=== PATIENT | female | born 1950 | race American Indian/Alaskan Native ===

== ENCOUNTER → 2019-11-22 12:07 | Outpatient (BNVA) | payer MEDICARE, MEDICAID, SELFPAY | PROVIDERS: Family Provider Family Medicine; PCP Family Medicine; Referring Provider Family Medicine; Visit Provider Specialist | DX: G62.9 Polyneuropathy, unspecified (principal); F17.210 Nicotine dependence, cigarettes, uncomplicated | CPT/HCPCS: 99204 ==

== ENCOUNTER → 2019-12-14 14:19 | Outpatient (BNVA) | payer MEDICARE, MEDICAID, SELFPAY | PROVIDERS: Family Provider Family Medicine; PCP Family Medicine; Visit Provider Podiatrist Foot & Ankle Surgery | DX: M79.671 Pain in right foot (principal) | CPT/HCPCS: 73630 ==

== ENCOUNTER 2021-02-02 23:13 | Inpatient (IN) | payer MEDICARE, MEDICAID, SELFPAY ==
[2021-02-02 23:16] VITALS: BP 113/79; PULSE 104; RESP 32; TEMP 36.6; O2SAT 85; BMI 39.0
--- NOTE | 2021-02-02 23:29 | ECG_ITS ---
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 Measurements Intervals [place] Rate: 96 P: 60 OK: 175 QRS: 38 QRSD: 106 T: 51 QT: 375 QTc: 475 Interpretive Statements SINUS RHYTHM POSSIBLE LEFT ATRIAL ENLARGEMENT [-0.1mV P WAVE IN V1/V2] INCOMPLETE RIGHT BUNDLE BRANCH BLOCK [90+ ms QRS DURATION, TERMINAL R IN V1/V2, 40+ ms S IN I/aVL/V4/V5/V6] Compared to ECG 06/01/2019 16:51:26 No significant changes Electronically Signed On 02-03-2021 18:58:00 CDT by Ana Jni M.D. [id number]
--- NOTE | 2021-02-02 23:29 | XRR_ITS ---
PROCEDURE INFORMATION: Exam: XR Chest Exam date and time: 02/02/2021 11:29 PM Age: 71 years old Clinical indication: Dyspnea; Additional info: SOB TECHNIQUE: Imaging protocol: XR of the chest. Views: 1 view. COMPARISON: CR Chest 1 [place] [id number] 06/01/2019 5:01 PM FINDINGS: Lungs: Unremarkable. No consolidation. Pleural spaces: Unremarkable. No pleural effusion. No pneumothorax. Heart/Mediastinum: Unremarkable. No cardiomegaly. Bones/joints: Unremarkable. Other findings: Lordotic chest x-ray. XR/XR chest 1V portable [id number] IMPRESSION: No acute findings.
[2021-02-02 23:32] VITALS: PULSE 102; RESP 18; O2SAT 90
[2021-02-02 23:47] LABS: Basophils # 0.1 10^3/uL (0.0-0.1); Basophils % 0.5 %; Eosinophils # 0.2 10^3/uL (0.0-0.8); Eosinophils % 1.7 %; Hematocrit 42.1 % (37.0-47.0); Hemoglobin 12.5 g/dL (11.5-15.3); Lymphocytes # 4.7 10^3/uL (0.8-4.8); Lymphocytes % 41.1 %; Mean Corpuscular HGB Conc 29.7 g/dL (30.0-36.0); Mean Corpuscular Hemoglobin 27.4 pg (28.0-34.0); Mean Corpuscular Volume 92.3 fL (81-99); Mean Platelet Volume 10.7 fL (7.4-10.4); Monocytes # 1.1 10^3/uL (0.2-0.9); Monocytes % 9.9 %; Neutrophils # 5.26 10^3/uL (1.8-7.7); Neutrophils % 46.4 %; Nucleated Red Blood Cells % 0 %; Platelet Count 277 10^3/cmm (130-400); Red Blood Count 4.56 10^6/uL (4.1-5.3); Red Cell Distribution Width 15.6 % (12.1-15.1); White Blood Count 11.3 10^3/uL (4.0-10.0)
[2021-02-02 23:57] LABS: D Dimer 2.86 ug/mIFEU (0-0.59)
[2021-02-02] MEDS: ipratropium-albuterol 3 mL Neb INHALATION (23:59)
[2021-02-03] VITALS (49 sets, daily range): BP systolic 92–186; BP diastolic 55–132; PULSE 86–105; RESP 15–30; TEMP 36.5–37; O2SAT 90–99; BMI 44.6
[2021-02-03 00:09] LABS: ABG PCO2 61.9 mmHg (35-45); ABG PH Result 7.27 (7.35-7.45); Arterial Blood Gas Hematocrit 38.4 % (37-47); Base Excess ABG 0.6 mmol/L (-2.0-2.0); Blood Gas Allen Test Pos; Blood Gas Sample Site Radial, right; Blood Gas Sample Type Arterial; Carboxyhemoglobin 11.4 %THgb (0.4-20.1); HCO3 ABG 28.7 mmol/L (22-26); HGB O2 Sat 79.6 % (95-100); Methemoglobin 0.9 % (0.4-1.5); Oxygen Device NC; PO2 ABG 63.9 mmHg (80.0-100.0); Total Hemoglobin 12.5 g/dL (12-16)
--- NOTE | 2021-02-03 00:09 | CTR_ITS ---
PROCEDURE INFORMATION: Exam: CTA Chest With Contrast Exam date and time: 02/03/2021 12:09 AM Age: 71 years old Clinical indication: Abnormal findings; Abnormal diagnostic tests; Elevated d-dimer; Additional info: Chest pain TECHNIQUE: Imaging protocol: Computed tomographic angiography of the chest with contrast. 3D rendering (Not supervised by radiologist): MIP and/or 3D reconstructed images were created by the technologist. Radiation optimization: All CT scans at this facility use at least one of these dose optimization techniques: automated exposure control; mA and/or kV adjustment per patient size (includes targeted exams where dose is matched to clinical indication); or iterative reconstruction. Contrast material: OMNI 350; Contrast volume: 95 ml; Contrast route: INTRAVENOUS (IV); COMPARISON: CTA Chest-Pulmonary Emb [id number] 11/08/2018 11:25 AM RADIATION DOSE METRICS: Total DLP (mGy-cm): 615.51 FINDINGS: Pulmonary arteries: No pulmonary embolus or aortic dissection. Aorta: Unremarkable. No aortic aneurysm. No aortic dissection. Great vessels off aortic arch: Calcification of the thoracic aorta and/or great vessels consistent with atherosclerotic vessel disease. Lungs: Unremarkable. No consolidation. No masses. Pleural spaces: Unremarkable. No pneumothorax. No pleural effusion. Heart: Unremarkable. No cardiomegaly. No pericardial effusion. Lymph nodes: Unremarkable. No enlarged lymph nodes. Kidneys and ureters: Right renal simple cyst measuring >1.0 cm . Stable 2.5 cm fatty lesion upper pole left kidney most consistent with angiomyolipoma. Bones/joints: Unremarkable. No acute fracture. Soft tissues: Unremarkable. CT/CT angio chest PE protcl [id number] IMPRESSION: No pulmonary embolus or aortic dissection. COMMENTS: Consistent with the [employer]'s Incidental Findings Committee white paper ([place] Radiol 2018): Any incidental renal lesion less than 1 cm or classified as too small to characterize, or any incidental cystic renal lesion characterized as simple-appearing, is likely benign. No follow-up imaging is recommended for these lesions per consensus recommendations based on imaging criteria. Radiation Dose CTDIVOL = (mGy): DLP = 615.51 (mGy-cm)
[2021-02-03 00:10] LABS: NT Pro B Type Natriuretic Pept 33 pg/mL (0-125); Procalcitonin 0.05 ng/mL (0-0.5)
[2021-02-03 00:11] LABS: Lactic Sepsis W/Reflex 2.6 mmol/L (0.5-2.2)
[2021-02-03 00:21] LABS: Alanine Aminotransferase 10 U/L (0-33); Albumin Level 4.3 g/dL (3.5-5.2); Alkaline Phosphatase 171 IU/L (35-105); Aspartate Amino Transferase 15 U/L (0-32); Blood Urea Nitrogen 15 mg/dL (8-23); C Reactive Protein 13.1 mg/L (0.0-4.9); Calcium 8.5 mg/dL (8.5-10.5); Carbon Dioxide 23 mmol/L (22-29); Chloride 103 mmol/L (98-107); Creatinine Clr Calc Pharmacy 62.8696; Globulin 2.4 g/dL (1.3-4.6); Glucose 119 mg/dL (65-115); Osmolality Calculated 294 mOsm/kg (285-295); Sodium 141 mmol/L (136-145); Total Bilirubin 0.2 mg/dL (0.15-1.2); Total Protein 6.7 g/dL (6.6-8.7)
[2021-02-03 00:24] LABS: Anion Gap 18.7 (5-19); Potassium 3.7 mmol/L (3.5-5.1)
[2021-02-03 00:31] LABS: SARS Covid-2 Antigen Negative (Negative)
--- NOTE | 2021-02-03 00:46 | ED_ITS ---
HPI - SOB/Dyspnea General: Chief Complaint: Shortness of Breath/Dyspnea Stated Complaint: SOB Time Seen by Provider: 02/02/21 23:19 History of Present Illness: HPI Narrative: 71-year-old female who smokes 2 packs a day. She has a history of COPD. She presents short of breath and wheezing. Has been increasing over the last couple of days. She denies any fever. She has some sputum production that is white. She states she has received both of her Covid vaccines. She called an ambulance tonight short of breath. MD elicited complaint: shortness of breath Pertinent past history: COPD Onset (ago): day(s) Context: CO exposure (from smoking) Timing: constant and progressively worsening Severity: moderate Exacerbating factors: lying flat, coughing and inspiration Relieving factors: oxygen and bronchodilators Associated symptoms: Reports chest congestion, cough, dizziness and nausea; Deny chest pain, fever(s) or vomiting Treatment prior to arrival: oxygen Review of Systems Const: Denies: fever(s) Card: Denies: chest pain or swelling of feet/ankles Resp: Reports: dyspnea, productive cough, wheezing and chest congestion GI: Reports: nausea; Denies: vomiting Neuro: Reports: dizziness; Denies: confusion PFSH ED PFSH: Family History Other Cancer Social History Smoking and tobacco status: current every day smoker cigarettes Packs smoked per day: 1 Alcohol intake: never Caregiver/support person: No Lives independently: Yes Marital status: Single Physical Exam Const: GENERAL APPEARANCE: ill appearing, frail appearing and diaphoretic ORIENTATION/CONSCIOUSNESS: Yes oriented to person, Yes oriented to place and Yes oriented to time HENMT: COMMON NORMALS: normocephalic, external ears normal and Normal external nose present HEAD & SCALP: normocephalic FACE & SINUS: normal facial exam NOSE: Normal external nose present and No nasal discharge present EXTERNAL EAR: Yes external ears normal Eye: COMMON NORMALS: Equal, round and reactive pupils present, EOMs intact bilaterally and conjunctivae normal EYELID: eyelids normal CONJUNCTIVA: Yes conjunctivae normal PUPIL: Yes Equal, round and reactive pupils present Neck/C-Spine: GENERAL: No tracheal deviation Chest: COMMONS NORMALS: normal inspection of the chest CHEST: No tenderness Resp: COMMON NORMALS: negative for clear to auscultation bilaterally EFFORT & INSPECTION: No tachypneic, No respiratory distress, No retractions, No uses accessory muscles and No tracheal deviation AUSCULTATION: not clear to auscultation bilaterally, rhonchi, wheezes and diminished lung sounds Cardio: COMMON NORMALS: regular rhythm RATE: tachycardic RHYTHM: regular rhythm HEART SOUNDS: no murmurs PERIPHERAL PULSES: radial pulses present GI: INSPECTION: No abdominal distension AUSCULTATION: No Hyperactive bowel sounds present and No Hypoactive bowel sounds present PALPATION: No Guarding due to palpation present (GI) and No Rigid due to palpation PERCUSSION: no dullness to percussion and no tympanic to percussion Neuro: SENSORIUM/ORIENTATION: Yes oriented to person, Yes oriented to place and Yes oriented to time Psych: COMMON NORMALS: mental status grossly normal Skin: COMMON NORMALS: no rashes or lesions noted GENERAL SKIN EXAM: no rashes or lesions noted Course Vital Signs: Vital signs: Vital Signs Temperature 97.9 F 02/02/21 23:16 Pulse Rate 89 02/03/21 02:54 Respiratory Rate 17 02/03/21 02:54 Blood Pressure 124/85 02/03/21 02:54 Pulse Oximetry 98 02/03/21 02:54 MDM - SOB/Dyspnea MDM Narrative: Medical decision making narrative: 71-year-old female presents with shortness of breath, cough, and wheezing. No fever she has had her Covid vaccinations. White count 11.3. Other BMP indices are benign. On blood gas testing, pH 7.27 with a PCO2 of 62. PO2 is 64 on 5 L. The patient usually does not use oxygen. Her D-dimer is 2800. Chest x-ray is free of consolidation. Her rapid COVID-19 test is negative. CTA is pending. She is placed on BiPAP, given a DuoNeb treatment, Solu-Medrol was given in route to the hospital. She became nauseated and vomited 1 time, because of this, BiPAP was removed. She is put on high flow nasal cannula and is improved. Require ICU admission CTA of the chest was performed and is negative. Lab Data: Labs: Lab Results 02/02/21 02/02/21 02/02/21 Range/Units 00:00 23:29 23:29 WBC 11.3 H (4.0-10.0) 10^3/ uL RBC 4.56 (4.1-5.3) 10^6/u L Hgb 12.5 (11.5-15.3) g/dL Hct 42.1 (37.0-47.0) % MCV 92.3 (81-99) fL MCH 27.4 L (28.0-34.0) pg MCHC 29.7 L (30.0-36.0) g/dL RDW 15.6 H (12.1-15.1) % Plt Count 277 (130-400) 10^3/c mm MPV 10.7 H (7.4-10.4) fL Neut % (Auto) 46.4 % Lymph % (Auto) 41.1 % Terry % (Auto) 9.9 % Eos % (Auto) 1.7 % Baso % (Auto) 0.5 % Neut # (Auto) 5.26 (1.8-7.7) 10^3/u L Lymph # (Auto) 4.7 (0.8-4.8) 10^3/u L Terry # (Auto) 1.1 H (0.2-0.9) 10^3/u L Eos # (Auto) 0.2 (0.0-0.8) 10^3/u L Baso # (Auto) 0.1 (0.0-0.1) 10^3/u L Nucleated RBC % (a uto) 0 % Nucleated RBCs # 0.0 /100WBC D-Dimer 2.86 H (0-0.59) ug/mIFE U Specimen Type Arterial Sample Site Radial, right ABG pH 7.27 L (7.35-7.45) ABG pCO2 61.9 H* (35-45) mmHg ABG pO2 63.9 L (80.0-100.0) mmH g ABG HCO3 28.7 H (22-26) mmol/L ABG Base Excess 0.6 (-2.0-2.0) mmol/ L Venkat Test Pos Hematocrit 38.4 (37-47) % Hgb O2 Saturation 79.6 L (95-100) % Carboxyhemoglobin 11.4 (0.4-20.1) %THgb Methemoglobin 0.9 (0.4-1.5) % Total Hemoglobin 12.5 (12-16) g/dL O2 Delivery Device Nc O2 Liters/Min 5.0 % Geology Teacher ID [email or web address] Sodium (136-145) mmol/L Potassium (3.5-5.1) mmol/L Chloride (98-107) mmol/L Carbon Dioxide (22-29) mmol/L Anion Gap (5-19) BUN (8-23) mg/dL Creatinine (0.5-0.9) mg/dL GFR Calculation Glucose (65-115) mg/dL Calculated Osmolal ity (285-295) mOsm/k g Lactic Acid (0.5-2.2) mmol/L Calcium (8.5-10.5) mg/dL Total Bilirubin (0.15-1.2) mg/dL AST (0-32) U/L ALT (0-33) U/L Alkaline Phosphata se (35-105) IU/L C-Reactive Protein (0.0-4.9) mg/L NT-Pro-B Natriuret Pep (0-125) pg/mL Total Protein (6.6-8.7) g/dL Albumin (3.5-5.2) g/dL Globulin (1.3-4.6) g/dL Procalcitonin (0-0.5) ng/mL SARS-CoV-2 Ag (Rap id) (Negative) 02/02/21 02/02/21 02/02/21 Range/Units 23:29 23:29 23:35 WBC (4.0-10.0) 10^3/ uL RBC (4.1-5.3) 10^6/u L Hgb (11.5-15.3) g/dL Hct (37.0-47.0) % MCV (81-99) fL MCH (28.0-34.0) pg MCHC (30.0-36.0) g/dL RDW (12.1-15.1) % Plt Count (130-400) 10^3/c mm MPV (7.4-10.4) fL Neut % (Auto) % Lymph % (Auto) % Terry % (Auto) % Eos % (Auto) % Baso % (Auto) % Neut # (Auto) (1.8-7.7) 10^3/u L Lymph # (Auto) (0.8-4.8) 10^3/u L Terry # (Auto) (0.2-0.9) 10^3/u L Eos # (Auto) (0.0-0.8) 10^3/u L Baso # (Auto) (0.0-0.1) 10^3/u L Nucleated RBC % (a uto) % Nucleated RBCs # /100WBC D-Dimer (0-0.59) ug/mIFE U Specimen Type Sample Site ABG pH (7.35-7.45) ABG pCO2 (35-45) mmHg ABG pO2 (80.0-100.0) mmH g ABG HCO3 (22-26) mmol/L ABG Base Excess (-2.0-2.0) mmol/ L Venkat Test Hematocrit (37-47) % Hgb O2 Saturation (95-100) % Carboxyhemoglobin (0.4-20.1) %THgb Methemoglobin (0.4-1.5) % Total Hemoglobin (12-16) g/dL O2 Delivery Device O2 Liters/Min % Geology Teacher ID Sodium 141 (136-145) mmol/L Potassium 3.7 (3.5-5.1) mmol/L Chloride 103 (98-107) mmol/L Carbon Dioxide 23 (22-29) mmol/L Anion Gap 18.7 (5-19) BUN 15 (8-23) mg/dL Creatinine 0.7 (0.5-0.9) mg/dL GFR Calculation Not Reportable Glucose 119 H (65-115) mg/dL Calculated Osmolal ity 294 (285-295) mOsm/k g Lactic Acid 2.6 H (0.5-2.2) mmol/L Calcium 8.5 (8.5-10.5) mg/dL Total Bilirubin 0.2 (0.15-1.2) mg/dL AST 15 (0-32) U/L ALT 10 (0-33) U/L Alkaline Phosphata se 171 H (35-105) IU/L C-Reactive Protein 13.1 H (0.0-4.9) mg/L NT-Pro-B Natriuret Pep 33 (0-125) pg/mL Total Protein 6.7 (6.6-8.7) g/dL Albumin 4.3 (3.5-5.2) g/dL Globulin 2.4 (1.3-4.6) g/dL Procalcitonin 0.05 (0-0.5) ng/mL SARS-CoV-2 Ag (Rap id) Negative (Negative) Critical Care Time Critical Care Time: Critical Care Time: Yes Total Critical Care Time: 40 Attestation: This case had a high probability of a clinically significant, sudden, or life threatening deterioration of this patient's condition which required my full and direct attention, intervention and personal management. 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
[2021-02-03] MEDS: midazolam 1 mg/mL INJ 2 mL 2 MG IVP (00:56)
[2021-02-03 01:29] LABS: Reflex Lactate Order REFLEX LACTIC ORDERD
[2021-02-03] MEDS: ondansetron 2 mg/ML SDV 2 mL 4 MG IVP (01:34)
[2021-02-03 04:24] LABS: Alcohol Level 169 mg/dL (0-10)
--- NOTE | 2021-02-03 05:30 | PC.NURSE ---
Patient Refused Cardiac Monitoring Patient refused cardiac monitoring, rolling around the bed and waving her hands whenever nurse attempted to attach monitoring leads.
--- NOTE | 2021-02-03 06:12 | PC.NURSE ---
Shift Summary Patient had one episode of nausea and threw up. She is alert and oriented x2. She has an IV to the right AC that is saline locked. Patient is currently rocking back and forth on the bed reporting pain in her legs and shouting ow, ow, ow . Patient belongings include wallet, watch, bracelet, rings, shoes, dentures, and clothes which are at bedside.
--- NOTE | 2021-02-03 06:37 | P.HP_ITS ---
Providers/Chief Complaint Admitting Physician: Shannon Corral MD Primary Care Provider: Rayray Orozco MD Chief Complaint: SOB History of Present Illness Daina Pierre is a 71 year old female with PMH as outlined below, history of chronic smoking, at least 2 packs/day who presented to the emergency room today with chief complaints of worsening shortness of breath over the past 3 to 4 days along with increased sputum production. She was noted to have O2 sat of 84% upon presentation to the ER. ABG consistent with acute hypercapnic respiratory failure. She was placed on BiPAP with some relief, however then had one episode of vomiting and BiPAP needed to be taken off. She is thereafter maintained on high flow nasal cannula. She does have some degree of respiratory distress. CTA of the chest was performed due to elevated D-dimer, negative for any PE or consolidation. She is vaccinated for Covid. Rapid antigen is negative. Denies any chest pain dyspnea or palpitations.EKG with sinus rhythm and incomplete right bundle branch block, unchanged since 2019. Review of Systems General: Reports: ROS unobtainable due to medical condition Medications/Allergies Home Medications Medication Instructions Recorded Confirmed Last Taken Type albuterol sulfate 1.25 mg/3 mL 1.25 mg INHALATION QID PRN 11/22/19 Unknown History solution for nebulization aspirin 81 mg tablet,delayed 81 mg PO DAILY 11/22/19 Unknown History release atorvastatin 10 mg tablet 10 mg PO DAILY 11/22/19 11/22/19 Unknown History coenzyme Q10 10 mg capsule 10 mg PO TID 11/22/19 Unknown History echinacea 400 mg capsule 400 mg PO TID 11/22/19 Unknown History esomeprazole magnesium 40 mg 40 mg PO DAILY 11/22/19 11/22/19 Unknown History capsule,delayed release hydrocodone 5 mg-acetaminophen 325 1 tab PO Q6H PRN 11/22/19 11/22/19 Unknown History mg tablet lysine 500 mg tablet 500 mg PO DAILY 11/22/19 Unknown History magnesium oxide 400 mg PO DAILY 11/22/19 Unknown History metoprolol succinate 25 mg 12.5 mg PO DAILY 11/22/19 11/22/19 Unknown History tablet,extended release 24 hr metoprolol succinate 25 mg 25 mg PO DAILY 11/22/19 11/22/19 Unknown History tablet,extended release 24 hr potassium chloride 10 mEq 10 meq PO DAILY 11/22/19 11/22/19 Unknown History capsule,extended release trazodone 50 mg tablet 100 mg PO DAILY tab 11/22/19 11/22/19 Unknown History vitamin E (dl, acetate) 100 unit 100 unit PO DAILY 11/22/19 Unknown History capsule buspirone 15 mg tablet 15 mg PO TID 12/14/19 12/14/19 Unknown History lisinopril 20 mg tablet 20 mg PO BID tab 12/14/19 12/14/19 Unknown History venlafaxine 150 mg 150 mg PO DAILY 12/14/19 12/14/19 Unknown History capsule,extended release 24 hr Allergies Allergy/AdvReac Type Severity Reaction Status Date / Time Penicillins Allergy Unknown Verified 02/02/21 23:32 procaine [From Novocain] Allergy Unknown Verified 02/02/21 23:32 PFSH Acute PFSH: Medical History (Updated 02/03/21 @ 06:45 by Shannon Corral MD) Abnormal EKG Abnormal laboratory test result Anxiety disorder Cervical cancer Deficient knowledge of open reduction and internal (ORIF) fixation of hip Depression Encounter for diagnostic endoscopy GERD (gastroesophageal reflux disease) HTN (hypertension) Kidney stones Ovarian cancer Surgical History (Updated 02/03/21 @ 06:42 by Shannon Corral MD) H/O lumpectomy H/O right knee surgery History of back surgery History of knee replacement Family History Other Cancer Social History Smoking and tobacco status: current every day smoker cigarettes Packs smoked per day: 1 Alcohol intake: never Caregiver/support person: No Lives independently: Yes Marital status: Single Vitals/I&O/Wt Last Vital Signs Temp 97.9 F 02/02/21 23:16 Pulse 104 H 02/03/21 03:27 Resp 25 H 02/03/21 03:27 BP 127/81 02/03/21 03:27 Pulse Ox 95 02/03/21 03:27 Weight last 48 hrs Weight 103.674 kg Weight 90.718 kg Physical Exam Narrative: EXAM NARRATIVE: General: Currently on Bipap, oriented x 3 HEENT: PERRLA, pupils bilaterally equal and reactive, pallors not present Chest: Normal vesicular breath sounds, no added sounds, equal good air entry bilaterally CVS: S1-S2 regular, no murmurs, no tachycardia, no gallops, no rubs Abdomen: Soft, nontender, no organomegaly, bowel sounds present Neuro: No focal deficits, no facial deformity, AO x3, power 5/5 in all limbs Data : 02/02/21 23:29 02/02/21 23: Attestation for Other Data: I personally reviewed and interpreted the following: Other data: Laboratory Results WBC 11.3 10^3/uL (4.0-10.0) H 02/02/21 23: RBC 4.56 10^6/uL (4.1-5.3) 02/02/21 23: Hgb 12.5 g/dL (11.5-15.3) 02/02/21 23: Hct 42.1 % (37.0-47.0) 02/02/21 23: MCV 92.3 fL (81-99) 02/02/21 23: MCH 27.4 pg (28.0-34.0) L 02/02/21 23: MCHC 29.7 g/dL (30.0-36.0) L 02/02/21 23: RDW 15.6 % (12.1-15.1) H 02/02/21 23: Plt Count 277 10^3/cmm (130-400) 02/02/21 23: MPV 10.7 fL (7.4-10.4) H 02/02/21 23: Neut % (Auto) 46.4 % 02/02/21 23: Lymph % (Auto) 41.1 % 02/02/21 23: [place] % (Auto) 9.9 % 02/02/21 23: Eos % (Auto) 1.7 % 02/02/21 23: Baso % (Auto) 0.5 % 02/02/21: Neut # (Auto) 5.26 10^3/uL (1.8-7.7) 02/02/21 23: Lymph # (Auto) 4.7 10^3/uL (0.8-4.8) 02/02/21: [place] # (Auto) 1.1 10^3/uL (0.2-0.9) H 02/02/21 23:29 Eos # (Auto) 0.2 10^3/uL (0.0-0.8) 02/02/21 23:29 Baso # (Auto) 0.1 10^3/uL (0.0-0.1) 02/02/21 23:29 Nucleated RBC % (auto) 0 % 02/02/21 23: Nucleated RBCs # 0.0 /100WBC 02/02/21 23: D-Dimer 2.86 ug/mIFEU (0-0.59) H 02/02/21 23:29 Specimen Type Arterial 02/02/21 00:00 Sample Site Radial, right 02/02/21 00:00 ABG pH 7.27 (7.35-7.45) L 02/02/21 00:00 ABG pCO2 61.9 mmHg (35-45) H* 02/02/21 00:00 ABG pO2 63.9 mmHg (80.0-100.0) L 02/02/21 00:00 ABG HCO3 28.7 mmol/L (22-26) H 02/02/21 00:00 ABG Base Excess 0.6 mmol/L (-2.0-2.0) 02/02/21 00:00 Venkat Test Pos 02/02/21 00:00 Hematocrit 38.4 % (37-47) 02/02/21 00:00 Hgb O2 Saturation 79.6 % (95-100) L 02/02/21 00:00 Carboxyhemoglobin 11.4 %THgb (0.4-20.1) 02/02/21 00:00 Methemoglobin 0.9 % (0.4-1.5) 02/02/21 00:00 Total Hemoglobin 12.5 g/dL (12-16) 02/02/21 00:00 O2 Delivery Device Nc 02/02/21 00:00 O2 Liters/Min 5.0 % 02/02/21 00:00 Psychological Science Professor ID [email or web address] 02/02/21 00:00 Sodium 141 mmol/L (136-145) 02/02/21 23:29 Potassium 3.7 mmol/L (3.5-5.1) 02/02/21 23: Chloride 103 mmol/L (98-107) 02/02/21 23:29 Carbon Dioxide 23 mmol/L (22-29) 02/02/21 23:29 Anion Gap 18.7 (5-19) 02/02/21 23: BUN 15 mg/dL (8-23) 02/02/21 23:29 Creatinine 0.7 mg/dL (0.5-0.9) 02/02/21 23: GFR Calculation Not Reportable 02/02/21 23: Glucose 119 mg/dL (65-115) H 02/02/21 23:29 Calculated Osmolality 294 mOsm/kg (285-295) 02/02/21 23: Lactic Acid 2.6 mmol/L (0.5-2.2) H 02/02/21: Calcium 8.5 mg/dL (8.5-10.5) 02/02/21: Total Bilirubin 0.2 mg/dL (0.15-1.2) 02/02/21: AST 15 U/L (0-32) 02/02/21: ALT 10 U/L (0-33) 02/02/21 23: Alkaline Phosphatase 171 IU/L (35-105) H 02/02/21 23:29 C-Reactive Protein 13.1 mg/L (0.0-4.9) H 02/02/21 23: NT-Pro-B Natriuret Pep 33 pg/mL (0-125) 02/02/21 23: Total Protein 6.7 g/dL (6.6-8.7) 02/02/21 23: Albumin 4.3 g/dL (3.5-5.2) 02/02/21 23: Globulin 2.4 g/dL (1.3-4.6) 02/02/21 23: Procalcitonin 0.05 ng/mL (0-0.5) 02/02/21 23: Ethyl Alcohol 169 mg/dL (0-10) H 02/03/21 03:29 SARS-CoV-2 Ag (Rapid) Negative (Negative) 02/02/21 23:35 Impressions Chest X-Ray 02/02/21 23:29 IMPRESSION: No acute findings. Chest CTA 02/03/21 00:09 IMPRESSION: No pulmonary embolus or aortic dissection. COMMENTS: Consistent with the [employer]'s Incidental Findings Committee white paper ([place] Radiol 2018): Any incidental renal lesion less than 1 cm or classified as too small to characterize, or any incidental cystic renal lesion characterized as simple-appearing, is likely benign. No follow-up imaging is recommended for these lesions per consensus recommendations based on imaging criteria. Radiation Dose CTDIVOL = (mGy): DLP = 615.51 (mGy-cm) 02/02/21 00:00 ABG pH 7.27 L ABG pCO2 61.9 H* ABG pO2 63.9 L ABG HCO3 28.7 H ABG Base Excess 0.6 A&P Assessment and plan (1) Acute exacerbation of chronic obstructive airways disease: Acute on chronic COPD exacerbation Scheduled nebulization with DuoNeb and budesonide Solu-Medrol 60 mg IV every 12 hours CTA without PE, no consolidation noted Pro-Marcus negative Rapid Covid antigen negative, patient is vaccinated for COVID-19 lower suspicion Repeat ABG with a.m. labs Status: Acute (2) Respiratory failure with hypoxia and hypercapnia: Status: Acute Qualifiers: Chronicity: acute Qualified Code(s): J96.01 - Acute respiratory failure with hypoxia; J96.02 - Acute respiratory failure with hypercapnia (3) Alcohol intoxication: On a CIWA protocol, Ativan per CIWA protocol Monitor for signs of alcohol withdrawal Status: Acute Qualifiers: Complication of substance-induced condition: uncomplicated Qualified Code(s): F10.920 - Alcohol use, unspecified with intoxication, uncomplicated Additional A&P Information Continue home medications including aspirin, statin, metoprolol Dvt ppx: lovenox full code Attestations Medical Necessity Statement*: > 2midnight admission anticipated for above defined care Coding Level of Care Code 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
[2021-02-03 06:56] LABS: ABG PH Result 7.22 (7.35-7.45); Arterial Blood Gas Hematocrit 37.9 % (37-47); Base Excess ABG 0.4 mmol/L (-2.0-2.0); Blood Gas Allen Test Pos; Blood Gas Sample Type Arterial; Carboxyhemoglobin 2.9 %THgb (0.4-20.1); HCO3 ABG 29.9 mmol/L (22-26); HGB O2 Sat 93.6 % (95-100); Ionized Calcium Level - ABG 1.2 mmol/L (1.1-1.4); Methemoglobin 0.9 % (0.4-1.5); Oxygen Saturation ABG 97.3; Potassium Level - ABG 4.5 mmol/L (3.5-5.0); Total Hemoglobin 12.4 g/dL (12-16)
[2021-02-03 06:57] LABS: Blood Gas Sample Site Radial, right; Oxygen Device NC
[2021-02-03 07:23] LABS: ABG PCO2 73.1 mmHg (35-45)
[2021-02-03] MEDS: BuSPIRONE 10 mg Tablet 15 MG PO (08:11)
[2021-02-03] MEDS: trazodone 50 mg Tablet 100 MG PO (08:11)
[2021-02-03] MEDS: thiamine 100 mg Tablet PO (08:11)
[2021-02-03] MEDS: aspirin 81 mg EC Tablet PO (08:11)
[2021-02-03] MEDS: folic acid 1 mg Tablet PO (08:11)
[2021-02-03] MEDS: venlafaxine ER (24HR) 150 mg Capsule PO (08:11)
[2021-02-03] MEDS: pantoprazole DR 40 mg Tablet PO (08:11)
[2021-02-03] MEDS: metoprolol succinate ER (24 HR) 25 mg Tablet 12.5 MG PO (08:11)
[2021-02-03] MEDS: enoxaparin 40 mg/0.4 mL Syringe SUBCUT (08:12)
[2021-02-03] MEDS: atorvastatin 40 mg Tablet 20 MG PO (08:14)
[2021-02-03] MEDS: multivitamin therapeutic Tablet 1 TAB PO (08:14)
[2021-02-03] MEDS: lisinopril 20 mg Tablet PO ×2 (08:15→18:46)
[2021-02-03] MEDS: ipratropium-albuterol 3 mL Neb INHALATION ×3 (09:41→20:31)
--- NOTE | 2021-02-03 11:09 | PC.NURSE ---
Pt agreed to go back on bipap. We are needing a blood gas after she has been on bipap for at least one hour. Gas that was drawn this am was on nasal cannula. RT notified.
[2021-02-03 11:58] LABS: ABG PH Result 7.25 (7.35-7.45); Alveolar-Arterial Oxygen Gradi 21.8 mmHg (5-10); Arterial Blood Gas Hematocrit 38.2 % (37-47); Base Excess ABG 2.3 mmol/L (-2.0-2.0); Blood Gas Allen Test Pos; Blood Gas Operator Identificat BD; Blood Gas Sample Site Radial, right; Blood Gas Sample Type Arterial; Carboxyhemoglobin 1.2 %THgb (0.4-20.1); HCO3 ABG 31.3 mmol/L (22-26); HGB O2 Sat 94.4 % (95-100); Ionized Calcium Level - ABG 1.3 mmol/L (1.1-1.4); Methemoglobin 0.7 % (0.4-1.5); Oxygen Saturation ABG 96.3; Potassium Level - ABG 5.3 mmol/L (3.5-5.0); Total Hemoglobin 12.5 g/dL (12-16)
[2021-02-03 11:59] LABS: ABG PCO2 71.2 mmHg (35-45)
--- NOTE | 2021-02-03 12:39 | P.PN_ITS ---
Subjective Subjective: Interval history: Patient was seen in the ICU, she did not use BiPAP overnight, this morning she was very irritable and agitated however able to answer my questions on repetition. Asked respiratory therapist to start BiPAP right away and obtain blood gas an hour which showed slight improvement in PaCO2 pH 7.25 Discussed goals of care with the patient she is full code She stated that she would drink 4 shots of vodka occasionally and never had any issues with alcohol withdrawal, she smokes 1 pack/day She does not use oxygen at home H&P reviewed, CT result reviewed Vitals/I&O/Wt Last Vital Signs Temp 97.9 F 02/02/21 23:16 Pulse 88 02/03/21 11:25 Resp 16 02/03/21 10:00 BP 149/95 02/03/21 10:00 Pulse Ox 98 02/03/21 11:25 Weight last 48 hrs Weight 103.674 kg Weight 90.718 kg Physical Exam Narrative: EXAM NARRATIVE: Elderly female Alcohol intoxicated with somnolent behavior Able to answer my questions on repetition No acute neurological deficits S1, S2 sinus rhythm no murmur appreciated Bilateral diminished breath sounds with mild wheezing Soft abdomen no signs of peritonitis Lower extremity no edema No joint swelling or signs of cellulitis Data : 02/02/21 23:29 02/02/21 23:29 A&P Assessment and plan (1) Alcohol intoxication: Status: Acute Qualifiers: Complication of substance-induced condition: uncomplicated Qualified Code(s): F10.920 - Alcohol use, unspecified with intoxication, uncomplicated (2) Acute exacerbation of chronic obstructive airways disease: Status: Acute (3) Respiratory failure with hypoxia and hypercapnia: Status: Acute Qualifiers: Chronicity: acute Qualified Code(s): J96.01 - Acute respiratory failure with hypoxia; J96.02 - Acute respiratory failure with hypercapnia Additional A&P Information Acute COPD exacerbation Acute hypoxic hypercarbic respiratory failure Etiology seems secondary to active smoking and alcohol intoxication CTA rule out PE no active signs of consolidation Continue DuoNeb every 4 as needed Change her IV steroids to prednisone 40 mg tomorrow Procalcitonin unremarkable, hold off on antibiotics, can use a azithromycin for anti-inflammatory effect Currently requiring BiPAP Noncompliant with BiPAP, will obtain another blood gas at 4:00PM, high risk for intubation Will need home O2 evaluation before discharge Active smoker Patient counseled on smoking cessation, she is willing to quit alcohol and smoking altogether Alcohol intoxication Continue thiamine and folic acid, no active withdrawal symptoms, continue CIWA protocol Neuropathy: Fibromyalgia was being considered however sensory neuropathy findings were seen on nerve conduction studies Goals of care discussed with the patient, full code Consistent carb diet start when she is more alert Bunion of feet with hammertoes, follows up with podiatry, conservative manage ment Attestations Medical Necessity Statement*: Anticipating stay in the hospital cross more than 2 midnights for management of COPD exacerbation Time Spent in Patient Care: (>than 50% of time spent in counselling and/or direct pt care on unit) . 30mins Coding Level of Care Code Acute [employer] Installations [employer]ic for [employer] Diagnoses Alcohol intoxication F10.920 Complication of substance-induced condition: uncomplicated Acute exacerbation of chronic obstructive airways disease J44.1 Respiratory failure with hypoxia and hypercapnia J96.01; J96.02 Chronicity: acute
--- NOTE | 2021-02-03 13:17 | PC.NURSE ---
Blood gases show slight improvement. Remains on bipap and comfortable.
--- NOTE | 2021-02-03 15:01 | PC.NURSE ---
Staff reached pt sister, per her request, to ask her to take care of her dog. Sister was in apartment at the time she was called, piching up the dog.
[2021-02-03 15:02] LABS: ABG PCO2 58.7 mmHg (35-45); ABG PH Result 7.33 (7.35-7.45); Alveolar-Arterial Oxygen Gradi 13.4 mmHg (5-10); Arterial Blood Gas Hematocrit 38.9 % (37-47); Base Excess ABG 3.7 mmol/L (-2.0-2.0); Blood Gas Allen Test Pos; Blood Gas Operator Identificat BD; Blood Gas Sample Site Brachial, right; Blood Gas Sample Type Arterial; Carboxyhemoglobin 1.2 %THgb (0.4-20.1); HCO3 ABG 31.1 mmol/L (22-26); HGB O2 Sat 85.6 % (95-100); Ionized Calcium Level - ABG 1.2 mmol/L (1.1-1.4); Methemoglobin 0.7 % (0.4-1.5); Oxygen Device NC; Oxygen Saturation ABG 87.3; PO2 ABG 54.7 mmHg (80.0-100.0); Potassium Level - ABG 4.8 mmol/L (3.5-5.0); Total Hemoglobin 12.7 g/dL (12-16)
--- NOTE | 2021-02-03 18:46 | PC.RESP ---
SMOKING CESSATION INFORMATION SENT TO PATIENT.
[2021-02-03] MEDS: acetaminophen 325 mg Tablet 650 MG PO (20:58)
[2021-02-04] VITALS (23 sets, daily range): BP systolic 120–179; BP diastolic 72–102; PULSE 84–114; RESP 17–24; TEMP 36.4–37.2; O2SAT 88–95; BMI 38.5
[2021-02-04] MEDS: ipratropium-albuterol 3 mL Neb INHALATION ×2 (02:48→08:00)
[2021-02-04 05:11] LABS: ABG PCO2 47.9 mmHg (35-45); ABG PH Result 7.41 (7.35-7.45); Arterial Blood Gas Hematocrit 38.8 % (37-47); Base Excess ABG 4.3 mmol/L (-2.0-2.0); Blood Gas Allen Test Pos; Blood Gas Operator Identificat JB; Blood Gas Sample Site Radial, right; Blood Gas Sample Type Arterial; HCO3 ABG 29.9 mmol/L (22-26); Oxygen Device NC; PO2 ABG 86.3 mmHg (80.0-100.0)
--- NOTE | 2021-02-04 05:37 | PC.NURSE ---
Shift Summary Patient had an uneventful night. She is alert and oriented x4 and remains on 3 liters oxygen NC. Right AC IV is saline locked at this time. Patient has no wounds or skin issues noted at this time. She had one report of pain throughout the evening, PRN Tylenol was administered. Patient had 300 mls of urine out all evening. Patient is very anxious about when she will be discharged from hospital, she reports an apartment inspection will be performed Wednesday02/05/21. Patient also expressed concerned about her dog. Nurse consoled patient.
[2021-02-04 05:42] LABS: Hematocrit 41.3 % (37.0-47.0); Lymphocytes # 1.1 10^3/uL (0.8-4.8); Mean Corpuscular HGB Conc 29.1 g/dL (30.0-36.0); Monocytes # 0.9 10^3/uL (0.2-0.9); Monocytes % 5.7 %; Neutrophils # 13.29 10^3/uL (1.8-7.7); Neutrophils % 86.7 %; Nucleated Red Blood Cells % 0 %; Platelet Count 253 10^3/cmm (130-400); Red Blood Count 4.44 10^6/uL (4.1-5.3); Red Cell Distribution Width 15.3 % (12.1-15.1); White Blood Count 15.3 10^3/uL (4.0-10.0)
[2021-02-04 06:00] LABS: Magnesium 2.2 mg/dL (1.7-2.3)
[2021-02-04 06:01] LABS: Alanine Aminotransferase 10 U/L (0-33); Albumin Level 3.7 g/dL (3.5-5.2); Alkaline Phosphatase 136 IU/L (35-105); Anion Gap 13.4 (5-19); Aspartate Amino Transferase 13 U/L (0-32); Blood Urea Nitrogen 20 mg/dL (8-23); Calcium 9.1 mg/dL (8.5-10.5); Carbon Dioxide 29 mmol/L (22-29); Chloride 100 mmol/L (98-107); Glucose 156 mg/dL (65-115); Osmolality Calculated 292 mOsm/kg (285-295); Phosphorus 2.5 mg/dL (2.5-4.5); Potassium 4.4 mmol/L (3.5-5.1); Sodium 138 mmol/L (136-145); Total Bilirubin 0.2 mg/dL (0.15-1.2); Total Protein 6.7 g/dL (6.6-8.7)
[2021-02-04] MEDS: enoxaparin 40 mg/0.4 mL Syringe SUBCUT (06:22)
[2021-02-04] MEDS: acetaminophen 325 mg Tablet 650 MG PO (08:40)
[2021-02-04] MEDS: aspirin 81 mg EC Tablet PO (08:41)
[2021-02-04] MEDS: atorvastatin 40 mg Tablet 20 MG PO (08:41)
[2021-02-04] MEDS: thiamine 100 mg Tablet PO (08:41)
[2021-02-04] MEDS: azithromycin 250 mg Tablet PO (08:41)
[2021-02-04] MEDS: pantoprazole DR 40 mg Tablet PO (08:41)
[2021-02-04] MEDS: folic acid 1 mg Tablet PO (08:41)
[2021-02-04] MEDS: venlafaxine ER (24HR) 150 mg Capsule PO (08:41)
[2021-02-04] MEDS: metoprolol succinate ER (24 HR) 25 mg Tablet 12.5 MG PO (08:41)
[2021-02-04] MEDS: lisinopril 20 mg Tablet PO (08:42)
[2021-02-04] MEDS: multivitamin therapeutic Tablet 1 TAB PO (08:42)
--- NOTE | 2021-02-04 09:44 | PC.CHAP ---
Pastoral Care Encounter/Spiritual Assessment Type of Contact [] Declined analysis evaluator visit [] Patient/Family/Request visit [] Outpatient visit [] Follow-up visit [] Physician referral [] Code/Alert [x] Routine visit [] Staff referral [] Actively dying [] Patient sleeping [] Family support [] [] Out of room [] Palliative care [] [] Receiving care in room [] Pre-surgical visit [] Trauma [] Long length of stay [x] ICU visit [] Other: Relational/Emotional Strength [] Patient feels connected with others/family/visitors/staff [] Distress [] Loneliness/isolation [] Abandonment Spirituality of Patient [] Person of Martha [] Attends Mormonism of their Martha [] Believes in Prayer [] Reads Bible or Bahai materials [] There are Spiritual issues to be addressed Aquatics Assistant Department Head Interventions [x] Prayer [] Active listening [] Non-anxious presence [] Spiritual/emotional support [] Crisis/trauma care [] Spiritual counseling [] Bereavement support [] Provided bereavement packet [] Provided Bible/devotional materials [] Provided toy/stuffed animal, coloring book to patient or family member [] Provided Communion [] Anointing/[place] [] Salvation [x] Completed spiritual assessment [] Other: Impact on Illness or Injury [] Angry [] Fearful [] Anxious [] Often cries [] Exhaustion [] Unable to work [] Unable to attend baptism [] Unable to walk/stand [] Unable to read [] Unable to drive [] Unable to eat/drink [] Unable to sleep [] Unable to be with family [] Patient intubated [] Other: Summary Time spent with patient
[2021-02-04] MEDS: LORazepam 0.5 mg Tablet 0.25 MG PO (10:47)
--- NOTE | 2021-02-04 14:26 | PM.DCS ---
Discharge Providers Date of Admission: 02/03/21 04:50 Date of Discharge: February 04, 2021 Attending Provider at Admission: Shannon Corral MD Attending Provider at Discharge: Kiley Borrego MD Primary Care Provider: Rayray Orozco MD Diagnoses at Discharge Discharge Diagnosis (1) Alcohol intoxication: Status: Acute Qualifiers: Complication of substance-induced condition: uncomplicated Qualified Code(s): F10.920 - Alcohol use, unspecified with intoxication, uncomplicated (2) Acute exacerbation of chronic obstructive airways disease: Status: Acute (3) Respiratory failure with hypoxia and hypercapnia: Status: Acute Qualifiers: Chronicity: acute Qualified Code(s): J96.01 - Acute respiratory failure with hypoxia; J96.02 - Acute respiratory failure with hypercapnia Reason for Visit Reason for Visit: SOB Hospital Course Hospital Course History of Present Illness Daina Pierre is a 71 year old female with PMH as outlined below, history of chronic smoking, at least 2 packs/day who presented to the emergency room today with chief complaints of worsening shortness of breath over the past 3 to 4 days along with increased sputum production. She was noted to have O2 sat of 84% upon presentation to the ER. ABG consistent with acute hypercapnic respiratory failure. She was placed on BiPAP with some relief, however then had one episode of vomiting and BiPAP needed to be taken off. She is thereafter maintained on high flow nasal cannula. She does have some degree of respiratory distress. CTA of the chest was performed due to elevated D-dimer, negative for any PE or consolidation. She is vaccinated for Covid. Rapid antigen is negative. Denies any chest pain dyspnea or palpitations.EKG with sinus rhythm and incomplete right bundle branch block, unchanged since 2019 Hospital course Patient symptoms improved with use of BiPAP, she was requiring 2 L of oxygen on the day of discharge, patient was very eager and anxious to go home hence decision was made to discharge her on Medrol pack and thiamine. Patient was counseled on smoking and alcohol cessation. Medications discontinued: Opioids and trazodone to avoid hypercapnic respiratory failure recurrence Medication prescribed: Medrol pack and thiamine Renewed trilogy inhaler There were no signs of pneumonia or PE her COPD exacerbation was secondary to active smoking and alcohol intoxication with concurrent use of opioids. Physical Exam Narrative: EXAM NARRATIVE: Elderly female Able to answer my questions on repetition No acute neurological deficits S1, S2 sinus rhythm no murmur appreciated Bilateral diminished breath sounds with mild wheezing Soft abdomen no signs of peritonitis Lower extremity no edema No joint swelling or signs of cellulit Anxious mood Discharge Data Data Completed and Pending: Completed Studies During Hospitalization Category Date Time Status CT angio chest PE protcl [id number] Urge nt Cat Scan 02/03/21 00:09 Completed XR chest 1V yulisa ble [id number] Urgent Exams 02/02/21 23:29 Completed Pending at discharge Category Date Time Status Arterial Blood Ga s W/O Coox Routine Lab 02/03/21 12:00 Ordered Arterial Blood Ga s W/O Coox Routine Lab 02/03/21 16:00 Ordered Labs from last 24 hours 02/04/21 02/04/21 02/04/21 05:15 05:15 05:15 WBC 15.3 H RBC 4.44 Hgb 12.0 Hct 41.3 MCV 93.0 MCH 27.0 L MCHC 29.1 L RDW 15.3 H Plt Count 253 MPV 11.0 H Neut % (Auto) 86.7 Lymph % (Auto) 7.0 [place] % (Auto) 5.7 Eos % (Auto) 0.0 Baso % (Auto) 0.0 Neut # (Auto) 13.29 H Lymph # (Auto) 1.1 [place] # (Auto) 0.9 Eos # (Auto) 0.0 Baso # (Auto) 0.0 Nucleated RBC % (a uto) 0 Nucleated RBCs # 0.0 Specimen Type Sample Site ABG pH ABG pCO2 ABG pO2 ABG HCO3 ABG O2 Saturation ABG Base Excess Venkat Test A-a O2 Gradient Hematocrit Hgb O2 Saturation Carboxyhemoglobin Methemoglobin Total Hemoglobin Sodium 138 Potassium 4.4 Glucose 156 H Ionized Calcium O2 Delivery Device O2 Liters/Min FiO2 Hydro Generation Supervisor ID Chloride 100 Carbon Dioxide 29 Anion Gap 13.4 BUN 20 Creatinine 0.6 GFR Calculation Not Reportable Calculated Osmolal ity 292 Lactic Acid (Sepsi s) Calcium 9.1 Phosphorus 2.5 Magnesium 2.2 Total Bilirubin 0.2 AST 13 ALT 10 Alkaline Phosphata se 136 H Total Protein 6.7 Albumin 3.7 Globulin 3.0 02/04/21 02/03/21 02/03/21 04:58 18:00 14:50 WBC RBC Hgb Hct MCV MCH MCHC RDW Plt Count MPV Neut % (Auto) Lymph % (Auto) [place] % (Auto) Eos % (Auto) Baso % (Auto) Neut # (Auto) Lymph # (Auto) [place] # (Auto) Eos # (Auto) Baso # (Auto) Nucleated RBC % (a uto) Nucleated RBCs # Specimen Type Arterial Arterial Sample Site Radial, right Brachial, right ABG pH 7.41 7.33 L ABG pCO2 47.9 H 58.7 H ABG pO2 86.3 54.7 L ABG HCO3 29.9 H 31.1 H ABG O2 Saturation 87.3 ABG Base Excess 4.3 H 3.7 H Venkat Test Pos Pos A-a O2 Gradient 13.4 H Hematocrit 38.8 38.9 Hgb O2 Saturation 85.6 L Carboxyhemoglobin 1.2 Methemoglobin 0.7 Total Hemoglobin 12.7 Sodium 143.0 Potassium 4.8 Glucose 123.0 H Ionized Calcium 1.2 O2 Delivery Device Nc Nc O2 Liters/Min 3.0 3.0 FiO2 32.0 Hydro Generation Supervisor ID Adam Bd Chloride Carbon Dioxide Anion Gap BUN Creatinine GFR Calculation Calculated Osmolal ity Lactic Acid (Sepsi s) 2.0 Calcium Phosphorus Magnesium Total Bilirubin AST ALT Alkaline Phosphata se Total Protein Albumin Globulin Vitals: Last Vital Signs Temp 98.7 F 02/04/21 11:00 Pulse 104 H 02/04/21 13:07 Resp 18 02/04/21 07:54 BP 145/78 02/04/21 12:00 Pulse Ox 92 02/04/21 12:00 Discharge Plan Discharge Patient Disposition: Home Condition: Stable Prescriptions: New Vitamin B-1 (mononitrate) 100 mg Tablet 100 mg PO DAILY 30 Days Qty: 30 RF: 1 Medrol (Ted) 4 mg tablets,dose pack See Rx Instructions .ROUTE .COMPLEX Qty: 21 RF: 0 Continued albuterol sulfate 1.25 mg/3 mL solution for nebulization 1.25 mg INHALATION QID PRN (Reason: Shortness Of Breath) RF: 0 magnesium oxide 400 mg magnesium tablet 400 mg PO DAILY RF: 0 vitamin E (dl, acetate) 100 unit capsule 100 unit PO DAILY RF: 0 aspirin [Adult Low Dose Aspirin] 81 mg tablet,delayed release (DR/EC) 81 mg PO DAILY RF: 0 coenzyme Q10 10 mg capsule 10 mg PO TID RF: 0 echinacea 400 mg capsule 400 mg PO TID RF: 0 metoprolol succinate 25 mg tablet extended release 24 hr 25 mg PO DAILY RF: 0 atorvastatin 10 mg tablet 10 mg PO DAILY RF: 0 esomeprazole magnesium 40 mg capsule,delayed release(DR/EC) 40 mg PO DAILY RF: 0 potassium chloride 10 mEq capsule, extended release 10 meq PO DAILY RF: 0 lisinopril 20 mg tablet 20 mg PO BID RF: 0 venlafaxine [Effexor XR] 150 mg capsule,extended release 24hr 150 mg PO DAILY RF: 0 buspirone 15 mg tablet 15 mg PO TID RF: 0 Changed Trelegy Ellipta 100-62.5-25 mcg blister with device 1 inh inhalation DAILY 30 Days Qty: 1 RF: 3 Discontinued lysine 500 mg tablet 500 mg PO DAILY RF: 0 trazodone 50 mg tablet 100 mg PO DAILY RF: 0 hydrocodone-acetaminophen 5-325 mg tablet 1 tab PO Q6H PRN (Reason: Pain) RF: 0 triamcinolone acetonide 0.1 % cream See Rx Instructions .ROUTE .COMPLEX RF: 0 ketoconazole 2 % cream See Rx Instructions .ROUTE .COMPLEX RF: 0 Discharge Orders: Discharge Order (Routine); Ordered 02/04/21 Ordered By: Kiley Borrego Other Ambulatory Orders: DME: Oxygen (Order) Location: None Selected Ordered By: Kiley Borrego Referrals: Rayray Orozco MD [Primary Care Provider] - Discharge Diet: Cardiac Discharge Activity: Increase activity as tolerated Patient Instructions: Opioid Safety Activity Restrictions/Additional Instructions: Please finish 7 days of steroids for a COPD exacerbation You will need 2 L of oxygen [id number], quit smoking and alcohol Prescribed vitamin thiamine as well To avoid COPD exacerbation cut back on your opioids and antipsychotic Discharge Attestations Time Spent in Discharge Care*: less than 30 min Quality Metrics Clinical Quality Measures During this hospital stay, did patient experience: None Coding Level of Care Code Acute Chg FW DC note Diagnoses Alcohol intoxication F10.920 Complication of substance-induced condition: uncomplicated Acute exacerbation of chronic obstructive airways disease J44.1 Respiratory failure with hypoxia and hypercapnia J96.01; J96.02 Chronicity: acute
== END 2021-02-04 17:00 | disposition home or self-care (01) | DRG 189 ==
LOC: ER 02-03 03:02 → ICU 02-03 06:24
PROVIDERS: Admitting Provider Student in an Organized Health Care Education/Training Program; Emergency Provider Emergency Medicine; PCP Family Medicine; Visit Provider Internal Medicine
DX: J96.01 Acute respiratory failure with hypoxia (principal); J44.1 Chronic obstructive pulmonary disease with (acute) exacerbation; F17.210 Nicotine dependence, cigarettes, uncomplicated; J96.02 Acute respiratory failure with hypercapnia; I45.10 Unspecified right bundle-branch block; F41.9 Anxiety disorder, unspecified; Z85.41 Personal history of malignant neoplasm of cervix uteri; Z85.43 Personal history of malignant neoplasm of ovary; F32.9 Major depressive disorder, single episode, unspecified; K21.9 Gastro-esophageal reflux disease without esophagitis; I10 Essential (primary) hypertension; Z87.442 Personal history of urinary calculi; Z96.659 Presence of unspecified artificial knee joint; F10.129 Alcohol abuse with intoxication, unspecified; G62.9 Polyneuropathy, unspecified; Z79.51 Long term (current) use of inhaled steroids; Z79.82 Long term (current) use of aspirin
CPT/HCPCS: 36415; 36600; 71045; 71275; 80051; 80053; 80307; 82330; 82803; 82805; 83605; 83735; 83880; 84100; 84145; 85025; 85378; 86140; 87426; 93005; 94640; 94660; 94664; 96372; 96374; 99291; J1650; J2250; J2405; J2930; Q0144; Q9967

== ENCOUNTER 2021-03-05 11:48 | Outpatient (CLI) | payer MEDICARE, MEDICAID, SELFPAY ==
--- NOTE | 2021-03-05 11:54 | MM_ITS ---
WS: [id number] BILATERAL SCREENING DIGITAL MAMMOGRAM WITH CAD HISTORY: SCREENING COMPARISON: 01/13/2017 and 05/23/2015 Bilateral CC and MLO views submitted. Computer aided detection analyzed. Breast composition: There are scattered areas of fibroglandular density. No suspicious masses, microc alcifications or architectural distortion. Stable lymph node posterior upper RIGHT breast. MM/[place] [id number] IMPRESSION: BI-RADS: 2-Benign FOLLOW UP: 1 Year Follow-up
== END 2021-03-05 11:49 | disposition home or self-care (01) ==
LOC: RADSHAW 11:54
PROVIDERS: PCP Family Medicine; Visit Provider Family Medicine
DX: Z12.31 Encounter for screening mammogram for malignant neoplasm of breast (principal)
CPT/HCPCS: 77067

== ENCOUNTER 2021-04-03 10:50 | Outpatient (CLI) | payer MEDICARE, MEDICAID, SELFPAY ==
--- NOTE | 2021-04-03 | CT_ITS ---
WS: [id number] CT ABDOMEN PELVIS TECHNIQUE: Contrast-enhanced CT of the abdomen and pelvis with coronal and sagittal reformatted image s. CLINICAL INFORMATION: TRANSVERSE COLON CANCER COMPARISON: CT 6 14,018 DLP: 1025.[address] scans at [facility] use at least one of these dose optimization techniques: automated e xposure control; mA and/or kV adjustment per patient size (includes targeted exams where dose is matc hed to clinical indication); or iterative reconstruction. FINDINGS: Reported transverse colon neoplasm on colonoscopy. Diffuse fatty infiltration liver. Normal portal vein and splenic vein. Mild hepatomegaly. Normal gall bladder. Normal GE junction. Lung bases are well aerated. Fatty atrophy of the pancreas. Slight nodul arity both adrenal glands unchanged. Normal spleen. Bilateral renal cysts. Normal renal parenchymal e nhancement. No hydronephrosis. Right renal cyst measuring 2.9 cm. Left renal angiomyolipoma measuring 2.3 cm is unchanged. Aortic calcification. Normal caliber abdominal aorta. No abdominal lymphadenopathy. No pelvic or ingu inal lymphadenopathy. Normal sigmoid colon. No evidence of small or large bowel obstruction. Normal appendix in the right l ower quadrant. Fat-containing umbilical hernia. Moderate spondylitic changes lumbar spine with disc space narrowing L2-L5 with vacuum disc phenomenon . Lumbar curve convex right. CT/CT abdomen pelvis w con* [id number] IMPRESSION: 1. No evidence of metastatic disease. 2. No evidence of high-grade small or large bowel obstruction. 3. Mild diffuse fatty infiltration liver. 4. Stable left renal angiomyolipoma measuring 2.3 cm. 5. Stable right upper pole renal cyst measuring 2.9 CCM. 6. Normal caliber abdominal aorta. 7. Tiny fat-containing umbilical hernia.
[2021-04-03 11:19] LABS: Basophils # 0.1 10^3/uL (0.0-0.1); Basophils % 0.7 %; Eosinophils # 0.2 10^3/uL (0.0-0.8); Eosinophils % 2.6 %; Hematocrit 40.1 % (37.0-47.0); Lymphocytes # 1.9 10^3/uL (0.8-4.8); Lymphocytes % 26.6 %; Mean Corpuscular HGB Conc 29.9 g/dL (30.0-36.0); Mean Corpuscular Hemoglobin 26.7 pg (28.0-34.0); Mean Corpuscular Volume 89.1 fl (81-99); Mean Platelet Volume 10.6 fL (7.4-10.4); Monocytes # 0.6 10^3/uL (0.2-0.9); Monocytes % 8.5 %; Neutrophils # 4.32 10^3/uL (1.8-7.7); Neutrophils % 61.3 %; Nucleated Red Blood Cells % 0 %; Platelet Count 265 10^3/cmm (130-400); Red Cell Distribution Width 16.2 % (12.1-15.1)
[2021-04-03 11:44] LABS: Alanine Aminotransferase 10 U/L (0-33); Albumin Level 4.2 g/dL (3.5-5.2); Alkaline Phosphatase 141 IU/L (35-105); Anion Gap 13.7 (5-19); Aspartate Amino Transferase 16 U/L (0-32); Blood Urea Nitrogen 10 mg/dL (8-23); Calcium 8.9 mg/dL (8.5-10.5); Carbon Dioxide 29 mmol/L (22-29); Chloride 100 mmol/L (98-107); Globulin 2.9 g/dL (1.3-4.6); Glucose 97 mg/dL (65-115); Osmolality Calculated 285 mOsm/kg (285-295); Potassium 4.7 mmol/L (3.5-5.1); Sodium 138 mmol/L (136-145); Total Bilirubin 0.2 mg/dL (0.15-1.2); Total Protein 7.1 g/dL (6.6-8.7)
[2021-04-03] MEDS: iohexol 300 mg/mL 50 mL Btl PO (13:17)
[2021-04-03] MEDS: iohexol 300 mg/mL 100 mL Btl IV (13:17)
[2021-04-03 13:37] LABS: Carcinoembryonic Antigen 3.4 ng/mL (0.0-4.7)
== END 2021-04-03 10:51 | disposition home or self-care (01) ==
LOC: RADWPI 10:55
PROVIDERS: PCP Family Medicine; Visit Provider Surgery
DX: C18.4 Malignant neoplasm of transverse colon (principal); K42.9 Umbilical hernia without obstruction or gangrene; N28.1 Cyst of kidney, acquired; D17.71 Benign lipomatous neoplasm of kidney; K76.0 Fatty (change of) liver, not elsewhere classified
CPT/HCPCS: 36415; 74177; 80053; 82378; 85025; Q9967

== ENCOUNTER → 2021-04-28 14:11 | Outpatient (BNVA) | payer MEDICARE, MEDICAID, SELFPAY | PROVIDERS: PCP Family Medicine; Visit Provider Internal Medicine Pulmonary Disease | DX: Z01.812 Encounter for preprocedural laboratory examination (principal); Z20.822 Contact with and (suspected) exposure to COVID-19 | CPT/HCPCS: 87635 ==

== ENCOUNTER 2021-04-29 14:21 | Emergency (ER) | payer MEDICARE, MEDICAID, SELFPAY ==
[2021-04-29 14:38] VITALS: BP 148/84; PULSE 79; RESP 16; TEMP 36.5; O2SAT 94
--- NOTE | 2021-04-29 19:02 | ED_ITS ---
HPI - General Adult General: Chief complaint: General Medical Stated complaint: Swelling on Rt side of face Time Seen by Provider: 04/29/21 18:55 History of Present Illness: HPI narrative: Patient is a 71-year-old female who comes to the ED with right-sided facial swelling. Symptoms started earlier today. She says she was outside smoking a cigarette and when she went inside she noticed her right upper and lower lip started swelling. Swelling has not went do wn. Denies any throat swelling or increased shortness of breath. Patient does have COPD and is on 2 L of oxygen at home but states she does not notice any acute change in her shortness of breath. Denies any known environmental contact, insect sting, recent medication use that could have caused symptoms. Patient does take lisinopril and has been taking it for several years. She has never had this happen before. Denies any other symptoms such as nausea/vomiting or diarrhea. Associated symptoms: Deny chest pain, dyspnea, headache(s), nausea, rash, palpitations or vomiting Review of Systems Const: Denies: fever(s), chills or fatigue Eyes: Denies: change in vision or eye discomfort ENMT: Reports: other (Right side upper and lower lip swelling); Denies: throat pain, odynophagia, nasal discharge or nasal congestion Card: Denies: chest pain, palpitations, edema, swelling of feet/ankles, dyspnea on exertion or orthopnea Resp: Denies: dyspnea, productive cough or non-productive cough GI: Denies: abdominal pain, nausea, vomiting, diarrhea, constipation or hematochezia : Denies: flank pain, dysuria or hematuria Musc: Denies: neck pain, back pain or extremity swelling Skin/Breast: Denies: rash or new lesions Neuro: Denies: headache(s), numbness in extremities or weakness in extremities PFSH ED PFSH: Medical History Abnormal EKG Abnormal laboratory test result Anxiety disorder Cervical cancer Deficient knowledge of open reduction and internal (ORIF) fixation of hip Depression Encounter for diagnostic endoscopy GERD (gastroesophageal reflux disease) HTN (hypertension) Kidney stones Ovarian cancer Psychiatric care Surgical History H/O lumpectomy H/O right knee surgery History of back surgery History of knee replacement Family History Other Cancer Social History Smoking and tobacco status: current every day smoker cigarettes Packs smoked per day: 1 Years cigarettes smoked: 48 Alcohol intake: never Caregiver/support person: No Lives independently: Yes Marital status: Single Physical Exam Const: COMMON NORMALS: no acute distress, patient oriented x3 and alert GENERAL APPEARANCE: cooperative and comfortable HENMT: COMMON NORMALS: normocephalic HEAD & SCALP: normocephalic MOUTH: Normal oral and palatal mucosa present, tongue normal and lip abnormal right swelling (Right side upper and lower lip swelling); without rashes THROAT: posterior oropharynx normal and uvula midline Eye: COMMON NORMALS: Equal, round and reactive pupils present PUPIL: Yes Equal, round and reactive pupils present Neck/C-Spine: COMMON NORMALS: supple GENERAL: Yes normal visual inspection Resp: COMMON NORMALS: normal respiratory effort, No retractions and No use of accessory muscles AUSCULTATION: wheezes expiratory wheezes and throughout Cardio: COMMON NORMALS: regular rate, regular rhythm, S1 normal heart sound present, S2 normal heart sound present, No gallops present (Cardio), No clicks present (Cardio), No murmurs present (Cardio) and Peripheral pulses 2+ throughout RATE: regular rate RHYTHM: regular rhythm HEART SOUNDS: S1 normal heart sound present and S2 normal heart sound present PERIPHERAL PULSES: Peripheral pulses 2+ throughout GI: COMMON NORMALS: Normal to inspection, nondistended, normoactive bowel sounds present, Soft to palpation, non-tender and no masses PALPATION: Yes Soft to palpation : COMMON NORMALS: Yes no CVA tenderness BLADDER/KIDNEY EXAM: Yes no CVA tenderness Back/Pelvis: COMMON NORMALS: no CVA tenderness Extremity: COMMON NORMALS: normal to inspection Neuro: COMMON NORMALS: patient oriented x3 and moves all extremities SENSORIUM/ORIENTATION: Yes alert Skin: GENERAL SKIN EXAM: dry skin Course Vital Signs: Vital signs: Vital Signs Temperature 97.7 F 04/29/21 14:38 Pulse Rate 77 04/29/21 20:56 Respiratory Rate 22 H 04/29/21 20:56 Blood Pressure 139/77 04/29/21 20:56 Pulse Oximetry 97 04/29/21 20:56 MDM - General Adult MDM Narrative: Medical decision making narrative: Patient is a 71-year-old female comes to the ED with right sided lip swelling. Symptoms started today. She denies any throat swelling or trouble breathing. Patient does have a history of COPD and is on 2 L of oxygen continuously at home. Patient does take lisinopril and has been taking it for several years. Denies any insect sting, environmental contact or any acute change in meds to cause symptoms. . Patient appeared in no acute distress or pain. Patient had wheezing throughout lungs. Vitals are stable. Chest x-ray showed no infiltrates. patient was given IV Solu-Medrol, famotidine and Benadryl while here in the ED to help with reaction. Patient was also given DuoNeb breathing treatment up with wheezing. Lip angioedema likely due to lisinopril. Patient was told to stop lisinopril and to contact her PCP tomorrow morning to discuss putting her on a different hypertension medication. Patient diagnosed with angioedema due to CINDY inhibitor. She was discharged home with a prescription for prednisone. Return to ED precautions given. Patient understood and agree with plan. Dr. De Luna evaluated patient as well and agreed with plan. Imaging Data^: CXR: Attestation: I personally reviewed and interpreted this imaging study as follows: Radiologist's impression: [address] [id number] ReportSigned Patient: Daina Pierre #: [id number]: 8Acct#:[id number]/Sex: 71 / FADM Date: 04/29/21Loc: ERRoom/Bed:Attending Dr: Ordering Provider/Ordering MD: Juan Manuel Jon Date of Service: 04/29/21 Procedure(s): XR chest 1V portable [id number] Accession Number(s): [id number] Report Number: [id number] PROCEDURE INFORMATION: Exam: XR Chest Exam date and time: 04/29/2021 7:12 PM Age: 71 years old Clinical indication: Wheezing TECHNIQUE: Imaging protocol: XR of the chest. Views: 1 view. COMPARISON: CR XR chest 1V portable [id number] 02/02/2021 11:35 PM FINDINGS: Lungs: Emphysematous changes. Pleural spaces: Unremarkable. No pleural effusion. No pneumothorax. Heart/Mediastinum: Unremarkable. No cardiomegaly. Bones/joints: Unremarkable. 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 inhibitor (CINDY-I), Wheezing Condition: Stable Prescriptions: New prednisone 20 mg tablet 20 mg PO BID 5 Days Qty: 10 RF: 0 Discontinued lisinopril 20 mg tablet 20 mg PO BID RF: 0 No Action albuterol sulfate 1.25 mg/3 mL solution for nebulization 1.25 mg INHALATION QID PRN (Reason: Shortness Of Breath) RF: 0 magnesium oxide 400 mg magnesium tablet 400 mg PO DAILY RF: 0 aspirin [Adult Low Dose Aspirin] 81 mg tablet,delayed release (DR/EC) 81 mg PO DAILY RF: 0 coenzyme Q10 10 mg capsule 10 mg PO TID RF: 0 atorvastatin 10 mg tablet 10 mg PO DAILY RF: 0 esomeprazole magnesium 40 mg capsule,delayed release(DR/EC) 40 mg PO DAILY RF: 0 potassium chloride 10 mEq capsule, extended release 10 meq PO DAILY RF: 0 echinacea 400 mg capsule 400 mg PO TID PRNRF: 0 vitamin E (dl, acetate) 45 mg (100 unit) capsule 100 unit PO DAILY PRNRF: 0 venlafaxine [Effexor XR] 150 mg capsule,extended release 24hr 150 mg PO DAILY RF: 0 buspirone 15 mg tablet 15 mg PO BID RF: 0 isosorbide mononitrate 30 mg tablet extended release 24 hr 15 mg PO BID Qty: 90 RF: 3 metoprolol succinate 50 mg tablet extended release 24 hr 50 mg PO DAILY Qty: 90 RF: 3 hydrocodone-acetaminophen 5-325 mg tablet PO RF: 0 trazodone 100 mg tablet 100 mg PO .qhs RF: 0 Breztri Aerosphere 160-9-4.8 mcg/actuation HFA aerosol inhaler 2 inh inhalation BID Qty: 10.7 RF: 3 bupropion HCl (smoking deter) 150 mg tablet extended release 12 hr See Rx Instructions PO DAILY Qty: 57 RF: 0 Vitamin B-1 (mononitrate) 100 mg Tablet 100 mg PO DAILY 30 Days Qty: 30 RF: 1 Medrol (Ted) 4 mg tablets,dose pack See Rx Instructions .ROUTE .COMPLEX Qty: 21 RF: 0 Discharge Orders: Discharge ED (Routine); Ordered 04/29/21 Ordered By: Juan Manuel Jon Referrals: Rayray Orozco MD [Primary Care Provider] - Discharge Diet: Regular Discharge Activity: Resume usual activity Patient Instructions: Angioedema (ED) Activity Restrictions/Additional Instructions: Stop taking your lisinopril. Call PCP tomorrow to let them know about your angioedema of the lips likely due to lisinopril. Have PCP put you on a differen t blood pressure medication. Continue taking all other medications as prescribed. Return to the ER or your medical provider if condition worsens. Please read and understand discharge instructions. Thank you for choosing [facility] for your healthcare needs today. Please realize this is an emergency room and that we are providing you with a medical screening exam and this may not be complete and all inclusive of all the testing and or work up that you may need to determine your ailment or severity of your illness. It is very important that you follow up as instructed or that you return to the Emergency Department should you have concerns or if your condition changes or worsens in any way. Coding Level of Care Code ED Gizzard Skin Remover for Osman Hidalgo Exam Comprehensive
--- NOTE | 2021-04-29 19:12 | XRR_ITS ---
PROCEDURE INFORMATION: Exam: XR Chest Exam date and time: 04/29/2021 7:12 PM Age: 71 years old Clinical indication: Wheezing TECHNIQUE: Imaging protocol: XR of the chest. Views: 1 view. COMPARISON: CR XR chest 1V portable [id number] 02/02/2021 11:35 PM FINDINGS: Lungs: Emphysematous changes. Pleural spaces: Unremarkable. No pleural effusion. No pneumothorax. Heart/Mediastinum: Unremarkable. No cardiomegaly. Bones/joints: Unremarkable. XR/XR chest 1V portable [id number] IMPRESSION: Emphysematous changes, negative for infiltrate Radiation Dose CTDIVOL = (mGy): DLP = (mGy-cm)
[2021-04-29] MEDS: diphenhydrAMINE 50 mg/mL SDV 1mL IVP (20:05)
[2021-04-29] MEDS: sodium chloride 0.9% 500 ML IV (20:05)
[2021-04-29] MEDS: famotidine 20 mg/2 mL INJ 40 MG IVP (20:05)
[2021-04-29 20:22] VITALS: RESP 22; O2SAT 95
[2021-04-29] MEDS: ipratropium-albuterol 3 mL Neb 6 ML INHALATION (20:22)
[2021-04-29] MEDS: HYDROcodone-acetaminophen 10-325 mg Tablet 1 TAB PO (20:28)
[2021-04-29 20:35] VITALS: RESP 22; O2SAT 94
[2021-04-29 20:56] VITALS: BP 139/77; PULSE 77; RESP 22; O2SAT 97
== END 2021-04-29 20:50 | disposition home or self-care (01) ==
PROVIDERS: Emergency Provider Physician Assistant; PCP Family Medicine
DX: T78.3XXA Angioneurotic edema, initial encounter (principal); R06.2 Wheezing; Z79.82 Long term (current) use of aspirin; Z85.41 Personal history of malignant neoplasm of cervix uteri; I10 Essential (primary) hypertension; Z85.43 Personal history of malignant neoplasm of ovary; F17.210 Nicotine dependence, cigarettes, uncomplicated
CPT/HCPCS: 71045; 94640; 96361; 96374; 96375; 99284; J1200; J2930; J3490; J7040

== ENCOUNTER 2021-05-01 13:54 | Inpatient (IN) | payer MEDICARE, MEDICAID, SELFPAY ==
[2021-04-30 16:53] VITALS: BMI 39.0
[2021-05-01] VITALS (26 sets, daily range): BP systolic 116–167; BP diastolic 66–111; PULSE 78–97; RESP 16–27; TEMP 36.1–36.9; O2SAT 91–98
[2021-05-01] MEDS: sodium chloride 0.9% 1,000 ML 30 ML IV (11:05)
[2021-05-01] MEDS: ipratropium-albuterol 3 mL Neb INHALATION (11:25)
--- NOTE | 2021-05-01 11:28 | W.PM.OPSUD ---
Surgery/Procedure H&P Update DATE OF PROCEDURE: May 01, 2021 DATE H&P PERFORMED: 04/08/21 H&P UPDATE INFORMATION: I have examined patient prior to procedure and No changes to prior documentation PREOP DIAGNOSIS: Transverse colon cancer. PLANNED PROCEDURE: Operation Date: 05/01/21 11:10 Proposed Procedures p Colonoscopy with inking of the colon at the cancer site(Not Applicable) - Segun Pearson MD s Colon Resection(Not Applicable) - Segun Pearson MD
--- NOTE | 2021-05-01 11:34 | ANES.PREANE2 ---
Pre-Anesthetic Assessment Pre-Anesthetic Assessment: Height/Weight: Height 1.52 m Weight 90.718 kg Temp Pulse Resp BP Pulse Ox 97 F L 78 18 145/98 96 05/01/21 11:00 05/01/21 11:00 05/01/21 11:00 05/01/21 11:00 05/01/21 11:00 Preop Diagnosis: Transverse colon cancer. Proposed Procedure: Operation Date: 05/01/21 11:10 Proposed Procedures p Colonoscopy with inking of the colon at the cancer site(Not Applicable) - Segun Pearson MD s Colon Resection(Not Applicable) - Segun Pearson MD Was Beta Dez taken within 24 hours: N/A Was Clonidine taken within 24 hours: N/A Last intake: Intake Last Liquid Date 05/01/21 Last Liquid Time 21:30 Last Solid Date 04/29/21 Last Solid Time 17:00 Social: Social History: Tobacco Packs per day: 1-1 1/2 ppd since age 23 Exam: Pre-Anes Outpt Exam: alert, oriented x 3 and clear to auscultation bilaterally (not able to auscultate inhale bs; rhonchi and rales in all lung haley; ) Airway: Submandibular: WNL Cervical ROM: WNL MP: 1 Dentition: False Pulmonary: Pulmonary: COPD, Cough, LU, PND and SOB Comments: Home O2 @2LPM per NC; frequent ED visits for COPD exacerbations; hx of resp failure, hypoxia CV/HEM: CV/HEM: HTN : : None reported Hepatic: Hepatic: None reported GI: GI: None reported Metabolic: Metabolic: None reported Musc/skel: Musc/skel: None reported Anesthetic Plan: ASA status: 4 Anesthesia: General (discussed poss prolonged intubation 2/2 hx of respiratory failure) Risk of > 500 ml blood loss (7ml/kg in children): No Meds/Allergies Current Medications: Current Medications Generic Name Dose Route Start Last Admin Trade Name Freq PRN Reason Stop Dose Admin Sodium Chloride 1,000 mls @ 30 ml s/hr 05/01/21 10:30 05/01/21 11:05 Sodium Chloride 0.9% IV 05/02/21 10:29 30 mls/hr .Q24H FILEMON Administration PFSH Anesthesia PFSH: Medical History (Updated 05/01/21 @ 10:14 by Segun Pearson MD) Abnormal EKG Abnormal laboratory test result Anxiety disorder Cervical cancer Deficient knowledge of open reduction and internal (ORIF) fixation of hip Depression Encounter for diagnostic endoscopy GERD (gastroesophageal reflux disease) History of kidney stones HTN (hypertension) Ovarian cancer Psychiatric care Surgical History (Updated 05/01/21 @ 10:14 by Segun Pearson MD) H/O lumpectomy Right H/O right knee surgery History of appendectomy History of cataract surgery Bilateral History of deviated nasal septum Surgically corrected History of total abdominal hysterectomy Kidney stones Removal cystoscopically Family History Other Cancer Social History Smoking and tobacco status: current every day smoker cigarettes Packs smoked per day: 1 Years cigarettes smoked: 48 Alcohol intake: never Caregiver/support person: No Lives independently: Yes Marital status: Single Data Anesthesia Cardiac Studies: Holter Monitor 12/28/19
[2021-05-01] MEDS: metroNIDAZOLE IV 500 MG/100 ML PREMIX 100 MG IV ×2 (11:43→19:54)
[2021-05-01] MEDS: ipratropium 0.5 mg/2.5 mL Neb INHALATION ×4 (13:37→23:39)
[2021-05-01] MEDS: fentaNYL 50 mcg/mL INJ 2mL IVP ×2 (13:45→13:50)
--- NOTE | 2021-05-01 13:59 | PM.OP ---
Operative Report Date of procedure: May 01, 2021 Pre-op Diagnosis: Transverse colon cancer. Post-op diagnosis: same Procedure Done: 1. Colonoscopy with injection of ink at tumor site. 2. Exploratory laparotomy with partial transverse colectomy. Specimens removed/disposition: Partial transverse colectomy, staple line at proximal end. Surgeon: Segun Pearson Anesthesia: General Estimated blood loss (mL): 10 Complications: None. Condition: stable Disposition: PACU Procedure: The patient was brought to the operating room and was placed in a supine position on the operating room table. General endotracheal anesthesia was induced. The patient was frog-legged and colonoscopy was carried out. The patient was found to have a small partially circumferential malignancy very near the splenic flexure by palpation. No other significant abnormalities were found throughout the colon. Inking just distal to the tumor was performed. A Neff catheter was then inserted by nursing. The patient's legs were straightened and the abdomen was then prepped and draped in a sterile fashion. A midline incision was carried out from the mid/high epigastrium down to a level just adjacent to the umbilicus. Cautery was used to divide the subcutaneous tissue and the midline fascia was incised. The peritoneal cavity was entered. The patient's transverse colon was found to be quite redundant and mobile and was able to be brought into the incision to the point where the inked sites distal to the tumor could be identified proximal to the splenic flexure. It became evident that the entire splenic flexure may not have to be mobilized to remove the tumor. Palpation of the liver revealed no obvious masses. A CARLY stapler was used to divide the transverse colon at its mid aspect quite proximal to the tumor. The Voyant energy device was then used to divide the gastrocolic ligament to gain some mobilization of the distal transverse colon. The colon was eventually divided between 2 bowel clamps distal to the tumor that was now palpable given its identification with the surrounding ink spots. The Voyant was used to divide the intervening mesentery. Larger vessels were also ligated with ties of 0 Vicryl. The specimen was removed with the staple line intact proximally but no staple line distally. The abdomen was extensively irrigated with saline. The 2 limbs of bowel were then brought together and a handsewn anastomosis was created with multiple pop offs of 3-0 Vicryl using a triangulating technique. At the closure of the anastomosis the colon anastomosis was palpably patent and the anastomosis was under no tension. All of the bowel was viable. A final round of irrigation was carried out. No other abnormalities were seen or palpated and attention was directed towards closure. The midline fascia was closed using a running looped suture of #1 PDS. The subcutaneous layer was irrigated and then the skin was approximated using skin ashly. A sterile dressing was placed over the wound and the patient was taken to the recovery area in stable condition postoperatively.
[2021-05-01] MEDS: HYDROmorphone 1 mg/mL INJ 1 mL 0.5 MG IVP (14:09)
[2021-05-01] MEDS: levalbuterol 0.63 mg/3 mL Neb INHALATION ×3 (15:39→23:39)
--- NOTE | 2021-05-01 15:41 | PC.NURSE ---
PTS LUNGS SOUNDED HORRIBLE UPON TRANSFER FROM PACU, CONTACTED DR MARTINEZ, HE STATES, THIS IS PTS BASELINE AND HER LUNGS WERE HORRIBLE PRIOR TO SURGERY.
[2021-05-01] MEDS: famotidine 20 mg/2 mL INJ IVP (16:45)
--- NOTE | 2021-05-01 17:15 | P.CONIM_ITS ---
Providers/Reason For Consult Consulting Physician/Specialty*: Bing Copeland MD/Medicine Reason for Consult*: Medical management of comorbid conditions Requesting Physician: Segun Pearson MD Attending Physician: Segun Pearson MD Primary Care Provider: Rayray Orozco MD History of Present Illness History of Present Illness Daina Pierre is a 71 year old female with past medical history of COPD, colorectal cancer, hypertension, hyperlipidemia, fibromyalgia, chronic fatigue syndrome, depression, dementia, anxiety, chronic back pain, GERD, mitral valve prolapse, peripheral vascular disease who presented to the hospital for resect ion of colonic mass that was found on recent colonoscopy. She has been diagnosed with transverse colon cancer during recent colonoscopy. Biopsy of the mass revealed tissue consistent with tubular adenoma but there was also some adenocarcinoma cells present. Patient underwent exploratory laparotomy with partial transverse colectomy. Medicine has been consulted for medical management of her other comorbid conditions. On review of records it seems patient has moderate to severe COPD there are centrilobular emphysema. She is currently on Trelegy 1 puff daily, DuoNeb nebulization twice daily. She has been advised to stop smoking. She does smoke 1 pack/day. She was referred for pulmonary rehab and PFTs were ordered. She saw her senior quality manager on March 31, 2021. Her home medications were albuterol sulfate, aspirin 81, atorvastatin 10, buspirone 15 mg twice daily, omeprazole 40 mg daily, Trelegy, hydrocodone 5, Imdur 15 twice daily, lisinopril 20 twice daily, mag oxide 400 daily, Toprol 50 daily, potassium 10 daily, thiamine 100 daily, trazodone 100 daily, Effexor 150 daily. She is being seen post op today. Patient is not really talking very much. She states she is in a lot of pain. She was unable to give me a review of systems or tell me how she is feeling other than saying that she is in pain. Review of Systems General: Reports: ROS unobtainable due to medical condition Meds/Allergies Home Medications and Allergies Home Medications Medication Instructions Recorded Confirmed Last Taken Type albuterol sulfate 1.25 mg/3 mL 1.25 mg INHALATION QID PRN 11/22/19 05/01/21 1 Day Ago History solution for nebulization ~04/30/21 aspirin 81 mg tablet,delayed 81 mg PO DAILY 11/22/19 05/01/21 05/01/21 06:00 History release atorvastatin 10 mg tablet 10 mg PO DAILY 11/22/19 05/01/21 1 Day Ago History ~04/30/21 coenzyme Q10 10 mg capsule 10 mg PO TID 11/22/19 05/01/21 05/01/21 06:00 History esomeprazole magnesium 40 mg 40 mg PO DAILY 11/22/19 05/01/21 05/01/21 06:00 History capsule,delayed release magnesium oxide 400 mg PO DAILY 11/22/19 05/01/21 05/01/21 06:00 History potassium chloride 10 mEq 10 meq PO DAILY 11/22/19 05/01/21 05/01/21 06:00 History capsule,extended release venlafaxine 150 mg 150 mg PO DAILY 12/14/19 05/01/21 05/01/21 07:00 History capsule,extended release 24 hr isosorbide mononitrate 30 mg 15 mg PO BID #90 tab 02/06/21 05/01/21 1 Day Ago Rx tablet,extended release 24 hr ~04/30/21 metoprolol succinate 50 mg 50 mg PO DAILY #90 tab 02/06/21 05/01/21 05/01/21 06:00 Rx tablet,extended release 24 hr vitamin E (dl, acetate) 45 mg (100 100 unit PO DAILY 02/06/21 05/01/21 05/01/21 07:00 History unit) capsule budesonide 160 mcg-glycopyr 9 2 inh INHALATION BID #10.7 g 03/31/21 05/01/21 1 Day Ago Rx mcg-formot 4.8 mcg/actuation HFA ~04/30/21 inhaler buspirone 15 mg tablet 15 mg PO BID tab 03/31/21 05/01/21 05/01/21 06:00 History hydrocodone 5 mg-acetaminophen 325 ea PO 03/31/21 03/31/21 1 Day Ago History mg tablet ~04/30/21 trazodone 100 mg tablet 100 mg PO .qhs tab 03/31/21 05/01/21 1 Day Ago History ~04/30/21 prednisone 20 mg PO BID 5 Days #10 tab 04/29/21 05/01/21 05/01/21 06:00 Rx Allergies Allergy/AdvReac Type Severity Reaction Status Date / Time Penicillins Allergy Unknown Verified 05/01/21 10:51 procaine [From Novocain] Allergy Unknown Verified 05/01/21 10:51 Current Medications Current Medications Generic Name Dose Route Start Last Admin Trade Name Freq PRN Reason Stop Dose Admin Levalbuterol HCl 0.63 mg 05/01/21 16:00 05/01/21 15:39 Levalbuterol 0.63 Mg/3 Ml Neb INHALATION 0.63 mg Q4H.RESPIRATORY FILEMON Administration PFSH Acute PFSH: Medical History (Updated 05/01/21 @ 17:25 by Bing Copeland MD) Abnormal EKG Abnormal laboratory test result Anxiety disorder Cervical cancer Deficient knowledge of open reduction and internal (ORIF) fixation of hip Depression Encounter for diagnostic endoscopy GERD (gastroesophageal reflux disease) History of kidney stones HTN (hypertension) Ovarian cancer Psychiatric care Surgical History (Updated 05/01/21 @ 10:14 by Segun Pearson MD) H/O lumpectomy Right H/O right knee surgery History of appendectomy History of cataract surgery Bilateral History of deviated nasal septum Surgically corrected History of total abdominal hysterectomy Kidney stones Removal cystoscopically Family History Other Cancer Social History Smoking and tobacco status: current every day smoker cigarettes Packs smoked per day: 1 Years cigarettes smoked: 48 Alcohol intake: never Caregiver/support person: No Lives independently: Yes Marital status: Single Vitals/I&O/Wt Last Vital Signs Temp 97.8 F 05/01/21 15:30 Pulse 92 05/01/21 15:40 Resp 22 H 05/01/21 15:40 BP 135/83 05/01/21 15:30 Pulse Ox 92 05/01/21 15:40 05/01/21 05/01/21 05/01/21 06:59 14:59 22:59 Intake Total 100 / 100 Output Total 110 / 110 Balance -10 / -10 Weight last 48 hrs Weight 90.718 kg Physical Exam Narrative: EXAM NARRATIVE: General: Alert but not able to check for orientation. Patient seen laying in bed. She states she is in a lot of pain and nurses and does not tell them anything else. HEENT: Normocephalic, atraumatic, EOMI, nonlabored breathing. Currently on nasal cannula. Cardio: Regular rate rhythm, normal S1-S2, no murmurs rubs gallops, Respiratory: Good bilateral air entry, no wheezes no rhonchi appreciated GI: Abdomen soft, tender to palpation around incision area, nondistended, no bowel sounds at this time. Behavior: Trying to be cooperative but in a lot of pain at this time. Extremities: Pulses 2+, no edema, no cyanosis Urinary Catheter Management^: Neff: Cath Placed During This Visit: yes Urinary Catheter Date of Insertion: 05/01/21 Urinary Catheter Time of Insertion: 12:23 A&P Assessment and plan (1) COPD (chronic obstructive pulmonary disease): Status: Acute (2) Hypertension: Status: Acute (3) Colon cancer: Status: Acute (4) Smoker: Status: Acute (5) Hyperlipidemia: Status: Acute (6) Dementia: Status: Acute (7) Depression: Status: Acute (8) Anxiety: Status: Acute (9) Chronic back pain: Status: Acute (10) GERD (gastroesophageal reflux disease): Status: Acute (11) Peripheral vascular disease: Status: Acute Additional A&P Information Patient is status post transverse partial colectomy today. Postop day 0. Hypertension: Toprol 50 daily, Aspirin 81. We will continue venlafaxine 150 daily. Continue BuSpar 15 twice daily. COPD: Patient's lungs sound are diminished bilaterally. Of note it seems she was completing a Medrol Dosepak outpatient. Solumedrol 125 x1. We will start patient on Solu-Medrol 40 mg twice daily. Will start azithromycin 500 mg daily for COPD exacerbation. Incentive spirometry and acapella Continue DuoNeb every 4 hours. Smoker: We will offer patient nicotine patch Fluids: D5 1/2 NS E: Replete as needed N: NPO A: Bedrest DVT PPX: Heparin 500 subc Consult Attestations Medical Necessity Statement: Defer to primary team. Time Spent in Patient Care: Greater than 35 minutes Coding Level of Care Code Acute Brake Engineer for g Fwd Diagnoses COPD (chronic obstructive pulmonary disease) J44.9 Hypertension I10 Colon cancer C18.9 Smoker F17.200 Hyperlipidemia E78.5 Dementia F03.90 Depression F32.A Anxiety F41.9 Chronic back pain M54.9; G89.29 GERD (gastroesophageal reflux disease) K21.9 Peripheral vascular disease I73.9
--- NOTE | 2021-05-01 17:43 | XRR_ITS ---
PROCEDURE INFORMATION: Exam: XR Chest Exam date and time: 05/01/2021 5:43 PM Age: 71 years old Clinical indication: Shortness of breath; Additional info: SOB TECHNIQUE: Imaging protocol: XR of the chest. Views: 1 view. COMPARISON: CR (CHEST, ) 04/29/2021 7:21 PM FINDINGS: Lungs: Lungs are clear bilaterally. Pleural spaces: No pleural effusion. No pneumothorax. Heart/Mediastinum: Stable mild enlargement of the cardiac silhouette. Mediastinal contours are unremarkable. Vasculature: Stable vascular calcifications in the aorta. Bones/joints: Unremarkable for age. XR/XR chest 1V portable [id number] IMPRESSION: 1. No acute cardiopulmonary process. 2. Incidental/nonacute findings are listed in the report. Radiation Dose CTDIVOL = (mGy): DLP = (mGy-cm)
[2021-05-01] MEDS: heparin 5,000 unit/mL INJ 1 mL 5000 UNIT SUBCUT (17:46)
[2021-05-01] MEDS: BuSPIRONE 10 mg Tablet 15 MG PO (17:47)
[2021-05-01] MEDS: azithromycin 500 MG in sodium chloride 0.9% 250 ML 250 MG IV (18:45)
[2021-05-01] MEDS: D5-NS 0.45% + KCL 20 mEq 20 MEQ/1,000 ML BAG 100 MEQ IV (19:54)
[2021-05-01] MEDS: ceFAZolin 1,000 MG in sodium chloride 0.9% (plus) 50 ML 100 MG IV (19:55)
[2021-05-01] MEDS: morphine 4 mg/mL SDV 1 mL IVP (19:55)
[2021-05-01] MEDS: ketorolac 30 mg/mL INJ IVP (21:33)
[2021-05-01] MEDS: trazodone 100 mg Tablet PO (21:33)
[2021-05-02] VITALS (18 sets, daily range): BP systolic 111–161; BP diastolic 57–89; PULSE 70–109; RESP 16–20; TEMP 36.6–37.1; O2SAT 90–96
[2021-05-02] MEDS: morphine 4 mg/mL SDV 1 mL IVP ×2 (02:01→14:19)
[2021-05-02 02:50] LABS: Basophils % 0.2 %; Hematocrit 37.9 % (37.0-47.0); Hemoglobin 11.1 g/dL (11.5-15.3); Lymphocytes # 0.6 10^3/uL (0.8-4.8); Lymphocytes % 3.4 %; Mean Corpuscular HGB Conc 29.3 g/dL (30.0-36.0); Mean Corpuscular Hemoglobin 26.5 pg (28.0-34.0); Mean Corpuscular Volume 90.5 fl (81-99); Mean Platelet Volume 10.9 fL (7.4-10.4); Monocytes # 0.6 10^3/uL (0.2-0.9); Monocytes % 3.2 %; Neutrophils # 16.17 10^3/uL (1.8-7.7); Neutrophils % 92.9 %; Nucleated Red Blood Cells % 0 %; Platelet Count 223 10^3/cmm (130-400); Red Blood Count 4.19 10^6/uL (4.1-5.3); Red Cell Distribution Width 16.8 % (12.1-15.1); White Blood Count 17.4 10^3/uL (4.0-10.0)
[2021-05-02 03:12] LABS: Anion Gap 13.8 (5-19); Blood Urea Nitrogen 18 mg/dL (8-23); Calcium 8.1 mg/dL (8.5-10.5); Carbon Dioxide 23 mmol/L (22-29); Chloride 104 mmol/L (98-107); Creatinine Clr Calc Pharmacy 62.8696; Glucose 184 mg/dL (65-115); Osmolality Calculated 289 mOsm/kg (285-295); Potassium 4.8 mmol/L (3.5-5.1); Sodium 136 mmol/L (136-145)
[2021-05-02] MEDS: heparin 5,000 unit/mL INJ 1 mL 5000 UNIT SUBCUT ×2 (03:13→18:26)
[2021-05-02] MEDS: metroNIDAZOLE IV 500 MG/100 ML PREMIX 100 MG IV ×3 (03:13→19:54)
[2021-05-02] MEDS: ceFAZolin 1,000 MG in sodium chloride 0.9% (plus) 50 ML 100 MG IV ×2 (03:13→14:18)
[2021-05-02] MEDS: famotidine 20 mg/2 mL INJ IVP ×2 (03:13→18:27)
[2021-05-02] MEDS: levalbuterol 0.63 mg/3 mL Neb INHALATION ×6 (03:43→23:40)
[2021-05-02] MEDS: ipratropium 0.5 mg/2.5 mL Neb INHALATION ×6 (03:43→23:40)
[2021-05-02] MEDS: D5-NS 0.45% + KCL 20 mEq 20 MEQ/1,000 ML BAG 100 MEQ IV (05:43)
[2021-05-02] MEDS: aspirin 81 mg EC Tablet PO (09:10)
[2021-05-02] MEDS: BuSPIRONE 10 mg Tablet 15 MG PO ×2 (09:10→18:30)
[2021-05-02] MEDS: nicotine 14 mg Patch 1 PATCH TRANSDERMA (09:11)
[2021-05-02] MEDS: venlafaxine ER (24HR) 150 mg Capsule PO (09:21)
--- NOTE | 2021-05-02 10:07 | PM.PN ---
Subjective Subjective: Interval history: The patient states she is doing fairly well today. She does have somewhat of a productive cough but states that is normal for her. No flatus yet. She says she is willing to try to get up in a chair today. Vitals/I&O/Wt Last Vital Signs Temp 98.2 F 05/02/21 07:22 Pulse 75 05/02/21 08:00 Resp 18 05/02/21 08:00 BP 115/71 05/02/21 07:22 Pulse Ox 94 05/02/21 08:00 05/01/21 05/02/21 05/02/21 22:59 06:59 14:59 Intake Total 460 / 2691.667 2131.667 / 2691.667 Output Total 100 / 485 275 / 485 Balance 360 / 2206.667 1856.667 / 2206.667 Weight last 48 hrs Weight 200 lb Physical Exam Narrative: EXAM NARRATIVE: Bowel sounds are infrequent. Midline dressing is intact. She has the expected amount of tenderness. Urinary Catheter Management^: Neff: Cath Placed During This Visit: yes Reason for Continuing Indwelling Catheter: Required Immobilization for Trauma or Surgery or Anesthesia Urinary Catheter Date of Insertion: 05/01/21 Urinary Catheter Time of Insertion: 12:23 Data : 05/02/21 02:40 05/02/21 02:40 A&P Assessment and plan (1) Colon cancer: Status post laparotomy with partial transverse colectomy on 05/01/2021. The patient appears to be doing reasonably well. Appreciate the hospitalist's assistance. Up in a chair today. Status: Acute Attestations Medical Necessity Statement*: Patient requires continued inpatient care following partial colectomy on 05/01/2021. Coding Level of Care Code Acute Life Science Research Assistant for [facility] Gwen Diagnoses Colon cancer C18.9
[2021-05-02] MEDS: sodium chloride 0.9% 1,000 ML 100 ML IV (11:16)
--- NOTE | 2021-05-02 11:43 | PC.CHAP ---
Pastoral Care Encounter/Spiritual Assessment Type of Contact [] Declined human resources partner visit [] Patient/Family/Request visit [] Outpatient visit [] Follow-up visit [] Physician referral [] Code/Alert [x] Routine visit [] Staff referral [] Actively dying [] Patient sleeping [] Family support [] [] Out of room [] Palliative care [] [] Receiving care in room [] Pre-surgical visit [] Trauma [] Long length of stay [] ICU visit [] Other: Relational/Emotional Strength [x] Patient feels connected with others/family/visitors/staff [] Distress [] Loneliness/isolation [] Abandonment Spirituality of Patient [x] Person of Martha [] Attends Quaker of their Martha [x] Believes in Prayer [] Reads Bible or Sabianism materials [] There are Spiritual issues to be addressed Inside Sales Advertising Executive Interventions [x] Prayer [x] Active listening [x] Non-anxious presence [x] Spiritual/emotional support [] Crisis/trauma care [] Spiritual counseling [] Bereavement support [] Provided bereavement packet [] Provided Bible/devotional materials [] Provided toy/stuffed animal, coloring book to patient or family member [] Provided Communion [] Anointing/[place] [] Salvation [x] Completed spiritual assessment [] Other: Impact on Illness or Injury [] Angry [] Fearful [] Anxious [] Often cries [] Exhaustion [] Unable to work [] Unable to attend yarsanism [] Unable to walk/stand [] Unable to read [] Unable to drive [] Unable to eat/drink [] Unable to sleep [] Unable to be with family [] Patient intubated [] Other: Summary patient feeling better ready to go ho0me Time spent with patient 10 min
--- NOTE | 2021-05-02 14:55 | PC.RESP ---
SMOKING CESSATION AND PULMONARY REHAB INFORMATION SENT TO PATIENT.
--- NOTE | 2021-05-02 14:56 | PM.PN ---
Subjective Subjective: Interval history: Seen and examined this morning. Patient is perked up and awake. She is able to have a full conversation with me today and states she is feeling a lot better. Her pain is also well controlled at this time. She did tell me that the outpatient Medrol Dosepak that she was supposed to start she never ended up taking because she came to the hospital for her surgery. She does see a data integrity specialist and is on Trelegy at home. She is in good spirits today. She is not passing gas yet and is not feeling hungry either. I went over her medications with her. She states she does not take the Imdur. Vitals/I&O/Wt Last Vital Signs Temp 98.8 F 05/02/21 11:52 Pulse 76 05/02/21 13:16 Resp 18 05/02/21 14:19 BP 132/66 05/02/21 11:52 Pulse Ox 95 05/02/21 13:16 05/01/21 05/02/21 05/02/21 22:59 06:59 14:59 Intake Total 460 / 560 2131.667 / 2691.667 Output Total 100 / 210 275 / 485 Balance 360 / 350 1856.667 / 2206.667 Weight last 48 hrs Weight 90.718 kg Physical Exam Narrative: EXAM NARRATIVE: General: Alert and oriented x3. Seen lying in bed appearing comfortable.. HEENT: Normocephalic, atraumatic, EOMI, nonlabored breathing. Currently on nasal cannula. Cardio: Regular rate rhythm, normal S1-S2, no murmurs rubs gallops, Respiratory: Rhonchi at bases but lung exam improved compared to yesterday. GI: Abdomen soft, tender to palpation around incision area, nondistended, hypoactive bowel sounds present today. Behavior: Appropriate and cooperative Extremities: Pulses 2+, no edema, no cyanosis Urinary Catheter Management^: Neff: Cath Placed During This Visit: yes Reason for Continuing Indwelling Catheter: Required Immobilization for Trauma or Surgery or Anesthesia Urinary Catheter Date of Insertion: 05/01/21 Urinary Catheter Time of Insertion: 12:23 Data : 05/02/21 02:40 05/02/21 02:40 A&P Assessment and plan (1) COPD (chronic obstructive pulmonary disease): Status: Acute (2) Hypertension: Status: Acute (3) Colon cancer: Status: Acute (4) Smoker: Status: Acute (5) Hyperlipidemia: Status: Acute (6) Dementia: Status: Acute (7) Depression: Status: Acute (8) Anxiety: Status: Acute (9) Chronic back pain: Status: Acute (10) GERD (gastroesophageal reflux disease): Status: Acute (11) Peripheral vascular disease: Status: Acute Additional A&P Information Patient is status post transverse partial colectomy today. Postop day 0. Hypertension: Toprol 50 daily, Aspirin 81. We will continue venlafaxine 150 daily. Continue BuSpar 15 twice daily. COPD: Lung exam improved. Will continue on Solu-Medrol 40 twice daily for now. Will continue on azithromycin daily for now. Incentive spirometry and acapella Continue DuoNeb every 4 hours. Smoker: We will offer patient nicotine patch Fluids: D5 1/2 NS E: Replete as needed N: NPO A: Bedrest DVT PPX: Heparin 500 subc Attestations Medical Necessity Statement*: Defer to primary team Time Spent in Patient Care: less than 15 minutes Coding Level of Care Code Acute Pile Driver Operator Barge Mounted for g Fwd Diagnoses COPD (chronic obstructive pulmonary disease) J44.9 Hypertension I10 Colon cancer C18.9 Smoker F17.200 Hyperlipidemia E78.5 Dementia F03.90 Depression F32.A Anxiety F41.9 Chronic back pain M54.9; G89.29 GERD (gastroesophageal reflux disease) K21.9 Peripheral vascular disease I73.9
--- NOTE | 2021-05-02 17:43 | USCV_ITS ---
Daina Pierre Age: 71 Gender: F : 1950 Exam Date: 05/02/2021 06:18 Ordering Phys: Bing Copeland MD Technologist: Enedina Anna Exam Location: [facility] [place] Indication: SOB BP: 111 / 57 HR: 84 Rhythm: Sinus Technical Quality: Suboptimal MEASUREMENTS (Male / Female) Normal Values 2D ECHO LV Diastolic Diameter PLAX 3.8 cm 4.2 - 5.9 / 3.9 - 5.3 cm LV Systolic Diameter PLAX 2.9 cm IVS Diastolic Thickness 1.6 cm 0.6 - 1.0 / 0.6 - 0.9 cm IVS Systolic Thickness 1.9 cm LVPW Diastolic Thickness 1.7 cm 0.6 - 1.0 / 0.6 - 0.9 cm LVPW Systolic Thickness 1.8 cm LVOT Diameter 2.0 cm LV Ejection Fraction 2D Teich 46.2 % LV Ejection Fraction MOD 2C 67.5 % LV Ejection Fraction 2C AL 69.3 % LA Diameter 2.8 cm LA Width 3.2 cm LA Height 4.3 cm RA Width 2.7 cm RA Height 4.2 cm Aorta at Sinotubular Diameter 2.1 cm M-MODE Aortic Annulus Diameter 2.7 cm LA Ao Ratio MM 1.0 DOPPLER AV Peak Velocity 156.0 cm/s LVOT Peak Velocity 101.0 cm/s AV Area Cont Eq vti 1.9 cm squared AV Area Cont Eq pk 2.1 cm squared MV Peak Velocity 114.0 cm/s MV Area PHT 5.0 cm squared Mitral E to A Ratio 0.9 MV E' Velocity 40.0 cm/s Mitral E to MV E' Ratio 9.5 Mitral E to LV E' Lateral Ratio 8.0 Mitral E to LV E' Septal Ratio 11.7 TR Peak Velocity 269.8 cm/s TR Peak Gradient 29.1 mmHg TR Mean Velocity 217.0 cm/s TR Mean Gradient 19.9 mmHg TR Velocity Time Integral 82.3 cm TV Peak E Velocity 61.0 cm/s PV Peak Velocity 104.0 cm/s RV Acceleration Time 0.1 s RV Ejection Time 0.3 s RV AcT/ET 0.3 FINDINGS Left Ventricle Normal left ventricular cavity size. Increased left ventricular wall thickness.Probably normal left ventricular systolic function. Left ventricular ejection fraction is estimated at 55 %. This study is inadequate for estimation of regional wall motion normality. Normal diastolic function. Right Ventricle Normal right ventricular size and systolic function. Right Atrium Normal right atrial size. Left Atrium Mildly increased left atrial size. Mitral Valve Structurally normal mitral valve. No mitral valve stenosis. No mitral valve regurgitation. Aortic Valve Aortic valve not well visualized. No aortic valve stenosis. Tricuspid Valve Structurally normal tricuspid valve. Pulmonic Valve Pulmonic valve not well visualized. No pulmonary valve stenosis. Pericardium No pericardial effusion. Prominent epicardial fat. Aorta Aorta not well visualized. CONCLUSIONS 1. Normal left ventricular cavity size. Increased left ventricular wall thickness. Probably normal left ventricular systolic function. Left ventricular ejection fraction is estimated at 55 %. This study is inadequate for estimation of regional wall motion abnormality. Normal diastolic function. 2. Normal right ventricular size and systolic function. 3. Mildly increased left atrial size. Aarti Quintana MD (Electronically Signed) Final Date: 02 May 2021 16:04 S
[2021-05-02] MEDS: azithromycin 500 MG in sodium chloride 0.9% 250 ML 250 MG IV (18:28)
[2021-05-02] MEDS: trazodone 100 mg Tablet PO (19:54)
[2021-05-02] MEDS: ketorolac 30 mg/mL INJ IVP (20:04)
[2021-05-03] VITALS (16 sets, daily range): BP systolic 147–179; BP diastolic 74–94; PULSE 62–103; RESP 16–24; TEMP 36.4–37; O2SAT 93–96
[2021-05-03] MEDS: heparin 5,000 unit/mL INJ 1 mL 5000 UNIT SUBCUT ×2 (05:05→17:03)
[2021-05-03] MEDS: famotidine 20 mg/2 mL INJ IVP (05:05)
[2021-05-03] MEDS: sodium chloride 0.9% 1,000 ML 100 ML IV (05:12)
[2021-05-03 07:17] LABS: Hematocrit 35.3 % (37.0-47.0); Hemoglobin 10.4 g/dL (11.5-15.3); Lymphocytes # 0.6 10^3/uL (0.8-4.8); Lymphocytes % 6.4 %; Mean Corpuscular HGB Conc 29.5 g/dL (30.0-36.0); Mean Corpuscular Hemoglobin 26.8 pg (28.0-34.0); Monocytes # 0.5 10^3/uL (0.2-0.9); Monocytes % 5.5 %; Neutrophils # 7.97 10^3/uL (1.8-7.7); Neutrophils % 87.6 %; Nucleated Red Blood Cells % 0 %; Platelet Count 193 10^3/cmm (130-400); Red Blood Count 3.88 10^6/uL (4.1-5.3); Red Cell Distribution Width 16.9 % (12.1-15.1); White Blood Count 9.1 10^3/uL (4.0-10.0)
[2021-05-03 07:37] LABS: Anion Gap 14.5 (5-19); Blood Urea Nitrogen 15 mg/dL (8-23); Calcium 8.4 mg/dL (8.5-10.5); Carbon Dioxide 23 mmol/L (22-29); Chloride 107 mmol/L (98-107); Creatinine Clr Calc Pharmacy 62.8696; Glucose 107 mg/dL (65-115); Osmolality Calculated 291 mOsm/kg (285-295); Potassium 4.5 mmol/L (3.5-5.1); Sodium 140 mmol/L (136-145)
[2021-05-03] MEDS: venlafaxine ER (24HR) 150 mg Capsule PO (08:13)
[2021-05-03] MEDS: aspirin 81 mg EC Tablet PO (08:13)
[2021-05-03] MEDS: BuSPIRONE 10 mg Tablet 15 MG PO ×2 (08:13→17:03)
[2021-05-03] MEDS: metoprolol succinate ER (24 HR) 50 mg Tablet PO (08:13)
[2021-05-03] MEDS: nicotine 14 mg Patch 1 PATCH TRANSDERMA (08:13)
[2021-05-03] MEDS: ketorolac 30 mg/mL INJ IVP (08:21)
[2021-05-03] MEDS: levalbuterol 0.63 mg/3 mL Neb INHALATION ×5 (08:25→23:58)
[2021-05-03] MEDS: ipratropium 0.5 mg/2.5 mL Neb INHALATION ×5 (08:25→23:58)
[2021-05-03] MEDS: morphine 4 mg/mL SDV 1 mL IVP ×2 (08:59→18:11)
--- NOTE | 2021-05-03 09:55 | PM.PN ---
Subjective Subjective: Interval history: The patient states she continues to feel well. She started passing flatus during the night. She is getting hungry. Vitals/I&O/Wt Last Vital Signs Temp 97.7 F 05/03/21 07:50 Pulse 95 05/03/21 08:41 Resp 19 H 05/03/21 08:59 BP 177/94 05/03/21 07:50 Pulse Ox 96 05/03/21 08:29 05/02/21 05/03/21 05/03/21 22:59 06:59 14:59 Intake Total 2470 / 2620 Balance 2470 / 2620 Physical Exam Narrative: EXAM NARRATIVE: Charting reveals no urine output yesterday. She has plenty of urine in the Neff bag and fairly clear urine in the Neff tube. She clearly has good urine output that just has not been recorded. She is afebrile. She is somewhat hypertensive. The lungs still reveal some rhonchi. Bowel sounds are present. The abdominal dressing was removed and the midline incision looks good. Urinary Catheter Management^: Neff: Cath Placed During This Visit: yes Reason for Continuing Indwelling Catheter: Acute Urinary Retention or Obstruction Urinary Catheter Date of Insertion: 05/01/21 Urinary Catheter Time of Insertion: 12:23 Data : 05/03/21 05:39 05/03/21 05:39 A&P Assessment and plan (1) Colon cancer: Status post laparotomy with partial transverse colectomy on 05/01/2021. Doing well. Bowel function is starting to return. White blood cell count has normalized. Discontinue Neff catheter. Ambulate. Slow IV fluids. Consistent carbohydrate clear liquid diet. Resume more home medications. Status: Acute Attestations Medical Necessity Statement*: Patient requires continued inpatient care following partial colectomy for colon cancer. 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
--- NOTE | 2021-05-03 12:19 | PM.PN ---
Subjective Subjective: Interval history: Seen this morning. SHe feels a lot better compared to before. She is passing gas now. Her breathing is also improved significantly.. She has no complaints to offer at this time. She says she is able to cough up a little bit of sputum at this point. Vitals/I&O/Wt Last Vital Signs Temp 97.7 F 05/03/21 07:50 Pulse 95 05/03/21 08:41 Resp 19 H 05/03/21 08:59 BP 177/94 05/03/21 07:50 Pulse Ox 96 05/03/21 08:29 05/02/21 05/03/21 05/03/21 22:59 06:59 14:59 Intake Total 2470 / 2620 621.667 / 621.667 Output Total 210 / 210 Balance 2470 / 2620 411.667 / 411.667 Physical Exam Narrative: EXAM NARRATIVE: General: Alert and oriented x3. Seen sitting up in bed appearing very comfortable today. HEENT: Normocephalic, atraumatic, EOMI, nonlabored breathing. Currently on nasal cannula. Cardio: Regular rate rhythm, normal S1-S2, no murmurs rubs gallops, Respiratory: Wheezes all throughout posterior lung haley. GI: Abdomen soft, tender to palpation around incision area, nondistended, hypoactive minimal bowel sounds present today in a few quadrants but not all. Behavior: Appropriate and cooperative Extremities: no edema, no cyanosis Urinary Catheter Management^: Neff: Cath Placed During This Visit: yes Reason for Continuing Indwelling Catheter: Acute Urinary Retention or Obstruction Urinary Catheter Date of Insertion: 05/01/21 Urinary Catheter Time of Insertion: 12:23 Data : 05/03/21 05:39 05/03/21 05:39 A&P Assessment and plan (1) COPD (chronic obstructive pulmonary disease): Status: Acute (2) Hypertension: Status: Acute (3) Colon cancer: Status: Acute (4) Smoker: Status: Acute (5) Hyperlipidemia: Status: Acute (6) Dementia: Status: Acute (7) Depression: Status: Acute (8) Anxiety: Status: Acute (9) Chronic back pain: Status: Acute (10) GERD (gastroesophageal reflux disease): Status: Acute (11) Peripheral vascular disease: Status: Acute Additional A&P Information Patient is status post transverse partial colectomy today. Postop day 3. Hypertension: Toprol 50 daily, Aspirin 81. We will continue venlafaxine 150 daily. Continue BuSpar 15 twice daily. Patient states she no longer takes Imdur.. Blood pressure can possibly elevated secondary to pain as well. We will continue to monitor. It does come back to normal after administration of pain meds. Secondly she is on steroids which can be contributed to elevated blood pressure at this time. I will not add another agent at this time. COPD: Lung exam improved. Will continue on Solu-Medrol 40 twice daily for now. Will continue on azithromycin daily for now. Incentive spirometry and acapella Continue DuoNeb every 4 hours. Smoker: We will offer patient nicotine patch Fluids: D5 1/2 NS E: Replete as needed N: NPO A: Bedrest DVT PPX: Heparin 500 subc Attestations Medical Necessity Statement*: Defer to primary surgical attending Coding Level of Care Code Acute Auto Radiator Mechanic for g Fwd Diagnoses COPD (chronic obstructive pulmonary disease) J44.9 Hypertension I10 Colon cancer C18.9 Smoker F17.200 Hyperlipidemia E78.5 Dementia F03.90 Depression F32.A Anxiety F41.9 Chronic back pain M54.9; G89.29 GERD (gastroesophageal reflux disease) K21.9 Peripheral vascular disease I73.9
[2021-05-03] MEDS: HYDROcodone-acetaminophen 5-325 mg Tablet PO ×2 (15:01→21:04)
[2021-05-03] MEDS: isosorbide mononitrate ER 30 mg Tablet 15 MG PO (17:03)
[2021-05-03] MEDS: sodium chloride 0.9% 1,000 ML 75 ML IV (17:03)
[2021-05-03] MEDS: azithromycin 500 MG in sodium chloride 0.9% 250 ML 250 MG IV (17:06)
[2021-05-03] MEDS: trazodone 100 mg Tablet PO (21:04)
[2021-05-04] VITALS (19 sets, daily range): BP systolic 151–191; BP diastolic 72–95; PULSE 73–103; RESP 18–24; TEMP 36.7–36.8; O2SAT 87–97
[2021-05-04] MEDS: levalbuterol 0.63 mg/3 mL Neb INHALATION ×5 (03:25→20:29)
[2021-05-04] MEDS: ipratropium 0.5 mg/2.5 mL Neb INHALATION ×5 (03:26→20:29)
[2021-05-04 05:40] LABS: Basophils % 0.1 %; Hematocrit 35.8 % (37.0-47.0); Hemoglobin 10.6 g/dL (11.5-15.3); Lymphocytes # 0.8 10^3/uL (0.8-4.8); Lymphocytes % 9.4 %; Mean Corpuscular HGB Conc 29.6 g/dL (30.0-36.0); Mean Corpuscular Hemoglobin 26.6 pg (28.0-34.0); Mean Corpuscular Volume 89.7 fl (81-99); Mean Platelet Volume 10.7 fL (7.4-10.4); Monocytes # 0.5 10^3/uL (0.2-0.9); Monocytes % 5.6 %; Neutrophils # 6.83 10^3/uL (1.8-7.7); Neutrophils % 84.5 %; Nucleated Red Blood Cells % 0 %; Platelet Count 208 10^3/cmm (130-400); Red Blood Count 3.99 10^6/uL (4.1-5.3); Red Cell Distribution Width 16.7 % (12.1-15.1); White Blood Count 8.1 10^3/uL (4.0-10.0)
[2021-05-04 06:06] LABS: Anion Gap 14.4 (5-19); Blood Urea Nitrogen 17 mg/dL (8-23); Calcium 8.8 mg/dL (8.5-10.5); Carbon Dioxide 23 mmol/L (22-29); Chloride 106 mmol/L (98-107); Glucose 120 mg/dL (65-115); Osmolality Calculated 291 mOsm/kg (285-295); Potassium 4.4 mmol/L (3.5-5.1); Sodium 139 mmol/L (136-145)
[2021-05-04] MEDS: heparin 5,000 unit/mL INJ 1 mL 5000 UNIT SUBCUT ×2 (06:06→15:46)
[2021-05-04] MEDS: HYDROcodone-acetaminophen 5-325 mg Tablet PO ×3 (06:06→18:30)
[2021-05-04 06:08] LABS: Creatinine Clr Calc Pharmacy 62.8696
[2021-05-04] MEDS: sodium chloride 0.9% 1,000 ML 75 ML IV (06:10)
--- NOTE | 2021-05-04 08:19 | P.PN_ITS ---
Subjective Subjective: Interval history: Seen this morning. She is feeling better. Passing gas and on clear liquids now. She still continues to wheeze and is able to cough up sputum at this point. I encouraged her to keep using her flutter valve and incentive spirometer. Vitals/I&O/Wt Last Vital Signs Temp 98.2 F 05/04/21 07:17 Pulse 94 05/04/21 07:17 Resp 18 05/04/21 07:17 BP 180/95 05/04/21 07:17 Pulse Ox 95 05/04/21 07:17 05/03/21 05/04/21 05/04/21 22:59 06:59 14:59 Intake Total 1418.333 / 2680.000 983.75 / 3663.750 Output Total 200 / 910 Balance 1218.333 / 1770.000 983.75 / 2753.750 Physical Exam Narrative: EXAM NARRATIVE: General: Alert and oriented x3. Seen sitting up in bed appearing very comfortable today. HEENT: Normocephalic, atraumatic, EOMI, nonlabored breathing. Currently on nasal cannula. Cardio: Regular rate rhythm, normal S1-S2, no murmurs rubs gallops, Respiratory: Wheezes all throughout posterior lung haley. GI: Abdomen soft, tender to palpation around incision area, nondistended, bowel sounds present today. Behavior: Appropriate and cooperative Extremities: no edema, no cyanosis Urinary Catheter Management^: Neff: Cath Placed During This Visit: yes, but has since been removed by the nurse Reason for Continuing Indwelling Catheter: Decision to DC Catheter Urinary Catheter Date of Insertion: 05/01/21 Urinary Catheter Time of Insertion: 12:23 Date Urinary Catheter Removed: 05/03/21 Time Urinary Catheter Discontinued: 14:06 Data : 05/04/21 05:19 05/04/21 05:19 A&P Assessment and plan (1) COPD (chronic obstructive pulmonary disease): Status: Acute (2) Hypertension: Status: Acute (3) Colon cancer: Status: Acute (4) Smoker: Status: Acute (5) Hyperlipidemia: Status: Acute (6) Dementia: Status: Acute (7) Depression: Status: Acute (8) Anxiety: Status: Acute (9) Chronic back pain: Status: Acute (10) GERD (gastroesophageal reflux disease): Status: Acute (11) Peripheral vascular disease: Status: Acute Additional A&P Information Patient is status post transverse partial colectomy today. Postop day 3. Hypertension: Toprol 50 daily, Aspirin 81. We will continue venlafaxine 150 daily. Continue BuSpar 15 twice daily. Patient states she no longer takes Imdur.. I have stopped her IV Solu-Medrol at this point since her blood pressure is going into 180 systolic range. I will give her one-time hydralazine 25 mg. Can start her on amlodipine 5 mg daily. I have discussed with nurse and she will recheck blood pressure after administration of hydralazine. COPD: Lung exam improved. Stop IV Solu-Medrol. Will continue on azithromycin daily for now. Incentive spirometry and acapella. We will switch her to oral prednisone 40 for 2 more doses to complete 5 days. Continue DuoNeb every 4 hours. Patient has been recommended pulmonary rehab by her track helper. She will need to follow-up with pulmonology at discharge. Smoker: We will offer patient nicotine patch Fluids: D5 1/2 NS E: Replete as needed N: NPO A: Bedrest DVT PPX: Heparin 500 subc Attestations Medical Necessity Statement*: Defer to primary team. 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
[2021-05-04] MEDS: BuSPIRONE 10 mg Tablet 15 MG PO ×2 (08:27→18:17)
[2021-05-04] MEDS: nicotine 14 mg Patch 1 PATCH TRANSDERMA (08:27)
[2021-05-04] MEDS: atorvastatin 40 mg Tablet 20 MG PO (08:28)
[2021-05-04] MEDS: magnesium oxide 400 mg tablet PO (08:28)
[2021-05-04] MEDS: isosorbide mononitrate ER 30 mg Tablet 15 MG PO ×2 (08:28→18:18)
[2021-05-04] MEDS: pantoprazole DR 40 mg Tablet PO (08:28)
[2021-05-04] MEDS: aspirin 81 mg EC Tablet PO (08:28)
[2021-05-04] MEDS: metoprolol succinate ER (24 HR) 50 mg Tablet PO (08:28)
[2021-05-04] MEDS: venlafaxine ER (24HR) 150 mg Capsule PO (08:33)
--- NOTE | 2021-05-04 09:16 | P.PN_ITS ---
Subjective Subjective: Interval history: The patient says she continues to feel well. She is tolerating a liquid diet and continues to pass flatus. She would like to try some solid food if possible. Vitals/I&O/Wt Last Vital Signs Temp 98.2 F 05/04/21 07:17 Pulse 90 05/04/21 08:45 Resp 20 H 05/04/21 08:45 BP 180/95 05/04/21 07:17 Pulse Ox 93 05/04/21 08:45 05/03/21 05/04/21 05/04/21 22:59 06:59 14:59 Intake Total 1418.333 / 3663.750 983.75 / 3663.750 Output Total 200 / 910 Balance 1218.333 / 2753.750 983.75 / 2753.750 Physical Exam Narrative: EXAM NARRATIVE: Bowel sounds are present. The midline incision looks good. She has the expected amount of tenderness. Urinary Catheter Management^: Neff: Cath Placed During This Visit: yes, but has since been removed by the nurse Reason for Continuing Indwelling Catheter: Decision to DC Catheter Urinary Catheter Date of Insertion: 05/01/21 Urinary Catheter Time of Insertion: 12:23 Date Urinary Catheter Removed: 05/03/21 Time Urinary Catheter Discontinued: 14:06 Data : 05/04/21 05:19 05/04/21 05:19 A&P Assessment and plan (1) Colon cancer: Status post laparotomy with partial transverse colectomy on 05/01/2021. The patient continues to do well. Soft diet. If the patient continues to do well she may be able to be discharged as early as tomorrow. Status: Acute Attestations Medical Necessity Statement*: Patient requires continued inpatient care following partial colectomy for colon cancer. 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
--- NOTE | 2021-05-04 09:36 | PC.SOCIAL ---
IMM UPdated Page 2 of IMM updated and reviewed. Initialed, timed and dated. Copy left in pts chart.
[2021-05-04] MEDS: hyDRALAzine 25 mg Tablet PO ×2 (14:18→23:15)
[2021-05-04] MEDS: hyDRALAzine 20 mg/mL INJ 1 mL 10 MG IVP (15:42)
[2021-05-04] MEDS: D 10 MG PO (16:17)
[2021-05-04] MEDS: azithromycin 500 MG in sodium chloride 0.9% 250 ML 250 MG IV (18:29)
[2021-05-04] MEDS: trazodone 100 mg Tablet PO (20:18)
[2021-05-04] MEDS: ketorolac 30 mg/mL INJ IVP (20:20)
[2021-05-04] MEDS: sodium chloride 0.9% 1,000 ML 50 ML IV (23:13)
[2021-05-05] VITALS (15 sets, daily range): BP systolic 152–180; BP diastolic 81–100; PULSE 71–93; RESP 18–21; TEMP 36.6–36.9; O2SAT 90–96
[2021-05-05] MEDS: levalbuterol 0.63 mg/3 mL Neb INHALATION ×4 (00:04→11:24)
[2021-05-05] MEDS: ipratropium 0.5 mg/2.5 mL Neb INHALATION ×4 (00:04→11:24)
[2021-05-05] MEDS: heparin 5,000 unit/mL INJ 1 mL 5000 UNIT SUBCUT (03:37)
[2021-05-05] MEDS: cloNIDine 0.1 mg Tablet PO (04:28)
[2021-05-05 05:07] LABS: Basophils % 0.1 %; Eosinophils % 0.1 %; Hematocrit 37.6 % (37.0-47.0); Hemoglobin 11.1 g/dL (11.5-15.3); Lymphocytes # 1.8 10^3/uL (0.8-4.8); Lymphocytes % 24.9 %; Mean Corpuscular HGB Conc 29.5 g/dL (30.0-36.0); Mean Corpuscular Hemoglobin 26.3 pg (28.0-34.0); Mean Corpuscular Volume 89.1 fl (81-99); Mean Platelet Volume 10.5 fL (7.4-10.4); Monocytes # 0.8 10^3/uL (0.2-0.9); Monocytes % 10.8 %; Neutrophils # 4.72 10^3/uL (1.8-7.7); Neutrophils % 63.8 %; Nucleated Red Blood Cells % 0 %; Platelet Count 223 10^3/cmm (130-400); Red Blood Count 4.22 10^6/uL (4.1-5.3); Red Cell Distribution Width 16.6 % (12.1-15.1); White Blood Count 7.4 10^3/uL (4.0-10.0)
[2021-05-05 05:45] LABS: Anion Gap 12.3 (5-19); Blood Urea Nitrogen 15 mg/dL (8-23); Calcium 8.8 mg/dL (8.5-10.5); Carbon Dioxide 28 mmol/L (22-29); Chloride 105 mmol/L (98-107); Creatinine Clr Calc Pharmacy 62.8696; Glucose 115 mg/dL (65-115); Osmolality Calculated 296 mOsm/kg (285-295); Potassium 3.3 mmol/L (3.5-5.1); Sodium 142 mmol/L (136-145)
--- NOTE | 2021-05-05 07:55 | PM.PN ---
Subjective Subjective: Interval history: Patient feels well and wants to go home today. She continues to pass flatus and is tolerating a low residue diet. She appears to be remaining hypertensive, however, and says this is not normal for her. Vitals/I&O/Wt Last Vital Signs Temp 98.4 F 05/05/21 04:00 Pulse 76 05/05/21 04:00 Resp 19 H 05/05/21 04:00 BP 180/100 05/05/21 04:28 Pulse Ox 96 05/05/21 04:00 05/04/21 05/05/21 05/05/21 22:59 06:59 14:59 Intake Total 590 / 2150.00 558.75 / 2150.00 Output Total 450 / 1500 1050 / 1500 Balance 140 / 650.00 -491.25 / 650.00 Physical Exam Narrative: EXAM NARRATIVE: Bowel sounds are present. The incision looks good. Urinary Catheter Management^: Neff: Cath Placed During This Visit: yes, but has since been removed by the nurse Reason for Continuing Indwelling Catheter: Decision to DC Catheter Urinary Catheter Date of Insertion: 05/01/21 Urinary Catheter Time of Insertion: 12:23 Date Urinary Catheter Removed: 05/03/21 Time Urinary Catheter Discontinued: 14:06 Data : 05/05/21 04:57 05/05/21 04:57 A&P Assessment and plan (1) Colon cancer: Status post laparotomy with partial transverse colectomy on 05/01/2021. From a surgical standpoint, I think it is okay if the patient goes home. I am going to have her evaluated by the hospitalist prior to discharge for her hypertension. I am still hoping she will be able to be discharged later today. Status: Acute Attestations Medical Necessity Statement*: Patient remains in inpatient status following partial colectomy for colon cancer. She may be requiring further inpatient treatment of hypertension. 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
[2021-05-05] MEDS: spironolactone 25 mg Tablet PO (08:20)
[2021-05-05] MEDS: D 10 MG PO (08:20)
[2021-05-05] MEDS: hyDRALAzine 25 mg Tablet PO ×2 (08:21→14:03)
[2021-05-05] MEDS: venlafaxine ER (24HR) 150 mg Capsule PO (08:21)
[2021-05-05] MEDS: BuSPIRONE 10 mg Tablet 15 MG PO (08:21)
[2021-05-05] MEDS: magnesium oxide 400 mg tablet PO (08:21)
[2021-05-05] MEDS: atorvastatin 40 mg Tablet 20 MG PO (08:21)
[2021-05-05] MEDS: metoprolol succinate ER (24 HR) 50 mg Tablet PO (08:22)
[2021-05-05] MEDS: isosorbide mononitrate ER 30 mg Tablet 15 MG PO (08:22)
[2021-05-05] MEDS: aspirin 81 mg EC Tablet PO (08:22)
[2021-05-05] MEDS: pantoprazole DR 40 mg Tablet PO (08:22)
[2021-05-05] MEDS: nicotine 14 mg Patch 1 PATCH TRANSDERMA (08:22)
[2021-05-05] MEDS: predniSONE 20 mg Tablet 40 MG PO (08:22)
--- NOTE | 2021-05-05 09:45 | PC.CHAP ---
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 [] Patient/Family/Request visit [] Outpatient visit [] Follow-up visit [] Physician referral [] Code/Alert [x] Routine visit [] Staff referral [] Actively dying [] Patient sleeping [] Family support [] [] Out of room [] Palliative care [] [] Receiving care in room [] Pre-surgical visit [] Trauma [] Long length of stay [] ICU visit [] Other: Relational/Emotional Strength [x] Patient feels connected with others/family/visitors/staff [] Distress [] Loneliness/isolation [] Abandonment Spirituality of Patient [x] Person of Martha [] Attends Nondenominational of their Martha [] Believes in Prayer [] Reads Bible or Roman Catholic materials [] There are Spiritual issues to be addressed Boot Repairer Interventions [x] Prayer [x] Active listening [] Non-anxious presence [] Spiritual/emotional support [] Crisis/trauma care [] Spiritual counseling [] Bereavement support [] Provided bereavement packet [] Provided Bible/devotional materials [] Provided toy/stuffed animal, coloring book to patient or family member [] Provided Communion [] Anointing/[place] [] Salvation [x] Completed spiritual assessment [] Other: Impact on Illness or Injury [] Angry [] Fearful [] Anxious [] Often cries [] Exhaustion [] Unable to work [] Unable to attend yazdanism [] Unable to walk/stand [] Unable to read [] Unable to drive [] Unable to eat/drink [] Unable to sleep [] Unable to be with family [] Patient intubated [] Other: Summary Time spent with patient 10 min
--- NOTE | 2021-05-05 12:53 | PC.NURSE ---
[facility] and Jess gave followup appointment for May 08, at 1010.
--- NOTE | 2021-05-05 13:25 | P.DS_ITS ---
Discharge Providers Date of Admission: 05/01/21 13:54 Date of Discharge: May 05, 2021 Attending Provider at Admission: Segun Pearson MD Attending Provider at Discharge: Segun Pearson MD Primary Care Provider: Rayray Orozco MD Diagnoses at Discharge Discharge Diagnosis (1) Colon cancer: Status: Acute Reason for Visit Reason for Visit: colonoscopy and surgery for colon cancer Hospital Course Hospital Course Patient is a 71-year-old white female who was found to have a small colon malignancy by colonoscopic biopsy and was sent to [place] for further management. A preoperative CAT scan could not identify the primary that was found in the transverse colon, nor did it show any evidence of metastatic disease. Her CEA level was not elevated. She was counseled regarding a preoperative colonoscopy with thinking to be followed immediately by exploratory laparotomy and a partial colectomy. The patient underwent a home bowel preparation and was admitted on 05/01/2021. On the day of admission a colonoscopy revealed the small malignancy in the distal transverse colon and the site was inked. She underwent a laparotomy and a partial transverse colectomy was performed. Postoperatively the hospitalist team was consulted for medical management for her multiple medical issues. She actually did very well postoperatively and had no major issues other than for some hypertension as the days progressed; I believe the hospitalist was going to let her follow-up with her primary care physician regarding this to see if it was persisting. Her bowel function eventually returned. An oral diet was begun and she was eventually advanced to a low residue diet which she tolerated well. By 05/05/2021 the patient was up ambulating, was passing flatus and tolerating a low residue diet. Her discomfort was under good control and her incision looked excellent. She was anxious to go home. She was counseled regarding wound care, activity limitations, follow-up appointments, etc. She is already under a pain contract from her pain physician in [place] and thought her regular pain medication would be adequate for her pain control at home. I will be seeing her in the office next week and follow-up. She was encouraged to call with any questions or concerns in the interim. Final pathology was still pending at the time of discharge, although I received a verbal report from the pathologist that the malignancy had been completely excised. Final lymph node pathology was still pending. Physical Exam Urinary Catheter Management^: Neff: Cath Placed During This Visit: yes, but has since been removed by the nurse Reason for Continuing Indwelling Catheter: Decision to DC Catheter Urinary Catheter Date of Insertion: 05/01/21 Urinary Catheter Time of Insertion: 12:23 Date Urinary Catheter Removed: 05/03/21 Time Urinary Catheter Discontinued: 14:06 Discharge Data Data Completed and Pending: Completed Studies During Hospitalization Category Date Time Status XR chest 1V yulisa ble [id number] Stat Exams 05/01/21 17:43 Completed CV. echo complete * [id number] Routine Ultrasound 05/02/21 17:43 Completed Pending at discharge Category Date Time Status Microsatellite In stability MSI Rout ine Lab 05/01/21 13:37 Received Pathology: Surgic al [PTH] Routine Pth 05/01/21 13:37 Received Labs from last 24 hours 05/05/21 05/05/21 05/01/21 04:57 04:57 13:37 WBC 7.4 RBC 4.22 Hgb 11.1 L Hct 37.6 MCV 89.1 MCH 26.3 L MCHC 29.5 L RDW 16.6 H Plt Count 223 MPV 10.5 H Neut % (Auto) 63.8 Lymph % (Auto) 24.9 Howell % (Auto) 10.8 Eos % (Auto) 0.1 Baso % (Auto) 0.1 Neut # (Auto) 4.72 Lymph # (Auto) 1.8 Howell # (Auto) 0.8 Eos # (Auto) 0.0 Baso # (Auto) 0.0 Nucleated RBC % (a uto) 0 Nucleated RBCs # 0.0 Sodium 142 Potassium 3.3 L Chloride 105 Carbon Dioxide 28 Anion Gap 12.3 BUN 15 Creatinine 0.5 GFR Calculation Not Reportable Glucose 115 Calculated Osmolal ity 296 H Calcium 8.8 Microsatellite Ins tab Pending Vitals: Last Vital Signs Temp 97.8 F 05/05/21 08:00 Pulse 88 05/05/21 11:31 Resp 18 05/05/21 11:24 BP 173/81 05/05/21 08:00 Pulse Ox 90 05/05/21 11:24 Discharge Plan Discharge Patient Disposition: Home Condition: Stable Prescriptions: New lisinopril 10 mg tablet 20 mg PO BID Qty: 60 RF: 0 isosorbide mononitrate 30 mg Tablet Extended Release 24 Hr 15 mg PO BID Qty: 60 RF: 0 Continued albuterol sulfate 1.25 mg/3 mL solution for nebulization 1.25 mg INHALATION QID PRN (Reason: Shortness Of Breath) RF: 0 magnesium oxide 400 mg magnesium tablet 400 mg PO DAILY RF: 0 aspirin [Adult Low Dose Aspirin] 81 mg tablet,delayed release (DR/EC) 81 mg PO DAILY RF: 0 coenzyme Q10 10 mg capsule 10 mg PO TID RF: 0 atorvastatin 10 mg tablet 10 mg PO BEDTIME RF: 0 esomeprazole magnesium 40 mg capsule,delayed release(DR/EC) 40 mg PO DAILY RF: 0 potassium chloride 10 mEq capsule, extended release 10 meq PO DAILY RF: 0 vitamin E (dl, acetate) 45 mg (100 unit) capsule 100 unit PO DAILY RF: 0 venlafaxine [Effexor XR] 150 mg capsule,extended release 24hr 150 mg PO DAILY RF: 0 buspirone 15 mg tablet 15 mg PO BID RF: 0 metoprolol succinate 50 mg tablet extended release 24 hr 50 mg PO DAILY Qty: 90 RF: 3 hydrocodone-acetaminophen 5-325 mg tablet 1 tab PO Q6H PRN (Reason: Pain) RF: 0 trazodone 100 mg tablet 100 mg PO BEDTIME RF: 0 Breztri Aerosphere 160-9-4.8 mcg/actuation HFA aerosol inhaler 2 inh inhalation BID Qty: 10.7 RF: 3 prednisone 20 mg tablet 20 mg PO BID 5 Days Qty: 10 RF: 0 Discharge Orders: Discharge Order (Routine); Ordered 05/05/21 Ordered By: Kiley Borrego Other Ambulatory Orders: DME: Wheelchair (Order) Location: None Selected Ordered By: Kiley Borrego Referrals: Segun Pearson MD [Physician] - 1 week (Follow up appointment made on May 13 at 2:45.) Rayray Orozco MD [Primary Care Provider] - 1-3 days (Follow up appointment scheduled for May 08 at 10:10.) Discharge Diet: GI Soft Discharge Activity: Limit activity as instructed Patient Instructions: Lisinopril (By mouth) (Prinivil, Zestril), Isosorbide Mononitrate (By mouth) (Imdur, Imdur ER, Ismo), Colorectal Cancer (DC), Colectomy (DC), COPD Stoplight, Opioid Safety Activity Restrictions/Additional Instructions: 1. Discharge to home today. 2. Appointment to see Dr. Pearson next week as above. 3. May shower at home. 4. Low residue diet at home; please give patient low residue diet instruction sheet upon discharge. No lifting over 20 pounds, no repetitive bending or twisting, no strenuous pushing / pulling or other heavy activity. Ambulate regularly. May go up and down steps if needed. Discharge Attestations Time Spent in Discharge Care*: less than 30 min Quality Metrics Clinical Quality Measures During this hospital stay, did patient experience: None Coding Level of Care Code Acute [facility] ANA MARIA note Diagnoses Colon cancer C18.9
--- NOTE | 2021-05-05 13:32 | PC.NURSE ---
made follow up appointment with Dr Pearson on May 13 at 1448
--- NOTE | 2021-05-05 13:50 | PC.NURSE ---
discharge instructions given to patient and patient verbalized understanding of instructions. patient's oxygen delivered and SS notified that we are ready for ride to be set up. FLAKITO Lares said she will set up ride.
--- NOTE | 2021-05-05 14:19 | PC.NURSE ---
Patient's family came and picked up patient.
[2021-05-07 10:12] LABS: Miscellaneous Test See Scanned Lab Rpt
== END 2021-05-05 14:21 | disposition home health service (06) | DRG 331 ==
LOC: MEDSURG 13:59
PROVIDERS: Internal Medicine; Admitting Provider Surgery; PCP Family Medicine; Visit Provider Surgery
PROC: 0DJD8ZZ Inspection of Lower Intestinal Tract, Via Natural or Artificial Opening Endoscopic (ICD-10-PCS; CPT 45378; principal; 2021-05-01 11:10)
PROC: 0DTL0ZZ Resection of Transverse Colon, Open Approach (ICD-10-PCS; CPT 44140; 2021-05-01 11:10)
DX: C18.4 Malignant neoplasm of transverse colon (principal); F17.210 Nicotine dependence, cigarettes, uncomplicated; Z88.0 Allergy status to penicillin; F41.8 Other specified anxiety disorders; M32.9 Systemic lupus erythematosus, unspecified; Z85.41 Personal history of malignant neoplasm of cervix uteri; J43.2 Centrilobular emphysema; M79.7 Fibromyalgia; K21.9 Gastro-esophageal reflux disease without esophagitis; M10.9 Gout, unspecified; E78.00 Pure hypercholesterolemia, unspecified; G62.9 Polyneuropathy, unspecified; R53.82 Chronic fatigue, unspecified; F03.90 Unspecified dementia, unspecified severity, without behavioral disturbance, psychotic disturbance, mood disturbance, and anxiety; G89.29 Other chronic pain; M54.9 Dorsalgia, unspecified; I34.1 Nonrheumatic mitral (valve) prolapse; K57.90 Diverticulosis of intestine, part unspecified, without perforation or abscess without bleeding; Z79.52 Long term (current) use of systemic steroids; Z79.891 Long term (current) use of opiate analgesic; Z79.82 Long term (current) use of aspirin; Z79.51 Long term (current) use of inhaled steroids; I73.9 Peripheral vascular disease, unspecified; I10 Essential (primary) hypertension
CPT/HCPCS: 36415; 71045; 80048; 85025; 88309; 88341; 88342; 93306; 94640; 94664; 96372; C9290; J0360; J0456; J0690; J1100; J1170; J1644; J1885; J2250; J2270; J2405; J2704; J2710; J2920; J2930; J3010; J3490; J7030; J7050; J7512; J7611; J7614; J7644; S0030

== ENCOUNTER 2021-05-08 17:03 | Emergency (ER) | payer MEDICARE, MEDICAID, SELFPAY ==
[2021-05-08] VITALS (7 sets, daily range): BP systolic 138–164; BP diastolic 85–104; PULSE 73–80; RESP 16–24; TEMP 36.8; O2SAT 93–95; BMI 38.0
--- NOTE | 2021-05-08 17:07 | W.ED.SOB ---
Documented by User: Desmond Burton MD 05/11/21 17:25 HPI - SOB/Dyspnea General: Chief Complaint: Shortness of Breath/Dyspnea Stated Complaint: SOB Time Seen by Provider: 05/08/21 17:07 History of Present Illness: HPI Narrative: Ms Pierre is a 71-year-old lady with history of hypertension, hyperlipidemia, COPD with chronic hypoxic respiratory failure on 2 L at baseline and recent hospitalization for surgical removal of large bowel tumor who presents emergency department due to shortness of breath cough. She reports feeling somewhat improved on discharge however yesterday started noticing more shortness of breath, she describes a gurgling sensation in her lungs and productive cough. No fevers or chills. No other signs of systemic illness. Overall the course of symptoms has been worsening. Intensity is moderate. She has tried home medications without significant relief. Review of Systems General: Reports: 10 or more systems reviewed and unremarkable except in HPI and below PFSH ED PFSH: Medical History Abnormal EKG Abnormal laboratory test result Anxiety Anxiety disorder Cervical cancer Chronic back pain Colon cancer COPD (chronic obstructive pulmonary disease) Deficient knowledge of open reduction and internal (ORIF) fixation of hip Dementia Depression Depression Encounter for diagnostic endoscopy GERD (gastroesophageal reflux disease) GERD (gastroesophageal reflux disease) History of kidney stones HTN (hypertension) Hyperlipidemia Hypertension Ovarian cancer Peripheral vascular disease Psychiatric care Smoker Surgical History H/O lumpectomy Right H/O right knee surgery History of appendectomy History of cataract surgery Bilateral History of deviated nasal septum Surgically corrected History of total abdominal hysterectomy Kidney stones Removal cystoscopically Family History Other Cancer Social History Smoking and tobacco status: current every day smoker cigarettes Packs smoked per day: 1 Years cigarettes smoked: 48 Alcohol intake: never Caregiver/support person: No Lives independently: Yes Marital status: Single Physical Exam Narrative: EXAM NARRATIVE: GENERAL/CONSTITUTIONAL -somewhat ill-appearing. No acute distress. Eyes - PERRL, no conjunctival injection ENMT - Atraumatic external nose and ears. Moist mucous membranes NECK - supple. trachea midline CARDIOVASCULAR - regular rate and rhythm. Peripheral pulses 2+ and equal RESPIRATORY -coarse breath sounds, productive cough which sounds infectious in etiology ABDOMEN/GI - Nontender/Nondistended. Laparotomy incision without drainage or erythema, ashly intact. MSK - Extremities without obvious deformity or tenderness to palpation SKIN - Warm, Dry NEURO - alert and appropriately oriented. Moves all extremities equally. Course ED course: - Patient was seen and evaluated by me at bedside - Patient placed on cardiac monitors, IV access obtained - Initial evaluation notable for mildly ill appearance, coarse productive lung sounds and cough. -Symptom treatment ordered - Labs notable for leukocytosis. Metabolic panel without significant abnormality to explain patient's symptoms. - Imaging notable for no lobar consolidation. Given patient's recent history and symptoms CT is ordered. -Patient care handed off to overnight ED physician Dr. De Luna pending results of CT scan and reevaluation. Vital Signs: Vital signs: Vital Signs Temperature 98.3 F 05/08/21 17:04 Pulse Rate 80 05/08/21 21:31 Respiratory Rate 18 05/08/21 21:31 Blood Pressure 153/85 05/08/21 21:31 Pulse Oximetry 93 05/08/21 21:31 MDM - SOB/Dyspnea Medical Records: Attestation: I reviewed the patient's medical records. Lab Data: Attestation: I reviewed the patient's lab results. Labs: Lab Results 05/08/21 05/08/21 05/08/21 17:32 17:32 17:32 WBC 13.6 10^3/uL H 10 ^3/uL (4.0-10.0) RBC 4.74 10^6/uL 10^6 /uL (4.1-5.3) Hgb 12.7 g/dL g/dL (11.5-15.3) Hct 42.5 % % (37.0-47.0) MCV 89.7 fl fl (81-99) MCH 26.8 pg L pg (28.0-34.0) MCHC 29.9 g/dL L g/dL (30.0-36.0) RDW 16.8 % H % (12.1-15.1) Plt Count 251 10^3/cmm 10^3 /cmm (130-400) MPV 11.1 fL H fL (7.4-10.4) Neut % (Auto) 72.0 % % Lymph % (Auto) 17.4 % % [place] % (Auto) 8.0 % % Eos % (Auto) 1.3 % % Baso % (Auto) 0.1 % % Neut # (Auto) 9.77 10^3/uL H 10 ^3/uL (1.8-7.7) Lymph # (Auto) 2.4 10^3/uL 10^3/ uL (0.8-4.8) [place] # (Auto) 1.1 10^3/uL H 10^ 3/uL (0.2-0.9) Eos # (Auto) 0.2 10^3/uL 10^3/ uL (0.0-0.8) Baso # (Auto) 0.0 10^3/uL 10^3/ uL (0.0-0.1) Nucleated RBC % (a uto) 0 % % Nucleated RBCs # 0.0 /100WBC /100W BC Sodium 137 mmol/L mmol/L (136-145) Potassium 3.9 mmol/L mmol/L (3.5-5.1) Chloride 96 mmol/L L mmol/ L (98-107) Carbon Dioxide 31 mmol/L H mmol/ L (22-29) Anion Gap 13.9 (5-19) BUN 19 mg/dL mg/dL (8-23) Creatinine 0.6 mg/dL mg/dL (0.5-0.9) GFR Calculation Not Reportable Glucose 175 mg/dL H mg/dL (65-115) Calculated Osmolal ity 291 mOsm/kg mOsm/ kg (285-295) Lactate 1.7 mmol/L mmol/L (0.5-2.2) Calcium 9.0 mg/dL mg/dL (8.5-10.5) Total Bilirubin 0.3 mg/dL mg/dL (0.15-1.2) AST 21 U/L U/L (0-32) ALT 18 U/L U/L (0-33) Alkaline Phosphata se 108 IU/L H IU/L (35-105) Troponin T Baselin e Troponin T 120 Min [place] Troponin T NT-Pro-B Natriuret Pep 87 pg/mL pg/mL (0-125) Total Protein 5.9 g/dL L g/dL (6.6-8.7) Albumin 3.7 g/dL g/dL (3.5-5.2) Globulin 2.2 g/dL g/dL (1.3-4.6) Procalcitonin 0.06 ng/mL ng/mL (0-0.5) 05/08/21 05/08/21 17:32 19:36 WBC RBC Hgb Hct MCV MCH MCHC RDW Plt Count MPV Neut % (Auto) Lymph % (Auto) [place] % (Auto) Eos % (Auto) Baso % (Auto) Neut # (Auto) Lymph # (Auto) [place] # (Auto) Eos # (Auto) Baso # (Auto) Nucleated RBC % (a uto) Nucleated RBCs # Sodium Potassium Chloride Carbon Dioxide Anion Gap BUN Creatinine GFR Calculation Glucose Calculated Osmolal ity Lactate Calcium Total Bilirubin AST ALT Alkaline Phosphata se Troponin T Baselin e 10 ng/L ng/L (0-10) Troponin T 120 Min [place] 8.19 ng/L ng/L (0-10) Delta Troponin T -1.81 ABS# L ABS# (0-10) NT-Pro-B Natriuret Pep Total Protein Albumin Globulin Procalcitonin Discharge Plan Discharge Patient Disposition: Home Clinical Impression: Shortness of breath Condition: Stable Prescriptions: New prednisone 50 mg tablet 50 mg PO DAILY Qty: 5 RF: 0 No Action albuterol sulfate 1.25 mg/3 mL solution for nebulization 1.25 mg INHALATION QID PRN (Reason: Shortness Of Breath) RF: 0 aspirin [Adult Low Dose Aspirin] 81 mg tablet,delayed release (DR/EC) 81 mg PO DAILY RF: 0 coenzyme Q10 10 mg capsule 10 mg PO TID RF: 0 atorvastatin 10 mg tablet 10 mg PO BEDTIME RF: 0 esomeprazole magnesium 40 mg capsule,delayed release(DR/EC) 40 mg PO DAILY RF: 0 potassium chloride 10 mEq capsule, extended release 10 meq PO DAILY RF: 0 vitamin E (dl, acetate) 45 mg (100 unit) capsule 100 unit PO DAILY RF: 0 venlafaxine [Effexor XR] 150 mg capsule,extended release 24hr 150 mg PO DAILY RF: 0 buspirone 15 mg tablet 15 mg PO BID RF: 0 metoprolol succinate 50 mg tablet extended release 24 hr 50 mg PO DAILY Qty: 90 RF: 3 hydrocodone-acetaminophen 5-325 mg tablet 1 tab PO Q6H PRN (Reason: Pain) RF: 0 trazodone 100 mg tablet 100 mg PO BEDTIME RF: 0 Breztri Aerosphere 160-9-4.8 mcg/actuation HFA aerosol inhaler 2 inh inhalation BID Qty: 10.7 RF: 3 L-Lysine 500 mg PO DAILY RF: 0 magnesium oxide 400 mg PO DAILY RF: 0 isosorbide mononitrate 30 mg tablet extended release 24 hr 30 mg PO BID RF: 0 lisinopril 10 mg tablet 40 mg PO DAILY RF: 0 Discharge Orders: Discharge ED (Routine); Ordered 05/08/21 Ordered By: Lasha De Luna Referrals: Rayray Orozco MD [Primary Care Provider] - 1-3 days Discharge Diet: Advance as tolerated Discharge Activity: Resume usual activity Patient Instructions: Dyspnea (ED), Opioid Safety Coding Level of Care Code ED Health Support Specialist for Chg Fwd Exam Comprehensive Documented by User: Lasha De Luna MD 05/08/21 21:42 HPI - SOB/Dyspnea General: Chief Complaint: Shortness of Breath/Dyspnea Stated Complaint: SOB Time Seen by Provider: 05/08/21 17:07 PFSH ED PFSH: Medical History Abnormal EKG Abnormal laboratory test result Anxiety Anxiety disorder Cervical cancer Chronic back pain Colon cancer COPD (chronic obstructive pulmonary disease) Deficient knowledge of open reduction and internal (ORIF) fixation of hip Dementia Depression Depression Encounter for diagnostic endoscopy GERD (gastroesophageal reflux disease) GERD (gastroesophageal reflux disease) History of kidney stones HTN (hypertension) Hyperlipidemia Hypertension Ovarian cancer Peripheral vascular disease Psychiatric care Smoker Surgical History H/O lumpectomy Right H/O right knee surgery History of appendectomy History of cataract surgery Bilateral History of deviated nasal septum Surgically corrected History of total abdominal hysterectomy Kidney stones Removal cystoscopically Family History Other Cancer Social History Smoking and tobacco status: current every day smoker cigarettes Packs smoked per day: 1 Years cigarettes smoked: 48 Alcohol intake: never Caregiver/support person: No Lives independently: Yes Marital status: Single Physical Exam Const: COMMON NORMALS: no acute distress, patient oriented x3 and healthy appearing HENMT: COMMON NORMALS: normocephalic and atraumatic HEAD & SCALP: normocephalic and atraumatic Eye: COMMON NORMALS: Equal, round and reactive pupils present and EOMs intact bilaterally PUPIL: Yes Equal, round and reactive pupils present Neck/C-Spine: COMMON NORMALS: full ROM and supple Chest: COMMONS NORMALS: normal inspection of the chest and normal palpation of entire chest wall Resp: COMMON NORMALS: normal respiratory effort, No retractions, No use of accessory muscles and clear to auscultation bilaterally AUSCULTATION: clear to auscultation bilaterally Cardio: COMMON NORMALS: regular rate, regular rhythm and No murmurs present (Cardio) RATE: regular rate RHYTHM: regular rhythm GI: COMMON NORMALS: Normal to inspection, nondistended, normoactive bowel sounds present, Soft to palpation, non-tender and no masses PALPATION: Yes Soft to palpation Extremity: COMMON NORMALS: normal to inspection and full ROM Neuro: COMMON NORMALS: patient oriented x3, moves all extremities and no focal motor deficits Psych: COMMON NORMALS: mental status grossly normal, Normal thought process present and cooperative THOUGHT PROCESS: Normal thought process present Skin: COMMON NORMALS: no rashes or lesions noted and no wounds GENERAL SKIN EXAM: no rashes or lesions noted Course Vital Signs: Vital signs: Vital Signs Temperature 98.3 F 05/08/21 17:04 Pulse Rate 80 05/08/21 21:31 Respiratory Rate 18 05/08/21 21:31 Blood Pressure 153/85 05/08/21 21:31 Pulse Oximetry 93 05/08/21 21:31 MDM - SOB/Dyspnea MDM Narrative: Medical decision making narrative: Patient presents here with slight dyspnea likely due to her COPD she feels improved here and would like to go home. We will start her on steroids. CT scan here showed no signs of pneumonia or pulmonary embolism. She does have free air in her abdomen likely due to her recent surgery. Abdominal exam here is benign with minimal tenderness her lactate levels normal she has no signs of any postop complications. She is to follow-up with PCP and is return to ER if she has any fever increasing dyspnea or abdominal pain she understands agrees to plan. Lab Data: Labs: Lab Results 05/08/21 05/08/21 05/08/21 17:32 17:32 17:32 WBC 13.6 10^3/uL H 10 ^3/uL (4.0-10.0) RBC 4.74 10^6/uL 10^6 /uL (4.1-5.3) Hgb 12.7 g/dL g/dL (11.5-15.3) Hct 42.5 % % (37.0-47.0) MCV 89.7 fl fl (81-99) MCH 26.8 pg L pg (28.0-34.0) MCHC 29.9 g/dL L g/dL (30.0-36.0) RDW 16.8 % H % (12.1-15.1) Plt Count 251 10^3/cmm 10^3 /cmm (130-400) MPV 11.1 fL H fL (7.4-10.4) Neut % (Auto) 72.0 % % Lymph % (Auto) 17.4 % % [place] % (Auto) 8.0 % % Eos % (Auto) 1.3 % % Baso % (Auto) 0.1 % % Neut # (Auto) 9.77 10^3/uL H 10 ^3/uL (1.8-7.7) Lymph # (Auto) 2.4 10^3/uL 10^3/ uL (0.8-4.8) [place] # (Auto) 1.1 10^3/uL H 10^ 3/uL (0.2-0.9) Eos # (Auto) 0.2 10^3/uL 10^3/ uL (0.0-0.8) Baso # (Auto) 0.0 10^3/uL 10^3/ uL (0.0-0.1) Nucleated RBC % (a uto) 0 % % Nucleated RBCs # 0.0 /100WBC /100W BC Sodium 137 mmol/L mmol/L (136-145) Potassium 3.9 mmol/L mmol/L (3.5-5.1) Chloride 96 mmol/L L mmol/ L (98-107) Carbon Dioxide 31 mmol/L H mmol/ L (22-29) Anion Gap 13.9 (5-19) BUN 19 mg/dL mg/dL (8-23) Creatinine 0.6 mg/dL mg/dL (0.5-0.9) GFR Calculation Not Reportable Glucose 175 mg/dL H mg/dL (65-115) Calculated Osmolal ity 291 mOsm/kg mOsm/ kg (285-295) Lactate 1.7 mmol/L mmol/L (0.5-2.2) Calcium 9.0 mg/dL mg/dL (8.5-10.5) Total Bilirubin 0.3 mg/dL mg/dL (0.15-1.2) AST 21 U/L U/L (0-32) ALT 18 U/L U/L (0-33) Alkaline Phosphata se 108 IU/L H IU/L (35-105) Troponin T Baselin e Troponin T 120 Min [place] Troponin T NT-Pro-B Natriuret Pep 87 pg/mL pg/mL (0-125) Total Protein 5.9 g/dL L g/dL (6.6-8.7) Albumin 3.7 g/dL g/dL (3.5-5.2) Globulin 2.2 g/dL g/dL (1.3-4.6) Procalcitonin 0.06 ng/mL ng/mL (0-0.5) 05/08/21 05/08/21 17:32 19:36 WBC RBC Hgb Hct MCV MCH MCHC RDW Plt Count MPV Neut % (Auto) Lymph % (Auto) [place] % (Auto) Eos % (Auto) Baso % (Auto) Neut # (Auto) Lymph # (Auto) [place] # (Auto) Eos # (Auto) Baso # (Auto) Nucleated RBC % (a uto) Nucleated RBCs # Sodium Potassium Chloride Carbon Dioxide Anion Gap BUN Creatinine GFR Calculation Glucose Calculated Osmolal ity Lactate Calcium Total Bilirubin AST ALT Alkaline Phosphata se Troponin T Baselin e 10 ng/L ng/L (0-10) Troponin T 120 Min [place] 8.19 ng/L ng/L (0-10) Delta Troponin T -1.81 ABS# L ABS# (0-10) NT-Pro-B Natriuret Pep Total Protein Albumin Globulin Procalcitonin EKG Data^: EKG 1: Attestation: I personally reviewed and interpreted this EKG as follows: EKG Interpretation Date: 05/08/21 EKG interpretation time: 18:51 Interpretation: nsr hr [address] or t wave abnormalities qrs 106 qtc 425 Discharge Plan Discharge Patient Disposition: Home Clinical Impression: Shortness of breath Condition: Stable Prescriptions: New prednisone 50 mg tablet 50 mg PO DAILY Qty: 5 RF: 0 No Action albuterol sulfate 1.25 mg/3 mL solution for nebulization 1.25 mg INHALATION QID PRN (Reason: Shortness Of Breath) RF: 0 aspirin [Adult Low Dose Aspirin] 81 mg tablet,delayed release (DR/EC) 81 mg PO DAILY RF: 0 coenzyme Q10 10 mg capsule 10 mg PO TID RF: 0 atorvastatin 10 mg tablet 10 mg PO BEDTIME RF: 0 esomeprazole magnesium 40 mg capsule,delayed release(DR/EC) 40 mg PO DAILY RF: 0 potassium chloride 10 mEq capsule, extended release 10 meq PO DAILY RF: 0 vitamin E (dl, acetate) 45 mg (100 unit) capsule 100 unit PO DAILY RF: 0 venlafaxine [Effexor XR] 150 mg capsule,extended release 24hr 150 mg PO DAILY RF: 0 buspirone 15 mg tablet 15 mg PO BID RF: 0 metoprolol succinate 50 mg tablet extended release 24 hr 50 mg PO DAILY Qty: 90 RF: 3 hydrocodone-acetaminophen 5-325 mg tablet 1 tab PO Q6H PRN (Reason: Pain) RF: 0 trazodone 100 mg tablet 100 mg PO BEDTIME RF: 0 Breztri Aerosphere 160-9-4.8 mcg/actuation HFA aerosol inhaler 2 inh inhalation BID Qty: 10.7 RF: 3 L-Lysine 500 mg PO DAILY RF: 0 magnesium oxide 400 mg PO DAILY RF: 0 isosorbide mononitrate 30 mg tablet extended release 24 hr 30 mg PO BID RF: 0 lisinopril 10 mg tablet 40 mg PO DAILY RF: 0 Discharge Orders: Discharge ED (Routine); Ordered 05/08/21 Ordered By: Lasha De Luna Referrals: Rayray Orozco MD [Primary Care Provider] - 1-3 days Discharge Diet: Advance as tolerated Discharge Activity: Resume usual activity Patient Instructions: Dyspnea (ED), Opioid Safety Coding Level of Care Code ED Health Support Specialist for Chg Fwd Exam Comprehensive
--- NOTE | 2021-05-08 17:13 | XRR_ITS ---
PROCEDURE INFORMATION: Exam: XR Chest Exam date and time: 05/08/2021 5:13 PM Age: 71 years old Clinical indication: Shortness of breath; Additional info: SOB. Colon cancer surgery x 1 week ago. SOB since TECHNIQUE: Imaging protocol: XR of the chest. Views: 1 view. COMPARISON: 1. CR (CHEST, ) 05/01/2021 5:[address] angio chest PE protcl [id number] 02/03/2021 1:21:45 AM FINDINGS: Lungs: Mild atelectasis in the lung bases. The lungs are otherwise clear. Pleural spaces: Unremarkable. No pleural effusion. No pneumothorax. Heart/Mediastinum: Unremarkable. No cardiomegaly. Bones/joints: Unremarkable. Soft tissues: Anterior laparotomy skin ashly. Intraperitoneal space: Moderate amount of pneumoperitoneum. XR/XR chest 1V portable [id number] IMPRESSION: 1. No acute pulmonary finding. 2. Moderate pneumoperitoneum. This could relate to the patient's colon surgery 1 week ago, but is larger in quantity than expected. Bowel perforation or leak is not excluded. Radiation Dose CTDIVOL = (mGy): DLP = (mGy-cm)
--- NOTE | 2021-05-08 17:14 | ECG_ITS ---
[facility] Test Date: 2021-05-08 Pat Name: Daina Pierre Department: Room: Gender: Female Manager Environmental Health: : 1950 Requested By: Desmond Burton Order Number: [id number] Rah MD: Frankie Medina M.D. Measurements Intervals [place] Rate: 77 P: 62 [place]: 172 QRS: 40 QRSD: 106 T: 54 QT: 393 QTc: 446 Interpretive Statements SINUS RHYTHM POSSIBLE LEFT ATRIAL ENLARGEMENT [-0.1mV P-WAVE IN V1/V2] INCOMPLETE RIGHT BUNDLE BRANCH BLOCK [90+ ms QRS DURATION, TERMINAL R IN V1/V2, 40+ ms S IN I/aVL/V4/V5/V6] Compared to ECG 02/02/2021 23:36:41 No significant changes Electronically Signed On 05-09-2021 22:46:38 CDT by Frankie Medina M.D. [id number]
[2021-05-08] MEDS: ipratropium-albuterol 3 mL Neb INHALATION (17:33)
[2021-05-08 17:56] LABS: Basophils % 0.1 %; Eosinophils # 0.2 10^3/uL (0.0-0.8); Eosinophils % 1.3 %; Hematocrit 42.5 % (37.0-47.0); Hemoglobin 12.7 g/dL (11.5-15.3); Lymphocytes # 2.4 10^3/uL (0.8-4.8); Lymphocytes % 17.4 %; Mean Corpuscular HGB Conc 29.9 g/dL (30.0-36.0); Mean Corpuscular Hemoglobin 26.8 pg (28.0-34.0); Mean Corpuscular Volume 89.7 fl (81-99); Mean Platelet Volume 11.1 fL (7.4-10.4); Monocytes # 1.1 10^3/uL (0.2-0.9); Neutrophils # 9.77 10^3/uL (1.8-7.7); Nucleated Red Blood Cells % 0 %; Platelet Count 251 10^3/cmm (130-400); Red Blood Count 4.74 10^6/uL (4.1-5.3); Red Cell Distribution Width 16.8 % (12.1-15.1); White Blood Count 13.6 10^3/uL (4.0-10.0)
--- NOTE | 2021-05-08 17:58 | CTR_ITS ---
PROCEDURE INFORMATION: Exam: CTA Chest With Contrast Exam date and time: 05/08/2021 5:58 PM Age: 71 years old Clinical indication: Abdominal tenderness; Shortness of breath; Prior surgery; Patient HX: Colon cancer surg x 1 week ago. SOB and weak since. Constipated x 8 days. Abd pain; Additional info: Post op SOB TECHNIQUE: Imaging protocol: Computed tomographic angiography of the chest with contrast. 3D rendering (Not supervised by radiologist): MIP and/or 3D reconstructed images were created by the technologist. Radiation optimization: All CT scans at this facility use at least one of these dose optimization techniques: automated exposure control; mA and/or kV adjustment per patient size (includes targeted exams where dose is matched to clinical indication); or iterative reconstruction. Contrast material: OMNI 350; Contrast volume: 95 ml; Contrast route: INTRAVENOUS (IV); COMPARISON: CT angio chest PE protcl [id number] 02/03/2021 1:21 AM RADIATION DOSE METRICS: Total DLP (mGy-cm): 546.76 FINDINGS: Pulmonary arteries: Normal. No pulmonary emboli. Aorta: Unremarkable. No aortic aneurysm. No aortic dissection. Lungs: Emphysema. Mild dependent atelectasis. The lungs are otherwise clear. Pleural spaces: Unremarkable. No pneumothorax. No pleural effusion. Heart: Unremarkable. No cardiomegaly. No pericardial effusion. Lymph nodes: Unremarkable. No enlarged lymph nodes. Bones/joints: Unremarkable. No acute fracture. Soft tissues: Unremarkable. CT/CT angio chest w abd pel w con IMPRESSION: 1. Moderate pneumoperitoneum with trace pelvic ascites. This may relate to the patient's recent abdominal surgery, however bowel perforation cannot be entirely excluded. 2. Anterior laparotomy incision. No abnormal fluid collection. 3. 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 COMMENTS: Consistent with the [employer]'s Incidental Findings Committee white paper (J Am [place] Radiol 2018): Any incidental renal lesion less than 1 cm or classified as too small to characterize, or any incidental cystic renal lesion characterized as simple-appearing, is likely benign. No follow-up imaging is recommended for these lesions per consensus recommendations based on imaging criteria. Radiation Dose CTDIVOL = (mGy): DLP = 1525.41 (mGy-cm)
[2021-05-08 18:10] LABS: Lactate (Lactic Acid level) 1.7 mmol/L (0.5-2.2); Troponin(5th) Baseline 10 ng/L (0-10)
[2021-05-08 18:18] LABS: NT Pro B Type Natriuretic Pept 87 pg/mL (0-125); Procalcitonin 0.06 ng/mL (0-0.5)
[2021-05-08] MEDS: iohexol 350 mg/mL 100 mL Btl IV (18:20)
[2021-05-08 18:29] LABS: Alanine Aminotransferase 18 U/L (0-33); Albumin Level 3.7 g/dL (3.5-5.2); Alkaline Phosphatase 108 IU/L (35-105); Anion Gap 13.9 (5-19); Aspartate Amino Transferase 21 U/L (0-32); Blood Urea Nitrogen 19 mg/dL (8-23); Carbon Dioxide 31 mmol/L (22-29); Chloride 96 mmol/L (98-107); Creatinine Clr Calc Pharmacy 61.9731; Globulin 2.2 g/dL (1.3-4.6); Glucose 175 mg/dL (65-115); Osmolality Calculated 291 mOsm/kg (285-295); Potassium 3.9 mmol/L (3.5-5.1); Sodium 137 mmol/L (136-145); Total Bilirubin 0.3 mg/dL (0.15-1.2); Total Protein 5.9 g/dL (6.6-8.7)
[2021-05-08] MEDS: iohexol 300 mg/mL 100 mL Btl IV (18:35)
--- NOTE | 2021-05-08 19:14 | ECG_ITS ---
[facility] Test Date: 2021-05-08 Pat Name: Daina Pierre Department: Room: Gender: Female Staff Home Therapy Rn: : 1950 Requested By: Desmond Burton Order Number: [id number] Rah MD: Frankie Medina M.D. Measurements Intervals [place] Rate: 75 P: 67 [place]: 176 QRS: 55 QRSD: 101 T: 58 QT: 394 QTc: 441 Interpretive Statements SINUS RHYTHM POSSIBLE LEFT ATRIAL ENLARGEMENT [-0.1mV P-WAVE IN V1/V2] INCOMPLETE RIGHT BUNDLE BRANCH BLOCK [90+ ms QRS DURATION, TERMINAL R IN V1/V2, 40+ ms S IN I/aVL/V4/V5/V6] Compared to ECG 05/08/2021 18:51:04 No significant changes Electronically Signed On 05-09-2021 22:49:59 CDT by Frankie Medina M.D. [id number]
[2021-05-08] MEDS: HYDROmorphone 1 mg/mL INJ 1 mL 0.5 MG IVP (19:24)
[2021-05-08 20:04] LABS: Troponin 5 2HR 8.19 ng/L (0-10)
[2021-05-08 20:11] LABS: Troponin 5 2HR Delta -1.81 ABS# (0-10)
== END 2021-05-08 21:32 | disposition home or self-care (01) ==
PROVIDERS: Emergency Medicine; Emergency Provider Emergency Medicine; PCP Family Medicine
DX: R06.02 Shortness of breath (principal); Z79.82 Long term (current) use of aspirin; F17.210 Nicotine dependence, cigarettes, uncomplicated; Z85.41 Personal history of malignant neoplasm of cervix uteri; Z85.038 Personal history of other malignant neoplasm of large intestine; J44.9 Chronic obstructive pulmonary disease, unspecified; F03.90 Unspecified dementia, unspecified severity, without behavioral disturbance, psychotic disturbance, mood disturbance, and anxiety; I10 Essential (primary) hypertension; E78.5 Hyperlipidemia, unspecified; Z85.43 Personal history of malignant neoplasm of ovary
CPT/HCPCS: 36415; 71045; 71275; 74177; 80053; 83605; 83880; 84145; 84484; 85025; 87040; 93005; 94640; 96374; 99284; J1170; Q9967

== ENCOUNTER 2021-05-09 21:14 | Inpatient (IN) | payer MEDICARE, MEDICAID, SELFPAY ==
[2021-05-09] VITALS (24 sets, daily range): BP systolic 136–173; BP diastolic 51–97; PULSE 96–120; RESP 18–30; TEMP 36.6; O2SAT 83–98; BMI 38.0
--- NOTE | 2021-05-09 21:46 | XRR_ITS ---
PROCEDURE INFORMATION: Exam: XR Chest Exam date and time: 05/09/2021 9:46 PM Age: 71 years old Clinical indication: Shortness of breath; Additional info: SOB TECHNIQUE: Imaging protocol: XR of the chest. Views: 1 view. COMPARISON: CR (CHEST, ) 05/08/2021 5:32 PM FINDINGS: Lungs: Mild atelectasis at the left lung base. No consolidative pulmonary infiltrates. Pleural spaces: No pleural effusion. No pneumothorax. Heart/Mediastinum: No cardiomegaly. Vasculature: Mild atherosclerosis and tortuosity of the thoracic aorta. Bones/joints: Unremarkable. Soft tissues: Midline skin ashly are noted in the upper abdomen. Intraperitoneal space: Persistent pneumoperitoneum is present. XR/XR chest 1V portable [id number] IMPRESSION: 1. Persistent pneumoperitoneum is present. This is unchanged from 05/08/2021. 2. Mild atelectasis at the left lung base. No consolidative pulmonary infiltrates. Radiation Dose CTDIVOL = (mGy): DLP = (mGy-cm)
--- NOTE | 2021-05-09 21:46 | ECG_ITS ---
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 Measurements Intervals [place] Rate: 100 P: 66 [place]: 156 QRS: 39 QRSD: 101 T: 41 QT: 341 QTc: 440 Interpretive Statements SINUS TACHYCARDIA POSSIBLE RIGHT ATRIAL ENLARGEMENT [0.25mV P-WAVE] POSSIBLE LEFT ATRIAL ENLARGEMENT [-0.1mV P-WAVE IN V1/V2] INCOMPLETE RIGHT BUNDLE BRANCH BLOCK [90+ ms QRS DURATION, TERMINAL R IN V1/V2, 40+ ms S IN I/aVL/V4/V5/V6] ABNORMAL RHYTHM ECG Compared to ECG 05/08/2021 19:01:27 Sinus rhythm no longer present Electronically Signed On 05-11-2021 0:24:57 CDT by Frankie Medina M.D. [email or web address] hospitalFlyzikohio[facility].PLUMgrid/store/NU/[id number] [email or web address]
[2021-05-09] MEDS: sodium chloride 0.9% 1,000 ML 999 ML IV (21:53)
[2021-05-09] MEDS: morphine 4 mg/mL SDV 1 mL IVP (21:53)
[2021-05-09] MEDS: ondansetron 2 mg/ML SDV 2 mL 4 MG IVP (21:53)
[2021-05-09 21:57] LABS: Basophils % 0.1 %; Eosinophils # 0.1 10^3/uL (0.0-0.8); Eosinophils % 0.4 %; Hematocrit 42.9 % (37.0-47.0); Hemoglobin 12.9 g/dL (11.5-15.3); Lymphocytes # 3.1 10^3/uL (0.8-4.8); Lymphocytes % 14.1 %; Mean Corpuscular HGB Conc 30.1 g/dL (30.0-36.0); Mean Corpuscular Hemoglobin 26.4 pg (28.0-34.0); Mean Corpuscular Volume 87.9 fl (81-99); Mean Platelet Volume 11.5 fL (7.4-10.4); Monocytes # 1.6 10^3/uL (0.2-0.9); Monocytes % 7.2 %; Neutrophils # 16.84 10^3/uL (1.8-7.7); Neutrophils % 77.3 %; Nucleated Red Blood Cells % 0.1 %; Platelet Count 331 10^3/cmm (130-400); Red Blood Count 4.88 10^6/uL (4.1-5.3); Red Cell Distribution Width 16.9 % (12.1-15.1); White Blood Count 21.8 10^3/uL (4.0-10.0)
[2021-05-09 22:13] LABS: ABG PH Result 7.38 (7.35-7.45); Arterial Blood Gas Hematocrit 36.8 % (37-47); Blood Gas Allen Test Pos; Blood Gas Sample Type Arterial; Carboxyhemoglobin 3.5 %THgb (0.4-20.1); HCO3 ABG 28.9 mmol/L (22-26); HGB O2 Sat 88.7 % (95-100); Methemoglobin 0.8 % (0.4-1.5); PO2 ABG 67.5 mmHg (80.0-100.0)
[2021-05-09 22:14] LABS: Blood Gas Sample Site Radial, left; Oxygen Device NC
[2021-05-09] MEDS: ipratropium-albuterol 3 mL Neb INHALATION (22:15)
--- NOTE | 2021-05-09 22:27 | ED_ITS ---
HPI - SOB/Dyspnea General: Chief Complaint: Shortness of Breath/Dyspnea Stated Complaint: RESPIRATORY DISTRESS/ CONSTIPATION Time Seen by Provider: 05/09/21 21:23 History of Present Illness: HPI Narrative: 71-year-old female presenting with significant shortness of breath. She had a collected 1 week ago. She also states she has not had a bowel movement since that time she complains of abdominal pain and distention, with significant shortness of breath and wheezing. She was seen in the emergency room last night, and allowed discharge home after negative CTA of the chest and essentially negative CT of the belly. MD elicited complaint: shortness of breath Pertinent past history: COPD Onset (ago): hour(s) Context: recent illness Timing: constant and progressively worsening Exacerbating factors: lying flat and exertion Relieving factors: oxygen Known history of: COPD Associated symptoms: Reports abdominal pain, cough, dizziness, nausea and vomiting; Deny chest pain, diaphoresis or fever(s) Treatment prior to arrival: oxygen, bronchodilator and other (Solu-Medrol) Review of Systems Const: Denies: fever(s) or diaphoresis Card: Denies: chest pain GI: Reports: abdominal pain, nausea and vomiting Neuro: Reports: dizziness PFSH ED PFSH: Medical History Abnormal EKG Abnormal laboratory test result Anxiety Anxiety disorder Cervical cancer Chronic back pain Colon cancer COPD (chronic obstructive pulmonary disease) Deficient knowledge of open reduction and internal (ORIF) fixation of hip Dementia Depression Depression Encounter for diagnostic endoscopy GERD (gastroesophageal reflux disease) GERD (gastroesophageal reflux disease) History of kidney stones HTN (hypertension) Hyperlipidemia Hypertension Ovarian cancer Peripheral vascular disease Psychiatric care Smoker Surgical History H/O lumpectomy Right H/O right knee surgery History of appendectomy History of cataract surgery Bilateral History of deviated nasal septum Surgically corrected History of total abdominal hysterectomy Kidney stones Removal cystoscopically Family History Other Cancer Social History Smoking and tobacco status: current every day smoker cigarettes Packs smoked per day: 1 Years cigarettes smoked: 48 Alcohol intake: never Caregiver/support person: No Lives independently: Yes Marital status: Single Physical Exam Const: COMMON NORMALS: alert GENERAL APPEARANCE: cooperative and ill appearing HENMT: COMMON NORMALS: normocephalic HEAD & SCALP: normocephalic Chest: COMMONS NORMALS: normal inspection of the chest Resp: EFFORT & INSPECTION: Yes tachypneic, Yes respiratory distress, Yes labored and Yes uses accessory muscles AUSCULTATION: wheezes expiratory wheezes and scattered wheezes Cardio: COMMON NORMALS: regular rhythm RATE: tachycardic RHYTHM: regular rhythm GI: INSPECTION: Yes abdominal distension PALPATION: Yes Tenderness to palpation present (GI) (diffuse) and Yes Guarding due to palpation present (GI) PERCUSSION: tympanic to percussion Neuro: SENSORIUM/ORIENTATION: Yes alert Course Consultations: Consultation #1: miguel a Vital Signs: Vital signs: Vital Signs Temperature 97.9 F 05/10/21 00:58 Pulse Rate 117 H 05/10/21 00:58 Respiratory Rate 21 H 05/10/21 00:58 Blood Pressure 157/97 05/10/21 00:58 Pulse Oximetry 92 05/10/21 00:58 MDM - SOB/Dyspnea MDM Narrative: Medical decision making narrative: 71-year-old female who is status post colectomy at about 1 week. She presents for the second time emergency room with abdominal distention and pain, and shortness of breath. She had a CTA chest with abdomen pelvis follow through yesterday showing no infiltrate or pulmonary embolus, and some pneumoperitoneum likely related to her surgery. Her white blood cell count has jumped up to 22, but she is also received steroids for a COPD exacerbation, which seems worse tonight than it was last night. She will be admitted for COPD exacerbation, abdominal distention and constipation. Lab Data: Labs: Lab Results 05/09/21 05/09/21 05/09/21 21:24 21:24 21:24 WBC 21.8 10^3/uL H 10 ^3/uL (4.0-10.0) RBC 4.88 10^6/uL 10^6 /uL (4.1-5.3) Hgb 12.9 g/dL g/dL (11.5-15.3) Hct 42.9 % % (37.0-47.0) MCV 87.9 fl fl (81-99) MCH 26.4 pg L pg (28.0-34.0) MCHC 30.1 g/dL g/dL (30.0-36.0) RDW 16.9 % H % (12.1-15.1) Plt Count 331 10^3/cmm D 1 0^3/cmm (130-400) MPV 11.5 fL H fL (7.4-10.4) Neut % (Auto) 77.3 % % Lymph % (Auto) 14.1 % % [place] % (Auto) 7.2 % % Eos % (Auto) 0.4 % % Baso % (Auto) 0.1 % % Neut # (Auto) 16.84 10^3/uL H 1 0^3/uL (1.8-7.7) Lymph # (Auto) 3.1 10^3/uL 10^3/ uL (0.8-4.8) [place] # (Auto) 1.6 10^3/uL H 10^ 3/uL (0.2-0.9) Eos # (Auto) 0.1 10^3/uL 10^3/ uL (0.0-0.8) Baso # (Auto) 0.0 10^3/uL 10^3/ uL (0.0-0.1) Nucleated RBC % (a uto) 0.1 % % Nucleated RBCs # 0.0 /100WBC /100W BC Specimen Type Sample Site ABG pH ABG pCO2 ABG pO2 ABG HCO3 ABG Base Excess Venkat Test Hematocrit Hgb O2 Saturation Carboxyhemoglobin Methemoglobin Total Hemoglobin O2 Delivery Device O2 Liters/Min Cover Maker ID Sodium 136 mmol/L mmol/L (136-145) Potassium 3.8 mmol/L mmol/L (3.5-5.1) Chloride 94 mmol/L L mmol/ L (98-107) Carbon Dioxide 28 mmol/L mmol/L (22-29) Anion Gap 17.8 (5-19) BUN 22 mg/dL mg/dL (8-23) Creatinine 0.8 mg/dL mg/dL (0.5-0.9) GFR Calculation Not Reportable Glucose 115 mg/dL mg/dL (65-115) Calculated Osmolal ity 286 mOsm/kg mOsm/ kg (285-295) Lactic Acid 1.0 mmol/L mmol/L (0.5-2.2) Calcium 9.5 mg/dL mg/dL (8.5-10.5) Total Bilirubin 0.6 mg/dL mg/dL (0.15-1.2) AST 14 U/L U/L (0-32) ALT 16 U/L U/L (0-33) Alkaline Phosphata se 108 IU/L H IU/L (35-105) NT-Pro-B Natriuret Pep 159 pg/mL H pg/mL (0-125) Total Protein 7.6 g/dL g/dL (6.6-8.7) Albumin 3.9 g/dL g/dL (3.5-5.2) Globulin 3.7 g/dL g/dL (1.3-4.6) 05/09/21 22:02 WBC RBC Hgb Hct MCV MCH MCHC RDW Plt Count MPV Neut % (Auto) Lymph % (Auto) [place] % (Auto) Eos % (Auto) Baso % (Auto) Neut # (Auto) Lymph # (Auto) [place] # (Auto) Eos # (Auto) Baso # (Auto) Nucleated RBC % (a uto) Nucleated RBCs # Specimen Type Arterial Sample Site Radial, left ABG pH 7.38 (7.35-7.45) ABG pCO2 49.0 mmHg H mmHg (35-45) ABG pO2 67.5 mmHg L mmHg (80.0-100.0) ABG HCO3 28.9 mmol/L H mmo l/L (22-26) ABG Base Excess 3.0 mmol/L H mmol /L (-2.0-2.0) Venkat Test Pos Hematocrit 36.8 % L % (37-47) Hgb O2 Saturation 88.7 % L % (95-100) Carboxyhemoglobin 3.5 %THgb %THgb (0.4-20.1) Methemoglobin 0.8 % % (0.4-1.5) Total Hemoglobin 12.0 g/dL g/dL (12-16) O2 Delivery Device Nc O2 Liters/Min 6.0 % % Cover Maker ID [email or web address] Sodium Potassium Chloride Carbon Dioxide Anion Gap BUN Creatinine GFR Calculation Glucose Calculated Osmolal ity Lactic Acid Calcium Total Bilirubin AST ALT Alkaline Phosphata se NT-Pro-B Natriuret Pep Total Protein Albumin Globulin Discharge Plan Discharge Patient Disposition: Admitted As Inpatient Admit Provider: Kathuria,Shannon Clinical Impression: Acute exacerbation of chronic obstructive pulmonary disease, Constipation Respiratory failure Qualifiers: Chronicity: acute Respiratory failure complication: hypoxia Qualified Code(s): J96.01 - Acute respiratory failure with hypoxia Condition: Fair Coding Level of Care Code ED [employer] Supervisor for g Fwd Exam Detailed
[2021-05-09 22:37] LABS: Alanine Aminotransferase 16 U/L (0-33); Albumin Level 3.9 g/dL (3.5-5.2); Alkaline Phosphatase 108 IU/L (35-105); Anion Gap 17.8 (5-19); Aspartate Amino Transferase 14 U/L (0-32); Blood Urea Nitrogen 22 mg/dL (8-23); Calcium 9.5 mg/dL (8.5-10.5); Carbon Dioxide 28 mmol/L (22-29); Chloride 94 mmol/L (98-107); Creatinine Clr Calc Pharmacy 61.9731; Globulin 3.7 g/dL (1.3-4.6); Glucose 115 mg/dL (65-115); NT Pro B Type Natriuretic Pept 159 pg/mL (0-125); Osmolality Calculated 286 mOsm/kg (285-295); Potassium 3.8 mmol/L (3.5-5.1); Sodium 136 mmol/L (136-145); Total Bilirubin 0.6 mg/dL (0.15-1.2); Total Protein 7.6 g/dL (6.6-8.7)
[2021-05-10] VITALS (29 sets, daily range): BP systolic 134–160; BP diastolic 70–97; PULSE 20–117; RESP 15–109; TEMP 36.4–36.9; O2SAT 90–98; BMI 28.3
--- NOTE | 2021-05-10 02:32 | PC.NURSE ---
Dr. Corral called for update on pt's pain and nausea. Plans for po contrast and CT of abd, possible NGT placement.
--- NOTE | 2021-05-10 02:48 | CTR_ITS ---
PROCEDURE INFORMATION: Exam: CT Abdomen And Pelvis With Contrast Exam date and time: 05/10/2021 2:48 AM Age: 71 years old Clinical indication: Abdominal pain; Prior surgery; Surgery type: May 01 colon; Additional info: Evaluate anastomotic leak, recent transverse colectomy with re anastomosis, abdominal TECHNIQUE: Imaging protocol: Computed tomography of the abdomen and pelvis with contrast. Radiation optimization: All CT scans at this facility use at least one of these dose optimization techniques: automated exposure control; mA and/or kV adjustment per patient size (includes targeted exams where dose is matched to clinical indication); or iterative reconstruction. Contrast material: OMNI 300; Contrast volume: 95 ml; Contrast route: INTRAVENOUS (IV); COMPARISON: CT abdomen pelvis w con* [id number] 04/03/2021 1:13 PM RADIATION DOSE METRICS: Total DLP (mGy-cm): 1496.93 FINDINGS: Lungs: There is subsegmental atelectasis in the lung bases. Liver: Normal. No mass. Gallbladder and bile ducts: Normal. No calcified stones. No ductal dilation. Pancreas: Normal. No ductal dilation. Spleen: Normal. No splenomegaly. Adrenal glands: There is an 8 mm benign adenoma in the left adrenal gland. Kidneys and ureters: There is a benign appearing 3 cm cyst in the superior pole of the right kidney. 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 There is no hydronephrosis or renal calcification. Stomach and bowel: There are multiple loops of dilated gas-filled small bowel measuring up to 3 cm in diameter. Most likely this is due to a postoperative reflex ileus. Appendix: No evidence of appendicitis. Intraperitoneal space: There is free intraperitoneal air which is similar to the previous CT scan. There is a trace amount of free intraperitoneal fluid. No abscess is seen. Vasculature: There is atherosclerotic calcification of the aorta. There is no aneurysm. The origins of the renal arteries are calcified. Lymph nodes: Unremarkable. No enlarged lymph nodes. Urinary bladder: Unremarkable as visualized. Reproductive: Hysterectomy. No pelvic masses. Bones/joints: Chronic degenerative changes are present in the spine. Soft tissues: There is an anterior laparotomy incision. CT/CT abdomen pelvis w con* [id number] IMPRESSION: 1. Free air is present in the abdomen similar to the previous CT scan. This could be due to the recent surgery but bowel perforation is not excluded. 2. Multiple loops of dilated gas-filled small bowel probably due to postoperative reflex ileus. 3. Trace amount of free fluid. 4. No abscess seen. COMMENTS: 1. Consistent with the [employer]'s Incidental Findings Committee white paper ([place] [employer] [place] Radiol 2017): Any incidental adrenal lesion less than or equal to 1 cm is likely benign. No follow-up imaging is recommended for these lesions per consensus recommendations based on imaging criteria. Further lab evaluation could be pursued if warranted based on clinical findings. 2. Consistent with the [employer]'s Incidental Findings Committee white paper ([place] [employer] [place] Radiol 2018): Any incidental renal lesion less than 1 cm or classified as too small to characterize, or any incidental cystic renal lesion characterized as simple-appearing, is likely benign. No follow-up imaging is recommended for these lesions per consensus recommendations based on imaging criteria. Radiation Dose CTDIVOL = (mGy): DLP = 1496.93 (mGy-cm)
--- NOTE | 2021-05-10 02:55 | P.HP_ITS ---
Providers/Chief Complaint Admitting Physician: Shannon Corral MD Primary Care Provider: Rayray Orozco MD Chief Complaint: RESPIRATORY DISTRESS/ CONSTIPATION History of Present Illness Daina Pierre is a 71 year old female with past medical COPD, anxiety, chronic back pain, mitral valve prolapse recently admitted to the hospital between May 01 to May 05 after being found to have transverse colon mass for which she underwent ex lap with partial transverse colectomy and reanastomosis. Postop course was uneventful except for some hypertension. She advanced to a low residue diet which she was tolerating well, ambulated passing flatus and she was discharged in stable condition. She returning to the emergency room, initially yesterday with chief complaints of shortness of breath, gurgling sensation in her lungs and productive cough. Overall symptoms were thought to be related to COPD exacerbation and she was discharged with steroids. Per ER note abdominal exam was benign with minimal tenderness and normal lactate level. CTA of the chest was negative for PE or consolidation. CT of the abdomen showed moderate pneumoperitoneum thought to be related to po stoperative state. She came back again this evening with complaints of significant shortness of breath, increasing abdominal pain and distention, states she has not had a bowel movement since returning home, passing minimal flatus. Noted to have leukocytosis today with WBC count up to 21, she has received IV steroids yesterday in the ER and also in route today by EMS. She complains of nausea, however has not had any vomiting. States she was tolerating her diet at home but now nausea is worsening and does not have an appetite anymore. Denies any fever or chills. Review of Systems General: Reports: 10 or more systems reviewed and unremarkable except in HPI and below Const: Denies: fever(s), chills or body aches Eyes: Denies: change in vision, blurry vision or photophobia ENMT: Reports: hoarseness; Denies: throat pain, enlarged tonsils, odynophagia or nasal congestion Card: Denies: chest pain, palpitations, irregular heart rhythm, edema, swelling of feet/ankles, lightheadedness, pre-syncope, dyspnea on exertion or orthopnea Resp: Denies: dyspnea, productive cough, non-productive cough, wheezing, stridor, pain on inspiration, change in phlegm color, hemoptysis or chest congestion GI: Denies: abdominal pain, nausea, vomiting, hematemesis, coffee ground emesis, dysphagia, heartburn, diarrhea, constipation, GI cramping, change in stool character, hematochezia or melena : Denies: flank pain, difficulty voiding, dysuria, urinary frequency, urinary urgency, urinary hesitancy or hematuria Musc: Denies: neck pain, back pain, extremity pain, joint swelling, joint warmth or deformity Neuro: Denies: headache(s), numbness in extremities, weakness in extremities, sensory changes, difficulty walking, frequent falls, dizziness, vertigo, behavioral changes, Slurred speech present or seizure-like activity Psych: Denies: anxiety, depression, suicidal ideation or homicidal ideation Endo: Denies: polyuria, polydipsia, tired all the time, cold intolerance or hot flashes Joe/Lymph: Denies: easy bruising or easy bleeding Medications/Allergies Home Medications Medication Instructions Recorded Confirmed Last Taken Type albuterol sulfate 1.25 mg/3 mL 1.25 mg INHALATION QID PRN 11/22/19 05/09/21 05/08/21 History solution for nebulization aspirin 81 mg tablet,delayed 81 mg PO DAILY 11/22/19 05/09/21 05/08/21 History release atorvastatin 10 mg tablet 10 mg PO BEDTIME 11/22/19 05/09/21 05/08/21 History coenzyme Q10 10 mg capsule 10 mg PO TID 11/22/19 05/09/21 05/08/21 History esomeprazole magnesium 40 mg 40 mg PO DAILY 11/22/19 05/09/21 05/08/21 History capsule,delayed release potassium chloride 10 mEq 10 meq PO DAILY 11/22/19 05/09/21 05/08/21 History capsule,extended release venlafaxine 150 mg 150 mg PO DAILY 12/14/19 05/09/21 05/08/21 History capsule,extended release 24 hr metoprolol succinate 50 mg 50 mg PO DAILY #90 tab 02/06/21 05/09/21 05/08/21 Rx tablet,extended release 24 hr vitamin E (dl, acetate) 45 mg (100 100 unit PO DAILY 02/06/21 05/09/21 05/08/21 History unit) capsule budesonide 160 mcg-glycopyr 9 2 inh INHALATION BID #10.7 g 03/31/21 05/09/21 05/08/21 Rx mcg-formot 4.8 mcg/actuation HFA inhaler buspirone 15 mg tablet 15 mg PO BID tab 03/31/21 05/09/21 05/08/21 History hydrocodone 5 mg-acetaminophen 325 1 tab PO Q6H PRN 03/31/21 05/09/21 05/08/21 History mg tablet trazodone 100 mg tablet 100 mg PO BEDTIME tab 03/31/21 05/09/21 05/08/21 History prednisone 50 mg PO DAILY #5 tab 05/08/21 05/09/21 05/08/21 Rx L-Lysine 500 mg PO DAILY 05/09/21 05/09/21 05/08/21 History isosorbide mononitrate 30 mg PO BID 05/09/21 05/09/21 05/08/21 History lisinopril 40 mg PO DAILY 05/09/21 05/09/21 05/08/21 History magnesium oxide 400 mg PO DAILY 05/09/21 05/09/21 05/08/21 History Allergies Allergy/AdvReac Type Severity Reaction Status Date / Time Penicillins Allergy Unknown Verified 05/09/21 21:32 procaine [From Novocain] Allergy Unknown Verified 05/09/21 21:32 PFSH Acute PFSH: Medical History Abnormal EKG Abnormal laboratory test result Anxiety Anxiety disorder Cervical cancer Chronic back pain Colon cancer COPD (chronic obstructive pulmonary disease) Deficient knowledge of open reduction and internal (ORIF) fixation of hip Dementia Depression Depression Encounter for diagnostic endoscopy GERD (gastroesophageal reflux disease) GERD (gastroesophageal reflux disease) History of kidney stones HTN (hypertension) Hyperlipidemia Hypertension Ovarian cancer Peripheral vascular disease Psychiatric care Smoker Surgical History H/O lumpectomy Right H/O right knee surgery History of appendectomy History of cataract surgery Bilateral History of deviated nasal septum Surgically corrected History of total abdominal hysterectomy Kidney stones Removal cystoscopically Family History Other Cancer Social History Smoking and tobacco status: current every day smoker cigarettes Packs smoked per day: 1 Years cigarettes smoked: 48 Alcohol intake: never Caregiver/support person: No Lives independently: Yes Marital status: Single Vitals/I&O/Wt Last Vital Signs Temp 97.6 F 05/10/21 01:32 Pulse 20 L 05/10/21 01:32 Resp 109 H 05/10/21 01:32 BP 153/70 05/10/21 01:32 Pulse Ox 90 05/10/21 01:32 05/09/21 05/09/21 05/10/21 14:59 22:59 06:59 Intake Total 1000 / 1000 Balance 1000 / 1000 Weight last 48 hrs Weight 86.891 kg Weight 88.451 kg Physical Exam Narrative: EXAM NARRATIVE: General: In moderate distress, complains of abdominal distention which is most bothersome to her at this time. HEENT: PERRLA, pupils bilaterally equal and reactive, pallors not present Chest: Bilateral wheezing to auscultation CVS: S1-S2 regular, no murmurs, no tachycardia, no gallops, no rubs Abdomen: Distended, sluggish bowel sounds complains of discomfort to palpation all over, no obvious signs of infection over suture site Neuro: No focal deficits, no facial deformity, AO x3, power 5/5 in all limbs Extremities: No edema clubbing or cyanosis Data : 05/09/21 21:24 05/09/21 21:24 A&P Assessment and plan (1) Abdominal pain: Complaining of abdominal distention, passing minimal flatus, has not had a bowel movement since discharge on 05/05. Abdominal is distended at this time, complains of nausea however no vomiting. CT abdomen yesterday showed moderate pneumoperitoneum, likely related to postop state. Given recent postop from partial transverse colectomy and reanastomosis with white count increasing to 21 today, will perform CT abdomen pelvis with contrast to evaluate for any anastomotic leak. Additionally CT also to evaluate for SBO/ileus. NPO for now while pending CT imaging Status: Acute Qualifiers: Abdominal location: generalized Qualified Code(s): R10.84 - Generalized abdominal pain (2) Acute exacerbation of chronic obstructive pulmonary disease: Acute on chronic COPD exacerbation. DuoNeb every 6 hours scheduled, budesonide every 12 hours scheduled nebulization. Methylprednisolone 40 mg IV every 12 hours. Supplemental O2 to keep saturation 90 to 92%. Status: Acute Attestations Medical Necessity Statement*: >2midnight admission anticipated for above defined care Coding Level of Care Code Acute Supervisor [employer] Fwd Diagnoses Abdominal pain R10.84 Abdominal location: generalized Acute exacerbation of chronic obstructive pulmonary disease J44.1
[2021-05-10] MEDS: famotidine 20 mg/2 mL INJ IVP ×2 (03:14→14:44)
[2021-05-10] MEDS: ipratropium-albuterol 3 mL Neb INHALATION ×4 (03:38→20:33)
[2021-05-10] MEDS: iohexol 300 mg/mL 50 mL Btl PO (07:59)
[2021-05-10] MEDS: iohexol 300 mg/mL 100 mL Btl IV (08:03)
[2021-05-10] MEDS: budesonide 0.5 mg/2 mL Neb INHALATION ×2 (08:31→20:33)
[2021-05-10 08:55] LABS: ABG PCO2 54.7 mmHg (35-45); ABG PH Result 7.37 (7.35-7.45); Alveolar-Arterial Oxygen Gradi 15.1 mmHg (5-10); Arterial Blood Gas Hematocrit 35.1 % (37-47); Base Excess ABG 5.1 mmol/L (-2.0-2.0); Blood Gas Allen Test Pos; Blood Gas Operator Identificat AMH; Blood Gas Sample Site Radial, left; Blood Gas Sample Type Arterial; Carboxyhemoglobin 1.1 %THgb (0.4-20.1); HCO3 ABG 31.6 mmol/L (22-26); Ionized Calcium Level - ABG 1.2 mmol/L (1.1-1.4); Methemoglobin 0.8 % (0.4-1.5); Oxygen Device NC; Oxygen Saturation ABG 93.8; PO2 ABG 73.9 mmHg (80.0-100.0); Potassium Level - ABG 4.1 mmol/L (3.5-5.0); Total Hemoglobin 11.5 g/dL (12-16)
[2021-05-10] MEDS: metroNIDAZOLE IV 500 MG/100 ML PREMIX 100 MG IV ×3 (09:07→23:52)
[2021-05-10] MEDS: aspirin 81 mg EC Tablet PO (09:08)
[2021-05-10] MEDS: metoprolol succinate ER (24 HR) 50 mg Tablet PO (09:08)
[2021-05-10] MEDS: lisinopril 20 mg Tablet 40 MG PO (09:08)
[2021-05-10] MEDS: venlafaxine ER (24HR) 150 mg Capsule PO (09:08)
[2021-05-10] MEDS: aztreonam 2,000 MG in sodium chloride 0.9% (plus) 100 ML 200 MG IV ×2 (09:08→20:01)
[2021-05-10] MEDS: isosorbide mononitrate ER 30 mg Tablet PO (09:09)
[2021-05-10] MEDS: magnesium hydroxide 30 mL UDC 15 ML PO (09:17)
[2021-05-10] MEDS: dextrose 5%-sod chloride 0.45% 1,000 ML 50 ML IV (09:46)
[2021-05-10 10:46] LABS: C Reactive Protein 167.8 mg/L (0.0-4.9)
[2021-05-10 10:53] LABS: Procalcitonin 0.21 ng/mL (0-0.5)
[2021-05-10 11:04] LABS: Basophils % 0.1 %; Hematocrit 36.5 % (37.0-47.0); Hemoglobin 10.6 g/dL (11.5-15.3); Lymphocytes # 0.8 10^3/uL (0.8-4.8); Lymphocytes % 6.3 %; Mean Corpuscular Hemoglobin 26.6 pg (28.0-34.0); Mean Corpuscular Volume 91.7 fl (81-99); Mean Platelet Volume 10.7 fL (7.4-10.4); Monocytes # 0.5 10^3/uL (0.2-0.9); Monocytes % 3.8 %; Neutrophils # 11.58 10^3/uL (1.8-7.7); Neutrophils % 88.7 %; Nucleated Red Blood Cells % 0 %; Platelet Count 234 10^3/cmm (130-400); Red Blood Count 3.98 10^6/uL (4.1-5.3)
[2021-05-10 11:20] LABS: Lactate (Lactic Acid level) 0.7 mmol/L (0.5-2.2)
[2021-05-10 11:28] LABS: Anion Gap 14.3 (5-19); Blood Urea Nitrogen 14 mg/dL (8-23); Calcium 8.9 mg/dL (8.5-10.5); Carbon Dioxide 27 mmol/L (22-29); Chloride 100 mmol/L (98-107); Glucose 140 mg/dL (65-115); Osmolality Calculated 287 mOsm/kg (285-295); Potassium 4.3 mmol/L (3.5-5.1); Sodium 137 mmol/L (136-145)
--- NOTE | 2021-05-10 11:50 | P.PN_ITS ---
Subjective Subjective: Interval history: This morning when entered room patient was very groggy however on verbal command she responds adequately NIH 0 Did request ABG which showed hypercapnia however compensated Requested CBC which showed improvement of leukocytosis 13,000 She has been afebrile, tachycardia improved after starting fluids I have also added antibiotics, did discuss this case with Dr. Pearson Conservative management for now we will give her 15 mL of mag citrate this morning and laxatives will be added for her ileus Repeated lactic acid which was normal Vitals/I&O/Wt Last Vital Signs Temp 97.9 F 05/10/21 07:30 Pulse 97 05/10/21 09:50 Resp 20 H 05/10/21 08:40 BP 159/89 05/10/21 07:30 Pulse Ox 93 05/10/21 09:50 05/09/21 05/10/21 05/10/21 22:59 06:59 14:59 Intake Total 1000 / 1000 480 / 1480 200 / 200 Balance 1000 / 1000 480 / 1480 200 / 200 Weight last 48 hrs Weight 86.891 kg Weight 88.451 kg Physical Exam Narrative: EXAM NARRATIVE: Patient was very drowsy however responds appropriately after verbal command NIH 0 EOMI, PERRLA Abdomen tender only on deep palpation slightly worse on the right as compared to left, bowel sounds absent Distended abdomen [place] intact Does not have guarding or rigidity S1, S2 sinus tachycardia Legs without edema Data : 05/10/21 10:50 05/10/21 10:50 A&P Assessment and plan (1) Abdominal pain: Status: Acute Qualifiers: Abdominal location: generalized Qualified Code(s): R10.84 - Generalized abdominal pain (2) Acute exacerbation of chronic obstructive pulmonary disease: Status: Acute (3) Constipation: Status: Acute (4) Ileus: Status: Acute Additional A&P Information Ileus No guarding or rigidity there is tenderness to deep palpation She has been afebrile, this morning CBC showed improvement in leukocytosis I have added normal saline and antibiotics Normal saline did improve her sinus tachycardia Lactic acid is normal I will notify Dr. Pearson in case her abdominal pain worsens will give milk of magnesia 15 mL today will add laxatives as well Distended loops of small bowel with air no fluid identified on CT abdomen pelvis with contrast, no need of NG placement for now, monitor closely with serial abdominal exam and KUB in case she starts experiencing vomiting my threshold to put NG will be low Active wheezing due to acute COPD exacerbation, currently on systemic steroids, will put her on BiPAP secondary to her drowsiness, I would be reluctant to use Narcan for now Requested RT to use minimal settings on BiPAP to avoid vomiting N.p.o. 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
[2021-05-10] MEDS: metoclopramide 5 mg/mL SDV 2 mL 10 MG IVP (12:25)
[2021-05-10] MEDS: BuSPIRONE 10 mg Tablet 15 MG PO (16:50)
[2021-05-10] MEDS: trazodone 100 mg Tablet PO (20:01)
[2021-05-10] MEDS: morphine 4 mg/mL SDV 1 mL 2 MG IVP (20:02)
[2021-05-11] VITALS (88 sets, daily range): BP systolic 122–192; BP diastolic 60–106; PULSE 73–96; RESP 14–25; TEMP 36.3–37; O2SAT 85–97
[2021-05-11] MEDS: ipratropium-albuterol 3 mL Neb INHALATION ×4 (02:05→20:12)
[2021-05-11] MEDS: famotidine 20 mg/2 mL INJ IVP ×2 (02:15→18:12)
[2021-05-11 04:13] LABS: ABG PCO2 59.1 mmHg (35-45); ABG PH Result 7.36 (7.35-7.45); Arterial Blood Gas Hematocrit 32.4 % (37-47); Base Excess ABG 6.3 mmol/L (-2.0-2.0); Blood Gas Allen Test Pos; Blood Gas Sample Type Arterial; HCO3 ABG 33.2 mmol/L (22-26); PO2 ABG 97.6 mmHg (80.0-100.0)
[2021-05-11 04:17] LABS: Blood Gas Sample Site Radial, right; Oxygen Device NC
[2021-05-11] MEDS: dextrose 5%-sod chloride 0.45% 1,000 ML 50 ML IV (04:21)
[2021-05-11 05:08] LABS: Basophils % 0.1 %; Eosinophils % 0.3 %; Hematocrit 34.2 % (37.0-47.0); Lymphocytes # 0.6 10^3/uL (0.8-4.8); Lymphocytes % 4.9 %; Mean Corpuscular HGB Conc 29.2 g/dL (30.0-36.0); Mean Corpuscular Hemoglobin 26.7 pg (28.0-34.0); Mean Corpuscular Volume 91.2 fl (81-99); Mean Platelet Volume 10.9 fL (7.4-10.4); Monocytes # 0.8 10^3/uL (0.2-0.9); Monocytes % 6.3 %; Neutrophils % 87.5 %; Nucleated Red Blood Cells % 0 %; Platelet Count 238 10^3/cmm (130-400); Red Blood Count 3.75 10^6/uL (4.1-5.3); Red Cell Distribution Width 16.9 % (12.1-15.1); White Blood Count 12.5 10^3/uL (4.0-10.0)
[2021-05-11 05:29] LABS: Alanine Aminotransferase 9 U/L (0-33); Albumin Level 3.2 g/dL (3.5-5.2); Alkaline Phosphatase 81 IU/L (35-105); Anion Gap 10.2 (5-19); Aspartate Amino Transferase 8 U/L (0-32); Blood Urea Nitrogen 14 mg/dL (8-23); Calcium 8.8 mg/dL (8.5-10.5); Carbon Dioxide 31 mmol/L (22-29); Chloride 103 mmol/L (98-107); Globulin 2.8 g/dL (1.3-4.6); Glucose 135 mg/dL (65-115); Magnesium 2.3 mg/dL (1.7-2.3); Osmolality Calculated 293 mOsm/kg (285-295); Potassium 4.2 mmol/L (3.5-5.1); Sodium 140 mmol/L (136-145); Total Bilirubin 0.2 mg/dL (0.15-1.2)
[2021-05-11 05:33] LABS: Lactate (Lactic Acid level) 0.5 mmol/L (0.5-2.2)
--- NOTE | 2021-05-11 07:00 | XRR_ITS ---
PROCEDURE INFORMATION: Exam: XR Abdomen Exam date and time: 05/11/2021 7:00 AM Age: 71 years old Clinical indication: Condition or disease; Intestinal condition; Obstruction; Prior surgery; Surgery date: 3-7 days post-operative; Additional info: Ileus TECHNIQUE: Imaging protocol: XR of the abdomen. Views: Frontal supine view of the abdomen. 1 View. Total images: 2 COMPARISON: CT abdomen pelvis w con* [id number] 05/10/2021 7:55 AM FINDINGS: Gastrointestinal tract: Bowel gas pattern is nondistended and nonobstructive. Residual contrast is seen within the bowel. Intraperitoneal space: Large amount of free air within the abdomen. Organs: Urinary contrast material present at the time of imaging. Bones/joints: Spinal degenerative changes are evident. Soft tissues: Skin ashly are present. XR/XR KUB portable [id number] IMPRESSION: 1. Large amount of free air within the abdomen. 2. Normal bowel gas pattern Radiation Dose CTDIVOL = (mGy): DLP = (mGy-cm)
[2021-05-11] MEDS: aztreonam 2,000 MG in sodium chloride 0.9% (plus) 100 ML 200 MG IV ×2 (08:00→20:59)
[2021-05-11] MEDS: budesonide 0.5 mg/2 mL Neb INHALATION ×2 (08:17→20:12)
[2021-05-11] MEDS: metroNIDAZOLE IV 500 MG/100 ML PREMIX 100 MG IV (08:41)
[2021-05-11] MEDS: BuSPIRONE 10 mg Tablet 15 MG PO (08:48)
[2021-05-11] MEDS: metoprolol succinate ER (24 HR) 50 mg Tablet PO (08:48)
[2021-05-11] MEDS: polyethylene glycol 3350 Pkt 17 gm PO (08:49)
--- NOTE | 2021-05-11 10:49 | PC.CHAP ---
Pastoral Care Encounter/Spiritual Assessment Type of Contact [] Declined antisqueak chalker visit [] Patient/Family/Request visit [] Outpatient visit [] Follow-up visit [] Physician referral [] Code/Alert [x] Routine visit [] Staff referral [] Actively dying [] Patient sleeping [] Family support [] [] Out of room [] Palliative care [] [] Receiving care in room [] Pre-surgical visit [] Trauma [] Long length of stay [] ICU visit [] Other: Relational/Emotional Strength [x] Patient feels connected with others/family/visitors/staff [] Distress [] Loneliness/isolation [] Abandonment Spirituality of Patient [x] Person of Martha [] Attends Druze of their Martha [x] Believes in Prayer [] Reads Bible or Buddhism materials [] There are Spiritual issues to be addressed Control Officer Interventions [x] Prayer [x] Active listening [x] Non-anxious presence [x] Spiritual/emotional support [] Crisis/trauma care [] Spiritual counseling [] Bereavement support [] Provided bereavement packet [] Provided Bible/devotional materials [] Provided toy/stuffed animal, coloring book to patient or family member [] Provided Communion [] Anointing/Jewell [] Salvation [x] Completed spiritual assessment [] Other: Impact on Illness or Injury [] Angry [] Fearful [] Anxious [] Often cries [] Exhaustion [] Unable to work [] Unable to attend sikhism [] Unable to walk/stand [] Unable to read [] Unable to drive [] Unable to eat/drink [] Unable to sleep [] Unable to be with family [] Patient intubated [] Other: Summary Control Officer prayed with Patient. Time spent with patient 7 minutes.
--- NOTE | 2021-05-11 12:13 | P.PN_ITS ---
Subjective Subjective: Interval history: Seen and examined this morning. Patient appears very comfortable in bed. She has not had a bowel movement yet but does feel stuff is moving in there. She says she feels that she has fecal matter stuck in her rectum. Possibility of enema was discussed with her and she was interested in having it administered. I did tell her that I will discuss with Dr. Pearson before giving her the enema. X-ray was also reviewed from this morning which showed normal bowel gas pattern. Good bowel sounds are present in all 4 quadrants. Abdomen is soft and not really tender except around incisional site. Discussed with Dr. Pearson regarding the enema at this point we will proceed with it. She did tell me that she did not take any pain medications when she went home as she was not prescribed any. She says she did not have a ride and therefore was unable to picker feeder any prescriptions from the pharmacy that were given to her. I did bassem the possibility with her of taking opioids which could cause to constipation. She denies using any. Vitals/I&O/Wt Last Vital Signs Temp 98.0 F 05/11/21 11:21 Pulse 73 05/11/21 11:21 Resp 16 05/11/21 11:21 BP 156/83 05/11/21 11:21 Pulse Ox 94 05/11/21 11:21 05/10/21 05/11/21 05/11/21 22:59 06:59 14:59 Intake Total 200 / 400 1029.167 / 1429.167 200 / 200 Balance 200 / 400 1029.167 / 1429.167 200 / 200 Weight last 48 hrs Weight 86.891 kg Weight 88.451 kg Physical Exam Narrative: EXAM NARRATIVE: General: Alert oriented x3, patient seen sitting up in bed appearing very comfortable. HEENT: Normocephalic, atraumatic, EOMI, breathing 2 L nasal cannula. Cardio: Regular rate rhythm, normal S1-S2, no murmurs rubs gallops, Respiratory: Good bilateral air entry, mild wheezes throughout lung haley anterior and posterior. No rhonchi present however. No gurgling sounds appreciated., GI: Abdomen soft, nontender, nondistended, bowel sounds +, mild tenderness around incisional site. No gross tenderness in lower quadrants. Behavior: Appropriate and cooperative Extremities: no edema, no cyanosis Data : 05/11/21 04:56 05/11/21 04:56 A&P Assessment and plan (1) Constipation: Status: Acute (2) HTN (hypertension): Status: Acute Qualifiers: Hypertension type: essential hypertension Qualified Code(s): I10 - Essential (primary) hypertension (3) Abdominal pain: Status: Acute Qualifiers: Abdominal location: generalized Qualified Code(s): R10.84 - Generalized abdominal pain (4) Acute exacerbation of chronic obstructive pulmonary disease: Acute on chronic COPD exacerbation. DuoNeb every 6 hours scheduled, budesonide every 12 hours scheduled nebulization. Methylprednisolone 40 mg IV every 12 hours. Supplemental O2 to keep saturation 90 to 92%. Status: Acute (5) Ileus: Status: Acute Additional A&P Information #Constipation, possible ileus No guarding or rigidity there is tenderness to deep palpation She has been afebrile, this morning CBC showed improvement in leukocytosis We will continue antibiotics and normal saline at 50 cc/h. Lactic acid is normal Dr. Pearson was notified this morning regarding her status. We ordered an enema for her today. X-ray this morning did show normal bowel gas pattern. At admission: distended loops of small bowel with air no fluid identified on CT abdomen pelvis with contrast, no need of NG placement for now, monitor closely with serial abdominal exam and KUB in case Patient is not vomiting. We will hold off on NG tube. Overall she has improved but has still not had a bowel movement. She does have good bowel sounds today. She is nontender to palpation. No signs of acute abdomen this morning. We will have low threshold to repeat imaging if abdominal pain develops. Keep patient n.p.o. for now. Active wheezing due to acute COPD exacerbation, currently on systemic steroids Continue duo nebs. N.p.o. Full code DVT prophylaxis: SCDs Attestations Medical Necessity Statement*: Will require greater than 48 hours in hospital Time Spent in Patient Care: 16 - 35 minutes Coding Level of Care Code Acute Vector Control Assistant for Chg Fwd Diagnoses Constipation K59.00 HTN (hypertension) I10 Hypertension type: essential hypertension Abdominal pain R10.84 Abdominal location: generalized Acute exacerbation of chronic obstructive pulmonary disease J44.1 Ileus K56.7
[2021-05-11] MEDS: morphine 4 mg/mL SDV 1 mL 2 MG IVP ×2 (12:42→14:27)
--- NOTE | 2021-05-11 13:28 | CTR_ITS ---
PROCEDURE INFORMATION: Exam: CT Abdomen And Pelvis With Contrast Exam date and time: 05/11/2021 1:28 PM Age: 71 years old Clinical indication: Abdominal pain; Localized; Lower; Prior surgery; Surgery type: May 01; Additional info: Excruciating llq abdominal pain, recent surgery may 01. Hypoactive bowel sounds. Came to TECHNIQUE: Imaging protocol: Computed tomography of the abdomen and pelvis with contrast. Radiation optimization: All CT scans at this facility use at least one of these dose optimization techniques: automated exposure control; mA and/or kV adjustment per patient size (includes targeted exams where dose is matched to clinical indication); or iterative reconstruction. Contrast material: OMNI 300; Contrast volume: 95 ml; Contrast route: INTRAVENOUS (IV); COMPARISON: CT ABDOMEN/PELVIS 05/10/2021 7:55 AM RADIATION DOSE METRICS: Total DLP (mGy-cm): 1759.12 FINDINGS: Lungs: There is bibasilar atelectasis. Liver: The liver is homogeneous and is not enlarged. Gallbladder and bile ducts: No calcified gallstones. There is subtle high attenuation material within the dependent portion of the gallbladder, likely representing vicarious excretion of recently administered contrast. No gallbladder wall thickening. No biliary ductal dilatation. Pancreas: No pancreatic enlargement, peripancreatic inflammation, or ductal dilation. Spleen: The spleen is not enlarged. Adrenal glands: The right adrenal gland is normal. There is are 2 left adrenal nodules measuring up to approximately 12 mm in size, both of which have attenuation measurements compatible with lipid-rich adrenal adenomas. Kidneys and ureters: No nephrolithiasis or hydronephrosis. Stomach and bowel: There are dilated loops of proximal to mid small bowel. The degree of distension appears to be somewhat worse. New bowel wall thickening primarily affects loops of small bowel in the left mid abdomen (2:41-49). This could be due to inflammation, edema or ischemia. There is associated stranding in the adjacent mesentery. Gastrointestinal contrast is present in nondistended distal small bowel as well as in the colon to the level of the descending colon. Appendix: No evidence of appendicitis. Intraperitoneal space: There is free intraperitoneal gas. This appears to be increased in volume. Vasculature: No abdominal aortic aneurysm. The proximal mesenteric arteries are patent. There is median arcuate ligament compression of the celiac axis. Mild stenosis at the origin of the SMA. The SMV, portal veins and hepatic veins are patent. Lymph nodes: No enlarged lymph nodes. Urinary bladder: No urinary bladder calculus or wall thickening. Reproductive: Prior hysterectomy. Bones/joints: There is multilevel disc degeneration and facet arthropathy in the lumbar spine. Soft tissues: No acute soft tissue abnormality. CT/CT abdomen pelvis w con* [id number] IMPRESSION: 1. Increasing volume of pneumoperitoneum. 2. Increasing distention of proximal to mid small bowel loops, though gastrointestinal contrast has passed into distal decompressed small bowel as well as the colon. The increased distention could be due to worsening ileus or partial small bowel obstruction. 3. New localized bowel wall thickening and mesenteric stranding in the left abdomen. Possible causes include inflammation, edema or ischemia. Radiation Dose CTDIVOL = (mGy): DLP = 1759.12 (mGy-cm)
[2021-05-11] MEDS: iohexol 300 mg/mL 100 mL Btl IV (14:18)
[2021-05-11 14:37] LABS: Basophils % 0.2 %; Eosinophils # 0.1 10^3/uL (0.0-0.8); Eosinophils % 0.3 %; Hematocrit 40.7 % (37.0-47.0); Hemoglobin 12.1 g/dL (11.5-15.3); Lymphocytes # 0.7 10^3/uL (0.8-4.8); Lymphocytes % 4.7 %; Mean Corpuscular HGB Conc 29.7 g/dL (30.0-36.0); Mean Corpuscular Hemoglobin 26.7 pg (28.0-34.0); Mean Corpuscular Volume 89.8 fl (81-99); Monocytes # 0.7 10^3/uL (0.2-0.9); Monocytes % 4.7 %; Neutrophils # 13.71 10^3/uL (1.8-7.7); Neutrophils % 89.5 %; Nucleated Red Blood Cells % 0 %; Platelet Count 322 10^3/cmm (130-400); Red Blood Count 4.53 10^6/uL (4.1-5.3); Red Cell Distribution Width 16.8 % (12.1-15.1); White Blood Count 15.3 10^3/uL (4.0-10.0)
[2021-05-11 14:41] LABS: Base Excess VBG 6.4 mmol/L (-3.0-3.0); Blood Gas Operator Identificat AMH; Blood Gas Sample Site Not specified; Blood Gas Sample Type Venous; HCO3 VBG 33.8 mmol/L (24-28); PO2 VBG 35.4 mmHg (25-40); Venous Blood Gas Hematocrit 39.4 % (37-47); pH VBG 7.35 (7.32-7.42)
[2021-05-11 14:42] LABS: PCO2 VBG 61.1 mmHg (41-51)
[2021-05-11 14:53] LABS: Lactic Sepsis W/Reflex 0.9 mmol/L (0.5-2.2)
[2021-05-11 14:59] LABS: Anion Gap 10.4 (5-19); Blood Urea Nitrogen 17 mg/dL (8-23); C Reactive Protein 104.7 mg/L (0.0-4.9); Carbon Dioxide 33 mmol/L (22-29); Chloride 100 mmol/L (98-107); Glucose 100 mg/dL (65-115); Osmolality Calculated 290 mOsm/kg (285-295); Potassium 4.4 mmol/L (3.5-5.1); Sodium 139 mmol/L (136-145)
--- NOTE | 2021-05-11 15:05 | PM.CONSULT ---
Providers/Reason For Consult Consulting Physician/Specialty*: General Surgery Segun Pearson MD Reason for Consult*: Postoperative abdominal pain/pneumoperitoneum. Attending Physician: Bing Copeland MD Primary Care Provider: Rayray Orozco MD History of Present Illness History of Present Illness Daina Pierre is a 71 year old female who underwent a partial transverse colectomy for a small colon cancer. She did well postoperatively and was discharged to home passing flatus, tolerating a low residue diet, etc. Apparently she had trouble with bowel movements at home. She came back to the emergency room a couple days ago apparently with pulmonary symptoms. She was thought to be having an exacerbation of COPD and was sent home on oral steroids. She came back to the ER yesterday with worsening SOB and abdominal distension. A CAT scan at the time was thought to show some evidence of pneumoperitoneum but it was thought possible from her recent surgery. Her abdominal exam was fairly unremarkable from all reports that I received. Today she received an enema to try to assist her with bowel movements and developed acute left lower quadrant abdominal pain. A repeat CAT scan was done and seemed to show increasing pneumoperitoneum. The verbal report I received indirectly from the radiologist indicated no evidence of an obvious leak anywhere but there was some concern of possible ischemia involving some small bowel on the left side. Meds/Allergies Home Medications and Allergies Home Medications Medication Instructions Recorded Confirmed Last Taken Type albuterol sulfate 1.25 mg/3 mL 1.25 mg INHALATION QID PRN 11/22/19 05/09/21 05/08/21 History solution for nebulization aspirin 81 mg tablet,delayed 81 mg PO DAILY 11/22/19 05/09/21 05/08/21 History release atorvastatin 10 mg tablet 10 mg PO BEDTIME 11/22/19 05/09/21 05/08/21 History coenzyme Q10 10 mg capsule 10 mg PO TID 11/22/19 05/09/21 05/08/21 History esomeprazole magnesium 40 mg 40 mg PO DAILY 11/22/19 05/09/21 05/08/21 History capsule,delayed release potassium chloride 10 mEq 10 meq PO DAILY 11/22/19 05/09/21 05/08/21 History capsule,extended release venlafaxine 150 mg 150 mg PO DAILY 12/14/19 05/09/21 05/08/21 History capsule,extended release 24 hr metoprolol succinate 50 mg 50 mg PO DAILY #90 tab 02/06/21 05/09/21 05/08/21 Rx tablet,extended release 24 hr vitamin E (dl, acetate) 45 mg (100 100 unit PO DAILY 02/06/21 05/09/21 05/08/21 History unit) capsule budesonide 160 mcg-glycopyr 9 2 inh INHALATION BID #10.7 g 03/31/21 05/09/21 05/08/21 Rx mcg-formot 4.8 mcg/actuation HFA inhaler buspirone 15 mg tablet 15 mg PO BID tab 03/31/21 05/09/21 05/08/21 History hydrocodone 5 mg-acetaminophen 325 1 tab PO Q6H PRN 03/31/21 05/09/21 05/08/21 History mg tablet trazodone 100 mg tablet 100 mg PO BEDTIME tab 03/31/21 05/09/21 05/08/21 History prednisone 50 mg PO DAILY #5 tab 05/08/21 05/09/21 05/08/21 Rx L-Lysine 500 mg PO DAILY 05/09/21 05/09/21 05/08/21 History isosorbide mononitrate 30 mg PO BID 05/09/21 05/09/21 05/08/21 History lisinopril 40 mg PO DAILY 05/09/21 05/09/21 05/08/21 History magnesium oxide 400 mg PO DAILY 05/09/21 05/09/21 05/08/21 History Allergies Allergy/AdvReac Type Severity Reaction Status Date / Time Penicillins Allergy Unknown Verified 05/09/21 21:32 procaine [From Novocain] Allergy Unknown Verified 05/09/21 21:32 Current Medications Current Medications Generic Name Dose Route Start Last Admin Trade Name Freq PRN Reason Stop Dose Admin Albuterol/Ipratropium 3 ml 05/10/21 03:00 05/11/21 14:58 Ipratropium-Albuterol 3 Ml Neb INHALATION 3 ml Q6H.RESPIRATORY FILEMON Administration Aspirin 81 mg 05/10/21 09:00 05/10/21 09:08 Aspirin 81 Mg Ec Tablet PO 81 mg DAILY FILEMON Administration Budesonide 0.5 mg 05/10/21 08:00 05/11/21 08:17 Budesonide 0.5 Mg/2 Ml Neb INHALATION 0.5 mg BID.RESPIRATORY FILEMON Administration Buspirone HCl 15 mg 05/10/21 09:00 05/11/21 08:48 Buspirone 10 Mg Tablet PO 15 mg BID FILEMON Administration Famotidine 20 mg 05/10/21 03:00 05/11/21 02:15 Famotidine 20 Mg/2 Ml Inj IVP 20 mg Q12H FILEMON Administration Aztreonam 2,000 mg/ Sodium 100 mls @ 200 mls/hr 05/10/21 08:00 05/11/21 08:30 Chloride IV Infused Q12H [facility] Infusion Protocol Metronidazole 500 mg in 100 mls @ 100 mls/hr 05/10/21 08:30 05/11/21 09:51 Flagyl Iv IV Infused Q8H [facility] Infusion Protocol Dextrose/Sodium Chloride 1,000 mls @ 50 mls/hr 05/10/21 09:00 05/11/21 04:21 Dextrose 5%-Sod Chloride 0.45% IV 50 mls/hr .Q20H FILEMON Administration Isosorbide Mononitrate 30 mg 05/10/21 09:00 05/10/21 09:09 Isosorbide Mononitrate Er 30 Mg Tablet PO 30 mg BID FILEMON Administration Lisinopril 40 mg 05/10/21 09:00 05/10/21 09:08 Lisinopril 20 Mg Tablet PO 40 mg DAILY FILEMON Administration Methylprednisolone Sodium Succinate 40 mg 05/10/21 03:15 05/11/21 02:15 Methylprednisolone Sod Succ 40 Mg/Ml Inj IVP 40 mg Q12H FILEMON Administration Metoprolol Succinate 50 mg 05/10/21 09:00 05/11/21 08:48 Metoprolol Succinate Er (24 Hr) 50 Mg Tablet PO 50 mg DAILY FILEMON Administration Morphine Sulfate 2 mg 05/10/21 02:48 05/11/21 12:42 Morphine 4 Mg/Ml Sdv 1 Ml IVP 2 mg Q4H PRN Administration SEVERE PAIN Trazodone HCl 100 mg 05/10/21 21:00 05/10/21 20:01 Trazodone 100 Mg Tablet PO 100 mg BEDTIME FILEMON Administration PFSH Acute PFSH: Medical History Abnormal EKG Abnormal laboratory test result Anxiety Anxiety disorder Cervical cancer Chronic back pain Colon cancer COPD (chronic obstructive pulmonary disease) Deficient knowledge of open reduction and internal (ORIF) fixation of hip Dementia Depression Depression Encounter for diagnostic endoscopy GERD (gastroesophageal reflux disease) GERD (gastroesophageal reflux disease) History of kidney stones HTN (hypertension) Hyperlipidemia Hypertension Ovarian cancer Peripheral vascular disease Psychiatric care Smoker Surgical History H/O lumpectomy Right H/O right knee surgery History of appendectomy History of cataract surgery Bilateral History of deviated nasal septum Surgically corrected History of total abdominal hysterectomy Kidney stones Removal cystoscopically Family History Other Cancer Social History Smoking and tobacco status: current every day smoker cigarettes Packs smoked per day: 1 Years cigarettes smoked: 48 Alcohol intake: never Caregiver/support person: No Lives independently: Yes Marital status: Single Vitals/I&O/Wt Last Vital Signs Temp 98.0 F 05/11/21 11:21 Pulse 73 05/11/21 11:21 Resp 20 H 05/11/21 14:27 BP 156/83 05/11/21 11:21 Pulse Ox 94 05/11/21 11:21 05/11/21 05/11/21 05/11/21 06:59 14:59 22:59 Intake Total 1029.167 / 1429.167 200 / 200 Balance 1029.167 / 1429.167 200 / 200 Weight last 48 hrs Weight 191 lb 9 oz Weight 195 lb Physical Exam Narrative: EXAM NARRATIVE: The patient was encountered in her hospital room. She does not appear to be in acute distress but has some audible wheezing (not terribly unusual for her). She has a distended abdomen. Her recent incision is healing well. She has diffuse tenderness. She has surprisingly good bowel sounds, however. A&P Assessment and plan (1) Pneumoperitoneum: The patient has too much free air to explain from a postoperative status 10 days out. It is interesting that she did not seem to have much in the way of symptoms until she got an enema today, but she has also been on oral steroids and so these may have been masking some kind of ongoing issue. Clearly an anastomotic breakdown is foremost on my mind, but nothing is seen on CT with any certainty by the radiologist. I discussed the situation with the patient. I told her I think we need to return to the operating room urgently to find out what is going on. If she does have an anastomotic breakdown she may require a colostomy. She seems to understand and is agreeable. Status: Acute Consult Attestations Medical Necessity Statement: See admitting service's notation. Coding Level of Care Code Acute Director Of Undergraduate Admissions for Osman Hidalgo Diagnoses Pneumoperitoneum K66.8
[2021-05-11 15:06] LABS: Procalcitonin 0.09 ng/mL (0-0.5)
[2021-05-11] MEDS: sodium chloride 0.9% 1,000 ML 30 ML IV (15:51)
--- NOTE | 2021-05-11 16:39 | P.ANESASSM_ITS ---
Pre-Anesthetic Assessment Pre-Anesthetic Assessment: Height/Weight: Height 1.75 m Weight 86.891 kg Temp Pulse Resp BP Pulse Ox 97.7 F 93 22 H 179/80 90 05/11/21 15:36 05/11/21 15:36 05/11/21 15:36 05/11/21 15:36 05/11/21 15:36 Preop Diagnosis: Transverse colon cancer. Proposed Procedure: Operation Date: 05/11/21 15:30 Proposed Procedures p Exploratory Laparotomy(Not Applicable) - Segun Pearson MD Social: Social History: Tobacco Packs per day: 1 Exam: Pre-Anes Outpt Exam: alert, oriented x 3, No clear to auscultation b ilaterally and regular rate & rhythm Additional Exam Findings (including area of procedure): Expiratory wheezing bilaterally. Airway: Submandibular: WNL Cervical ROM: WNL MP: 2 Dentition: Full Pulmonary: Pulmonary: COPD and SOB Comments: Home O2 @ 2 Lpm Anesthetic Plan: ASA status: 3E Anesthesia: Anesthesia Evaluation and General Other: 2 PIVs, possible arterial line; discussed potential need to remain intubated post-op @ ICU depending on lung mechanics. Risk of > 500 ml blood loss (7ml/kg in children): Yes, adequate IV access and fluids planned Meds/Allergies Current Medications: Current Medications Generic Name Dose Route Start Last Admin Trade Name Freq PRN Reason Stop Dose Admin Albuterol/Ipratrop ium 3 ml 05/10/21 03:00 05/11/21 14:58 Ipratropium-Albu terol 3 Ml Neb INHALATION 3 ml Q6H.RESPIRATORY S CH Administration Aspirin 81 mg 05/10/21 09:00 05/10/21 09:08 Aspirin 81 Mg Ec Tablet PO 81 mg DAILY FILEMON Administration Budesonide 0.5 mg 05/10/21 08:00 05/11/21 08:17 Budesonide 0.5 M g/2 Ml Neb INHALATION 0.5 mg BID.RESPIRATORY S CH Administration Buspirone HCl 15 mg 05/10/21 09:00 05/11/21 08:48 Buspirone 10 Mg Tablet PO 15 mg BID FILEMON Administration Famotidine 20 mg 05/10/21 03:00 05/11/21 02:15 Famotidine 20 Mg /2 Ml Inj IVP 20 mg Q12H FILEMON Administration Aztreonam 2,000 mg / Sodium 100 mls @ 200 mls /hr 05/10/21 08:00 05/11/21 08:30 Chloride IV Infused Q12H FILEMON Infusion Protocol Metronidazole 500 mg in 100 mls @ 100 mls/hr 05/10/21 08:30 05/11/21 09:51 Flagyl Iv IV Infused Q8H FILEMON Infusion Protocol Dextrose/Sodium Ch loride 1,000 mls @ 50 ml s/hr 05/10/21 09:00 05/11/21 04:21 Dextrose 5%-Sod Chloride 0.45% IV 50 mls/hr .Q20H FILEMON Administration Sodium Chloride 1,000 mls @ 30 ml s/hr 05/11/21 16:15 05/11/21 15:51 Sodium Chloride 0.9% IV 05/12/21 16:14 30 mls/hr .Q24H FILEMON Administration Isosorbide Mononit rate 30 mg 05/10/21 09:00 05/10/21 09:09 Isosorbide [place] itrate Er 30 Mg Ta blet PO 30 mg BID FILEMON Administration Lisinopril 40 mg 05/10/21 09:00 05/10/21 09:08 Lisinopril 20 Mg Tablet PO 40 mg DAILY FILEMON Administration Methylprednisolone Sodium Succinate 40 mg 05/10/21 03:15 05/11/21 02:15 Methylprednisolo ne Sod Succ 40 Mg/ Ml Inj IVP 40 mg Q12H FILEMON Administration Metoprolol Succina te 50 mg 05/10/21 09:00 05/11/21 08:48 Metoprolol Succi chastity Er (24 Hr) 50 Mg Tablet PO 50 mg DAILY FILEMON Administration Morphine Sulfate 2 mg 05/10/21 02:48 05/11/21 12:42 Morphine 4 Mg/Ml Sdv 1 Ml IVP 2 mg Q4H PRN Administration SEVERE PAIN Trazodone HCl 100 mg 05/10/21 21:00 05/10/21 20:01 Trazodone 100 Mg Tablet PO 100 mg BEDTIME FILEMON Administration PFSH Anesthesia PFSH: Medical History Abnormal EKG Abnormal laboratory test result Anxiety Anxiety disorder Cervical cancer Chronic back pain Colon cancer COPD (chronic obstructive pulmonary disease) Deficient knowledge of open reduction and internal (ORIF) fixation of hip Dementia Depression Depression Encounter for diagnostic endoscopy GERD (gastroesophageal reflux disease) GERD (gastroesophageal reflux disease) History of kidney stones HTN (hypertension) Hyperlipidemia Hypertension Ovarian cancer Peripheral vascular disease Psychiatric care Smoker Surgical History H/O lumpectomy Right H/O right knee surgery History of appendectomy History of cataract surgery Bilateral History of deviated nasal septum Surgically corrected History of total abdominal hysterectomy Kidney stones Removal cystoscopically Family History Other Cancer Social History Smoking and tobacco status: current every day smoker cigarettes Packs smoked per day: 1 Years cigarettes smoked: 48 Alcohol intake: never Caregiver/support person: No Lives independently: Yes Marital status: Single Data Anesthesia CBC & Chem 7: 05/11/21 14:27 05/11/21 14:27 Other Labs: Laboratory Results - last 48 hr 05/09/21 05/09/21 05/09/21 21:24 21:24 21:24 WBC 21.8 H RBC 4.88 Hgb 12.9 Hct 42.9 MCV 87.9 MCH 26.4 L MCHC 30.1 RDW 16.9 H Plt Count 331 D MPV 11.5 H Neut % (Auto) 77.3 Lymph % (Auto) 14.1 [place] % (Auto) 7.2 Eos % (Auto) 0.4 Baso % (Auto) 0.1 Neut # (Auto) 16.84 H Lymph # (Auto) 3.1 [place] # (Auto) 1.6 H Eos # (Auto) 0.1 Baso # (Auto) 0.0 Nucleated RBC % (auto) 0.1 Nucleated RBCs # 0.0 Specimen Type Sample Site ABG pH ABG pCO2 ABG pO2 ABG HCO3 ABG O2 Saturation ABG Base Excess Venkat Test VBG pH VBG pCO2 VBG pO2 VBG HCO3 VBG Base Excess VBG Hematocrit A-a O2 Gradient Hematocrit Hgb O2 Saturation Carboxyhemoglobin Methemoglobin Total Hemoglobin Ionized Calcium O2 Delivery Device O2 Liters/Min FiO2 Fiberglass Machine Operator ID Sodium 136 Potassium 3.8 Chloride 94 L Carbon Dioxide 28 Anion Gap 17.8 BUN 22 Creatinine 0.8 GFR Calculation Not Reportable Glucose 115 Calculated Osmolality 286 Lactic Acid 1.0 Lactate Calcium 9.5 Magnesium Total Bilirubin 0.6 AST 14 ALT 16 Alkaline Phosphatase 108 H C-Reactive Protein NT-Pro-B Natriuret Pep 159 H Total Protein 7.6 Albumin 3.9 Globulin 3.7 Procalcitonin 05/09/21 05/09/21 05/10/21 21:24 22:02 08:44 WBC RBC Hgb Hct MCV MCH MCHC RDW Plt Count MPV Neut % (Auto) Lymph % (Auto) [place] % (Auto) Eos % (Auto) Baso % (Auto) Neut # (Auto) Lymph # (Auto) [place] # (Auto) Eos # (Auto) Baso # (Auto) Nucleated RBC % (auto) Nucleated RBCs # Specimen Type Arterial Arterial Sample Site Radial, left Radial, left ABG pH 7.38 7.37 ABG pCO2 49.0 H 54.7 H ABG pO2 67.5 L 73.9 L ABG HCO3 28.9 H 31.6 H ABG O2 Saturation 93.8 ABG Base Excess 3.0 H 5.1 H Venkat Test Pos Pos VBG pH VBG pCO2 VBG pO2 VBG HCO3 VBG Base Excess VBG Hematocrit A-a O2 Gradient 15.1 H Hematocrit 36.8 L 35.1 L Hgb O2 Saturation 88.7 L 92.0 L Carboxyhemoglobin 3.5 1.1 Methemoglobin 0.8 0.8 Total Hemoglobin 12.0 11.5 L Ionized Calcium 1.2 O2 Delivery Device Nc Nc O2 Liters/Min 6.0 4.0 FiO2 36.0 Fiberglass Machine Operator ID [email or web address] Amh Sodium 138.0 Potassium 4.1 Chloride Carbon Dioxide Anion Gap BUN Creatinine GFR Calculation Glucose 143.0 H Calculated Osmolality Lactic Acid Lactate Calcium Magnesium Total Bilirubin AST ALT Alkaline Phosphatase C-Reactive Protein 167.8 H NT-Pro-B Natriuret Pep Total Protein Albumin Globulin Procalcitonin 0.21 05/10/21 05/10/21 05/10/21 10:50 10:50 10:50 WBC 13.0 H RBC 3.98 L Hgb 10.6 L Hct 36.5 L MCV 91.7 MCH 26.6 L MCHC 29.0 L RDW 17.0 H Plt Count 234 MPV 10.7 H Neut % (Auto) 88.7 Lymph % (Auto) 6.3 [place] % (Auto) 3.8 Eos % (Auto) 0.0 Baso % (Auto) 0.1 Neut # (Auto) 11.58 H Lymph # (Auto) 0.8 [place] # (Auto) 0.5 Eos # (Auto) 0.0 Baso # (Auto) 0.0 Nucleated RBC % (auto) 0 Nucleated RBCs # 0.0 Specimen Type Sample Site ABG pH ABG pCO2 ABG pO2 ABG HCO3 ABG O2 Saturation ABG Base Excess Venkat Test VBG pH VBG pCO2 VBG pO2 VBG HCO3 VBG Base Excess VBG Hematocrit A-a O2 Gradient Hematocrit Hgb O2 Saturation Carboxyhemoglobin Methemoglobin Total Hemoglobin Ionized Calcium O2 Delivery Device O2 Liters/Min FiO2 Fiberglass Machine Operator ID Sodium 137 Potassium 4.3 Chloride 100 Carbon Dioxide 27 Anion Gap 14.3 BUN 14 Creatinine 0.4 L GFR Calculation Not Reportable Glucose 140 H Calculated Osmolality 287 Lactic Acid Lactate 0.7 Calcium 8.9 Magnesium Total Bilirubin AST ALT Alkaline Phosphatase C-Reactive Protein NT-Pro-B Natriuret Pep Total Protein Albumin Globulin Procalcitonin 05/11/21 05/11/21 05/11/21 04:08 04:56 04:56 WBC RBC Hgb Hct MCV MCH MCHC RDW Plt Count MPV Neut % (Auto) Lymph % (Auto) [place] % (Auto) Eos % (Auto) Baso % (Auto) Neut # (Auto) Lymph # (Auto) [place] # (Auto) Eos # (Auto) Baso # (Auto) Nucleated RBC % (auto) Nucleated RBCs # Specimen Type Arterial Sample Site Radial, right ABG pH 7.36 ABG pCO2 59.1 H ABG pO2 97.6 ABG HCO3 33.2 H ABG O2 Saturation ABG Base Excess 6.3 H Venkat Test Pos VBG pH VBG pCO2 VBG pO2 VBG HCO3 VBG Base Excess VBG Hematocrit A-a O2 Gradient Hematocrit 32.4 L Hgb O2 Saturation Carboxyhemoglobin Methemoglobin Total Hemoglobin Ionized Calcium O2 Delivery Device Nc O2 Liters/Min 4.0 FiO2 36.0 Fiberglass Machine Operator ID Tamma Sodium 140 Potassium 4.2 Chloride 103 Carbon Dioxide 31 H Anion Gap 10.2 BUN 14 Creatinine 0.4 L GFR Calculation Not Reportable Glucose 135 H Calculated Osmolality 293 Lactic Acid Lactate 0.5 Calcium 8.8 Magnesium 2.3 Total Bilirubin 0.2 AST 8 ALT 9 Alkaline Phosphatase 81 C-Reactive Protein NT-Pro-B Natriuret Pep Total Protein 6.0 L Albumin 3.2 L Globulin 2.8 Procalcitonin 05/11/21 05/11/21 05/11/21 04:56 14:27 14:27 WBC 12.5 H 15.3 H RBC 3.75 L 4.53 Hgb 10.0 L 12.1 Hct 34.2 L 40.7 MCV 91.2 89.8 MCH 26.7 L 26.7 L MCHC 29.2 L 29.7 L RDW 16.9 H 16.8 H Plt Count 238 322 D MPV 10.9 H 11.0 H Neut % (Auto) 87.5 89.5 Lymph % (Auto) 4.9 4.7 [place] % (Auto) 6.3 4.7 Eos % (Auto) 0.3 0.3 Baso % (Auto) 0.1 0.2 Neut # (Auto) 10.90 H 13.71 H Lymph # (Auto) 0.6 L 0.7 L [place] # (Auto) 0.8 0.7 Eos # (Auto) 0.0 0.1 Baso # (Auto) 0.0 0.0 Nucleated RBC % (auto) 0 0 Nucleated RBCs # 0.0 0.0 Specimen Type Sample Site ABG pH ABG pCO2 ABG pO2 ABG HCO3 ABG O2 Saturation ABG Base Excess Venkat Test VBG pH VBG pCO2 VBG pO2 VBG HCO3 VBG Base Excess VBG Hematocrit A-a O2 Gradient Hematocrit Hgb O2 Saturation Carboxyhemoglobin Methemoglobin Total Hemoglobin Ionized Calcium O2 Delivery Device O2 Liters/Min FiO2 Fiberglass Machine Operator ID Sodium 139 Potassium 4.4 Chloride 100 Carbon Dioxide 33 H Anion Gap 10.4 BUN 17 Creatinine 0.4 L GFR Calculation Not Reportable Glucose 100 Calculated Osmolality 290 Lactic Acid Lactate Calcium 9.0 Magnesium Total Bilirubin AST ALT Alkaline Phosphatase C-Reactive Protein 104.7 H NT-Pro-B Natriuret Pep Total Protein Albumin Globulin Procalcitonin 0.09 05/11/21 05/11/21 14:27 14:27 WBC RBC Hgb Hct MCV MCH MCHC RDW Plt Count MPV Neut % (Auto) Lymph % (Auto) [place] % (Auto) Eos % (Auto) Baso % (Auto) Neut # (Auto) Lymph # (Auto) [place] # (Auto) Eos # (Auto) Baso # (Auto) Nucleated RBC % (auto) Nucleated RBCs # Specimen Type Venous Sample Site Not specified ABG pH ABG pCO2 ABG pO2 ABG HCO3 ABG O2 Saturation ABG Base Excess Venkat Test N/a VBG pH 7.35 VBG pCO2 61.1 H* VBG pO2 35.4 VBG HCO3 33.8 H VBG Base Excess 6.4 H VBG Hematocrit 39.4 A-a O2 Gradient Hematocrit Hgb O2 Saturation Carboxyhemoglobin Methemoglobin Total Hemoglobin Ionized Calcium O2 Delivery Device N/a O2 Liters/Min FiO2 Fiberglass Machine Operator ID Amh Sodium Potassium Chloride Carbon Dioxide Anion Gap BUN Creatinine GFR Calculation Glucose Calculated Osmolality Lactic Acid 0.9 Lactate Calcium Magnesium Total Bilirubin AST ALT Alkaline Phosphatase C-Reactive Protein NT-Pro-B Natriuret Pep Total Protein Albumin Globulin Procalcitonin Cardiac Studies: 2 Echocardiogram 05/02/21 Holter Monitor 12/28/19
--- NOTE | 2021-05-11 17:04 | P.OP_ITS ---
Operative Report Date of procedure: May 11, 2021 Pre-op Diagnosis: 1. Pneumoperitoneum 10 days postoperatively.2. Possible partial SBO. Post-op Diagnosis: 1. Small leak just distal to the transverse colon anastomosis. 2. Adhesion causing partial small bowel obstruction. Procedure Done: 1. Exploratory laparotomy with repair of small perforation just distal to transverse colon anastomosis (suspect the distal site of this stitch pulled through). 2. Adhesiolysis with release of partial SBO. Pathology: none sent Surgeon: Segun Pearson Anesthesia: General Estimated blood loss (mL): 10 Complications: None. Condition: stable Disposition: ICU Procedure: The patient was brought to the operating room and was placed in a supine position on the operating room table. General endotracheal anesthesia was induced. A Neff catheter was inserted by nursing. A nasogastric tube was inserted by anesthesia. The abdomen was prepped and draped in a sterile fashion. The remaining skin ashly in the midline incision were removed. The patient's incision was reopened with a scalpel. The looped PDS suture at the fascial level was removed. There was air within the abdomen that escaped but it did not have any obvious odor to it. The patient had minimal bilious colored fluid in the upper abdomen. It was obvious that the proximal small bowel was dilated with air and a little bit of fluid. The small bowel was brought out through the incision and was followed distally. We came to an area of the small bowel that had clearly been constricted by an adhesion and the srinivas wel was decompressed distal to this. The adhesion was divided. Attention was then directed to the colonic anastomosis. There was a very small amount of bilious?appearing staining in the region and it was found that there was a very small leak just distal to the anastomosis. It appearsed as if one of the stitches that had been used to create the anastomosis had been pulled through on the distal side, creating an opening that measured only about 3 mm in greatest diameter. The surrounding tissue was actually in fairly good condition other than being somewhat edematous and the hole was simply closed with several interrupted sutures of 2-0 Vicryl. The abdomen was then extensively irrigated with saline. There was minimal fluid in other areas of the abdomen. A piece of fat from an epiploica was then brought up over the repair and was held in place with some sutures of 2-0 Vicryl that were placed more widely. Another round of irrigation was carried out. The nasogastric tube was in good location within the gastric lumen by palpation and was taped in place at the naris by anesthesia. A 19 Telugu fluted [place] drain was brought out through a separate stab incision on the left side of the abdomen and was brought adjacent to the anastomosis where the fat had been placed over the repair. The drain was sewn in place at the skin with a suture of 2-0 silk. Having returned all of the bowel to the abdomen, a final look around the abdomen revealed no problems. A final round of irrigation was carried out. The midline fascia was closed using a running looped suture of #1 PDS. Some inverted internal retention sutures of #1 PDS were also placed. The subcutaneous tissue was irrigated and the skin was then brought back together with several vertical mattress sutures of #1 PDS. The skin itself was approximated using skin ashly. A sterile bandage was placed over the wound and arrangements were made for the patient to be taken to the intensive care unit postoperatively. The patient's nasogastric tube and Neff catheter were left in place postoperatively.
--- NOTE | 2021-05-11 17:30 | PC.NURSE ---
Pt arrives to [facility] from surgery. Simple mask at 8lpm. three peripheral IV sites noted. Dressing to mid abdomen clean , dry and intact. FERNANDO drain to left abdomen compressed with serosangiuoness fluid noted. Neff noted, patent with clear, pale urine.
[2021-05-11] MEDS: morphine 4 mg/mL SDV 1 mL IVP (18:05)
[2021-05-11] MEDS: D5-NS 0.45% + KCL 20 mEq 20 MEQ/1,000 ML BAG 100 MEQ IV (18:09)
[2021-05-11] MEDS: hyDRALAzine 20 mg/mL INJ 1 mL 10 MG IVP (18:10)
[2021-05-11] MEDS: heparin 5,000 unit/mL INJ 1 mL 5000 UNIT SUBCUT (18:17)
[2021-05-11] MEDS: ketorolac 30 mg/mL INJ IVP (18:31)
--- NOTE | 2021-05-11 19:09 | PC.NURSE ---
Shift Note: Pt oriented to self but still has come confusion from anesthesia. She has been yelling out in pain, holding her breath and tensing her muscles. Pt encouraged to do deep breathing exercises in addition to the Morphine and Toradol. She does better when staff remains at bed staff. FERNANDO drain already emptied, see I & Os. Hydralazine admin for HTN, B/P improved. Bedside report given to Talat. Frequent safety and comfort rounds continue. Orders and/or nursing care completed as indicated. Patient monitored for response to intervention and treatment(s). Education provided include Morphine, Toradol, Heparin and deep breathing exercises . Patient verbalized understanding but due to immediate post-op needs frequent reinforcement . Will continue to monitor.
--- NOTE | 2021-05-11 19:28 | ANE.PACU2 ---
Inpatient post-anesthesia follow up: Airway intact: Yes Vital signs: Temperature 98.6 F Pulse Rate [Left] 104 Pulse Rate 96 Respiratory Rate 18 Blood Pressure [Le ft Arm] 173/96 Blood Pressure 122/78 Pulse Oximetry 90 Oxygen Delivery Me thod Simple Mask Oxygen Flow Rate 5 Fraction of Inspir ed Oxygen 32 Hydration adequate: Yes Nausea and vomiting: No Pain level: 4 Mental status: Baseline Additional Comments: Stable transfer to ICU. Report given.
[2021-05-12] VITALS (159 sets, daily range): BP systolic 91–254; BP diastolic 60–171; PULSE 69–147; RESP 16–22; TEMP 36.7–37.7; O2SAT 9–98
[2021-05-12] MEDS: metroNIDAZOLE IV 500 MG/100 ML PREMIX 100 MG IV ×4 (00:10→23:36)
[2021-05-12] MEDS: morphine 4 mg/mL SDV 1 mL IVP ×5 (00:30→21:19)
[2021-05-12 04:23] LABS: Basophils % 0.2 %; Hematocrit 38.2 % (37.0-47.0); Hemoglobin 11.1 g/dL (11.5-15.3); Lymphocytes # 0.7 10^3/uL (0.8-4.8); Mean Corpuscular HGB Conc 29.1 g/dL (30.0-36.0); Mean Corpuscular Hemoglobin 26.7 pg (28.0-34.0); Mean Platelet Volume 11.1 fL (7.4-10.4); Monocytes # 0.8 10^3/uL (0.2-0.9); Monocytes % 3.6 %; Neutrophils # 21.58 10^3/uL (1.8-7.7); Neutrophils % 92.7 %; Nucleated Red Blood Cells % 0 %; Platelet Count 306 10^3/cmm (130-400); Red Blood Count 4.15 10^6/uL (4.1-5.3); White Blood Count 23.3 10^3/uL (4.0-10.0)
[2021-05-12] MEDS: ipratropium-albuterol 3 mL Neb INHALATION ×4 (04:56→20:10)
[2021-05-12 04:58] LABS: Anion Gap 14.2 (5-19); Blood Urea Nitrogen 18 mg/dL (8-23); Calcium 8.5 mg/dL (8.5-10.5); Carbon Dioxide 27 mmol/L (22-29); Chloride 105 mmol/L (98-107); Glucose 132 mg/dL (65-115); Magnesium 2.1 mg/dL (1.7-2.3); Osmolality Calculated 298 mOsm/kg (285-295); Potassium 4.2 mmol/L (3.5-5.1); Sodium 142 mmol/L (136-145)
[2021-05-12] MEDS: heparin 5,000 unit/mL INJ 1 mL 5000 UNIT SUBCUT ×2 (06:26→18:02)
[2021-05-12] MEDS: D5-NS 0.45% + KCL 20 mEq 20 MEQ/1,000 ML BAG 100 MEQ IV ×2 (06:26→16:17)
[2021-05-12] MEDS: famotidine 20 mg/2 mL INJ IVP ×2 (06:26→18:06)
[2021-05-12] MEDS: aztreonam 2,000 MG in sodium chloride 0.9% (plus) 100 ML 200 MG IV ×2 (07:46→20:52)
--- NOTE | 2021-05-12 07:46 | PC.NURSE ---
Shift Note Frequent safety and comfort rounds continue. Orders and/or nursing care completed as indicated. Patient monitored for response to intervention and treatment(s). Patient had sanguineous to serosanguineous fluid in her FERNANDO drain. There was a total of 165 mL that came out of the FERNANDO drain. Patient had minimal urine output, 415 mL total. Patient remains on simple face mask on 5L. Oxygen saturation was in the low 90's for most of the shift. Patient received 4 mg of Morphine one time during the shift for 8/10 pain reported in the abdominal area.
[2021-05-12] MEDS: budesonide 0.5 mg/2 mL Neb INHALATION ×2 (08:03→20:10)
--- NOTE | 2021-05-12 08:19 | P.PN_ITS ---
Subjective Subjective: Interval history: Seen and examined this morning. She does complain of a little bit of abdominal pain. She was awake alert and talking to me and saying she is glad she was taking care of yesterday. She knows that her sister will be coming to visit her today. She offers no complaints. Vitals/I&O/Wt Last Vital Signs Temp 98.4 F 05/12/21 04:00 Pulse 87 05/12/21 08:05 Resp 16 05/12/21 08:05 BP 156/82 05/12/21 07:25 Pulse Ox 93 05/12/21 08:05 05/11/21 05/12/21 05/12/21 22:59 06:59 14:59 Intake Total 900 / 1100 1100 / 2200 Output Total 170 / 170 580 / 750 Balance 730 / 930 520 / 1450 Physical Exam Narrative: EXAM NARRATIVE: General: Alert oriented x3, patient seen laying in bed. No acute distress. HEENT: Normocephalic, atraumatic, EOMI, breathing 2 L nasal cannula. NG tube in place draining dark brown liquid. Cardio: Regular rate rhythm, normal S1-S2, no murmurs rubs gallops, Respiratory: Good bilateral air entry, very mild rhonchi throughout lung field but generally clear. GI: Abdomen soft, tender to palpation by surgical incision site, nondistended, absent bowel sounds, no gross tenderness in lower quadrants. Behavior: Appropriate and cooperative Extremities: no edema, no cyanosis Urinary Catheter Management^: Neff: Cath Placed During This Visit: yes Reason for Continuing Indwelling Catheter: Accurate Measurement of Urinary Output in Critically Ill Patients Urinary Catheter Date of Insertion: 05/11/21 Urinary Catheter Time of Insertion: 16:05 Data : 05/12/21 03:05 05/12/21 03:05 A&P Assessment and plan (1) Constipation: Status: Acute (2) HTN (hypertension): Status: Acute Qualifiers: Hypertension type: essential hypertension Qualified Code(s): I10 - Essential (primary) hypertension (3) Abdominal pain: Status: Acute Qualifiers: Abdominal location: generalized Qualified Code(s): R10.84 - Generalized abdominal pain (4) Acute exacerbation of chronic obstructive pulmonary disease: Acute on chronic COPD exacerbation. DuoNeb every 6 hours scheduled, budesonide every 12 hours scheduled nebulization. Methylprednisolone 40 mg IV every 12 hours. Supplemental O2 to keep saturation 90 to 92%. Status: Acute (5) Ileus: Status: Acute Additional A&P Information #Ileus, partial small bowel obstruction, anastomosis leak status post repair postop day 2 Patient was taken for exploratory laparotomy yesterday for possible ischemia based on radiology report from CT abdomen that was done. Initially she was admitted for obstipation/constipation. Patient was diagnosed with partial small bowel obstruction and an anastomosis leak which was repaired by Dr. Pearson emergently yesterday. She has been in the ICU for closer monitoring postop. Patient is doing well today. NG tube is in place. All oral medications have been held for now. Using IV hydralazine for blood pressure control. Absent bowel sounds at this time. She is on 4 L nasal cannula which is close to her baseline of 3 L. Keep patient n.p.o. for now Active wheezing due to acute COPD exacerbation, currently on systemic steroids Continue duo nebs. N.p.o. Full code DVT prophylaxis: SCDs Family was updated in detail while after surgery tomorrow in person outside the ICU. Attestations Medical Necessity Statement*: Requires greater than 48 hours of inpatient stay. Time Spent in Patient Care: 16 - 35 minutes Coding Level of Care Code Acute Radiographer Technologist for Chg Fwd Diagnoses Constipation K59.00 HTN (hypertension) I10 Hypertension type: essential hypertension Abdominal pain R10.84 Abdominal location: generalized Acute exacerbation of chronic obstructive pulmonary disease J44.1 Ileus K56.7
--- NOTE | 2021-05-12 09:25 | PC.CHAP ---
Pastoral Care Encounter/Spiritual Assessment Type of Contact [] Declined financial systems director visit [] Patient/Family/Request visit [] Outpatient visit [] Follow-up visit [] Physician referral [] Code/Alert [x] Routine visit [] Staff referral [] Actively dying [] Patient sleeping [] Family support [] [] Out of room [] Palliative care [] [x] Receiving care in room [] Pre-surgical visit [] Trauma [] Long length of stay [x] ICU visit [] Other: Relational/Emotional Strength [] Patient feels connected with others/family/visitors/staff [] Distress [] Loneliness/isolation [] Abandonment Spirituality of Patient [] Person of Martha [] Attends Pentecostal of their Martha [] Believes in Prayer [] Reads Bible or Alevism materials [] There are Spiritual issues to be addressed Injection Molding Process Technician Interventions [x] Prayer [] Active listening [] Non-anxious presence [] Spiritual/emotional support [] Crisis/trauma care [] Spiritual counseling [] Bereavement support [] Provided bereavement packet [] Provided Bible/devotional materials [] Provided toy/stuffed animal, coloring book to patient or family member [] Provided Communion [] Anointing/[place] [] Salvation [x] Completed spiritual assessment [] Other: Impact on Illness or Injury [] Angry [] Fearful [] Anxious [] Often cries [] Exhaustion [] Unable to work [] Unable to attend amish [] Unable to walk/stand [] Unable to read [] Unable to drive [] Unable to eat/drink [] Unable to sleep [] Unable to be with family [] Patient intubated [] Other: Summary Time spent with patient
[2021-05-12] MEDS: nicotine 7 mg Patch 1 PATCH TRANSDERMA (09:35)
[2021-05-12 10:06] LABS: Base Excess VBG 4.8 mmol/L (-3.0-3.0); Blood Gas Allen Test Pos; Blood Gas Operator Identificat BD; Blood Gas Sample Type Venous; HCO3 VBG 30.6 mmol/L (24-28); PCO2 VBG 50.1 mmHg (41-51); PO2 VBG 89.5 mmHg (25-40); Venous Blood Gas Hematocrit 34.1 % (37-47)
[2021-05-12] MEDS: ketorolac 30 mg/mL INJ IVP ×2 (10:43→18:01)
[2021-05-12] MEDS: hyDRALAzine 20 mg/mL INJ 1 mL 10 MG IVP ×2 (10:46→16:37)
--- NOTE | 2021-05-12 10:58 | P.PN_ITS ---
Subjective Subjective: Interval history: Patient is in ICU. She was resting when I came in but was easily arousable. She says her abdomen hurts, as expected. She says her breathing is doing fairly well. Vitals/I&O/Wt Last Vital Signs Temp 98.0 F 05/12/21 08:00 Pulse 87 05/12/21 08:05 Resp 16 05/12/21 08:05 BP 156/82 05/12/21 08:00 Pulse Ox 93 05/12/21 08:05 05/11/21 05/12/21 05/12/21 22:59 06:59 14:59 Intake Total 900 / 2200 1100 / 2200 100 / 100 Output Total 170 / 750 580 / 750 Balance 730 / 1450 520 / 1450 100 / 100 Physical Exam Narrative: EXAM NARRATIVE: The patient is afebrile. She is somewhat hypertensive. She has some audible rhonchi (usual for the patient). Abdomen is fairly quiet. The Marin drain has some serous/serosanguineous fluid in the bulb. Urinary Catheter Management^: Neff: Cath Placed During This Visit: yes Reason for Continuing Indwelling Catheter: Accurate Measurement of Urinary Output in Critically Ill Patients Urinary Catheter Date of Insertion: 05/11/21 Urinary Catheter Time of Insertion: 16:05 Data : 05/12/21 03:05 05/12/21 03:05 A&P Assessment and plan (1) Pneumoperitoneum: Status post exploratory laparotomy with repair of small hole in the tra nsverse colon on 05/11/2021. The patient was found to have a very small hole in the colon just distal to the anastomosis. It appeared to me as if the colon became so distended with air that one of the stitches had pulled through the tissue at the distal side. There was no stool in the abdomen. I did a primary repair and covered the area with some fat. I made the patient aware that the alternative would have been to do a proximal diverting stoma. She is very thankful that she does not have one and we obviously hope this is going to heal without further problems, or else it may become necessary. Status: Acute (2) Partial small bowel obstruction: The patient was found to have an adhesion that was causing a partial small bowel obstruction and underwent an adhesiolysis. Status: Acute Attestations Medical Necessity Statement*: See admitting service's notation. Coding Level of Care Code Acute Product Management Analyst for Chg Fwd Diagnoses Pneumoperitoneum K66.8 Partial small bowel obstruction K56.600
--- NOTE | 2021-05-12 17:48 | PC.RESP ---
Smoking Cessation and Pulmonary Rehab information sent to patient.
--- NOTE | 2021-05-12 23:13 | ECG_ITS ---
[facility] Test Date: 2021-05-13 Pat Name: Daina Pierre Department: Room: [facility] Gender: Female Crimp Setter: : 1950 Requested By: Migdalia Barksdale Order Number: [id number] Rah MD: Frankie Medina M.D. Measurements Intervals [place] Rate: 118 P: 59 NH: 151 QRS: 32 QRSD: 98 T: 40 QT: 306 QTc: 430 Interpretive Statements SINUS TACHYCARDIA LEFT ATRIAL ENLARGEMENT [-0.15mV P-WAVE IN V1/V2] INCOMPLETE RIGHT BUNDLE BRANCH BLOCK [90+ ms QRS DURATION, TERMINAL R IN V1/V2, 40+ ms S IN I/aVL/V4/V5/V6] MINIMAL ST DEPRESSION [0.025+ mV ST DEPRESSION] INTERPRETATION BASED ON A DEFAULT AGE OF 40 YEARS Compared to ECG 05/09/2021 22:01:09 ST (T wave) deviation now present Electronically Signed On 05-13-2021 23:36:51 CDT by Frankie Medina M.D. [id number]
[2021-05-12] MEDS: LORazepam 2 mg/mL INJ 1 mL 0.5 MG IVP (23:34)
[2021-05-13] VITALS (211 sets, daily range): BP systolic 141–221; BP diastolic 80–161; PULSE 60–150; RESP 13–31; TEMP 36.6–37.3; O2SAT 80–100
--- NOTE | 2021-05-13 00:29 | PC.NURSE ---
Patient continues to become agitated and aggressive towards staff. Talat RN in room with patient and yelled out for help with room 1. This nurse went to room and patient was red in face, agitated, and swatting at CORKY Gilliland. Patient screaming and staff could not de-escalate patient. Asked loader technician to call a code 10 on patient. All appropriate staff responded.
[2021-05-13] MEDS: acetaminophen 1,000 MG/100 ML PIGGYBACK 400 MG IV ×3 (00:31→17:16)
--- NOTE | 2021-05-13 00:43 | P.EN_ITS ---
Event Note Event Note: Code 10 called as patient was screaming, trying to get out of bed, hitting at staff. She was confused earlier and given some ativan. It helped briefly in terms of being a little calmer but she again became agitated. She would not respond to attempts to descalate from staff. Upon my arrival, she was yelling for Dr. Pearson to see. Explained that it was middle of night and I was doctor currently covering. At first she seemed paranoid about anything I suggested or tried, stating, I know what you are trying to do and similar things. She knew she was in the hospital and had had surgery. She says she has not slept and is scared. She is hurting. Offered other pain medications such as fentanyl and hydromorphone, but she says she is allergic and cannot take them. She says morphine makes her sleepy usually. She was agreeable to trying IV tylenol. She wanted hydrocodone, but has not passed any flatus post op yet. Expalined why it is not ordered. She is currently tachycardic, hypertensive, diaphoretic. I have ordered nitropaste, metoprolol IV and prn enalapril in addition to prn hydralazine ordered. Will give another dose of ativan. She is not getting her venlefazine or trazodone which she usually takes. She is on solumedrol, received at 6pm today. Home med list shows on prednisone 50mg daily which I wonder if not for burst dosing with acute COPD. She is wheezing currently, but states not too far from baseline. No current chest pain. Abd dressing is intact, no visible blood. Serosanguinous drainage in FERNANDO drain. Patient is calmer now. 12 lead EKG without acute st segment changes, sinus tach. She agrees to current plan as described. I removed SCDs for the evening and have changed BP checks to q 1 hr (was getting every 30 min). SHe has not been tolerating being squeezed so much. Hopefully with these changes she will get some rest and feel more at ease. Will monitor for further changes. Event Notes Attestations Time Spent in Patient Care: 16 - 35 minutes (>than 50% of time spent in counselling and/or direct pt care on unit) . 30 minutes additional care
[2021-05-13] MEDS: LORazepam 2 mg/mL INJ 1 mL 0.5 MG IVP ×2 (01:03→16:04)
[2021-05-13] MEDS: metoprolol tartrate 1 mg/1 mL SDV 5 mL 5 MG IVP ×4 (01:03→12:29)
[2021-05-13] MEDS: nitroglycerin 1 gm/inch oint Pkt 1 INCH TOPICAL ×4 (01:04→18:23)
[2021-05-13] MEDS: D5-NS 0.45% + KCL 20 mEq 20 MEQ/1,000 ML BAG 100 MEQ IV ×2 (05:31→05:43)
[2021-05-13] MEDS: heparin 5,000 unit/mL INJ 1 mL 5000 UNIT SUBCUT ×2 (05:42→17:24)
[2021-05-13] MEDS: famotidine 20 mg/2 mL INJ IVP ×2 (05:42→17:17)
[2021-05-13] MEDS: hyDRALAzine 20 mg/mL INJ 1 mL 10 MG IVP ×4 (05:43→18:23)
[2021-05-13 06:05] LABS: Basophils % 0.1 %; Hematocrit 37.6 % (37.0-47.0); Hemoglobin 11.2 g/dL (11.5-15.3); Lymphocytes # 0.9 10^3/uL (0.8-4.8); Lymphocytes % 6.6 %; Mean Corpuscular HGB Conc 29.8 g/dL (30.0-36.0); Mean Corpuscular Hemoglobin 26.6 pg (28.0-34.0); Mean Corpuscular Volume 89.3 fl (81-99); Monocytes # 1.2 10^3/uL (0.2-0.9); Monocytes % 8.6 %; Nucleated Red Blood Cells % 0 %; Platelet Count 288 10^3/cmm (130-400); Red Blood Count 4.21 10^6/uL (4.1-5.3); Red Cell Distribution Width 16.9 % (12.1-15.1); White Blood Count 13.6 10^3/uL (4.0-10.0)
[2021-05-13 06:29] LABS: Anion Gap 12.2 (5-19); Blood Urea Nitrogen 14 mg/dL (8-23); Calcium 8.7 mg/dL (8.5-10.5); Carbon Dioxide 30 mmol/L (22-29); Chloride 104 mmol/L (98-107); Glucose 110 mg/dL (65-115); Osmolality Calculated 295 mOsm/kg (285-295); Potassium 4.2 mmol/L (3.5-5.1); Sodium 142 mmol/L (136-145)
--- NOTE | 2021-05-13 06:46 | PM.PN ---
Subjective Subjective: Interval history: Episode of confusion/panic last night noted. The patient tells me that she feels like her breathing is a little bit more of a problem this morning but her oxygen saturation is 99%. She has not passed any flatus that she is aware of. She apparently pulled her nasogastric tube but it was not putting much out and so it was left out. Vitals/I&O/Wt Last Vital Signs Temp 98.2 F 05/13/21 04:00 Pulse 94 05/13/21 05:00 Resp 19 H 05/12/21 21:19 BP 182/98 05/13/21 01:30 Pulse Ox 97 05/13/21 02:20 05/12/21 05/12/21 05/13/21 14:59 22:59 06:59 Intake Total 200 / 2605 1185 / 2605 1220 / 2605 Output Total 820 / 1670 850 / 1670 Balance 200 / 935 365 / 935 370 / 935 Physical Exam Narrative: EXAM NARRATIVE: Midline dressing was removed and the incision looks good. The Marin drain has minimal serous fluid in the bulb and no evidence of air. The patient does have some bowel sounds that are starting to sweet pickled fruit maker. Urinary Catheter Management^: Neff: Cath Placed During This Visit: yes Reason for Continuing Indwelling Catheter: Accurate Measurement of Urinary Output in Critically Ill Patients Urinary Catheter Date of Insertion: 05/11/21 Urinary Catheter Time of Insertion: 16:05 Data : 05/13/21 05:10 05/13/21 05:10 A&P Assessment and plan (1) Pneumoperitoneum: Status post exploratory laparotomy with repair of small hole in the transverse colon on 05/11/2021. Other than for her episode last night she appears to be doing fairly well. White blood cell count is defervescing. Bowel sounds are picking up. I am going to leave her nasogastric tube out. It appears as if some of her home medications have been resumed. Continue Neff catheter to watch urine output closely, but it appears that she is starting to mobilize fluid now. Status: Acute (2) Partial small bowel obstruction: The patient was found to have an adhesion that was causing a partial small bowel obstruction and underwent an adhesiolysis. Status: Acute Attestations Medical Necessity Statement*: See admitting service's notation. Coding Level of Care Code Acute Farm Machinery Set Up Mechanic for Osman Hidalgo Diagnoses Pneumoperitoneum K66.8 Partial small bowel obstruction K56.600
--- NOTE | 2021-05-13 07:32 | PC.NURSE ---
Shift Note Frequent safety and comfort rounds continue. Orders and/or nursing care completed as indicated. Patient monitored for response to intervention and treatment(s). Education provided to patient. Will require reinforcement on all teachings. The patient is alert, and oriented to person, time, and situation , with some confusion on the place. She experienced several episodes during the night where she became really emotional and started crying and yelling. Around 0030 a code ten was called on the patient due to her lack of cooperation and high anxiety level. All appropriate staff arrived to deescalate the situation. The patient received several new medications after the code ten was called. Urine output was 800 mL and the FERNANDO drain had a total of 50 mL. The fluid in the FERNANDO drain was serosanguineous in color. This morning Dr. Pearson came to visit the patient. He removed the abdominal dressing to be open to room air. There were no new orders received.
[2021-05-13] MEDS: morphine 4 mg/mL SDV 1 mL IVP ×5 (08:20→20:21)
--- NOTE | 2021-05-13 08:41 | PM.PN ---
Subjective Subjective: Interval history: Patient seen this morning. She was tearful in bed stating that her blood pressure is up and she feels weak. She was also stating that she has fibromyalgia and chronic pain and is not very comfortable in bed at this time. She would like her bed to be raised a little bit. She is looking forward to having all her oral medications continued. We have continued her trazodone venlafaxine and lisinopril today. We will hold off on starting Imdur at this point and add that in gradually. Patient is requesting for some water. She did have a few sips to take her oral medications. Overnight event noted. Patient pulled out NG tube overnight. Blood pressure was elevated overnight as well most likely secondary to pain. Nitropaste was added. Vitals/I&O/Wt Last Vital Signs Temp 98.2 F 05/13/21 04:00 Pulse 96 05/13/21 06:40 Resp 19 H 05/13/21 08:20 BP 185/94 05/13/21 06:40 Pulse Ox 96 05/13/21 08:20 05/12/21 05/13/21 05/13/21 22:59 06:59 14:59 Intake Total 1185 / 1385 1220 / 2605 Output Total 820 / 820 850 / 1670 Balance 365 / 565 370 / 935 Physical Exam Narrative: EXAM NARRATIVE: General: Alert oriented x3, patient seen laying in bed. No acute distress. HEENT: Normocephalic, atraumatic, EOMI, breathing 2 L nasal cannula. NG tube no longer present. Cardio: Regular rate rhythm, normal S1-S2, no murmurs rubs gallops, Respiratory: Fairly okay bilateral air entry, very mild rhonchi throughout lung field but generally clear. GI: Abdomen soft, tender to palpation by surgical incision site, nondistended, mild hypoactive bowel sounds present at this point., no gross tenderness in lower quadrants. Drain has minimal serous fluid present with no evidence of air. Behavior: Appropriate and cooperative Extremities: no edema, no cyanosis Urinary Catheter Management^: Neff: Cath Placed During This Visit: yes Reason for Continuing Indwelling Catheter: Accurate Measurement of Urinary Output in Critically Ill Patients Urinary Catheter Date of Insertion: 05/11/21 Urinary Catheter Time of Insertion: 16:05 Data : 05/13/21 05:10 05/13/21 05:10 A&P Assessment and plan (1) Constipation: Status: Acute (2) HTN (hypertension): Status: Acute Qualifiers: Hypertension type: essential hypertension Qualified Code(s): I10 - Essential (primary) hypertension (3) Abdominal pain: Status: Acute Qualifiers: Abdominal location: generalized Qualified Code(s): R10.84 - Generalized abdominal pain (4) Acute exacerbation of chronic obstructive pulmonary disease: Acute on chronic COPD exacerbation. DuoNeb every 6 hours scheduled, budesonide every 12 hours scheduled nebulization. Methylprednisolone 40 mg IV every 12 hours. Supplemental O2 to keep saturation 90 to 92%. Status: Acute (5) Ileus: Status: Acute Additional A&P Information #Ileus, partial small bowel obstruction, anastomosis leak, adhesion status post repair postop day 2 #Hypertension Patient was taken for exploratory laparotomy yesterday for possible ischemia based on radiology report from CT abdomen that was done. Initially she was admitted for obstipation/constipation. Patient was diagnosed with partial small bowel obstruction and an anastomosis leak which was repaired by Dr. Pearson emergently yesterday. She has been in the ICU for closer monitoring postop. NG tube was removed. Hypoactive bowel sounds present today. Oral medications will be restarted with tiny sips of water. Will speak to Dr. Pearson regarding addition of clear liquids. Patient is not passing gas yet. We will restart venlafaxine, trazodone at 50 today and will increase to 100 by tomorrow. We will readd lisinopril 40. May use 5 mg IV hydralazine if needed in between to control blood pressure. I will also de-escalate her steroid dose from 40 twice daily to 40 daily. I will start to taper that off. Steroids can be contributing to high blood pressure. We will also turn off IV fluids at this point due to blood pressure being high. Keep patient n.p.o. for now Once blood pressure is better controlled I will be okay to move her out of the ICU to the general medical floor possibly by this evening if not then tomorrow morning. COPD exacerbation/resolving Decrease Solu-Medrol to 40 daily and will start to taper it off. Continue duo nebs Patient on 2 L nasal cannula which is lower than her home baseline. Encourage incentive spirometry and Acapella use. N.p.o. Full code DVT prophylaxis: SCDs Attestations Medical Necessity Statement*: Requires another 72 hours of hospital stay Time Spent in Patient Care: 16 - 35 minutes Coding Level of Care Code Acute Mass Spectrometry Manager for Chg Fwd Diagnoses Constipation K59.00 HTN (hypertension) I10 Hypertension type: essential hypertension Abdominal pain R10.84 Abdominal location: generalized Acute exacerbation of chronic obstructive pulmonary disease J44.1 Ileus K56.7
[2021-05-13] MEDS: ipratropium-albuterol 3 mL Neb INHALATION ×3 (08:45→20:04)
[2021-05-13] MEDS: budesonide 0.5 mg/2 mL Neb INHALATION ×2 (08:45→20:04)
--- NOTE | 2021-05-13 09:53 | PC.SOCIAL ---
IMM Update Pg. 2 of IMM updated and reviewed with patient, who verbalized understanding. Copy provided.
[2021-05-13] MEDS: metroNIDAZOLE IV 500 MG/100 ML PREMIX 100 MG IV ×2 (09:54→17:15)
[2021-05-13] MEDS: aztreonam 2,000 MG in sodium chloride 0.9% (plus) 100 ML 200 MG IV ×2 (09:55→21:09)
[2021-05-13] MEDS: aspirin 81 mg EC Tablet PO (09:57)
[2021-05-13] MEDS: BuSPIRONE 10 mg Tablet 15 MG PO ×2 (09:57→17:24)
[2021-05-13] MEDS: nicotine 7 mg Patch 1 PATCH TRANSDERMA (09:58)
[2021-05-13] MEDS: venlafaxine ER (24HR) 150 mg Capsule PO (10:01)
[2021-05-13] MEDS: lisinopril 20 mg Tablet 40 MG PO (10:37)
[2021-05-13] MEDS: ondansetron 2 mg/ML SDV 2 mL 4 MG IVP (17:47)
--- NOTE | 2021-05-13 19:27 | PC.NURSE ---
Shift Summary: Patient rested in bed throughout the day. Did have recurring pain which was well controlled with PRN morphine. Patient did have anxiety which was treated with PRN Ativan. Bowel sounds active in all quadrants. progressed to a clear liquid diet which she tolerated well.
[2021-05-13] MEDS: trazodone 50 mg Tablet PO (22:33)
[2021-05-14] VITALS (102 sets, daily range): BP systolic 137–186; BP diastolic 65–104; PULSE 0–122; RESP 16–20; TEMP 36.4–37.5; O2SAT 90–97
--- NOTE | 2021-05-14 01:16 | P.PCN_ITS ---
Acute Procedures Central Line Placement^: Right IJ: Time out performed: Yes Patient placed on monitor/pulse ox: Yes MD prep: mask, gown and gloves Central line prep: Povidone-Iodine 1%, Chlorhexidine scrub and sterile drapes ap plied Local anesthesia used: lidocaine 1% Ultrasound used for placement: Yes Central line lumen inserted: triple Post procedure: sutured in place, good blood return, all ports aspirated, flushed, capped and sterile dressing applied Post procedure x-ray: tip of catheter in good position and no pneumothorax seen Patient tolerated procedure: well Additional comments: Patient was noted to have decreased pulse in the right radial. During changeover of medications running through her midline catheter in the right upper extremity it was noted that she had pulsations from the line consistent with arterial flow. Midline catheter was removed. Patient is on fentanyl, propofol and pressor support currently and only had one peripheral IV with difficulty obtaining additional access. Decision was made to pursue central line. Verbal consent was obtained from the family over the phone. Patient was prepped and draped in a sterile fashion. Timeout was called. Initial attempt was made for line placement of the right femoral area. Blood return was obtained on initial stick, dark in color however with significant pulsations noted. Attempt was aborted and pressure was held for 10 minutes. Attempt was made in the left femoral area with similar outcome despite good ability to palpate arterial pulsations and identify landmarks. Utilizing ultrasound discovered that the vein was right next to and almost underneath the artery bilaterally. I suspect actually had venous return on initial stick despite the pulsations which likely stem from the close proximity of the artery to the vein. Dr. De Luna also attempted to access the vein in the right groin utilizing ultrasound without success. Ultimately transition was made to right IJ where Dr. De Luna placed it under ultrasound guidance on first attempt without any difficulty. A total of 7 to 8 mL of lidocaine was used between the 3 sites. Estimated blood loss less than 5 mL. Pressure was held in each groin for approximately 10 minutes. Some bruising noted to the right groin but otherwise there were no complications. Initial prep in each femoral area also included provide iodine followed by chlorhexidine personally reviewed chest x-ray with catheter tip in good position and no pneumothorax noted. Line is available for use.
[2021-05-14] MEDS: nitroglycerin 1 gm/inch oint Pkt 1 INCH TOPICAL ×2 (01:58→05:53)
[2021-05-14] MEDS: metroNIDAZOLE IV 500 MG/100 ML PREMIX 100 MG IV ×4 (01:58→23:34)
[2021-05-14] MEDS: metoprolol tartrate 25 mg Tablet PO (02:31)
[2021-05-14] MEDS: ipratropium-albuterol 3 mL Neb INHALATION ×4 (03:01→20:22)
[2021-05-14] MEDS: morphine 4 mg/mL SDV 1 mL IVP ×5 (05:24→20:26)
[2021-05-14] MEDS: heparin 5,000 unit/mL INJ 1 mL 5000 UNIT SUBCUT ×2 (05:25→16:58)
[2021-05-14] MEDS: famotidine 20 mg/2 mL INJ IVP ×2 (05:25→17:11)
[2021-05-14 05:31] LABS: Basophils % 0.1 %; Eosinophils # 0.1 10^3/uL (0.0-0.8); Eosinophils % 0.3 %; Hematocrit 39.3 % (37.0-47.0); Hemoglobin 11.9 g/dL (11.5-15.3); Lymphocytes # 1.7 10^3/uL (0.8-4.8); Lymphocytes % 11.2 %; Mean Corpuscular HGB Conc 30.3 g/dL (30.0-36.0); Mean Corpuscular Hemoglobin 26.5 pg (28.0-34.0); Mean Corpuscular Volume 87.5 fl (81-99); Mean Platelet Volume 10.7 fL (7.4-10.4); Monocytes # 1.4 10^3/uL (0.2-0.9); Monocytes % 9.3 %; Neutrophils # 11.62 10^3/uL (1.8-7.7); Neutrophils % 78.6 %; Nucleated Red Blood Cells % 0 %; Platelet Count 335 10^3/cmm (130-400); Red Blood Count 4.49 10^6/uL (4.1-5.3); Red Cell Distribution Width 16.9 % (12.1-15.1); White Blood Count 14.8 10^3/uL (4.0-10.0)
[2021-05-14 06:09] LABS: Anion Gap 14.5 (5-19); Blood Urea Nitrogen 18 mg/dL (8-23); Carbon Dioxide 28 mmol/L (22-29); Chloride 102 mmol/L (98-107); Glucose 94 mg/dL (65-115); Osmolality Calculated 294 mOsm/kg (285-295); Potassium 3.5 mmol/L (3.5-5.1); Sodium 141 mmol/L (136-145)
--- NOTE | 2021-05-14 06:39 | PC.NURSE ---
Shift Note Frequent safety and comfort rounds continue. Orders and/or nursing care completed as indicated. Patient monitored for response to intervention and treatment(s). Education provided to the patient. There were a few episodes where the patient was experiencing sinus tachycardia and also hypertension. Both the heart rate and blood pressure went down after several interventions. The patient slept several hours during the shift, with slight confusion experienced. There were no significant changes that occurred during the shift. The total fluid out from the FERNANDO drain was 50 mL. The total urine output from the roth was 300 mL. The fluid from the FERNANDO drain was serosanguineous.
[2021-05-14] MEDS: aztreonam 2,000 MG in sodium chloride 0.9% (plus) 100 ML 100 MG IV (07:51)
[2021-05-14] MEDS: ketorolac 30 mg/mL INJ IVP (08:00)
[2021-05-14] MEDS: budesonide 0.5 mg/2 mL Neb INHALATION ×2 (08:02→20:22)
[2021-05-14] MEDS: nicotine 7 mg Patch 1 PATCH TRANSDERMA (08:59)
[2021-05-14] MEDS: aspirin 81 mg EC Tablet PO (09:00)
[2021-05-14] MEDS: BuSPIRONE 10 mg Tablet 15 MG PO ×2 (09:00→17:11)
[2021-05-14] MEDS: lisinopril 20 mg Tablet 40 MG PO (09:01)
[2021-05-14] MEDS: metoprolol succinate ER (24 HR) 50 mg Tablet PO (09:01)
[2021-05-14] MEDS: isosorbide mononitrate ER 30 mg Tablet PO ×2 (09:01→17:11)
[2021-05-14] MEDS: venlafaxine ER (24HR) 150 mg Capsule PO (09:02)
--- NOTE | 2021-05-14 09:36 | XR_ITS ---
WS: [id number] Exam: XR KUB portable [id number] Date/Time of Exam: 05/14/2021 9:37 AM Reason For Exam: Postop No sign of acute bowel obstruction or free air. There is gas in both large and small bowel loops sugg esting probable postop ileus. Some gas noted in the stomach. A length of opaque tubing is noted in th e abdomen and may represent a surgical drain. There is contrast in a single loop of right colon. Surg ical skin clips noted slightly to the right of midline. No organ enlargement noted. Degenerative thornton ge and mild lumbar scoliosis XR/XR KUB portable [id number] IMPRESSION: 1. Probable postop ileus. No acute obstructive pattern noted. 2. Length of opaque tubing seen in the mid abdomen which may represent a surgic al drain.
--- NOTE | 2021-05-14 09:36 | P.PN_ITS ---
Subjective Subjective: Interval history: The patient is having crampy abdominal pain. She said she is passing a little bit of flatus, however. She did try to drink some clear liquids yesterday but said it made her cramping worse. Vitals/I&O/Wt Last Vital Signs Temp 98 F 05/14/21 04:00 Pulse 96 05/14/21 07:56 Resp 18 05/14/21 07:56 BP 173/87 05/14/21 06:35 Pulse Ox 96 05/14/21 07:56 05/13/21 05/14/21 05/14/21 22:59 06:59 14:59 Intake Total 400 / 1328.333 100 / 1328.333 200 / 200 Output Total 450 / 2150 350 / 2150 60 / 60 Balance -50 / -821.667 -250 / -821.667 140 / 140 Physical Exam Narrative: EXAM NARRATIVE: Bowel sounds are picking up. The incision looks good. The Marin drain has minimal serous fluid in the bulb and no air. It apparently drained about 60 mL of serous fluid yesterday. Urine output is not being calculated correctly in the computer. She put out 0.7 mL/kg/hour yesterday. Urinary Catheter Management^: Neff: Cath Placed During This Visit: yes Reason for Continuing Indwelling Catheter: Accurate Measurement of Urinary Output in Critically Ill Patients Urinary Catheter Date of Insertion: 05/11/21 Urinary Catheter Time of Insertion: 16:05 Data : 05/14/21 04:20 05/14/21 04:20 A&P Assessment and plan (1) Pneumoperitoneum: Status post exploratory laparotomy with repair of small hole in the transverse colon on 05/11/2021. Increase activity. Check KUB today. Status: Acute (2) Partial small bowel obstruction: The patient was found to have an adhesion that was causing a partial small bowel obstruction and underwent an adhesiolysis. Status: Acute Attestations Medical Necessity Statement*: See admitting service's notation. Coding Level of Care Code Acute Global Analytics Head for Osman Hidalgo Diagnoses Pneumoperitoneum K66.8 Partial small bowel obstruction K56.600
--- NOTE | 2021-05-14 09:56 | PC.CHAP ---
Pastoral Care Encounter/Spiritual Assessment Type of Contact [] Declined sander portable machine visit [] Patient/Family/Request visit [] Outpatient visit [] Follow-up visit [] Physician referral [] Code/Alert [x] Routine visit [] Staff referral [] Actively dying [] Patient sleeping [] Family support [] [] Out of room [] Palliative care [] [x] Receiving care in room [] Pre-surgical visit [] Trauma [] Long length of stay [x] ICU visit [] Other: Relational/Emotional Strength [] Patient feels connected with others/family/visitors/staff [] Distress [] Loneliness/isolation [] Abandonment Spirituality of Patient [] Person of Martha [] Attends Religion of their Martha [] Believes in Prayer [] Reads Bible or Tenriism materials [] There are Spiritual issues to be addressed Worm Raiser Interventions [x] Prayer [x] Active listening [x] Non-anxious presence [x] Spiritual/emotional support [] Crisis/trauma care [] Spiritual counseling [] Bereavement support [] Provided bereavement packet [] Provided Bible/devotional materials [] Provided toy/stuffed animal, coloring book to patient or family member [] Provided Communion [] Anointing/[place] [] Salvation [x] Completed spiritual assessment [] Other: Impact on Illness or Injury [] Angry [] Fearful [] Anxious [] Often cries [] Exhaustion [] Unable to work [] Unable to attend lutheran [] Unable to walk/stand [] Unable to read [] Unable to drive [] Unable to eat/drink [] Unable to sleep [] Unable to be with family [] Patient intubated [] Other: Summary patient in so much pain abdomen Time spent with patient 5 min
--- NOTE | 2021-05-14 10:41 | PC.NURSE ---
0700: c/o of severe abd. pain
--- NOTE | 2021-05-14 11:05 | PC.NURSE ---
0900 dr. rios in. get out of bed today.
--- NOTE | 2021-05-14 11:09 | PC.NURSE ---
1030 up to chair. elba. that well. bath done. after there shortly x-ray here for kub. back to bed c/o severe pain in abd. ambulated rom ch. to curtain and back with a lot of c/o of pain. no flatulence some burping.
--- NOTE | 2021-05-14 11:13 | PC.NURSE ---
awakened by case mgmt. c/o of severe pain. after they left, she went back to sleep.
--- NOTE | 2021-05-14 12:08 | PM.PN ---
Subjective Subjective: Interval history: Seen this morning. Patient again tearful. She complains of increased cramping every time she tries to drink water or Jell-O. She appears very worried and anxious today. Her blood pressure looks better compared to yesterday. Patient had pain overnight and was given IV Tylenol. Her metoprolol was restarted. Vitals/I&O/Wt Last Vital Signs Temp 98 F 05/14/21 04:00 Pulse 90 05/14/21 10:00 Resp 18 05/14/21 07:56 BP 145/104 05/14/21 09:00 Pulse Ox 96 05/14/21 11:00 05/13/21 05/14/21 05/14/21 22:59 06:59 14:59 Intake Total 400 / 1228.333 100 / 1328.333 200 / 200 Output Total 450 / 1800 350 / 2150 60 / 60 Balance -50 / -571.667 -250 / -821.667 140 / 140 Physical Exam Narrative: EXAM NARRATIVE: General: Alert oriented x3, patient seen laying in bed. No acute distress. HEENT: Normocephalic, atraumatic, EOMI, breathing 2 L nasal cannula. Cardio: Regular rate rhythm, normal S1-S2, no murmurs rubs gallops, Respiratory: Fairly okay bilateral air entry, mild wheezing throughout lung haley. Seems to be her baseline. GI: Abdomen soft, tender to palpation by surgical incision site, nondistended, mild hypoactive bowel sounds present at this point., no gross tenderness in lower quadrants. Drain has minimal serous fluid present with no evidence of air. Did drain 60 cc overnight as per nurse. When I saw the patient bulb was emptied. Behavior: Appropriate and cooperative Extremities: no edema, no cyanosis Urinary Catheter Management^: Neff: Cath Placed During This Visit: yes Reason for Continuing Indwelling Catheter: Accurate Measurement of Urinary Output in Critically Ill Patients Urinary Catheter Date of Insertion: 05/11/21 Urinary Catheter Time of Insertion: 16:05 Data : 05/14/21 04:20 05/14/21 04:20 A&P Assessment and plan (1) Constipation: Status: Acute (2) HTN (hypertension): Status: Acute Qualifiers: Hypertension type: essential hypertension Qualified Code(s): I10 - Essential (primary) hypertension (3) Abdominal pain: Status: Acute Qualifiers: Abdominal location: generalized Qualified Code(s): R10.84 - Generalized abdominal pain (4) Acute exacerbation of chronic obstructive pulmonary disease: Acute on chronic COPD exacerbation. DuoNeb every 6 hours scheduled, budesonide every 12 hours scheduled nebulization. Methylprednisolone 40 mg IV every 12 hours. Supplemental O2 to keep saturation 90 to 92%. Status: Acute (5) Ileus: Status: Acute Additional A&P Information #Ileus, partial small bowel obstruction, anastomosis leak, adhesion status post repair postop day 3 #Hypertension Patient was taken for exploratory laparotomy yesterday for possible ischemia based on radiology report from CT abdomen that was done. Initially she was admitted for obstipation/constipation. Patient was diagnosed with partial small bowel obstruction and an anastomosis leak which was repaired by Dr. Pearson emergently yesterday. She has been in the ICU for closer monitoring postop. NG tube was removed. Hypoactive bowel sounds present today. All oral meds restarted with little bit of water. Patient will be transferred to general medical floor today. We will control pain and blood pressure. Patient has a component of pain and anxiety that is contributing to her high blood pressure at this point. All her home medications are restarted. I will see how she does. May use Ativan 0.5 as needed for her anxiety. Transfer out of unit today. Increase activity. Out of bed to chair. COPD exacerbation/resolving Decrease Solu-Medrol to 40 daily and will start to taper it off. Continue duo nebs Patient on 2 L nasal cannula which is lower than her home baseline. Encourage incentive spirometry and Acapella use. N.p.o. Full code DVT prophylaxis: SCDs Attestations Medical Necessity Statement*: We will moved to general medical floor today. Anticipate another 48 hours of hospital stay. Time Spent in Patient Care: 16 - 35 minutes Coding Level of Care Code Acute [employer] Plm Consultant for Chg Fwd Diagnoses Constipation K59.00 HTN (hypertension) I10 Hypertension type: essential hypertension Abdominal pain R10.84 Abdominal location: generalized Acute exacerbation of chronic obstructive pulmonary disease J44.1 Ileus K56.7
--- NOTE | 2021-05-14 12:22 | PC.NURSE ---
states she feels much better. stomach still sore.
--- NOTE | 2021-05-14 16:24 | PC.NURSE ---
after 1.5 hrs of work on pts hair by staff, was able to get matted ball out and thanks to students a solomon islander braid was done. sat on potty chair, passed a good amount of flatus, but not enough. had ambulated from room 1 to room 5.
--- NOTE | 2021-05-14 16:26 | PC.NURSE ---
walker was used in ambulation.
--- NOTE | 2021-05-14 16:51 | PC.NURSE ---
sitting up in bed. almost style. just staring at her phone.
--- NOTE | 2021-05-14 17:45 | PC.NURSE ---
transferred to [facility] per w/c. [phone] on i/s prior to transfer. transferre with belongings including dentures, purse, bag of home meds,,phone and clothing.
[2021-05-14] MEDS: aztreonam 2,000 MG in sodium chloride 0.9% (plus) 100 ML 200 MG IV (20:26)
[2021-05-14] MEDS: trazodone 50 mg Tablet PO (22:32)
[2021-05-15] VITALS (16 sets, daily range): BP systolic 112–160; BP diastolic 67–89; PULSE 77–103; RESP 16–19; TEMP 36.5–36.9; O2SAT 90–94
[2021-05-15] MEDS: ondansetron 2 mg/ML SDV 2 mL 4 MG IVP (00:37)
[2021-05-15] MEDS: morphine 4 mg/mL SDV 1 mL IVP ×3 (00:37→19:47)
[2021-05-15] MEDS: ipratropium-albuterol 3 mL Neb INHALATION ×4 (03:05→20:04)
[2021-05-15 03:28] LABS: Basophils % 0.2 %; Eosinophils % 0.2 %; Hematocrit 43.7 % (37.0-47.0); Hemoglobin 12.4 g/dL (11.5-15.3); Lymphocytes # 1.7 10^3/uL (0.8-4.8); Lymphocytes % 12.5 %; Mean Corpuscular HGB Conc 28.4 g/dL (30.0-36.0); Mean Corpuscular Hemoglobin 26.3 pg (28.0-34.0); Mean Corpuscular Volume 92.6 fl (81-99); Mean Platelet Volume 10.4 fL (7.4-10.4); Monocytes # 1.1 10^3/uL (0.2-0.9); Monocytes % 7.9 %; Neutrophils # 10.86 10^3/uL (1.8-7.7); Neutrophils % 78.4 %; Nucleated Red Blood Cells % 0 %; Platelet Count 357 10^3/cmm (130-400); Red Blood Count 4.72 10^6/uL (4.1-5.3); White Blood Count 13.9 10^3/uL (4.0-10.0)
[2021-05-15 03:49] LABS: Anion Gap 12.7 (5-19); Blood Urea Nitrogen 26 mg/dL (8-23); Carbon Dioxide 28 mmol/L (22-29); Chloride 102 mmol/L (98-107); Glucose 104 mg/dL (65-115); Magnesium 2.1 mg/dL (1.7-2.3); Osmolality Calculated 293 mOsm/kg (285-295); Potassium 3.7 mmol/L (3.5-5.1); Sodium 139 mmol/L (136-145)
[2021-05-15] MEDS: heparin 5,000 unit/mL INJ 1 mL 5000 UNIT SUBCUT ×2 (05:42→17:01)
[2021-05-15] MEDS: famotidine 20 mg/2 mL INJ IVP ×2 (05:42→15:18)
[2021-05-15] MEDS: sodium chloride 0.9% 250 ML IV (05:42)
[2021-05-15] MEDS: aztreonam 2,000 MG in sodium chloride 0.9% (plus) 100 ML 100 MG IV ×2 (07:50→19:43)
[2021-05-15] MEDS: BuSPIRONE 10 mg Tablet 15 MG PO ×2 (07:51→17:01)
[2021-05-15] MEDS: isosorbide mononitrate ER 30 mg Tablet PO ×2 (07:52→17:01)
[2021-05-15] MEDS: lisinopril 20 mg Tablet 40 MG PO (07:52)
[2021-05-15] MEDS: metoprolol succinate ER (24 HR) 50 mg Tablet PO (07:52)
[2021-05-15] MEDS: venlafaxine ER (24HR) 150 mg Capsule PO (07:52)
[2021-05-15] MEDS: aspirin 81 mg EC Tablet PO (08:30)
[2021-05-15] MEDS: nicotine 7 mg Patch 1 PATCH TRANSDERMA (08:30)
[2021-05-15] MEDS: metroNIDAZOLE IV 500 MG/100 ML PREMIX 100 MG IV ×2 (08:31→17:04)
[2021-05-15] MEDS: budesonide 0.5 mg/2 mL Neb INHALATION ×2 (08:44→20:04)
--- NOTE | 2021-05-15 10:00 | PM.PN ---
Subjective Subjective: Interval history: The patient looks like she is feeling MUCH better today and says the same. She says she started passing flatus and is getting hungry. She would like to try to eat some soft food. Vitals/I&O/Wt Last Vital Signs Temp 98.0 F 05/15/21 07:33 Pulse 95 05/15/21 08:45 Resp 18 05/15/21 08:59 BP 112/67 05/15/21 07:33 Pulse Ox 93 05/15/21 08:45 05/14/21 05/15/21 05/15/21 22:59 06:59 14:59 Intake Total 2440 / 2740 100 / 2740 450 / 450 Output Total 425 / 675 190 / 675 Balance 2014 -2064 450 / 450 Physical Exam Narrative: EXAM NARRATIVE: Bowel sounds are present. The Marin drain has some serous fluid in the bulb. The midline incision looks good. She is getting some contusions on her abdomen from where she is getting her subcutaneous heparin shots. Urinary Catheter Management^: Neff: Cath Placed During This Visit: yes Reason for Continuing Indwelling Catheter: Acute Urinary Retention or Obstruction Urinary Catheter Date of Insertion: 05/11/21 Urinary Catheter Time of Insertion: 16:05 Data : 05/15/21 03:04 05/15/21 03:04 A&P Assessment and plan (1) Pneumoperitoneum: Status post exploratory laparotomy with repair of small hole in the transverse colon on 05/11/2021. Remove Neff catheter. Low residue diet. MiraLAX daily. Increase ambulation. Status: Acute (2) Partial small bowel obstruction: The patient was found to have an adhesion that was causing a partial small bowel obstruction and underwent an adhesiolysis. Status: Acute Attestations Medical Necessity Statement*: See admitting service's notation. Coding Level of Care Code Acute Agriculture Specialist for Osman Hidalgo Diagnoses Pneumoperitoneum K66.8 Partial small bowel obstruction K56.600
--- NOTE | 2021-05-15 11:57 | PC.SOCIAL ---
IMM updated IMM updated with patient. Verbalized an understanding. Copy Pg 2 provided. Initialled, dated, timed, and placed in chart.
--- NOTE | 2021-05-15 12:02 | PM.PN ---
Subjective Subjective: Interval history: Patient seen and examined this morning. She feels a lot better and was very thankful for us taking care of her. She is passing gas and is feeling hungry. She would like to try food. She states her breathing is also better and she feels she can breathe much easier compared to before. She would like to know when she can go home so she can take care of her dog. She states she has a very good family support system and there are plenty of people to take care of her. Vitals/I&O/Wt Last Vital Signs Temp 98.0 F 05/15/21 07:33 Pulse 95 05/15/21 08:45 Resp 18 05/15/21 08:59 BP 112/67 05/15/21 07:33 Pulse Ox 93 05/15/21 08:45 05/14/21 05/15/21 05/15/21 22:59 06:59 14:59 Intake Total 2440 / 2640 100 / 2740 450 / 450 Output Total 425 / 485 190 / 675 Balance 2014 - / 2064 450 / 450 Physical Exam Narrative: EXAM NARRATIVE: General: Alert oriented x3, patient seen laying in bed. No acute distress. HEENT: Normocephalic, atraumatic, EOMI, breathing 2 L nasal cannula. Cardio: Regular rate rhythm, normal S1-S2, no murmurs rubs gallops, Respiratory: Good bilateral air entry today, mild wheezing throughout lung haley. Seems to be her baseline. GI: Abdomen soft, tender to palpation by surgical incision site, nondistended, good bowel sounds present today. Drain has very minimal drainage. Behavior: Appropriate and cooperative Extremities: no edema, no cyanosis Urinary Catheter Management^: Neff: Cath Placed During This Visit: yes Reason for Continuing Indwelling Catheter: Acute Urinary Retention or Obstruction Urinary Catheter Date of Insertion: 05/11/21 Urinary Catheter Time of Insertion: 16:05 Data : 05/15/21 03:04 05/15/21 03:04 A&P Assessment and plan (1) Constipation: Status: Acute (2) HTN (hypertension): Status: Acute Qualifiers: Hypertension type: essential hypertension Qualified Code(s): I10 - Essential (primary) hypertension (3) Abdominal pain: Status: Acute Qualifiers: Abdominal location: generalized Qualified Code(s): R10.84 - Generalized abdominal pain (4) Acute exacerbation of chronic obstructive pulmonary disease: Status: Acute (5) Ileus: Status: Acute Additional A&P Information #Ileus, partial small bowel obstruction, anastomosis leak, adhesion status post repair postop day 3 #Hypertension Patient was taken for exploratory laparotomy yesterday for possible ischemia based on radiology report from CT abdomen that was done. Initially she was admitted for obstipation/constipation. Patient was diagnosed with partial small bowel obstruction and an anastomosis leak which was repaired by Dr. Pearson emergently yesterday. Patient was placed in ICU for closer monitoring postop. She was moved to floor 05/14. Today she has very good bowel sounds. She is also feeling hungry. We will start on a low residue diet. We will also add MiraLAX once daily for her. We will make sure she gets MiraLAX at discharge as well to be taken daily. No stimulant laxatives to be given only stool softeners will be allowed. Pain is much better controlled. Blood pressure has returned to normal range. We will start her on a diet today. Patient needs to mobilize herself. We will put PT consult. Out of bed to chair and encourage ambulation. COPD exacerbation/resolving Decrease Solu-Medrol to 20 IV daily. She will have this for next 3 days and then 10 mg for next 3 days and then eventually stop. Continue duo nebs Patient on 2 L nasal cannula which is lower than her home baseline. Encourage incentive spirometry and Acapella use. Patient recommended pulmonary rehab by pulmonology. She will follow up with pulmonology at discharge Low residue diet to be started today. Full code DVT prophylaxis: Heparin subcu Attestations Medical Necessity Statement*: And was discharged in 48 hours. Time Spent in Patient Care: 16 - 35 minutes Coding Level of Care Code Acute Train Brake Operator for Chg Fwd Diagnoses Constipation K59.00 HTN (hypertension) I10 Hypertension type: essential hypertension Abdominal pain R10.84 Abdominal location: generalized Acute exacerbation of chronic obstructive pulmonary disease J44.1 Ileus K56.7
[2021-05-15] MEDS: polyethylene glycol 3350 Pkt 17 gm PO (15:18)
[2021-05-16] VITALS (15 sets, daily range): BP systolic 136–165; BP diastolic 72–84; PULSE 0–95; RESP 16–18; TEMP 36.3–37.2; O2SAT 93–97
[2021-05-16] MEDS: metroNIDAZOLE IV 500 MG/100 ML PREMIX 100 MG IV ×4 (00:49→23:52)
[2021-05-16] MEDS: HYDROcodone-acetaminophen 5-325 mg Tablet PO ×2 (00:56→21:02)
[2021-05-16] MEDS: trazodone 50 mg Tablet PO ×2 (00:57→21:02)
[2021-05-16] MEDS: ipratropium-albuterol 3 mL Neb INHALATION ×4 (02:51→20:09)
[2021-05-16 03:01] LABS: Basophils % 0.1 %; Eosinophils % 0.3 %; Hemoglobin 10.6 g/dL (11.5-15.3); Lymphocytes # 1.9 10^3/uL (0.8-4.8); Lymphocytes % 15.8 %; Mean Corpuscular HGB Conc 29.4 g/dL (30.0-36.0); Mean Corpuscular Hemoglobin 26.4 pg (28.0-34.0); Mean Corpuscular Volume 89.6 fl (81-99); Mean Platelet Volume 10.8 fL (7.4-10.4); Monocytes # 0.9 10^3/uL (0.2-0.9); Monocytes % 7.7 %; Neutrophils # 8.86 10^3/uL (1.8-7.7); Neutrophils % 75.4 %; Nucleated Red Blood Cells % 0 %; Platelet Count 309 10^3/cmm (130-400); Red Blood Count 4.02 10^6/uL (4.1-5.3); Red Cell Distribution Width 16.6 % (12.1-15.1); White Blood Count 11.8 10^3/uL (4.0-10.0)
[2021-05-16 03:23] LABS: Anion Gap 11.3 (5-19); Blood Urea Nitrogen 31 mg/dL (8-23); Calcium 8.6 mg/dL (8.5-10.5); Carbon Dioxide 29 mmol/L (22-29); Chloride 101 mmol/L (98-107); Glucose 101 mg/dL (65-115); Osmolality Calculated 293 mOsm/kg (285-295); Potassium 3.3 mmol/L (3.5-5.1); Sodium 138 mmol/L (136-145)
[2021-05-16] MEDS: ketorolac 30 mg/mL INJ IVP (06:20)
[2021-05-16] MEDS: heparin 5,000 unit/mL INJ 1 mL 5000 UNIT SUBCUT ×2 (06:23→17:28)
[2021-05-16] MEDS: famotidine 20 mg/2 mL INJ IVP ×2 (06:23→17:28)
[2021-05-16] MEDS: budesonide 0.5 mg/2 mL Neb INHALATION ×2 (08:47→20:09)
[2021-05-16] MEDS: potassium chloride oral liq 20 mEq/15 mL UDC 40 MEQ PO (09:12)
[2021-05-16] MEDS: nicotine 7 mg Patch 1 PATCH TRANSDERMA (09:13)
[2021-05-16] MEDS: polyethylene glycol 3350 Pkt 17 gm PO (09:14)
[2021-05-16] MEDS: venlafaxine ER (24HR) 150 mg Capsule PO (09:16)
[2021-05-16] MEDS: isosorbide mononitrate ER 30 mg Tablet PO ×2 (09:16→17:26)
[2021-05-16] MEDS: BuSPIRONE 10 mg Tablet 15 MG PO ×2 (09:16→17:26)
[2021-05-16] MEDS: metoprolol succinate ER (24 HR) 50 mg Tablet PO (09:16)
[2021-05-16] MEDS: lisinopril 20 mg Tablet 40 MG PO (09:17)
[2021-05-16] MEDS: aspirin 81 mg EC Tablet PO (09:17)
--- NOTE | 2021-05-16 12:05 | PM.PN ---
Subjective Subjective: Interval history: The patient says she is doing well. She has not had a bowel movement yet but is passing lots of flatus. Vitals/I&O/Wt Last Vital Signs Temp 97.3 F L 05/16/21 11:40 Pulse 79 05/16/21 11:40 Resp 17 05/16/21 11:40 BP 165/84 05/16/21 11:40 Pulse Ox 93 05/16/21 11:40 05/15/21 05/16/21 05/16/21 22:59 06:59 14:59 Intake Total 800 / 1710 340 / 1710 120 / 120 Balance 800 / 1710 340 / 1710 120 / 120 Physical Exam Narrative: EXAM NARRATIVE: The incision looks good. The Marin drain has some serous fluid in the bulb. Urinary Catheter Management^: Neff: Cath Placed During This Visit: yes, but has since been removed by the nurse Reason for Continuing Indwelling Catheter: Decision to DC Catheter Urinary Catheter Date of Insertion: 05/11/21 Urinary Catheter Time of Insertion: 16:05 Date Urinary Catheter Removed: 05/15/21 Time Urinary Catheter Discontinued: 15:00 Data : 05/16/21 02:28 05/16/21 02:28 A&P Assessment and plan (1) Pneumoperitoneum: Status post exploratory laparotomy with repair of small hole in the transverse colon on 05/11/2021. I told the patient I would like to see her having bowel movements before she gets discharged. I am planning on leaving the Marin drain in and I will remove this in the office at a later date. Continue MiraLAX daily following discharge. Status: Acute (2) Partial small bowel obstruction: The patient was found to have an adhesion that was causing a partial small bowel obstruction and underwent an adhesiolysis. Status: Acute Attestations Medical Necessity Statement*: See admitting service's notation. Coding Level of Care Code Acute Mine Production Engineer for Osman Hidalgo Diagnoses Pneumoperitoneum K66.8 Partial small bowel obstruction K56.600
[2021-05-16] MEDS: aztreonam 2,000 MG in sodium chloride 0.9% (plus) 100 ML 100 MG IV (14:26)
--- NOTE | 2021-05-16 14:32 | PM.PN ---
Subjective Subjective: Interval history: Seen today. She would like to go home. She is passing flatus but has not had a bowel movement yet. Vitals/I&O/Wt Last Vital Signs Temp 97.3 F L 05/16/21 11:40 Pulse 95 05/16/21 14:28 Resp 17 05/16/21 14:28 BP 165/84 05/16/21 11:40 Pulse Ox 93 05/16/21 14:28 05/15/21 05/16/21 05/16/21 22:59 06:59 14:59 Intake Total 800 / 1370 340 / 1710 120 / 120 Balance 800 / 1370 340 / 1710 120 / 120 Physical Exam Narrative: EXAM NARRATIVE: General: Alert oriented x3, patient seen laying in bed. No acute distress. HEENT: Normocephalic, atraumatic, EOMI, breathing 2 L nasal cannula. Cardio: Regular rate rhythm, normal S1-S2, no murmurs rubs gallops, Respiratory: Good bilateral air entry today, mild wheezing throughout lung haley. Seems to be her baseline. GI: Abdomen soft, tender to palpation by surgical incision site, nondistended, good bowel sounds present today. Marin Drain has very minimal drainage. Behavior: Appropriate and cooperative Extremities: no edema, no cyanosis Urinary Catheter Management^: Neff: Cath Placed During This Visit: yes, but has since been removed by the nurse Reason for Continuing Indwelling Catheter: Decision to DC Catheter Urinary Catheter Date of Insertion: 05/11/21 Urinary Catheter Time of Insertion: 16:05 Date Urinary Catheter Removed: 05/15/21 Time Urinary Catheter Discontinued: 15:00 Data : 05/16/21 02:28 05/16/21 02:28 A&P Assessment and plan (1) Constipation: Status: Acute (2) HTN (hypertension): Status: Acute Qualifiers: Hypertension type: essential hypertension Qualified Code(s): I10 - Essential (primary) hypertension (3) Abdominal pain: Status: Acute Qualifiers: Abdominal location: generalized Qualified Code(s): R10.84 - Generalized abdominal pain (4) Acute exacerbation of chronic obstructive pulmonary disease: Status: Acute (5) Ileus: Status: Acute Additional A&P Information #Ileus, partial small bowel obstruction, anastomosis leak, adhesion status post repair postop day 3 #Hypertension Patient was taken for exploratory laparotomy yesterday for possible ischemia based on radiology report from CT abdomen that was done. Initially she was admitted for obstipation/constipation. Patient was diagnosed with partial small bowel obstruction and an anastomosis leak which was repaired by Dr. Pearson emergently yesterday. Patient was placed in ICU for closer monitoring postop. She was moved to floor 05/14. Today she has very good bowel sounds. She is also feeling hungry. We will start on a low residue diet. We will also add MiraLAX once daily for her. We will make sure she gets MiraLAX at discharge as well to be taken daily. No stimulant laxatives to be given only stool softeners will be allowed. Pain is much better controlled. Blood pressure has returned to normal range. Patient needs to mobilize herself. We will put PT consult. Out of bed to chair and encourage ambulation. Tolerating diet. Passing flatus but has not had a bowel movement. Will discharge patient after she has a bowel movement. Continue to monitor in hospital. COPD exacerbation/resolving Decrease Solu-Medrol to 20 IV daily. She will have this for next 3 days and then 10 mg for next 3 days and then eventually stop. Continue duo nebs Patient on 2 L nasal cannula which is lower than her home baseline. Encourage incentive spirometry and Acapella use. Patient recommended pulmonary rehab by pulmonology. She will follow up with pulmonology at discharge Low residue diet to be started today. Full code DVT prophylaxis: Heparin subcu Attestations Medical Necessity Statement*: >24 hr stay Time Spent in Patient Care: less than 15 minutes Coding Level of Care Code Acute Cardiac Cath Technologist for Chg Fwd Diagnoses Constipation K59.00 HTN (hypertension) I10 Hypertension type: essential hypertension Abdominal pain R10.84 Abdominal location: generalized Acute exacerbation of chronic obstructive pulmonary disease J44.1 Ileus K56.7
[2021-05-16] MEDS: ondansetron 2 mg/ML SDV 2 mL 4 MG IVP (23:04)
[2021-05-17] VITALS (12 sets, daily range): BP systolic 148–172; BP diastolic 73–90; PULSE 0–96; RESP 16–18; TEMP 36.4–36.7; O2SAT 90–96
[2021-05-17] MEDS: aztreonam 2,000 MG in sodium chloride 0.9% (plus) 100 ML 100 MG IV ×2 (01:39→16:37)
[2021-05-17] MEDS: ipratropium-albuterol 3 mL Neb INHALATION ×4 (03:08→20:28)
[2021-05-17 05:19] LABS: Basophils % 0.2 %; Eosinophils % 0.2 %; Hematocrit 38.7 % (37.0-47.0); Hemoglobin 11.4 g/dL (11.5-15.3); Lymphocytes # 1.8 10^3/uL (0.8-4.8); Lymphocytes % 10.4 %; Mean Corpuscular HGB Conc 29.5 g/dL (30.0-36.0); Mean Corpuscular Hemoglobin 26.5 pg (28.0-34.0); Monocytes # 1.2 10^3/uL (0.2-0.9); Monocytes % 7.1 %; Neutrophils # 14.04 10^3/uL (1.8-7.7); Neutrophils % 81.3 %; Nucleated Red Blood Cells % 0 %; Platelet Count 342 10^3/cmm (130-400); White Blood Count 17.3 10^3/uL (4.0-10.0)
[2021-05-17 05:52] LABS: Anion Gap 14.7 (5-19); Blood Urea Nitrogen 25 mg/dL (8-23); Calcium 9.3 mg/dL (8.5-10.5); Carbon Dioxide 29 mmol/L (22-29); Chloride 104 mmol/L (98-107); Glucose 113 mg/dL (65-115); Osmolality Calculated 303 mOsm/kg (285-295); Potassium 3.7 mmol/L (3.5-5.1); Sodium 144 mmol/L (136-145)
[2021-05-17] MEDS: famotidine 20 mg/2 mL INJ IVP ×2 (05:59→18:42)
[2021-05-17] MEDS: heparin 5,000 unit/mL INJ 1 mL 5000 UNIT SUBCUT ×2 (06:00→18:41)
[2021-05-17] MEDS: HYDROcodone-acetaminophen 5-325 mg Tablet PO (06:06)
[2021-05-17] MEDS: budesonide 0.5 mg/2 mL Neb INHALATION ×2 (09:24→20:28)
--- NOTE | 2021-05-17 09:25 | XRR_ITS ---
PROCEDURE INFORMATION: Exam: XR Abdomen Exam date and time: 05/17/2021 9:25 AM Age: 71 years old Clinical indication: Bloating; Prior surgery; Surgery date: 3-7 days post-operative; Additional info: Abdominal distention TECHNIQUE: Imaging protocol: XR of the abdomen. Views: Frontal supine view of the abdomen. 1 View. COMPARISON: CR XR KUB portable [id number] 05/14/2021 9:33 AM FINDINGS: Tubes, catheters and devices: A surgical drain projects on the upper abdomen. There are ashly in a midline incision. Gastrointestinal tract: There is mild bowel distention consistent with an ileus. No free air seen.. Bones/joints: Unremarkable. XR/XR KUB portable [id number] IMPRESSION: Mild ileus. No free air. Radiation Dose CTDIVOL = (mGy): DLP = (mGy-cm)
--- NOTE | 2021-05-17 09:52 | PM.PN ---
Subjective Subjective: Interval history: The patient says she is passing a lot of flatus but she became distended again last night. Vitals/I&O/Wt Last Vital Signs Temp 98.1 F 05/17/21 07:37 Pulse 96 05/17/21 09:26 Resp 18 05/17/21 09:26 BP 167/80 05/17/21 07:37 Pulse Ox 95 05/17/21 09:26 05/16/21 05/17/21 05/17/21 22:59 06:59 14:59 Intake Total 200 / 1460 620 / 1460 Output Total 50 / 960 910 / 960 Balance 150 / 500 -290 / 500 Physical Exam Narrative: EXAM NARRATIVE: The patient has bowel sounds but she is quite distended. She has some scattered tenderness. The Marin drain has a small amount of serous fluid in the bulb. There is no air in the bulb. Urinary Catheter Management^: Neff: Cath Placed During This Visit: yes, but has since been removed by the nurse Reason for Continuing Indwelling Catheter: Acute Urinary Retention or Obstruction Urinary Catheter Date of Insertion: 05/11/21 Urinary Catheter Time of Insertion: 16:05 Date Urinary Catheter Removed: 05/15/21 Time Urinary Catheter Discontinued: 15:00 Data : 05/17/21 04:01 05/17/21 04:01 A&P Assessment and plan (1) Pneumoperitoneum: Status post exploratory laparotomy with repair of small hole in the transverse colon on 05/11/2021. The patient became more distended again last night. I am concerned that she may be leaking air again from her anastomosis. Her exam is not terribly concerning but she is on steroids which may be masking some symptoms. We discussed how her continuing need for steroids may be contributing to slow/poor healing. I told her I am going to get an x-ray and if she has free air then we will probably need to consider a colostomy, which she is okay with. Await KUB results. Status: Acute (2) Partial small bowel obstruction: The patient was found to have an adhesion that was causing a partial small bowel obstruction and underwent an adhesiolysis. Status: Acute Attestations Medical Necessity Statement*: See admitting service's notation. Coding Level of Care Code Acute Country Sales Manager for Osman Hidalgo Diagnoses Pneumoperitoneum K66.8 Partial small bowel obstruction K56.600
[2021-05-17] MEDS: metroNIDAZOLE IV 500 MG/100 ML PREMIX 100 MG IV ×2 (10:24→18:41)
[2021-05-17] MEDS: isosorbide mononitrate ER 30 mg Tablet PO ×2 (10:24→18:41)
[2021-05-17] MEDS: BuSPIRONE 10 mg Tablet 15 MG PO ×2 (10:24→18:41)
[2021-05-17] MEDS: lisinopril 20 mg Tablet 40 MG PO (10:24)
[2021-05-17] MEDS: polyethylene glycol 3350 Pkt 17 gm PO (10:24)
[2021-05-17] MEDS: venlafaxine ER (24HR) 150 mg Capsule PO (10:25)
[2021-05-17] MEDS: metoprolol succinate ER (24 HR) 50 mg Tablet PO (10:25)
[2021-05-17] MEDS: aspirin 81 mg EC Tablet PO ×2 (10:30→10:31)
[2021-05-17] MEDS: nicotine 7 mg Patch 1 PATCH TRANSDERMA (10:31)
--- NOTE | 2021-05-17 11:56 | PM.PN ---
Subjective Subjective: Interval history: In this morning. She continues to have abdominal pain. She has a lot of abdominal pain overnight. Is passing a lot of gas but has not had a bowel movement yet. She is aware that she will be able to go home yet. Offers no other complaints today. She does mention that she would like to take her Nexium which is her home dose. She does not want to Protonix in the hospital. Vitals/I&O/Wt Last Vital Signs Temp 98.1 F 05/17/21 11:43 Pulse 90 05/17/21 11:43 Resp 18 05/17/21 11:43 BP 163/84 05/17/21 11:43 Pulse Ox 91 05/17/21 11:43 05/16/21 05/17/21 05/17/21 22:59 06:59 14:59 Intake Total 200 / 840 620 / 1460 240 / 240 Output Total 50 / 50 910 / 960 Balance 150 / 790 -290 / 500 240 / 240 Physical Exam Narrative: EXAM NARRATIVE: General: Alert oriented x3, patient seen laying in bed. No acute distress. HEENT: Normocephalic, atraumatic, EOMI, breathing 2 L nasal cannula. Cardio: Regular rate rhythm, normal S1-S2, no murmurs rubs gallops, Respiratory: Good bilateral air entry today, mild wheezing throughout lung haley. Seems to be her baseline. GI: Abdomen soft, mildly tender to palpation, slightly firm compared to yesterday, nondistended, good bowel sounds present today. Marin Drain has very minimal drainage. Behavior: Appropriate and cooperative Extremities: no edema, no cyanosis Urinary Catheter Management^: Neff: Cath Placed During This Visit: yes, but has since been removed by the nurse Reason for Continuing Indwelling Catheter: Acute Urinary Retention or Obstruction Urinary Catheter Date of Insertion: 05/11/21 Urinary Catheter Time of Insertion: 16:05 Date Urinary Catheter Removed: 05/15/21 Time Urinary Catheter Discontinued: 15:00 Data : 05/17/21 04:01 05/17/21 04:01 A&P Assessment and plan (1) Constipation: Status: Acute (2) HTN (hypertension): Status: Acute Qualifiers: Hypertension type: essential hypertension Qualified Code(s): I10 - Essential (primary) hypertension (3) Abdominal pain: Status: Acute Qualifiers: Abdominal location: generalized Qualified Code(s): R10.84 - Generalized abdominal pain (4) Acute exacerbation of chronic obstructive pulmonary disease: Acute on chronic COPD exacerbation. DuoNeb every 6 hours scheduled, budesonide every 12 hours scheduled nebulization. Methylprednisolone 40 mg IV every 12 hours. Supplemental O2 to keep saturation 90 to 92%. Status: Acute (5) Ileus: Status: Acute Additional A&P Information #Ileus, partial small bowel obstruction, anastomosis leak, adhesion status post repair postop day 3 #Hypertension Patient was taken for exploratory laparotomy yesterday for possible ischemia based on radiology report from CT abdomen that was done. Initially she was admitted for obstipation/constipation. Patient was diagnosed with partial small bowel obstruction and an anastomosis leak which was repaired by Dr. Pearson emergently yesterday. Patient was placed in ICU for closer monitoring postop. She was moved to floor 05/14. Today she has very good bowel sounds. She is also feeling hungry. We will start on a low residue diet. We will also add MiraLAX once daily for her. We will make sure she gets MiraLAX at discharge as well to be taken daily. No stimulant laxatives to be given only stool softeners will be allowed. Pain is much better controlled. Blood pressure has returned to normal range. Patient needs to mobilize herself. We will put PT consult. Out of bed to chair and encourage ambulation. Tolerating diet. Passing flatus but has not had a bowel movement. She still complaining of abdominal pain. We will follow recommendations from general surgery. Continue to monitor patient in the hospital. Low threshold to reimage patient. She did have an adhesion developed the last time. No signs of acute abdomen at this time. We will continue to monitor. COPD exacerbation/resolving Decrease Solu-Medrol to 20 IV daily. She will have this for next 3 days and then 10 mg for next 3 days and then eventually stop. Continue duo nebs Patient on 2 L nasal cannula which is lower than her home baseline. Encourage incentive spirometry and Acapella use. Patient recommended pulmonary rehab by pulmonology. She will follow up with pulmonology at discharge Low residue diet to be started today. Full code DVT prophylaxis: Heparin subcu Attestations Medical Necessity Statement*: Greater than 48-hour stay at this point. Time Spent in Patient Care: 16 - 35 minutes Coding Level of Care Code Acute Cad Administrator for Chg Fwd Diagnoses Constipation K59.00 HTN (hypertension) I10 Hypertension type: essential hypertension Abdominal pain R10.84 Abdominal location: generalized Acute exacerbation of chronic obstructive pulmonary disease J44.1 Ileus K56.7
--- NOTE | 2021-05-17 12:45 | PC.SOCIAL ---
IMM Update pg 2 of IMM updated and reviewed w/ patient. Copy provided.
--- NOTE | 2021-05-17 14:16 | PC.PT ---
Pt is independent with bed transfers and reports she is getting up and going to bathroom independently. She ambulates safely with FWW 300 ft with O2 at 2L with assist only to pull O2 tank. Nurse reports pt is getting up and ambulating without AD in room independently. Discussed HEP of progressive walking program and pt verbalizes independence and understanding. Recommend PT discharge as pt is tranferring and ambulating independently. She has long O2 tubing so can ambulate inside room with out portable O2 tank.
[2021-05-18] VITALS (7 sets, daily range): BP systolic 166–187; BP diastolic 83–104; PULSE 68–96; RESP 16–18; TEMP 36.6–36.9; O2SAT 91–97
[2021-05-18] MEDS: metroNIDAZOLE IV 500 MG/100 ML PREMIX 100 MG IV ×2 (00:33→12:01)
[2021-05-18] MEDS: aztreonam 2,000 MG in sodium chloride 0.9% (plus) 100 ML 200 MG IV (02:05)
[2021-05-18 05:14] LABS: Basophils % 0.1 %; Eosinophils # 0.1 10^3/uL (0.0-0.8); Eosinophils % 0.6 %; Hematocrit 36.4 % (37.0-47.0); Hemoglobin 10.9 g/dL (11.5-15.3); Lymphocytes # 2.2 10^3/uL (0.8-4.8); Lymphocytes % 16.9 %; Mean Corpuscular HGB Conc 29.9 g/dL (30.0-36.0); Mean Corpuscular Volume 90.3 fl (81-99); Mean Platelet Volume 10.8 fL (7.4-10.4); Monocytes # 1.1 10^3/uL (0.2-0.9); Monocytes % 8.5 %; Neutrophils # 9.35 10^3/uL (1.8-7.7); Neutrophils % 72.7 %; Nucleated Red Blood Cells % 0 %; Platelet Count 293 10^3/cmm (130-400); Red Blood Count 4.03 10^6/uL (4.1-5.3); White Blood Count 12.9 10^3/uL (4.0-10.0)
[2021-05-18 05:43] LABS: Anion Gap 12.6 (5-19); Blood Urea Nitrogen 14 mg/dL (8-23); Calcium 8.7 mg/dL (8.5-10.5); Carbon Dioxide 29 mmol/L (22-29); Chloride 102 mmol/L (98-107); Glucose 86 mg/dL (65-115); Magnesium 1.6 mg/dL (1.7-2.3); Osmolality Calculated 290 mOsm/kg (285-295); Potassium 3.6 mmol/L (3.5-5.1); Sodium 140 mmol/L (136-145)
[2021-05-18] MEDS: heparin 5,000 unit/mL INJ 1 mL 5000 UNIT SUBCUT (05:52)
[2021-05-18] MEDS: famotidine 20 mg/2 mL INJ IVP (05:52)
--- NOTE | 2021-05-18 08:32 | PM.PN ---
Subjective Subjective: Interval history: The patient is feeling better today. She started having bowel movements last night and had several loose bowel movements. She says she continues to have some reflux symptoms but does not feel like Protonix works well for her. I told her yesterday she could take her on Nexium but she cannot remember if she did this or not yesterday. She says she would like to go home. I explained to her that I would like to see her on a low residue diet and doing well before she gets discharged. She voiced understanding. Vitals/I&O/Wt Last Vital Signs Temp 98.5 F 05/18/21 07:41 Pulse 83 05/18/21 07:41 Resp 17 05/18/21 07:41 BP 185/104 05/18/21 07:41 Pulse Ox 96 05/18/21 07:41 05/17/21 05/18/21 05/18/21 22:59 06:59 14:59 Intake Total 400 / 740 Output Total 40 / 40 Balance -40 / 700 400 / 700 Physical Exam Narrative: EXAM NARRATIVE: Afebrile, hypertensive. Bowel sounds are present. The incision looks good. The Marin drain has a small amount of serous fluid in the bulb, and the patient says that it last got emptied last night. Urinary Catheter Management^: Neff: Cath Placed During This Visit: yes, but has since been removed by the nurse Reason for Continuing Indwelling Catheter: Acute Urinary Retention or Obstruction Urinary Catheter Date of Insertion: 05/11/21 Urinary Catheter Time of Insertion: 16:05 Date Urinary Catheter Removed: 05/15/21 Time Urinary Catheter Discontinued: 15:00 Data : 05/18/21 04:36 05/18/21 04:36 A&P Assessment and plan (1) Pneumoperitoneum: Status post exploratory laparotomy with repair of small hole in the transverse colon on 05/11/2021. Doing better compared to yesterday. White blood cell count is improved. The patient remains afebrile. She is now having bowel movements but they are loose. I told her I would hold her MiraLAX today but I told her we will likely send her home on this; she says is not unusual for her to go 7 days at home without a bowel movement otherwise, and that may have been at least partially responsible for getting her into trouble after her recent surgery. I am going to advance her diet to GI soft/low residue but instructed her to take it slow. Status: Acute (2) Partial small bowel obstruction: The patient was found to have an adhesion that was causing a partial small bowel obstruction and underwent an adhesiolysis. Status: Acute Attestations Medical Necessity Statement*: See admitting service's notation. Coding Level of Care Code Acute Employee Benefits Administrator for Osman Hidalgo Diagnoses Pneumoperitoneum K66.8 Partial small bowel obstruction K56.600
[2021-05-18] MEDS: ipratropium-albuterol 3 mL Neb INHALATION ×2 (09:09→15:03)
[2021-05-18] MEDS: budesonide 0.5 mg/2 mL Neb INHALATION (09:10)
[2021-05-18] MEDS: lisinopril 20 mg Tablet 40 MG PO (11:54)
[2021-05-18] MEDS: aspirin 81 mg EC Tablet PO (11:55)
[2021-05-18] MEDS: venlafaxine ER (24HR) 150 mg Capsule PO (11:55)
[2021-05-18] MEDS: metoprolol succinate ER (24 HR) 50 mg Tablet PO (11:55)
[2021-05-18] MEDS: isosorbide mononitrate ER 30 mg Tablet PO (11:55)
[2021-05-18] MEDS: polyethylene glycol 3350 Pkt 17 gm PO (11:56)
[2021-05-18] MEDS: BuSPIRONE 10 mg Tablet 15 MG PO (11:57)
--- NOTE | 2021-05-18 17:10 | PM.DCS ---
Discharge Providers Date of Admission: 05/10/21 02:48 Date of Discharge: May 18, 2021 Attending Provider at Admission: Shannon Corral MD Attending Provider at Discharge: Bing Copeland MD Primary Care Provider: Rayray Orozco MD Diagnoses at Discharge Discharge Diagnosis (1) Pneumoperitoneum: Status: Resolved (2) Partial small bowel obstruction: Status: Resolved Reason for Visit Reason for Visit: RESPIRATORY DISTRESS/ CONSTIPATION Hospital Course Hospital Course HPI as per Dr. Corral Daina Pierre is a 71 year old female with past medical COPD, anxiety, chronic back pain, mitral valve prolapse recently admitted to the hospital between May 01 to May 05 after being found to have transverse colon mass for which she underwent ex lap with partial transverse colectomy and reanastomosis. Postop course was uneventful except for some hypertension. She advanced to a low residue diet which she was tolerating well, ambulated passing flatus and she was discharged in stable condition. She returning to the emergency room, initially yesterday with chief complaints of shortness of breath, gurgling sensation in her lungs and productive cough. Overall symptoms were thought to be related to COPD exacerbation and she was discharged with steroids. Per ER note abdominal exam was benign with minimal tenderness and normal lactate level. CTA of the chest was negative for PE or consolidation. CT of the abdomen showed moderate pneumoperitoneum thought to be related to postoperative state. She came back again this evening with complaints of significant shortness of breath, increasing abdominal pain and distention, states she has not had a bowel movement since returning home, passing minimal flatus. Noted to have leukocytosis today with WBC count up to 21, she has received IV steroids yesterday in the ER and also in route today by EMS. She complains of nausea, however has not had any vomiting. States she was tolerating her diet at home but now nausea is worsening and does not have an appetite anymore. Denies any fever or chills. Course: Patient admitted initially for obstipation and ileus. She was also being treated for COPD exacerbation. With increasing abdominal pain and increasing air in abdomen evidenced on scans, she was emergency taken for exploratory laparotomy. Adhesions were found which had caused a SBO along with anastomosis leak which was repaired by Dr. Pearson. Dr. Pearson promptly took care of the patient and was available right away to attend to the patient. Marin drain was placed. Patient was discharged after she able to have bowel movement and starting passing flatus. Patient was able to tolerate a diet as well. Steroids were tapered off slowly. On day of discharge, patient had bowel function return to normal and felt better. Dr. Pearson was called by nursing staff for clearance for discharge and he agreed. Marin drain to be removed in Dr. Pearson's office as outpatient. Patient was at baseline O2 when discharged and felt really well. She was asked to return to hospital. Physical Exam Narrative: EXAM NARRATIVE: General: Alert oriented x3, patient seen laying in bed. No acute distress. HEENT: Normocephalic, atraumatic, EOMI, breathing 2 L nasal cannula. Cardio: Regular rate rhythm, normal S1-S2, no murmurs rubs gallops, Respiratory: Good bilateral air entry today, mild wheezing throughout lung haley. Seems to be her baseline. GI: Abdomen soft, nontender to palpation except incision site, less firm today,nondistended, good bowel sounds present today. Marin Drain has very minimal drainage. Behavior: Appropriate and cooperative Extremities: no edema, no cyanosis Urinary Catheter Management^: Neff: Cath Placed During This Visit: yes, but has since been removed by the nurse Reason for Continuing Indwelling Catheter: Acute Urinary Retention or Obstruction Urinary Catheter Date of Insertion: 05/11/21 Urinary Catheter Time of Insertion: 16:05 Date Urinary Catheter Removed: 05/15/21 Time Urinary Catheter Discontinued: 15:00 Discharge Data Data Completed and Pending: Completed Studies During Hospitalization Category Date Time Status CT abdomen pelvis w con* [id number] Rout ine Cat Scan 05/10/21 02:[address] abdomen pelvis w con* [id number] Stat Cat Scan 05/11/21 13:28 Completed XR KUB portable 7 [id number] Routine Exams 05/11/21 07:00 Completed XR KUB portable 7 4018 Routine Exams 05/14/21 09:36 Completed XR KUB portable 7 [id number] Routine Exams 05/17/21 09:25 Completed XR chest 1V yulisa ble [id number] Urgent Exams 05/09/21 21:46 Completed Labs from last 24 hours 05/18/21 05/18/21 04:36 04:36 WBC 12.9 H RBC 4.03 L Hgb 10.9 L Hct 36.4 L MCV 90.3 MCH 27.0 L MCHC 29.9 L RDW 17.0 H Plt Count 293 MPV 10.8 H Neut % (Auto) 72.7 Lymph % (Auto) 16.9 [place] % (Auto) 8.5 Eos % (Auto) 0.6 Baso % (Auto) 0.1 Neut # (Auto) 9.35 H Lymph # (Auto) 2.2 [place] # (Auto) 1.1 H Eos # (Auto) 0.1 Baso # (Auto) 0.0 Nucleated RBC % (a uto) 0 Nucleated RBCs # 0.0 Sodium 140 Potassium 3.6 Chloride 102 Carbon Dioxide 29 Anion Gap 12.6 BUN 14 Creatinine 0.3 L GFR Calculation Not Reportable Glucose 86 Calculated Osmolal ity 290 Calcium 8.7 Magnesium 1.6 L Vitals: Last Vital Signs Temp 98.4 F 05/18/21 16:00 Pulse 68 05/18/21 16:00 Resp 16 05/18/21 16:00 BP 168/91 05/18/21 16:00 Pulse Ox 95 05/18/21 16:00 Discharge Plan Discharge Patient Disposition: Home Condition: Stable Prescriptions: New amlodipine 5 mg tablet 5 mg PO DAILY 30 Days Qty: 30 RF: 0 Continued albuterol sulfate 1.25 mg/3 mL solution for nebulization 1.25 mg INHALATION QID PRN (Reason: Shortness Of Breath) RF: 0 aspirin [Adult Low Dose Aspirin] 81 mg tablet,delayed release (DR/EC) 81 mg PO DAILY RF: 0 coenzyme Q10 10 mg capsule 10 mg PO TID RF: 0 atorvastatin 10 mg tablet 10 mg PO BEDTIME RF: 0 esomeprazole magnesium 40 mg capsule,delayed release(DR/EC) 40 mg PO DAILY RF: 0 potassium chloride 10 mEq capsule, extended release 10 meq PO DAILY RF: 0 vitamin E (dl, acetate) 45 mg (100 unit) capsule 100 unit PO DAILY RF: 0 venlafaxine [Effexor XR] 150 mg capsule,extended release 24hr 150 mg PO DAILY RF: 0 buspirone 15 mg tablet 15 mg PO BID RF: 0 metoprolol succinate 50 mg tablet extended release 24 hr 50 mg PO DAILY Qty: 90 RF: 3 trazodone 100 mg tablet 100 mg PO BEDTIME RF: 0 Breztri Aerosphere 160-9-4.8 mcg/actuation HFA aerosol inhaler 2 inh inhalation BID Qty: 10.7 RF: 3 L-Lysine 500 mg PO DAILY RF: 0 isosorbide mononitrate 30 mg tablet extended release 24 hr 30 mg PO BID RF: 0 lisinopril 10 mg tablet 40 mg PO DAILY RF: 0 Held hydrocodone-acetaminophen 5-325 mg tablet 1 tab PO Q6H PRN (Reason: Pain) RF: 0 Hold Instructions: see pcp magnesium oxide 400 mg PO DAILY RF: 0 Hold Instructions: see pcp Discontinued prednisone 50 mg tablet 50 mg PO DAILY Qty: 5 RF: 0 Discharge Orders: Discharge Order (Routine); Ordered 05/18/21 Ordered By: Bing Copeland Other Ambulatory Orders: Basic Metabolic Panel (Routine) Timeframe: 1 Week Facility: [facility] - Location: Lab - Main Lab Ordered By: Bing Copeland Referrals: Segun Pearson MD [Physician] - 1-3 days (Please call Dr. Pearson's office ([phone]) and make an appointment for the patient to be seen Wednesday.) Rayray Orozco MD [Primary Care Provider] - (Please call [facility] Wednesday and schedule an appointment to be seen by Dr. Orozco sometime in the next week.) Discharge Diet: GI Soft Discharge Activity: Resume usual activity, Increase activity as tolerated and Oxygen as instructed Patient Instructions: Bowel Obstruction, Constipation - Adult, Polyethylene Glycol 3350 (By mouth) (MiraLAX, Healthylax..., Opioid Safety Activity Restrictions/Additional Instructions: Return to ER if abdominal pain happens again. Return to ER if you stop passing gas. Return to ER if severe consitpation occurs. Discharge Attestations Time Spent in Discharge Care*: less than 30 min Quality Metrics Clinical Quality Measures During this hospital stay, did patient experience: None Coding Level of Care Code Acute Chg FW DC note Diagnoses Pneumoperitoneum K66.8 Partial small bowel obstruction K56.600
--- NOTE | 2021-05-22 14:40 | PC.SOCIAL ---
pt reports during hospital follow up call that her phone was lost during her hospitalization and so were her home medications. technical document writer will attempted to find belongings.
== END 2021-05-18 18:05 | disposition home health service (06) | DRG 330 ==
LOC: ER 05-10 00:40 → MEDSURG 05-10 00:53 → ICU 05-11 16:48 → MEDSURG 05-14 17:45
PROVIDERS: Internal Medicine; Surgery; Admitting Provider Student in an Organized Health Care Education/Training Program; Emergency Provider Emergency Medicine; PCP Family Medicine; Visit Provider Internal Medicine
PROC: 0DQL0ZZ Repair Transverse Colon, Open Approach (ICD-10-PCS; CPT 49000; principal; 2021-05-11 15:30)
DX: K91.89 Other postprocedural complications and disorders of digestive system (principal); K56.51 Intestinal adhesions [bands], with partial obstruction; J44.1 Chronic obstructive pulmonary disease with (acute) exacerbation; C18.4 Malignant neoplasm of transverse colon; Y83.2 Surgical operation with anastomosis, bypass or graft as the cause of abnormal reaction of the patient, or of later complication, without mention of misadventure at the time of the procedure; Y81.3 Surgical instruments, materials and general- and plastic-surgery devices (including sutures) associated with adverse incidents; F41.9 Anxiety disorder, unspecified; G89.29 Other chronic pain; M54.9 Dorsalgia, unspecified; F03.90 Unspecified dementia, unspecified severity, without behavioral disturbance, psychotic disturbance, mood disturbance, and anxiety; F32.A Depression, unspecified; K21.9 Gastro-esophageal reflux disease without esophagitis; Z87.442 Personal history of urinary calculi; I10 Essential (primary) hypertension; E78.5 Hyperlipidemia, unspecified; I73.9 Peripheral vascular disease, unspecified; F17.210 Nicotine dependence, cigarettes, uncomplicated; Z90.49 Acquired absence of other specified parts of digestive tract; I34.1 Nonrheumatic mitral (valve) prolapse; Z79.82 Long term (current) use of aspirin; Z79.51 Long term (current) use of inhaled steroids; M79.7 Fibromyalgia
CPT/HCPCS: 36415; 36600; 51702; 71045; 71275; 74018; 74177; 80048; 80051; 80053; 82330; 82803; 82805; 83605; 83735; 83880; 84145; 84484; 85025; 86140; 87040; 93005; 94640; 94660; 94664; 96361; 96372; 96374; 96375; 97116; 97161; 99284; 99285; J0330; J0360; J1100; J1170; J1644; J1885; J2060; J2250; J2270; J2405; J2704; J2765; J2920; J3010; J3490; J7030; J7050; J7611; J7626; J7799; P9041; Q9967; S0030

== ENCOUNTER → 2021-06-11 14:39 | Outpatient (BNVA) | payer MEDICARE, MEDICAID, SELFPAY | PROVIDERS: PCP Family Medicine; Visit Provider Internal Medicine Pulmonary Disease | DX: Z01.812 Encounter for preprocedural laboratory examination (principal); Z20.822 Contact with and (suspected) exposure to COVID-19 | CPT/HCPCS: 87635 ==

== ENCOUNTER 2021-06-17 07:40 | Outpatient (CLI) | payer MEDICARE, MEDICAID, SELFPAY ==
--- NOTE | 2021-06-17 14:29 | PFTS_ITS ---
Date of Study:06/17/21 Date of Dictation: 06/17/2021 MECHANICS: Postbronchodilator forced vital capacity (FVC) is decreased. Postbronchodilator forced expiratory volume in one second (FEV1) is moderately decreased at 52%. FEV1/FVC is decreased. There is significant response to bronchodilator. FLOW VOLUME LOOP: Sloping of expiratory limb suggestive of airway obstruction . LUNG VOLUMES: Not measured DIFFUSING CAPACITY FOR CARBON MONOXIDE: Severely reduced 39% . INTERPRETATION: The postbronchodilator spirometry is consistent with moderate obstructive ventilatory defect. There is significant bronchodilator response lung volumes not measured. There is severe gas transfer defect. Correlate clinically. MTDD
== END 2021-06-17 07:41 | disposition home or self-care (01) ==
LOC: RT 07:40
PROVIDERS: PCP Family Medicine; Visit Provider Internal Medicine Pulmonary Disease
DX: J96.01 Acute respiratory failure with hypoxia (principal)
CPT/HCPCS: 94060; 94729; J7611

== ENCOUNTER 2021-07-21 13:03 | Emergency (ER) | payer MEDICARE, MEDICAID, SELFPAY ==
--- NOTE | 2021-07-21 13:08 | W.ED.SOB ---
HPI - SOB/Dyspnea General: Stated Complaint: SOB, COUGH, FEVER Time Seen by Provider: 07/21/21 13:07 History of Present Illness: HPI Narrative: [id number] female presents with complaint of shortness of breath cough low-grade fever cough has been nonproductive. Urgency or frequency no abdominal pain. Chest pain does not radiate into the neck or back. MD elicited complaint: shortness of breath and cough Pertinent past history: COPD Onset (ago): day(s) Timing: constant Severity: mild Exacerbating factors: exertion and coughing Relieving factors: oxygen, rest and bronchodilators Known history of: COPD Associated symptoms: Deny abdominal pain, chest congestion, chest pain, cough, diaphoresis, dizziness, extremity pain, fever(s), hemoptysis, lightheadedness, myalgias, nausea, orthopnea, palpitations, paresthesias, polydipsia, polyuria, rash, sense of impending doom, syncope or vomiting Review of Systems Const: Denies: fever(s) or diaphoresis Card: Denies: chest pain, palpitations, lightheadedness, syncope or orthopnea Resp: Denies: hemoptysis or chest congestion GI: Denies: abdominal pain, nausea or vomiting Musc: Denies: extremity pain Neuro: Denies: dizziness Endo: Denies: polyuria or polydipsia PFSH ED PFSH: Medical History Abnormal EKG Abnormal laboratory test result Anxiety Anxiety disorder Cervical cancer Chronic back pain Colon cancer COPD (chronic obstructive pulmonary disease) Deficient knowledge of open reduction and internal (ORIF) fixation of hip Dementia Depression Depression Encounter for diagnostic endoscopy GERD (gastroesophageal reflux disease) GERD (gastroesophageal reflux disease) History of kidney stones HTN (hypertension) Hyperlipidemia Hypertension Ovarian cancer Peripheral vascular disease Psychiatric care Smoker Surgical History H/O lumpectomy Right H/O right knee surgery History of appendectomy History of cataract surgery Bilateral History of deviated nasal septum Surgically corrected History of total abdominal hysterectomy Kidney stones Removal cystoscopically Family History Other Cancer Social History Alcohol intake: never Caregiver/support person: No Lives independently: Yes Marital status: Single Physical Exam Const: COMMON NORMALS: no acute distress GENERAL APPEARANCE: cooperative and comfortable ORIENTATION/CONSCIOUSNESS: Yes awake, Yes oriented to person, Yes oriented to place and Yes oriented to time HENMT: COMMON NORMALS: normocephalic, atraumatic and hearing grossly normal bilaterally HEAD & SCALP: normocephalic and atraumatic Neck/C-Spine: COMMON NORMALS: no JVD Resp: AUSCULTATION: wheezes (mild) expiratory wheezes Cardio: COMMON NORMALS: no JVD, regular rate, regular rhythm and No murmurs present (Cardio) RATE: regular rate RHYTHM: regular rhythm GI: COMMON NORMALS: Soft to palpation and No hepatosplenomegaly present AUSCULTATION: Yes normoactive bowel sounds PALPATION: Yes Soft to palpation, No Tenderness to palpation present (GI), No Guarding due to palpation present (GI) and Yes No hepatosplenomegaly present Extremity: COMMON NORMALS: normal to inspection, capillary refill normal, no clubbing, cyanosis or edema, no calf tenderness and no pedal edema Neuro: SENSORIUM/ORIENTATION: Yes oriented to person, Yes oriented to place and Yes oriented to time Skin: COMMON NORMALS: no rashes or lesions noted GENERAL SKIN EXAM: no rashes or lesions noted Course Vital Signs: Vital signs: Vital Signs Pulse Rate 105 H 07/21/21 15:26 Respiratory Rate 26 H 07/21/21 15:26 Pulse Oximetry 90 07/21/21 15:26 MDM - SOB/Dyspnea MDM Narrative: Medical decision making narrative: Theraplay clicks makes noise and shuts off and I am not touching anything and I was not touching herLabs and imaging reviewed as found on the chart for this visit. COVID swab is negative we will discharge patient home doxycycline Medrol Dosepak aggressive use of albuterol continue oxygen support follow-up as needed Lab Data: Labs: Lab Results 07/21/21 07/21/21 07/21/21 14:38 14:38 14:38 WBC 12.9 10^3/uL H 10 ^3/uL (4.0-10.0) RBC 4.16 10^6/uL 10^6 /uL (4.1-5.3) Hgb 10.6 g/dL L g/dL (11.5-15.3) Hct 36.0 % L % (37.0-47.0) MCV 86.5 fl fl (81-99) MCH 25.5 pg L pg (28.0-34.0) MCHC 29.4 g/dL L g/dL (30.0-36.0) RDW 16.9 % H % (12.1-15.1) Plt Count 317 10^3/cmm 10^3 /cmm (130-400) MPV 10.9 fL H fL (7.4-10.4) Neut % (Auto) 83.3 % % Lymph % (Auto) 9.3 % % [place] % (Auto) 6.1 % % Eos % (Auto) 0.3 % % Baso % (Auto) 0.3 % % Neut # (Auto) 10.70 10^3/uL H 1 0^3/uL (1.8-7.7) Lymph # (Auto) 1.2 10^3/uL 10^3/ uL (0.8-4.8) [place] # (Auto) 0.8 10^3/uL 10^3/ uL (0.2-0.9) Eos # (Auto) 0.0 10^3/uL 10^3/ uL (0.0-0.8) Baso # (Auto) 0.0 10^3/uL 10^3/ uL (0.0-0.1) Nucleated RBC % (a uto) 0 % % Nucleated RBCs # 0.0 /100WBC /100W BC Specimen Type Sample Site ABG pH ABG pCO2 ABG pO2 ABG HCO3 ABG O2 Saturation ABG Base Excess Venkat Test A-a O2 Gradient Hematocrit Hgb O2 Saturation Carboxyhemoglobin Methemoglobin Total Hemoglobin Ionized Calcium O2 Delivery Device O2 Liters/Min FiO2 Rn Telephone Triage ID Sodium 138 mmol/L mmol/L (136-145) Potassium 4.4 mmol/L mmol/L (3.5-5.1) Chloride 99 mmol/L mmol/L (98-107) Carbon Dioxide 27 mmol/L mmol/L (22-29) Anion Gap 16.4 (5-19) BUN 9 mg/dL mg/dL (8-23) Creatinine 0.4 mg/dL L mg/dL (0.5-0.9) GFR Calculation Not Reportable Glucose 95 mg/dL mg/dL (65-115) Calculated Osmolal ity 284 mOsm/kg L mOs m/kg (285-295) Lactic Acid 0.6 mmol/L mmol/L (0.5-2.2) Calcium 8.8 mg/dL mg/dL (8.5-10.5) Total Bilirubin 0.2 mg/dL mg/dL (0.15-1.2) AST 17 U/L U/L (0-32) ALT 15 U/L U/L (0-33) Alkaline Phosphata se 155 IU/L H IU/L (35-105) Total Protein 7.5 g/dL g/dL (6.6-8.7) Albumin 3.7 g/dL g/dL (3.5-5.2) Globulin 3.8 g/dL g/dL (1.3-4.6) Urine Color Urine Appearance Urine pH Ur Specific Gravit y Urine Protein Urine Glucose (UA) Urine Ketones Urine Blood Urine Nitrate Urine Bilirubin Urine Urobilinogen Ur Leukocyte Mallory ase Urine RBC Urine WBC Ur Squamous Epith Cells Amorphous Sediment Urine Bacteria Coronavirus 229E ( PCR) SARS-CoV-2 (PCR) SARS-CoV-2 Ag (Rap id) 07/21/21 07/21/21 07/21/21 14:43 14:43 15:30 WBC RBC Hgb Hct MCV MCH MCHC RDW Plt Count MPV Neut % (Auto) Lymph % (Auto) [place] % (Auto) Eos % (Auto) Baso % (Auto) Neut # (Auto) Lymph # (Auto) [place] # (Auto) Eos # (Auto) Baso # (Auto) Nucleated RBC % (a uto) Nucleated RBCs # Specimen Type Sample Site ABG pH ABG pCO2 ABG pO2 ABG HCO3 ABG O2 Saturation ABG Base Excess Ven[place] Test A-a O2 Gradient Hematocrit Hgb O2 Saturation Carboxyhemoglobin Methemoglobin Total Hemoglobin Ionized Calcium O2 Delivery Device O2 Liters/Min FiO2 Rn Telephone Triage ID Sodium Potassium Chloride Carbon Dioxide Anion Gap BUN Creatinine GFR Calculation Glucose Calculated Osmolal ity Lactic Acid Calcium Total Bilirubin AST ALT Alkaline Phosphata se Total Protein Albumin Globulin Urine Color Yellow (Yellow) Urine Appearance Clear (CLEAR) Urine pH 5 (5-7) Ur Specific Gravit y 1.010 (1.005-1.030) Urine Protein Neg (Negative) Urine Glucose (UA) Norm (Normal) Urine Ketones Negative (Negative) Urine Blood Trace H (Negative) Urine Nitrate Negative (Negative) Urine Bilirubin Neg (Negative) Urine Urobilinogen Norm mg/dL mg/dL (Negative) Ur Leukocyte Mallory ase Negative (Negative) Urine RBC 0-4 /hpf H /hpf (0-2) Urine WBC 0-4 /hpf H /hpf (0-5) Ur Squamous Epith Cells 0-4 /hpf H /hpf (0-5) Amorphous Sediment Not Reportable Urine Bacteria 1+ /hpf H /hpf (NONE) Coronavirus 229E ( PCR) Not detected (NOT DETECT) SARS-CoV-2 (PCR) Not detected (NOT DETECT) SARS-CoV-2 Ag (Rap id) Cancelled 07/21/21 15:44 WBC RBC Hgb Hct MCV MCH MCHC RDW Plt Count MPV Neut % (Auto) Lymph % (Auto) [place] % (Auto) Eos % (Auto) Baso % (Auto) Neut # (Auto) Lymph # (Auto) [place] # (Auto) Eos # (Auto) Baso # (Auto) Nucleated RBC % (a uto) Nucleated RBCs # Specimen Type Arterial Sample Site Radial, left ABG pH 7.37 (7.35-7.45) ABG pCO2 48.9 mmHg H mmHg (35-45) ABG pO2 66.2 mmHg L mmHg (80.0-100.0) ABG HCO3 28.2 mmol/L H mmo l/L (22-26) ABG O2 Saturation 93.4 ABG Base Excess 2.3 mmol/L H mmol /L (-2.0-2.0) Venkat Test Pos A-a O2 Gradient 13.6 mmHg H mmHg (5-10) Hematocrit 33.2 % L % (37-47) Hgb O2 Saturation 91.2 % L % (95-100) Carboxyhemoglobin 1.4 %THgb %THgb (0.4-20.1) Methemoglobin 1.0 % % (0.4-1.5) Total Hemoglobin 10.8 g/dL L g/dL (12-16) Ionized Calcium 1.2 mmol/L mmol/L (1.1-1.4) O2 Delivery Device Nc O2 Liters/Min 3.0 % % FiO2 32.0 % % Rn Telephone Triage ID Ed Sodium 142.0 mmol/L mmol /L (131-143) Potassium 4.2 mmol/L mmol/L (3.5-5.0) Chloride Carbon Dioxide Anion Gap BUN Creatinine GFR Calculation Glucose 106.0 mg/dL mg/dL (70-115) Calculated Osmolal ity Lactic Acid Calcium Total Bilirubin AST ALT Alkaline Phosphata se Total Protein Albumin Globulin Urine Color Urine Appearance Urine pH Ur Specific Gravit y Urine Protein Urine Glucose (UA) Urine Ketones Urine Blood Urine Nitrate Urine Bilirubin Urine Urobilinogen Ur Leukocyte Mallory ase Urine RBC Urine WBC Ur Squamous Epith Cells Amorphous Sediment Urine Bacteria Coronavirus 229E ( PCR) SARS-CoV-2 (PCR) SARS-CoV-2 Ag (Rap id) Discharge Plan Discharge Patient Disposition: Home Clinical Impression: Acute exacerbation of chronic obstructive pulmonary disease Condition: Stable Prescriptions: New doxycycline hyclate 100 mg capsule 100 mg PO BID 10 Days Qty: 20 RF: 0 Medrol (Ted) 4 mg tablets,dose pack See Rx Instructions .ROUTE .COMPLEX Qty: 21 RF: 0 albuterol sulfate 90 mcg/actuation HFA aerosol inhaler 2 inh INHALATION Q4H PRN (Reason: shortness of breath or wheezing) Qty: 18 RF: 0 No Action albuterol sulfate 1.25 mg/3 mL solution for nebulization 1.25 mg INHALATION QID PRN (Reason: Shortness Of Breath) RF: 0 aspirin [Adult Low Dose Aspirin] 81 mg tablet,delayed release (DR/EC) 81 mg PO QAM RF: 0 atorvastatin 10 mg tablet 10 mg PO BEDTIME RF: 0 esomeprazole magnesium 40 mg capsule,delayed release(DR/EC) 40 mg PO QAM RF: 0 potassium chloride 10 mEq capsule, extended release 10 meq PO QAM RF: 0 venlafaxine [Effexor XR] 150 mg capsule,extended release 24hr 150 mg PO QAM RF: 0 buspirone 15 mg tablet 15 mg PO BID RF: 0 hydrocodone-acetaminophen 5-325 mg tablet 1 tab PO TID PRN (Reason: Pain) RF: 0 Hold Instructions: see pcp trazodone 100 mg tablet 100 mg PO BEDTIME RF: 0 Breztri Aerosphere 160-9-4.8 mcg/actuation HFA aerosol inhaler 2 inh inhalation BID Qty: 10.7 RF: 3 magnesium oxide 400 mg PO DAILY RF: 0 Hold Instructions: see pcp isosorbide mononitrate 30 mg tablet extended release 24 hr 15 mg PO BID RF: 0 lisinopril 10 mg tablet 20 mg PO DAILY RF: 0 CoQ-10 100 mg Capsule 100 mg PO DAILY RF: 0 metoprolol succinate 50 mg tablet extended release 24 hr 50 mg PO QAM RF: 0 Discharge Orders: Discharge ED (Routine); Ordered 07/21/21 Ordered By: Thang Terry Referrals: Rayray Orozco MD [Primary Care Provider] - Discharge Diet: Usual diet Discharge Activity: Limit activity as instructed Patient Instructions: COVID-19 (Coronavirus Disease 2019) (ED), Opioid Safety Activity Restrictions/Additional Instructions: Maintain self quarantine until Covid results have returned. Use albuterol as needed start doxycycline and steroid burst and taper. Coding Level of Care Code ED Assistant Store Director for Osman Hidalgo
--- NOTE | 2021-07-21 14:23 | ED_ITS ---
HPI - SOB/Dyspnea General: Stated Complaint: SOB, COUGH, FEVER Time Seen by Provider: 07/21/21 13:07 History of Present Illness: HPI Narrative: Patient arrived via ambulance with complaint of shortness of breath. Patient said that she has COPD and is had it for a while. But she said this morning it was just worse and she can breathe for little while. She does breathing treatments at home and is on oxygen at home. States that she may be had a fever over the last week and little bit more of a cough. States she feels much better presently MD elicited complaint: shortness of breath and cough Pertinent past history: COPD Onset (ago): year(s) Timing: improved Severity: mild Known history of: COPD Associated symptoms: Reports fever(s); Deny abdominal pain, chest pain, extremity pain, nausea or vomiting Review of Systems Const: Reports: fever(s); Denies: chills or body aches Eyes: Denies: change in vision or blurry vision ENMT: Denies: throat pain or nasal congestion Card: Denies: chest pain or dyspnea on exertion Resp: Reports: dyspnea and non-productive cough; Denies: productive cough GI: Denies: abdominal pain, nausea or vomiting Musc: Denies: extremity pain Skin/Breast: Denies: rash Neuro: Denies: headache(s) Psych: Denies: anxiety or depression Joe/Lymph: Denies: easy bruising PFSH ED PFSH: Medical History Abnormal EKG Abnormal laboratory test result Anxiety Anxiety disorder Cervical cancer Chronic back pain Colon cancer COPD (chronic obstructive pulmonary disease) Deficient knowledge of open reduction and internal (ORIF) fixation of hip Dementia Depression Depression Encounter for diagnostic endoscopy GERD (gastroesophageal reflux disease) GERD (gastroesophageal reflux disease) History of kidney stones HTN (hypertension) Hyperlipidemia Hypertension Ovarian cancer Peripheral vascular disease Psychiatric care Smoker Surgical History H/O lumpectomy Right H/O right knee surgery History of appendectomy History of cataract surgery Bilateral History of deviated nasal septum Surgically corrected History of total abdominal hysterectomy Kidney stones Removal cystoscopically Family History Other Cancer Social History Alcohol intake: never Caregiver/support person: No Lives independently: Yes Marital status: Single Physical Exam Const: COMMON NORMALS: no acute distress, average body habitus and patient oriented x3 HENMT: COMMON NORMALS: normocephalic HEAD & SCALP: normal to inspection and normocephalic FACE & SINUS: normal facial exam Eye: COMMON NORMALS: conjunctivae normal GENERAL EYE: appearance normal, both eyes and all related structures CONJUNCTIVA: Yes conjunctivae normal Neck/C-Spine: COMMON NORMALS: no JVD Chest: COMMONS NORMALS: normal inspection of the chest Resp: EFFORT & INSPECTION: Yes able to speak in complete sentences and No respiratory distress AUSCULTATION: rhonchi throughout and wheezes expiratory wheezes Cardio: COMMON NORMALS: no JVD, regular rate and regular rhythm RATE: regular rate RHYTHM: regular rhythm GI: COMMON NORMALS: Normal to inspection, nondistended, normoactive bowel soun ds present Extremity: COMMON NORMALS: normal to inspection and full ROM Neuro: COMMON NORMALS: patient oriented x3 Discharge Plan Discharge Prescriptions: No Action albuterol sulfate 1.25 mg/3 mL solution for nebulization 1.25 mg INHALATION QID PRN (Reason: Shortness Of Breath) RF: 0 aspirin [Adult Low Dose Aspirin] 81 mg tablet,delayed release (DR/EC) 81 mg PO DAILY RF: 0 coenzyme Q10 10 mg capsule 10 mg PO TID RF: 0 atorvastatin 10 mg tablet 10 mg PO BEDTIME RF: 0 esomeprazole magnesium 40 mg capsule,delayed release(DR/EC) 40 mg PO DAILY RF: 0 potassium chloride 10 mEq capsule, extended release 10 meq PO DAILY RF: 0 vitamin E (dl, acetate) 45 mg (100 unit) capsule 100 unit PO DAILY RF: 0 venlafaxine [Effexor XR] 150 mg capsule,extended release 24hr 150 mg PO DAILY RF: 0 buspirone 15 mg tablet 15 mg PO BID RF: 0 metoprolol succinate 50 mg tablet extended release 24 hr 50 mg PO DAILY Qty: 90 RF: 3 hydrocodone-acetaminophen 5-325 mg tablet 1 tab PO Q6H PRN (Reason: Pain) RF: 0 Hold Instructions: see pcp trazodone 100 mg tablet 100 mg PO BEDTIME RF: 0 Breztri Aerosphere 160-9-4.8 mcg/actuation HFA aerosol inhaler 2 inh inhalation BID Qty: 10.7 RF: 3 L-Lysine 500 mg PO DAILY RF: 0 magnesium oxide 400 mg PO DAILY RF: 0 Hold Instructions: see pcp isosorbide mononitrate 30 mg tablet extended release 24 hr 30 mg PO BID RF: 0 lisinopril 10 mg tablet 40 mg PO DAILY RF: 0 Coding Level of Care Code ED Marketing Technologist for Osman Hidalgo
--- NOTE | 2021-07-21 14:31 | XRR_ITS ---
PROCEDURE INFORMATION: Exam: XR Chest Exam date and time: 07/21/2021 2:31 PM Age: 71 years old Clinical indication: Cough and fever and shortness of breath; Patient HX: History--sob, cough, fever. HX of emphysema TECHNIQUE: Imaging protocol: XR of the chest. Views: 1 view. COMPARISON: CR (CHEST, ) 05/09/2021 9:53 PM FINDINGS: Lungs: Hyperinflated lungs with mild diffuse coarsening of the lung parenchyma. No consolidation. Pleural spaces: Unremarkable. No pleural effusion. No pneumothorax. Heart/Mediastinum: Unremarkable. No cardiomegaly. Bones/joints: Unremarkable. XR/XR chest 1V portable [id number] IMPRESSION: No acute findings.
[2021-07-21 15:10] LABS: Basophils % 0.3 %; Eosinophils % 0.3 %; Hemoglobin 10.6 g/dL (11.5-15.3); Lymphocytes # 1.2 10^3/uL (0.8-4.8); Lymphocytes % 9.3 %; Mean Corpuscular HGB Conc 29.4 g/dL (30.0-36.0); Mean Corpuscular Hemoglobin 25.5 pg (28.0-34.0); Mean Corpuscular Volume 86.5 fl (81-99); Mean Platelet Volume 10.9 fL (7.4-10.4); Monocytes # 0.8 10^3/uL (0.2-0.9); Monocytes % 6.1 %; Neutrophils % 83.3 %; Nucleated Red Blood Cells % 0 %; Platelet Count 317 10^3/cmm (130-400); Red Blood Count 4.16 10^6/uL (4.1-5.3); Red Cell Distribution Width 16.9 % (12.1-15.1); White Blood Count 12.9 10^3/uL (4.0-10.0)
[2021-07-21 15:24] LABS: Lactic Sepsis W/Reflex 0.6 mmol/L (0.5-2.2)
[2021-07-21 15:25] LABS: Alanine Aminotransferase 15 U/L (0-33); Albumin Level 3.7 g/dL (3.5-5.2); Alkaline Phosphatase 155 IU/L (35-105); Anion Gap 16.4 (5-19); Aspartate Amino Transferase 17 U/L (0-32); Blood Urea Nitrogen 9 mg/dL (8-23); Calcium 8.8 mg/dL (8.5-10.5); Carbon Dioxide 27 mmol/L (22-29); Chloride 99 mmol/L (98-107); Globulin 3.8 g/dL (1.3-4.6); Glucose 95 mg/dL (65-115); Osmolality Calculated 284 mOsm/kg (285-295); Potassium 4.4 mmol/L (3.5-5.1); Sodium 138 mmol/L (136-145); Total Bilirubin 0.2 mg/dL (0.15-1.2); Total Protein 7.5 g/dL (6.6-8.7)
[2021-07-21 15:26] VITALS: PULSE 105; RESP 26; O2SAT 90
[2021-07-21] MEDS: albuterol 8 gm MDI 2 PUFF INHALATION (15:26)
[2021-07-21 15:55] LABS: ABG PCO2 48.9 mmHg (35-45); ABG PH Result 7.37 (7.35-7.45); Alveolar-Arterial Oxygen Gradi 13.6 mmHg (5-10); Arterial Blood Gas Hematocrit 33.2 % (37-47); Base Excess ABG 2.3 mmol/L (-2.0-2.0); Blood Gas Allen Test Pos; Blood Gas Operator Identificat ED; Blood Gas Sample Site Radial, left; Blood Gas Sample Type Arterial; Carboxyhemoglobin 1.4 %THgb (0.4-20.1); HCO3 ABG 28.2 mmol/L (22-26); HGB O2 Sat 91.2 % (95-100); Ionized Calcium Level - ABG 1.2 mmol/L (1.1-1.4); Oxygen Device NC; Oxygen Saturation ABG 93.4; PO2 ABG 66.2 mmHg (80.0-100.0); Potassium Level - ABG 4.2 mmol/L (3.5-5.0); Total Hemoglobin 10.8 g/dL (12-16)
[2021-07-21 16:51] LABS: Add Urine Culture? No; Add Urine Microscopic? YES; Bacteria Urine 1+ /hpf; Bilirubin Urine Neg (Negative); Blood Urine Trace (Negative); Glucose Urine UA Norm (Normal); Ketones Urine Negative (Negative); Leukocyte Esterase Urine Negative (Negative); Nitrate Urine Negative (Negative); Protein Urine Neg (Negative); RBC Urine 0-4 /hpf (0-2); Squamous Epithelial Cell Urine 0-4 /hpf (0-5); Urine Appearance Clear (CLEAR); Urine Color Yellow (Yellow); Urobilinogen Urine Norm (Negative); WBC Urine 0-4 /hpf (0-5); pH Urine 5 (5-7)
[2021-07-21 16:56] LABS: Adenovirus Not Detected (NOT DETECT); Chlamydia Pneumoniae Not Detected (NOT DETECT); Coronavirus 229E,HKU1,NL63,OC4 Not Detected (NOT DETECT); Human Metapneumovirus Not Detected (NOT DETECT); Human Rhinovirus/Enterovirus Not Detected (NOT DETECT); Influenza A Not Detected (NOT DETECT); Influenza A H1 Not Detected (NOT DETECT); Influenza A H1-2009 Not Detected (NOT DETECT); Influenza A H3 Not Detected (NOT DETECT); Influenza B Not Detected (NOT DETECT); Mycoplasma Pneumoniae Not Detected (NOT DETECT); Parainfluenza Virus Type 1 Not Detected (NOT DETECT); Parainfluenza Virus Type 2 Not Detected (NOT DETECT); Parainfluenza Virus Type 3 Not Detected (NOT DETECT); Parainfluenza Virus Type 4 Not Detected (NOT DETECT); Respiratory Syncytial Virus A Not Detected (NOT DETECT); Respiratory Syncytial Virus B Not Detected (NOT DETECT); SARS-COV-2 Not Detected (NOT DETECT)
== END 2021-07-21 18:00 | disposition home or self-care (01) ==
PROVIDERS: Nurse Practitioner Family; Emergency Provider Family Medicine; PCP Family Medicine
DX: J44.1 Chronic obstructive pulmonary disease with (acute) exacerbation (principal); Z79.82 Long term (current) use of aspirin; Z85.41 Personal history of malignant neoplasm of cervix uteri; Z85.038 Personal history of other malignant neoplasm of large intestine; F03.90 Unspecified dementia, unspecified severity, without behavioral disturbance, psychotic disturbance, mood disturbance, and anxiety; I10 Essential (primary) hypertension; E78.5 Hyperlipidemia, unspecified; Z85.43 Personal history of malignant neoplasm of ovary; Z20.822 Contact with and (suspected) exposure to COVID-19
CPT/HCPCS: 36600; 71045; 80051; 80053; 81001; 82330; 82805; 83605; 85025; 87635; 94640; 96374; 99284; 99291; J2930; J3535

== ENCOUNTER → 2021-09-25 11:20 | Outpatient (BNVA) | payer OTHER, SELFPAY | PROVIDERS: PCP Family Medicine; Visit Provider Psychiatry & Neurology Neurology | DX: F33.1 Major depressive disorder, recurrent, moderate (principal); F41.9 Anxiety disorder, unspecified | CPT/HCPCS: 80061; 83036 ==

== ENCOUNTER → 2021-09-26 09:08 | Outpatient (BNVA) | payer MEDICARE, MEDICAID, SELFPAY | PROVIDERS: PCP Family Medicine; Visit Provider Internal Medicine Pulmonary Disease | DX: J44.9 Chronic obstructive pulmonary disease, unspecified (principal); Z12.2 Encounter for screening for malignant neoplasm of respiratory organs; Z71.6 Tobacco abuse counseling; F17.210 Nicotine dependence, cigarettes, uncomplicated; K21.9 Gastro-esophageal reflux disease without esophagitis; I10 Essential (primary) hypertension; E78.5 Hyperlipidemia, unspecified; F41.8 Other specified anxiety disorders | CPT/HCPCS: 99214 ==

== ENCOUNTER 2021-10-02 09:04 | Outpatient (RCR) | payer MEDICARE, MEDICAID, SELFPAY ==
[2021-09-30 10:35] VITALS: BP 156/75; BMI 35.8
== END 2021-10-16 23:59 | disposition home or self-care (01) ==
LOC: PULRHB 09:04
PROVIDERS: PCP Family Medicine; Visit Provider Internal Medicine Pulmonary Disease
DX: J96.91 Respiratory failure, unspecified with hypoxia (principal); J44.9 Chronic obstructive pulmonary disease, unspecified
CPT/HCPCS: G0237; G0238

== ENCOUNTER 2021-10-17 06:00 | Outpatient (RCR) | payer MEDICARE, MEDICAID, SELFPAY ==
[2021-09-30 10:35] VITALS: BP 156/75; BMI 35.8
== END 2021-11-15 23:59 | disposition home or self-care (01) ==
LOC: PULRHB 06:00
PROVIDERS: PCP Family Medicine; Visit Provider Internal Medicine Pulmonary Disease
DX: J96.91 Respiratory failure, unspecified with hypoxia (principal); J44.9 Chronic obstructive pulmonary disease, unspecified
CPT/HCPCS: G0237; G0238; G0239

== ENCOUNTER 2021-11-16 06:00 | Outpatient (RCR) | payer MEDICARE, MEDICAID, SELFPAY ==
[2021-09-30 10:35] VITALS: BP 156/75; BMI 35.8
== END 2021-12-16 23:59 | disposition home or self-care (01) ==
LOC: PULRHB 06:00
PROVIDERS: PCP Family Medicine; Visit Provider Internal Medicine Pulmonary Disease
DX: J96.91 Respiratory failure, unspecified with hypoxia (principal); J44.9 Chronic obstructive pulmonary disease, unspecified
CPT/HCPCS: G0239

== ENCOUNTER 2021-12-17 06:00 | Outpatient (RCR) | payer MEDICARE, MEDICAID, SELFPAY ==
[2021-09-30 10:35] VITALS: BP 156/75; BMI 35.8
== END 2022-01-15 23:59 | disposition home or self-care (01) ==
LOC: PULRHB 06:00
PROVIDERS: PCP Family Medicine; Visit Provider Internal Medicine Pulmonary Disease
DX: J44.9 Chronic obstructive pulmonary disease, unspecified (principal); J96.91 Respiratory failure, unspecified with hypoxia
CPT/HCPCS: G0239

== ENCOUNTER 2022-01-05 15:43 | Emergency (ER) | payer MEDICARE, MEDICAID, SELFPAY ==
[2021-09-30 10:35] VITALS: BP 156/75; BMI 35.8
[2022-01-05 15:53] VITALS: BP 157/102; PULSE 82; RESP 18; TEMP 36.4; O2SAT 91; BMI 35.2
[2022-01-05 15:57] VITALS: BP 154/90; PULSE 79; O2SAT 92
--- NOTE | 2022-01-05 16:03 | ED_ITS ---
HPI - General Adult General: Chief complaint: Abdominal Pain Stated complaint: abdomen pain Time Seen by Provider: 01/05/22 15:59 History of Present Illness: Patient is a 71-year-old female with a history of colon cancer not currently on chemotherapy followed by Dr. Pearson s/p colectomy 1 year ago presenting to the emergency room with complaints of diffuse abdominal pain. Patient tells me that she has been having pain for the last few days with associated nausea. Pain is worse with p.o. intake patient has has decreased appetite. Patient denies any fever/chills, diarrhea/melena/hematochezia. Patient denies any complaints. No other prior abdominal surgery. Patient has history of renal colic however reports that the pain that she is experiencing is different from her previous renal colic. Patient denies any associate chest pain, shortness breath, palpitation, or complaints. Onset:3 days ago Duration:3 days Location:home Severity:moderate Associated symptoms: Reports nausea; Deny chest pain, dyspnea, rash, palpitations or vomiting Review of Systems Const: Denies: fever(s) or chills Eyes: Denies: change in vision ENMT: Denies: mouth pain Card: Denies: chest pain or palpitations Resp: Denies: dyspnea or non-productive cough GI: Reports: abdominal pain (upper abd pain) and nausea; Denies: vomiting or diarrhea : Denies: dysuria Musc: Denies: extremity pain Skin/Breast: Denies: rash or new lesions Neuro: Denies: weakness in extremities Psych: Reports: other (Normal mood) Joe/Lymph: Denies: easy bruising PFSH ED PFSH: Medical History Abnormal EKG Abnormal laboratory test result Anxiety Anxiety disorder Cervical cancer Chronic back pain Colon cancer COPD (chronic obstructive pulmonary disease) Deficient knowledge of open reduction and internal (ORIF) fixation of hip Dementia Depression Depression Encounter for diagnostic endoscopy GERD (gastroesophageal reflux disease) GERD (gastroesophageal reflux disease) History of kidney stones HTN (hypertension) Hyperlipidemia Hypertension Ovarian cancer Peripheral vascular disease Psychiatric care Smoker Surgical History H/O lumpectomy Right H/O right knee surgery History of appendectomy History of cataract surgery Bilateral History of deviated nasal septum Surgically corrected History of total abdominal hysterectomy Kidney stones Removal cystoscopically Family History Other CAD (coronary artery disease) Cancer Dementia Diabetes Hyperlipidemia Hypertension Lung disease Social History Smoking and tobacco status: current every day smoker cigarettes Packs smoked per day: 1 Years cigarettes smoked: 48 Quit status (tobacco): has tried quititng Second hand smoke exposure: Yes Alcohol intake: former Former alcohol use details: shots Adopted: No Caregiver/support person: No Lives independently: Yes Household members: none Housing: Apartment Marital status: Marital status details: divorce is pending Number of children: 1 Number of grandchildren: 5 Highest education level completed: Some College, No Degree service: No Current occupational status: retired and disabled Pets and animals: Yes Pets & animals: dog(s) History of recent travel: No Leisure activites: reading and other Leisure activities details: watch TV with her dog Sexually active: No Current gender identity: Female Martha/Episcopal: [employer] Special martha needs: No Agree to transfusion: Yes Financial difficulty paying for basics: Hard Physical Exam Const: COMMON NORMALS: alert HENMT: COMMON NORMALS: atraumatic HEAD & SCALP: atraumatic MOUTH: moist mucous membranes not abnormal Eye: COMMON NORMALS: EOMs intact bilaterally and conjunctivae normal CONJUNCTIVA: Yes conjunctivae normal Neck/C-Spine: COMMON NORMALS: full ROM and supple Resp: COMMON NORMALS: normal respiratory effort and clear to auscultation bilaterally AUSCULTATION: clear to auscultation bilaterally Cardio: COMMON NORMALS: regular rate RATE: regular rate GI: COMMON NORMALS: Soft to palpation PALPATION: Yes Soft to palpation OTHER: + Moderate upper abdominal TTP. NO guarding rebound, guarding, rigidity. No CVA tenderness to percussion. Neg Turner/Neg McBurney's point tenderness, no sup rabupic tenderness to palpation. Extremity: COMMON NORMALS: full ROM Neuro: SENSORIUM/ORIENTATION: Yes alert MOTOR EXAM: No Abnormal motor strength present and Other motor observations present (no focal motor deficits) Psych: COMMON NORMALS: speech normal SPEECH: Yes normal speech MOOD & AFFECT: Yes euthymic mood Course Vital Signs: Vital signs: Vital Signs Temperature 97.6 F 01/05/22 15:53 Pulse Rate 77 01/05/22 18:52 Respiratory Rate 18 01/05/22 15:53 Blood Pressure 147/92 01/05/22 18:52 Pulse Oximetry 92 01/05/22 18:52 [facility] - General Adult Medical Decision Making 71-year-old female with history of prior colectomy presenting to the emergency room for evaluation 3 days of upper abdominal pain. On exam, patient is afebrile hemodynamically stable with moderate tenderness palpation of the upper quadrant. Patient is no Turner sign, no CVA tenderness. No guarding no rebound tenderness. Patient has a white count 7.3 today. Troponin EKG within normal limit. CT of the pelvis showed possible enteritis Incidental findings of kidney lesions discussed extensively with patient. Patient received a copy of the CT report with the documented findings. Patient is instructed to follow up urgently with specialists. Rx Maalox/pepcid PRN dyspepsia Disposition: Discharge. Patient counseled regarding diagnostic impression, treatment plan. Patient given ED strict return precautions to return for continuation, worsening, or development of new symptoms. Instructed to f/u w/ PCP regarding symptoms today. Patient verbalized understanding. Lab Data : 01/05/22 16:25 01/05/22 16:25 Radiology Impressions Abdomen/Pelvis CT 01/05/22 16:19 IMPRESSION: 1. Prominent fluid in the small bowel without dilation suggestive of an enteritis. 2. Bibasilar atelectasis versus minimal infiltrate. 3. Coronary artery atherosclerotic calcifications. 4. Right kidney cyst and several subcentimeter left kidney cysts, negative for follow-up advised. 5. Left kidney upper pole 2.7 cm fat density lesion consistent with a benign angiomyolipoma. COMMENTS: Consistent with the [employer]'s Incidental Findings Committee white paper ([place] Am [place] Radiol 2018): Any incidental renal lesion less than 1 cm or classified as too small to characterize, or any incidental cystic renal lesion characterized as simple-appearing, is likely benign. No follow-up imaging is recommended for these lesions per consensus recommendations based on imaging criteria. Laboratory Results WBC 7.3 10^3/uL (4.0-10.0) 01/05/22 16:25 RBC 4.82 10^6/uL (4.1-5.3) 01/05/22 16:25 Hgb 12.1 g/dL (11.5-15.3) 01/05/22 16:25 Hct 41.1 % (37.0-47.0) 01/05/22 16:25 MCV 85.3 fl (81-99) 01/05/22 16:25 MCH 25.1 pg (28.0-34.0) L 01/05/22 16:25 MCHC 29.4 g/dL (30.0-36.0) L 01/05/22 16:25 RDW 16.8 % (12.1-15.1) H 01/05/22 16:25 Plt Count 234 10^3/cmm (130-400) 01/05/22 16:25 MPV 10.8 fL (7.4-10.4) H 01/05/22 16:25 Neut % (Auto) 61.6 % 01/05/22 16:25 Lymph % (Auto) 26.4 % 01/05/22 16:25 [place] % (Auto) 9.8 % 01/05/22 16:25 Eos % (Auto) 1.5 % 01/05/22 16:25 Baso % (Auto) 0.4 % 01/05/22 16:25 Neut # (Auto) 4.48 10^3/uL (1.8-7.7) 01/05/22 16:25 Lymph # (Auto) 1.9 10^3/uL (0.8-4.8) 01/05/22 16:25 [place] # (Auto) 0.7 10^3/uL (0.2-0.9) 01/05/22 16:25 Eos # (Auto) 0.1 10^3/uL (0.0-0.8) 01/05/22 16:25 Baso # (Auto) 0.0 10^3/uL (0.0-0.1) 01/05/22 16: Nucleated RBC % (auto) 0 % 01/05/22: Nucleated RBCs # 0.0 /100WBC 01/05/22 16:25 Sodium 142 mmol/L (136-145) 01/05/22 16:25 Potassium 4.0 mmol/L (3.5-5.1) 01/05/22 16:25 Chloride 103 mmol/L (98-107) 01/05/22 16:25 Carbon Dioxide 31 mmol/L (22-29) H 06/20/22 16:25 Anion Gap 12.0 (5-19) 01/05/22 16:25 BUN 15 mg/dL (8-23) 01/05/22 16:25 Creatinine 0.7 mg/dL (0.5-0.9) 01/05/22 16:25 GFR Calculation Not Reportable 01/05/22 16:25 Glucose 132 mg/dL (65-115) H 01/05/22 16:25 Calculated Osmolality 297 mOsm/kg (285-295) H 01/05/22 16:25 Calcium 8.9 mg/dL (8.5-10.5) 01/05/22 16:25 Total Bilirubin 0.2 mg/dL (0.15-1.2) 01/05/22 16:25 AST 14 U/L (0-32) 01/05/22 16:25 ALT 9 U/L (0-33) 01/05/22 16:25 Alkaline Phosphatase 156 IU/L (35-105) H 01/05/22 16:25 Troponin T Baseline 9 ng/L (0-10) 01/05/22 16:25 Troponin T 120 Minute 9.59 ng/L (0-10) 01/05/22 18:00 Delta Troponin T 0.59 ABS# (0-10) 01/05/22 18:00 Total Protein 7.2 g/dL (6.6-8.7) 01/05/22 16:25 Albumin 4.2 g/dL (3.5-5.2) 01/05/22 16:25 Globulin 3.0 g/dL (1.3-4.6) 01/05/22 16:25 Lipase 17 U/L (13-60) 01/05/22 16:25 Imaging Data Other Imaging: Radiologist's impression: [address] [address] [address] Scan Report Signed Patient: Daina Pierre Unit #: [id number] : 1950 Age/Sex: 71 / F ADM Date: 01/05/22 Loc: ER Room/Bed: Attending Dr: Ordering Provider/Ordering MD: Blaine Palacios MD Date of Service: 01/05/22 Procedure(s): CT abdomen pelvis w con* [id number] Accession Number(s): [id number] Report Number: [id number] PROCEDURE INFORMATION: Exam: CT Abdomen And Pelvis With Contrast Exam date and time: 01/05/2022 5:32 PM Age: 71 years old Clinical indication: Abdominal pain; Prior surgery; Surgery date: 6+ months; Surgery type: Hyst, appx, colon, HX of 4 colostomies; Additional info: Abd pain TECHNIQUE: Imaging protocol: Computed tomography of the abdomen and pelvis with contrast. Radiation optimization: All CT scans at this facility use at least one of these dose optimization techniques: automated exposure control; mA and/or kV adjustment per patient size (includes targeted exams where dose is matched to clinical indication); or iterative reconstruction. Contrast material: OMNIPAQUE 300; Contrast volume: 75 ml; Contrast route: INTRAVENOUS (IV);? COMPARISON: CT abdomen pelvis w con* [id number] 05/11/2021 1:55 PM RADIATION DOSE METRICS: Total DLP (mGy-cm): 1492.57 FINDINGS: Lungs: Bibasilar atelectasis versus minimal infiltrate. Heart: Coronary artery atherosclerotic calcifications. Liver: Normal. No mass. Gallbladder and bile ducts: Normal. No calcified stones. No ductal dilation. Pancreas: Normal. No ductal dilation. Spleen: Normal. No splenomegaly. Adrenal glands: Normal. No mass. Kidneys and ureters: Right kidney cyst and several subcentimeter left kidney cysts, negative for follow-up advised. Left kidney upper pole 2.7 cm fat density lesion consistent with a benign angiomyolipoma. Stomach and bowel: Prominent fluid in the small bowel without dilation suggestive of an enteritis. Appendix: No evidence of appendicitis. Intraperitoneal space: Unremarkable. No free air. No significant fluid collection. Vasculature: Unremarkable. No abdominal aortic aneurysm. Lymph nodes: Unremarkable. No enlarged lymph nodes. Urinary bladder: Unremarkable as visualized. Reproductive: Unremarkable as visualized. Bones/joints: Unremarkable. No acute fracture. Soft tissues: Unremarkable. CT/CT abdomen pelvis w con* [id number] IMPRESSION: 1. Prominent fluid in the small bowel without dilation suggestive of an enteritis. 2. Bibasilar atelectasis versus minimal infiltrate. 3. Coronary artery atherosclerotic calcifications. 4. Right kidney cyst and several subcentimeter left kidney cysts, negative for follow-up advised. 5. Left kidney upper pole 2.7 cm fat density lesion consistent with a benign angiomyolipoma. ? COMMENTS: Consistent with the [employer]'s Incidental Findings Committee white paper ([place] Am [place] Radiol 2018): Any incidental renal lesion less than 1 cm or classified as too small to characterize, or any incidental cystic renal lesion characterized as simple-appearing, is likely benign. No follow-up imaging is recommended for these lesions per consensus recommendations based on imaging criteria. ? Dictated By: Momo Villar MD Signed By: Momo Villar MD Signed Date/Time: 01/05/221751 DD/ 31 Discharge Plan Discharge Patient Disposition: Home Clinical Impression: Abdominal pain, Nausea Condition: Stable Prescriptions: New Pepcid 20 mg tablet 20 mg PO BID PRN (Reason: abdominal pain) 10 Days Qty: 20 0RF Maalox Advanced 1,000-60 mg tablet,chewable 1 tab PO TID PRN (Reason: abdominal pain) 7 Days Qty: 21 0RF No Action ipratropium-albuterol 0.5 mg-3 mg(2.5 mg base)/3 mL solution for nebulization 3 ml inhalation Q4H PRN (Reason: wheezing) Qty: 90 3RF aspirin [Adult Low Dose Aspirin] 81 mg tablet,delayed release (DR/EC) 81 mg PO QAM 0RF atorvastatin 10 mg tablet 10 mg PO BEDTIME 0RF esomeprazole magnesium 40 mg capsule,delayed release(DR/EC) 40 mg PO QAM 0RF potassium chloride 10 mEq capsule, extended release 10 meq PO QAM 0RF venlafaxine [Effexor XR] 150 mg capsule,extended release 24hr 150 mg PO QAM 0RF buspirone 15 mg tablet 15 mg PO BID 0RF metoprolol succinate 50 mg tablet extended release 24 hr 75 mg PO QAM Qty: 135 3RF trazodone 100 mg tablet 100 mg PO BEDTIME 0RF Breztri Aerosphere 160-9-4.8 mcg/actuation HFA aerosol inhaler 2 inh inhalation BID Qty: 10.7 3RF hydrocodone-acetaminophen 5-325 mg tablet 1 tab PO TID PRN (Reason: Pain) 0RF lisinopril 20 mg tablet 40 mg PO QAM 0RF lidocaine 5 % ointment 1 applic topical .BID DIRECTED 0RF magnesium oxide 400 mg magnesium Tablet 400 mg PO QAM 0RF albuterol sulfate 90 mcg/actuation HFA aerosol inhaler 2 puff INHALATION Q4H PRN (Reason: shortness of breath or wheezing) 0RF Discharge Orders: Discharge ED (Routine); Ordered 01/05/22 Ordered By: Blaine Palacios Referrals: Rayray Orozco MD [Primary Care Provider] - Discharge Diet: Advance as tolerated Discharge Activity: Increase activity as tolerated Patient Instructions: Abdominal Pain (ED) Activity Restrictions/Additional Instructions: Please come back if you have any worsening abdominal pain, fever or chills, nausea or vomiting, diarrhea, blood in the stool, inability hold down liquid or solids, or any new concerning complaints. Coding Level of Care Code ED Naturopath for Chg Fwd Exam Comprehensive
--- NOTE | 2022-01-05 16:19 | CTR_ITS ---
PROCEDURE INFORMATION: Exam: CT Abdomen And Pelvis With Contrast Exam date and time: 01/05/2022 5:32 PM Age: 71 years old Clinical indication: Abdominal pain; Prior surgery; Surgery date: 6+ months; Surgery type: Hyst, appx, colon, HX of 4 colostomies; Additional info: Abd pain TECHNIQUE: Imaging protocol: Computed tomography of the abdomen and pelvis with contrast. Radiation optimization: All CT scans at this facility use at least one of these dose optimization techniques: automated exposure control; mA and/or kV adjustment per patient size (includes targeted exams where dose is matched to clinical indication); or iterative reconstruction. Contrast material: OMNIPAQUE 300; Contrast volume: 75 ml; Contrast route: INTRAVENOUS (IV); COMPARISON: CT abdomen pelvis w con* [id number] 05/11/2021 1:55 PM RADIATION DOSE METRICS: Total DLP (mGy-cm): 1492.57 FINDINGS: Lungs: Bibasilar atelectasis versus minimal infiltrate. Heart: Coronary artery atherosclerotic calcifications. Liver: Normal. No mass. Gallbladder and bile ducts: Normal. No calcified stones. No ductal dilation. Pancreas: Normal. No ductal dilation. Spleen: Normal. No splenomegaly. Adrenal glands: Normal. No mass. Kidneys and ureters: Right kidney cyst and several subcentimeter left kidney cysts, negative for follow-up advised. Left kidney upper pole 2.7 cm fat density lesion consistent with a benign angiomyolipoma. Stomach and bowel: Prominent fluid in the small bowel without dilation suggestive of an enteritis. Appendix: No evidence of appendicitis. Intraperitoneal space: Unremarkable. No free air. No significant fluid collection. Vasculature: Unremarkable. No abdominal aortic aneurysm. Lymph nodes: Unremarkable. No enlarged lymph nodes. Urinary bladder: Unremarkable as visualized. Reproductive: Unremarkable as visualized. Bones/joints: Unremarkable. No acute fracture. Soft tissues: Unremarkable. CT/CT abdomen pelvis w con* [id number] IMPRESSION: 1. Prominent fluid in the small bowel without dilation suggestive of an enteritis. 2. Bibasilar atelectasis versus minimal infiltrate. 3. Coronary artery atherosclerotic calcifications. 4. Right kidney cyst and several subcentimeter left kidney cysts, negative for follow-up advised. 5. Left kidney upper pole 2.7 cm fat density lesion consistent with a benign angiomyolipoma. COMMENTS: Consistent with the [place] [employer]'s Incidental Findings Committee white paper (J Am [place] Radiol 2018): Any incidental renal lesion less than 1 cm or classified as too small to characterize, or any incidental cystic renal lesion characterized as simple-appearing, is likely benign. No follow-up imaging is recommended for these lesions per consensus recommendations based on imaging criteria.
--- NOTE | 2022-01-05 16:20 | ECG_ITS ---
[facility] Test Date: 2022-01-05 Pat Name: Daina Pierre Department: Room: Gender: Female Broadcast Checker: : 1950 Requested By: Blaine Palacios Order Number: [id number] Reading MD: Aarti Quintana M.D. Measurements Intervals [place] Rate: 79 P: 73 [place]: 187 QRS: 66 QRSD: 96 T: 61 QT: 358 QTc: 411 Interpretive Statements SINUS RHYTHM POSSIBLE LEFT ATRIAL ENLARGEMENT [-0.1mV P-WAVE IN V1/V2] INCOMPLETE RIGHT BUNDLE BRANCH BLOCK [90+ ms QRS DURATION, TERMINAL R IN V1/V2, 40+ ms S IN I/aVL/V4/V5/V6] Compared to ECG 05/13/2021 00:03:17 Sinus tachycardia no longer present ST (T wave) deviation no longer present Electronically Signed On 01-05-2022 21:19:22 CDT by Aarti Quintana M.D. [email or web address]/[id number] f
[2022-01-05 16:27] VITALS: BP 170/81; PULSE 79; O2SAT 95
[2022-01-05 16:34] LABS: Basophils % 0.4 %; Eosinophils # 0.1 10^3/uL (0.0-0.8); Eosinophils % 1.5 %; Hematocrit 41.1 % (37.0-47.0); Hemoglobin 12.1 g/dL (11.5-15.3); Lymphocytes # 1.9 10^3/uL (0.8-4.8); Lymphocytes % 26.4 %; Mean Corpuscular HGB Conc 29.4 g/dL (30.0-36.0); Mean Corpuscular Hemoglobin 25.1 pg (28.0-34.0); Mean Corpuscular Volume 85.3 fl (81-99); Mean Platelet Volume 10.8 fL (7.4-10.4); Monocytes # 0.7 10^3/uL (0.2-0.9); Monocytes % 9.8 %; Neutrophils # 4.48 10^3/uL (1.8-7.7); Neutrophils % 61.6 %; Nucleated Red Blood Cells % 0 %; Platelet Count 234 10^3/cmm (130-400); Red Blood Count 4.82 10^6/uL (4.1-5.3); Red Cell Distribution Width 16.8 % (12.1-15.1); White Blood Count 7.3 10^3/uL (4.0-10.0)
[2022-01-05 16:57] LABS: Troponin(5th) Baseline 9 ng/L (0-10)
[2022-01-05 16:59] LABS: Alanine Aminotransferase 9 U/L (0-33); Albumin Level 4.2 g/dL (3.5-5.2); Alkaline Phosphatase 156 IU/L (35-105); Aspartate Amino Transferase 14 U/L (0-32); Blood Urea Nitrogen 15 mg/dL (8-23); Calcium 8.9 mg/dL (8.5-10.5); Carbon Dioxide 31 mmol/L (22-29); Chloride 103 mmol/L (98-107); Glucose 132 mg/dL (65-115); Lipase 17 U/L (13-60); Osmolality Calculated 297 mOsm/kg (285-295); Sodium 142 mmol/L (136-145); Total Bilirubin 0.2 mg/dL (0.15-1.2); Total Protein 7.2 g/dL (6.6-8.7)
[2022-01-05 17:00] VITALS: BP 178/87; PULSE 74; O2SAT 95
[2022-01-05] MEDS: iohexol 300 mg/mL 100 mL Btl IV (17:10)
[2022-01-05 18:00] VITALS: BP 132/75; PULSE 80; O2SAT 94
[2022-01-05] MEDS: sodium chloride 0.9% 500 ML IV (18:04)
[2022-01-05] MEDS: morphine 4 mg/mL SDV 1 mL 2 MG IVP (18:04)
[2022-01-05 18:33] LABS: Troponin 5 2HR 9.59 ng/L (0-10)
[2022-01-05 18:52] VITALS: BP 147/92; PULSE 77; O2SAT 92
[2022-01-05 19:07] LABS: Troponin 5 2HR Delta 0.59 ABS# (0-10)
== END 2022-01-05 18:52 | disposition home or self-care (01) ==
PROVIDERS: Emergency Provider Emergency Medicine; PCP Family Medicine
DX: R10.9 Unspecified abdominal pain (principal); R11.0 Nausea; Z79.82 Long term (current) use of aspirin; F17.210 Nicotine dependence, cigarettes, uncomplicated; Z85.41 Personal history of malignant neoplasm of cervix uteri; Z85.038 Personal history of other malignant neoplasm of large intestine; Z85.43 Personal history of malignant neoplasm of ovary; J44.9 Chronic obstructive pulmonary disease, unspecified; F03.90 Unspecified dementia, unspecified severity, without behavioral disturbance, psychotic disturbance, mood disturbance, and anxiety; I10 Essential (primary) hypertension; E78.5 Hyperlipidemia, unspecified
CPT/HCPCS: 74177; 80053; 83690; 84484; 85025; 93005; 96361; 96374; 99285; J2270; J7040; Q9967

== ENCOUNTER 2022-01-16 07:55 | Outpatient (RCR) | payer MEDICARE, MEDICAID, SELFPAY ==
[2021-09-30 10:35] VITALS: BP 156/75; BMI 35.8
== END 2022-02-15 23:59 | disposition home or self-care (01) ==
LOC: PULRHB 07:55
PROVIDERS: PCP Family Medicine; Visit Provider Internal Medicine Pulmonary Disease
DX: J96.91 Respiratory failure, unspecified with hypoxia (principal); J96.92 Respiratory failure, unspecified with hypercapnia
CPT/HCPCS: G0239

== ENCOUNTER → 2022-03-09 10:14 | Outpatient (BNVA) | payer MEDICARE, MEDICAID, SELFPAY ==
[2021-09-30 10:35] VITALS: BP 156/75; BMI 35.8
== END ==
PROVIDERS: PCP Family Medicine; Visit Provider Internal Medicine Pulmonary Disease
DX: J43.2 Centrilobular emphysema (principal); Z71.6 Tobacco abuse counseling; Z12.2 Encounter for screening for malignant neoplasm of respiratory organs; F17.210 Nicotine dependence, cigarettes, uncomplicated; C18.9 Malignant neoplasm of colon, unspecified; M79.7 Fibromyalgia
CPT/HCPCS: 99214

== ENCOUNTER → 2022-03-24 11:27 | Outpatient (BNVA) | payer MEDICARE, MEDICAID, SELFPAY ==
[2021-09-30 10:35] VITALS: BP 156/75; BMI 35.8
== END ==
PROVIDERS: PCP Family Medicine; Visit Provider Family Medicine
DX: Z00.00 Encounter for general adult medical examination without abnormal findings (principal); M77.8 Other enthesopathies, not elsewhere classified; I10 Essential (primary) hypertension; R00.0 Tachycardia, unspecified
CPT/HCPCS: 80053; 80061; 83036; 84443; 85025

== ENCOUNTER → 2022-04-29 13:18 | Outpatient (BNVA) | payer MEDICARE, MEDICAID, SELFPAY ==
[2021-09-30 10:35] VITALS: BP 156/75; BMI 35.8
== END ==
PROVIDERS: PCP Family Medicine; Visit Provider Internal Medicine Cardiovascular Disease
DX: R00.0 Tachycardia, unspecified (principal); I10 Essential (primary) hypertension; F17.210 Nicotine dependence, cigarettes, uncomplicated
CPT/HCPCS: 99214

== ENCOUNTER 2022-06-08 09:41 | Outpatient (CLI) | payer MEDICARE, MEDICAID, SELFPAY ==
[2021-09-30 10:35] VITALS: BP 156/75; BMI 35.8
--- NOTE | 2022-06-08 10:12 | CT_ITS ---
WS: [id number] LDCT LUNG CANCER SCREENING HISTORY: lung screening TECHNIQUE: Axial imaging performed from the apices to 1 cm below the costophrenic angles. Coronal and sagittal reformats are submitted with axial MIP series. All CT scans at [facility] use at least one of these dose optimization techniques: automated exposure control; mA and/or kV adjustment per patient size (includes targeted exams where dose is matched to clinical indication); or iterativ e reconstruction. DLP: 76.60 mGy.cm DIvol: Mean CTDIvol: 1.60 (mGy) COMPARISON: 05/08/2021 Diagnostic quality: Satisfactory Lung Nodules: No nodule or mass. Diffuse interstitial thickening within the periphery of each lung. M ild pleural thickening along the minor fissure. No mass or area of consolidation. No endobronchial le sanjay. Lungs: Chronic emphysema. Heart: Mildly enlarged heart. Moderate coronary artery atherosclerotic calcification. No pleural effu sanjay. Other findings: Moderate atherosclerotic plaque within the aorta. Small mediastinal and hilar lymph n odes. Stable LEFT adrenal nodule. Low-attenuation mass in the RIGHT kidney noted to be a cyst on prio r imaging studies. Fat-containing mass with a few septations superior pole LEFT kidney stable since 1 . Most consistent with angiomyolipoma. CT/CT lung screening [id number] IMPRESSION: LUNG-RADS: 1-Negative FOLLOW UP: 12 Month: Continue annual screening with LDCT OTHER FINDINGS (S MODIFIER): None.
== END 2022-06-08 09:42 | disposition home or self-care (01) ==
LOC: RAD 09:42
PROVIDERS: PCP Family Medicine; Visit Provider Internal Medicine Pulmonary Disease
DX: Z12.2 Encounter for screening for malignant neoplasm of respiratory organs (principal); F17.210 Nicotine dependence, cigarettes, uncomplicated
CPT/HCPCS: 71271

== ENCOUNTER → 2022-07-01 10:21 | Outpatient (BNVA) | payer MEDICARE, MEDICAID, SELFPAY ==
[2021-09-30 10:35] VITALS: BP 156/75; BMI 35.8
== END ==
PROVIDERS: PCP Family Medicine; Visit Provider Internal Medicine Pulmonary Disease
DX: J43.2 Centrilobular emphysema (principal); Z71.6 Tobacco abuse counseling; B37.0 Candidal stomatitis; T38.0X5A Adverse effect of glucocorticoids and synthetic analogues, initial encounter; F17.210 Nicotine dependence, cigarettes, uncomplicated; M79.7 Fibromyalgia; C18.9 Malignant neoplasm of colon, unspecified
CPT/HCPCS: 99214

== ENCOUNTER 2022-07-28 11:43 | Outpatient (CLI) | payer MEDICARE, MEDICAID, SELFPAY ==
[2021-09-30 10:35] VITALS: BP 156/75; BMI 35.8
--- NOTE | 2022-07-28 12:30 | CT_ITS ---
WS: [id number] CT HEAD TECHNIQUE: Noncontrast CT of the head obtained from the skullbase to the vertex. CLINICAL INFORMATION: headache COMPARISON: MRI [address] 2008 DLP: 1082.[address] scans at [facility] use at least one of these dose optimization techniques: automated e xposure control; mA and/or kV adjustment per patient size (includes targeted exams where dose is matc hed to clinical indication); or iterative reconstruction. FINDINGS: No evidence of intracranial hemorrhage or mass effect. Ventricular system and basal cisterns are calzada nt. Moderate small vessel changes with moderate parenchymal volume loss. Intracranial vascular calcif ication. No extra-axial fluid collections. No evidence of mass or mass effect. Paranasal sinuses and mastoid air cells are well aerated. .Normal visualized soft tissues. CT/CT head wo con* [id number] IMPRESSION: 1. No evidence of intracranial hemorrhage or mass effect. 2. Moderate small vessel changes with moderate parenchymal volume loss. Small vessel changes progressed since 2010 3. Intracranial vascular calcification. 4. No acute intracranial findings.
== END 2022-07-28 11:44 | disposition home or self-care (01) ==
LOC: RAD 11:44
PROVIDERS: PCP Family Medicine; Visit Provider Family Medicine
DX: R51.9 Headache, unspecified (principal)
CPT/HCPCS: 70450

== ENCOUNTER 2022-09-15 19:09 | Emergency (ER) | payer MEDICARE, MEDICAID, SELFPAY ==
[2021-09-30 10:35] VITALS: BP 156/75; BMI 35.8
[2022-09-15] VITALS (11 sets, daily range): BP systolic 128–147; BP diastolic 62–93; PULSE 75; RESP 17; TEMP 36.7; O2SAT 89–97; BMI 32.0
--- NOTE | 2022-09-15 19:24 | XRR_ITS ---
PROCEDURE INFORMATION: Exam: XR Chest Exam date and time: 09/15/2022 7:31 PM Age: 72 years old Clinical indication: Shortness of breath; Prior surgery; Surgery type: RT lumpectomy; Patient HX: C/O SOB. History of copd. ; Additional info: Dyspnea TECHNIQUE: Imaging protocol: Radiologic exam of the chest. Views: 1 view. COMPARISON: CT lung screening [id number] 06/08/2022 10:35 AM FINDINGS: Lungs: Emphysematous changes of the lungs. No consolidation. Pleural spaces: No pleural effusion. No pneumothorax. Heart/Mediastinum: No cardiomegaly. Bones/joints: Visualized osseous structures are intact. XR/XR chest 1V portable [id number] IMPRESSION: No acute findings.
[2022-09-15 19:35] LABS: Basophils % 0.6 %; Eosinophils # 0.1 10^3/uL (0.0-0.8); Eosinophils % 1.8 %; Hematocrit 42.5 % (37.0-47.0); Hemoglobin 12.7 g/dL (11.5-15.3); Lymphocytes # 2.1 10^3/uL (0.8-4.8); Lymphocytes % 31.3 %; Mean Corpuscular HGB Conc 29.9 g/dL (30.0-36.0); Mean Corpuscular Hemoglobin 26.5 pg (28.0-34.0); Mean Corpuscular Volume 88.5 fl (81-99); Mean Platelet Volume 10.7 fL (7.4-10.4); Monocytes # 0.8 10^3/uL (0.2-0.9); Monocytes % 12.6 %; Neutrophils % 53.2 %; Nucleated Red Blood Cells % 0 %; Platelet Count 230 10^3/cmm (130-400); Red Cell Distribution Width 15.9 % (12.1-15.1); White Blood Count 6.6 10^3/uL (4.0-10.0)
--- NOTE | 2022-09-15 19:42 | ECG_ITS ---
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 Measurements Intervals [place] Rate: 73 P: 82 [place]: 186 QRS: 74 QRSD: 91 T: 58 QT: 373 QTc: 412 Interpretive Statements SINUS RHYTHM POSSIBLE LEFT ATRIAL ENLARGEMENT [-0.1mV P-WAVE IN V1/V2] INCOMPLETE RIGHT BUNDLE BRANCH BLOCK [90+ ms QRS DURATION, TERMINAL R IN V1/V2, 40+ ms S IN I/aVL/V4/V5/V6] SEPTAL MYOCARDIAL INFARCTION , OF INDETERMINATE AGE [40+ ms Q WAVE IN V1/V2] Compared to ECG 01/05/2022 16:03:30 Myocardial infarct finding now present Electronically Signed On 09-16-2022 14:20:17 PRECAST MOLDER by Ana Jin M.D. [id number]
--- NOTE | 2022-09-15 19:47 | W.ED.SOB ---
HPI - SOB/Dyspnea General: Chief Complaint: Shortness of Breath/Dyspnea Stated Complaint: SOB Time Seen by Provider: 09/15/22 19:24 Source: patient and EMS Mode of arrival: EMS Limitations: no limitations History of Present Illness: HPI Narrative: 72-year-old female with a history of COPD she states that just before arrival she had a attack states she is having wheezing, difficulty breathing she is given albuterol in route states she feels much improved I placed her on her 3 L which is her typical and she is 96% she denies any new cough or fever denies any vomiting or diarrhea. Associated symptoms: Deny abdominal pain, chest pain, fever(s), nausea or vomiting Review of Systems Const: Denies: fever(s), chills, body aches or change in appetite Eyes: Denies: blurry vision or eye discomfort ENMT: Denies: throat pain or dental pain Card: Denies: chest pain Resp: Reports: dyspnea GI: Denies: abdominal pain, nausea, vomiting or diarrhea : Denies: dysuria Musc: Denies: neck pain or back pain Skin/Breast: Denies: rash Neuro: Denies: headache(s) Psych: Denies: depression Joe/Lymph: Denies: easy bruising All/Imm: Denies: urticaria PFSH ED PFSH: Medical History Abnormal EKG Abnormal laboratory test result Anxiety Anxiety and depression Cervical cancer Chronic back pain Cigarette smoker Colon cancer COPD (chronic obstructive pulmonary disease) Deficient knowledge of open reduction and internal (ORIF) fixation of hip Dementia Encounter for diagnostic endoscopy GERD (gastroesophageal reflux disease) Headache For > 10 years, daily lasting 30-60 minutes duration. History of kidney stones HTN (hypertension) Hx of ovarian cancer Originally found in 1972 with surgery, In 1975 with total hysterectomy. Hyperlipidemia Hypertension Occipital tendonitis Peripheral vascular disease Plaque psoriasis Psychiatric care Smoker Surgical History H/O lumpectomy Right H/O right knee surgery History of appendectomy History of cataract surgery Bilateral History of deviated nasal septum Surgically corrected History of partial colectomy Dr. Pearson on 05/01/2021 with repeat surgery on 05/11/2021 with colon cancer and partial transverse colectomy with later reanastomosis History of total abdominal hysterectomy Originally found in 1972 with surgery for ovarian cancer, In 1975 with total hysterectomy. Kidney stones Removal cystoscopically Family History Other CAD (coronary artery disease) Cancer Dementia Diabetes Hyperlipidemia Hypertension Lung disease Social History Smoking and tobacco status: current every day smoker cigarettes Packs smoked per day: 1 Years cigarettes smoked: 48 Quit status (tobacco): has tried quititng Second hand smoke exposure: Yes Alcohol intake: former Former alcohol use details: shots Adopted: No Caregiver/support person: No Lives independently: Yes Household members: none Housing: Apartment Marital status: Marital status details: divorce is pending Number of children: 1 Number of grandchildren: 5 Highest education level completed: Some College, No Degree service: No Current occupational status: retired and disabled Pets and animals: Yes Pets & animals: dog(s) Leisure activites: reading and other Leisure activities details: watch TV with her dog Sexually active: No Current gender identity: Female Martha/Caodaism: Scientologist Special martha needs: No Agree to transfusion: Yes Financial difficulty paying for basics: Hard Physical Exam Const: COMMON NORMALS: no acute distress, patient oriented x3 and healthy appearing HENMT: COMMON NORMALS: normocephalic and atraumatic HEAD & SCALP: normocephalic and atraumatic Eye: COMMON NORMALS: Equal, round and reactive pupils present and EOMs intact bilaterally PUPIL: Yes Equal, round and reactive pupils present Neck/C-Spine: COMMON NORMALS: full ROM and supple Chest: COMMONS NORMALS: normal inspection of the chest and normal palpation of entire chest wall Resp: COMMON NORMALS: normal respiratory effort, No retractions, No use of accessory muscles and clear to auscultation bilaterally AUSCULTATION: clear to auscultation bilaterally Cardio: COMMON NORMALS: regular rate, regular rhythm and No murmurs present (Cardio) RATE: regular rate RHYTHM: regular rhythm GI: COMMON NORMALS: Normal to inspection, nondistended, normoactive bowel sounds present, Soft to palpation, non-tender and no masses PALPATION: Yes Soft to palpation Extremity: COMMON NORMALS: normal to inspection and full ROM Neuro: COMMON NORMALS: patient oriented x3, moves all extremities and no focal motor deficits Psych: COMMON NORMALS: mental status grossly normal, Normal thought process present and cooperative THOUGHT PROCESS: Normal thought process present Skin: COMMON NORMALS: no rashes or lesions noted and no wounds GENERAL SKIN EXAM: no rashes or lesions noted Course Vital Signs: Vital signs: Vital Signs Temperature 98.1 F 09/15/22 19:11 Pulse Rate 75 09/15/22 19:11 Respiratory Rate 17 09/15/22 19:11 Blood Pressure 128/93 09/15/22 19:45 Pulse Oximetry 89 L 09/15/22 19:45 Oxygen Delivery Me thod 09/15/22 19:45 Oxygen Flow Rate 3 09/15/22 19:45 MDM - SOB/Dyspnea Medical Decision Making Patient presents here with COPD exacerbation she is much improved here she is on her baseline 3 L is 94% her wheezing is resolved blood work and x-ray are normal we will place her on a 5-day steroid burst and she is to follow-up PCP and return if worsening. Lab Data 09/15/22 19:28 09/15/22 19:28 Labs/Radiology: Radiology Impressions Chest X-Ray 09/15/22 19:24 IMPRESSION: No acute findings. Laboratory Results WBC 6.6 10^3/uL (4.0-10.0) 09/15/22 19: RBC 4.80 10^6/uL (4.1-5.3) 09/15/22 19:28 Hgb 12.7 g/dL (11.5-15.3) 09/15/22 19: Hct 42.5 % (37.0-47.0) 09/15/22 19: MCV 88.5 fl (81-99) 09/15/22 19: MCH 26.5 pg (28.0-34.0) L 09/15/22 19: MCHC 29.9 g/dL (30.0-36.0) L 09/15/22 19:28 RDW 15.9 % (12.1-15.1) H 09/15/22 19:28 Plt Count 230 10^3/cmm (130-400) 09/15/22 19:28 MPV 10.7 fL (7.4-10.4) H 09/15/22 19:28 Neut % (Auto) 53.2 % 09/15/22 19:28 Lymph % (Auto) 31.3 % 09/15/22 19: [place] % (Auto) 12.6 % 09/15/22 19: Eos % (Auto) 1.8 % 09/15/22 19: Baso % (Auto) 0.6 % 09/15/22 19: Neut # (Auto) 3.50 10^3/uL (1.8-7.7) 09/15/22: Lymph # (Auto) 2.1 10^3/uL (0.8-4.8) 09/15/22 19: [place] # (Auto) 0.8 10^3/uL (0.2-0.9) 09/15/22: Eos # (Auto) 0.1 10^3/uL (0.0-0.8) 09/15/22: Baso # (Auto) 0.0 10^3/uL (0.0-0.1) 09/15/22: Nucleated RBC % (auto) 0 % 09/15/22: Nucleated RBCs # 0.0 /100WBC 09/15/22 19: Sodium 141 mmol/L (136-145) 09/15/22 19: Potassium 4.9 mmol/L (3.5-5.1) 09/15/22: Chloride 103 mmol/L (98-107) 09/15/22: Carbon Dioxide 30 mmol/L (22-29) H 09/15/22: Anion Gap 12.9 (5-19) 09/15/22 19: BUN 20 mg/dL (8-23) 09/15/22 19: Creatinine 0.7 mg/dL (0.5-0.9) 09/15/22 19: GFR Calculation Not Reportable 09/15/22: Glucose 81 mg/dL (65-115) 09/15/22: Calculated Osmolality 294 mOsm/kg (285-295) 09/15/22: Calcium 9.1 mg/dL (8.5-10.5) 09/15/22 19: Total Bilirubin 0.2 mg/dL (0.15-1.2) 09/15/22: AST 19 U/L (0-32) 09/15/22 19:28 ALT 12 U/L (0-33) 09/15/22 19:28 Alkaline Phosphatase 127 U/L (35-105) H 09/15/22 19:28 NT-Pro-B Natriuret Pep 36 pg/mL (0-125) 09/15/22 19:28 Total Protein 7.2 g/dL (6.6-8.7) 09/15/22 19:28 Albumin 4.3 g/dL (3.5-5.2) 09/15/22 19:28 Globulin 2.9 g/dL (1.3-4.6) 09/15/22 19:28 Influenza Type A Ag negative (Negative) 09/15/22 19:41 Influenza Type B Ag negative (Negative) 09/15/22 19:41 SARS-CoV-2 Ag (Rapid) negative (Negative) 09/15/22 19:41 EKG Data EKG 1: I personally reviewed and interpreted this EKG as follows: EKG Interpretation Date: 09/15/22 EKG interpretation time: 19:42 Interpretation: nsr hr [address] or t wave abnormalities qrs 91 qtc 399 Discharge Plan Discharge Patient Disposition: Home Clinical Impression: Acute exacerbation of chronic obstructive airways disease Condition: Stable Prescriptions: New prednisone 50 mg tablet 50 mg PO DAILY Qty: 5 0RF No Action aspirin [Adult Low Dose Aspirin] 81 mg tablet,delayed release (DR/EC) 81 mg PO QAM potassium chloride 10 mEq capsule, extended release 10 meq PO QAM nystatin 100,000 unit/mL suspension 1 ml buccal DAILY Qty: 200 0RF Rx Instructions: administer 1/2 of dose in each side of the mouth ipratropium-albuterol 0.5 mg-3 mg(2.5 mg base)/3 mL solution for nebulization 3 ml inhalation Q8H PRN (Reason: wheezing) Qty: 180 3RF trazodone 100 mg tablet 100 mg PO DAILY Qty: 90 3RF amlodipine 5 mg tablet 5 mg PO DAILY Qty: 30 5RF albuterol sulfate 90 mcg/actuation HFA aerosol inhaler 2 puff INHALATION Q4H PRN (Reason: shortness of breath or wheezing) Qty: 8.5 3RF buspirone 15 mg tablet 15 mg PO BID Qty: 60 5RF metoprolol succinate 25 mg tablet extended release 24 hr 25 mg PO DAILY Qty: 90 3RF metoprolol succinate 50 mg tablet extended release 24 hr 50 mg PO DAILY Qty: 90 3RF Rx Instructions: take with the 25 mg tablet for total of 75 mg daily venlafaxine [Effexor XR] 150 mg capsule,extended release 24hr 150 mg PO QAM Qty: 30 5RF hydrocodone-acetaminophen 5-325 mg tablet 1 tab PO TID PRN (Reason: chronic pain) 30 Days Qty: 90 0RF Rx Instructions: refill on or after 30-day intervals celecoxib 200 mg capsule 200 mg PO BID PRN (Reason: pain) Qty: 60 5RF triamcinolone acetonide 0.025 % ointment 1 applic topical DAILY Qty: 80 0RF Breztri Aerosphere 160-9-4.8 mcg/actuation HFA aerosol inhaler 2 inh inhalation BID Qty: 10.7 3RF esomeprazole magnesium 40 mg capsule,delayed release(DR/EC) 40 mg PO QAM Qty: 30 11RF lisinopril 20 mg tablet See Rx Instructions .ROUTE .COMPLEX Qty: 180 2RF Dose Instruction: TAKE 2 TABLETS BY MOUTH EVERY DAY FOR hypertension Rx Instructions: TAKE 2 TABLETS BY MOUTH EVERY DAY FOR hypertension atorvastatin 10 mg tablet See Rx Instructions .ROUTE .COMPLEX Qty: 120 3RF Dose Instruction: TAKE 1 TABLET BY MOUTH EVERY DAY FOR hyperlipidemia Rx Instructions: TAKE 1 TABLET BY MOUTH EVERY DAY FOR hyperlipidemia lidocaine 5 % ointment 1 applic topical .BID DIRECTED magnesium oxide 400 mg magnesium Tablet 400 mg PO QAM Discharge Orders: Discharge ED (Routine); Ordered 09/15/22 Ordered By: Lasha De Luna Referrals: Peter Velasquez MD [Primary Care Provider] - 1-3 days Discharge Diet: Advance as tolerated Discharge Activity: Resume usual activity Patient Instructions: COPD (Chronic Obstructive Pulmonary Disease) (ED) Coding Level of Care Code ED 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
[2022-09-15 20:01] LABS: Alanine Aminotransferase 12 U/L (0-33); Albumin Level 4.3 g/dL (3.5-5.2); Alkaline Phosphatase 127 U/L (35-105); Anion Gap 12.9 (5-19); Aspartate Amino Transferase 19 U/L (0-32); Blood Urea Nitrogen 20 mg/dL (8-23); Calcium 9.1 mg/dL (8.5-10.5); Carbon Dioxide 30 mmol/L (22-29); Chloride 103 mmol/L (98-107); Globulin 2.9 g/dL (1.3-4.6); Glucose 81 mg/dL (65-115); NT Pro B Type Natriuretic Pept 36 pg/mL (0-125); Osmolality Calculated 294 mOsm/kg (285-295); Potassium 4.9 mmol/L (3.5-5.1); Sodium 141 mmol/L (136-145); Total Bilirubin 0.2 mg/dL (0.15-1.2); Total Protein 7.2 g/dL (6.6-8.7)
[2022-09-15 20:08] LABS: Influenza A by IFA negative (Negative); Influenza B by IFA negative (Negative)
[2022-09-15 20:09] LABS: SARS Covid-2 Antigen negative (Negative)
== END 2022-09-15 20:32 | disposition home or self-care (01) ==
PROVIDERS: Nurse Practitioner Family; Emergency Provider Emergency Medicine; PCP Family Medicine Adult Medicine
DX: J44.1 Chronic obstructive pulmonary disease with (acute) exacerbation (principal)
CPT/HCPCS: 71045; 80053; 83880; 85025; 87426; 87804; 93005; 96374; 99285; J2930

== ENCOUNTER → 2022-09-17 12:56 | Outpatient (BNVA) | payer OTHER, SELFPAY ==
[2021-09-30 10:35] VITALS: BP 156/75; BMI 35.8
== END ==
PROVIDERS: PCP Family Medicine Adult Medicine; Visit Provider Psychiatry & Neurology Psychiatry
DX: F33.1 Major depressive disorder, recurrent, moderate (principal)
CPT/HCPCS: 80061; 83036

== ENCOUNTER → 2022-09-23 12:55 | Outpatient (BNVA) | payer MEDICARE, MEDICAID, SELFPAY ==
[2021-09-30 10:35] VITALS: BP 156/75; BMI 35.8
== END ==
PROVIDERS: PCP Family Medicine Adult Medicine; Visit Provider Specialist
DX: M25.561 Pain in right knee (principal); Z96.651 Presence of right artificial knee joint
CPT/HCPCS: 73560; 73565; 99213

== ENCOUNTER → 2022-09-25 10:07 | Outpatient (BNVA) | payer MEDICARE, MEDICAID, SELFPAY ==
[2021-09-30 10:35] VITALS: BP 156/75; BMI 35.8
== END ==
PROVIDERS: PCP Family Medicine Adult Medicine; Referring Provider Family Medicine; Visit Provider Specialist
DX: G43.711 Chronic migraine without aura, intractable, with status migrainosus (principal); F41.1 Generalized anxiety disorder; R40.4 Transient alteration of awareness; R42 Dizziness and giddiness
CPT/HCPCS: 99204

== ENCOUNTER → 2022-10-07 14:30 | Outpatient (BNVA) | payer MEDICAID, SELFPAY ==
[2022-10-07 10:57] VITALS: BP 131/73; BMI 32.6
== END ==
PROVIDERS: PCP Family Medicine Adult Medicine; Visit Provider Specialist
DX: M25.531 Pain in right wrist (principal); S62.101S Fracture of unspecified carpal bone, right wrist, sequela; X58.XXXS Exposure to other specified factors, sequela
CPT/HCPCS: 99213

== ENCOUNTER → 2022-10-07 14:41 | Outpatient (BNVA) | payer MEDICAID, SELFPAY ==
[2022-10-07 10:57] VITALS: BP 131/73; BMI 32.6
== END ==
PROVIDERS: PCP Family Medicine Adult Medicine; Visit Provider Specialist
DX: M25.531 Pain in right wrist (principal); S62.101S Fracture of unspecified carpal bone, right wrist, sequela; X58.XXXS Exposure to other specified factors, sequela
CPT/HCPCS: 73110

== ENCOUNTER 2022-10-15 11:35 | Outpatient (CLI) | payer MEDICARE, MEDICAID, SELFPAY ==
[2021-09-30 10:35] VITALS: BP 156/75; BMI 35.8
[2022-10-07 10:57] VITALS: BP 131/73; BMI 32.6
--- NOTE | 2022-10-15 11:45 | MR_ITS ---
WS: [id number] MRA ANGIOGRAPHY [place] HISTORY: G43.711 - Chronic migraine without aura, intractable, COMPARISON: MRI brain 01/16/2011, CT head 07/28/2022 TECHNIQUE: 3-D MR angiography is performed of the [place]. All images are reviewed including source images. Distal vertebral and basilar arteries are intact with no significant stenosis or plaque. RIGHT verteb ral artery slightly smaller than the LEFT. Small but patent LEFT posterior cerebral artery. Posterior communicating arteries are both visualized. LEFT posterior to indicating artery is dominant. Intracranial portion of the internal carotid arteries are normal course and caliber. No significant a therosclerosis, stenosis or aneurysm identified. Middle and anterior cerebral arteries are both paten t with no significant disease. Anterior communicating artery is also normal. MR/MR angio head wo con [id number] IMPRESSION: 1. No occlusions or high-grade stenosis within the [place]. 2. Small caliber RIGHT vertebral artery but it is patent. This is probably con genital. 3. Hypoplastic but patent RIGHT posterior communicating artery.
== END 2022-10-15 11:36 | disposition home or self-care (01) ==
LOC: RAD 11:38
PROVIDERS: PCP Family Medicine Adult Medicine; Visit Provider Specialist
DX: G43.711 Chronic migraine without aura, intractable, with status migrainosus (principal); R51.9 Headache, unspecified
CPT/HCPCS: 70544

== ENCOUNTER → 2022-10-19 13:26 | Outpatient (BNVA) | payer MEDICARE, MEDICAID, SELFPAY ==
[2022-10-07 10:57] VITALS: BP 131/73; BMI 32.6
== END ==
PROVIDERS: PCP Family Medicine Adult Medicine; Visit Provider Specialist
DX: G43.711 Chronic migraine without aura, intractable, with status migrainosus (principal); R41.9 Unspecified symptoms and signs involving cognitive functions and awareness; R41.82 Altered mental status, unspecified
CPT/HCPCS: 95812; 95816

== ENCOUNTER 2022-10-21 11:01 | Outpatient (CLI) | payer MEDICARE, MEDICAID, SELFPAY ==
[2021-09-30 10:35] VITALS: BP 156/75; BMI 35.8
[2022-10-07 10:57] VITALS: BP 131/73; BMI 32.6
--- NOTE | 2022-10-21 11:00 | MR_ITS ---
WS: [id number] MRI HEAD WITHOUT CONTRAST TECHNIQUE: Sagittal T1, T2 axial, T2 axial FLAIR, axial and coronal T1 images, axial susceptibility w eighted imaging, axial diffusion weighted images, and coronal T2 images were obtained. Gadolinium not administered due to patient inability to tolerate further imaging CLINICAL INFORMATION: R51.9 - Headache, unspecified COMPARISON: MRI 2011 FINDINGS: Some images degraded by motion artifact. Fast imaging performed. No evidence of restricted diffusion to suggest acute ischemia. Ventricular system and basal cisterns are patent. Advanced supratentorial periventricular white matter changes most compatible with small v essel disease in a patient this age. Small vessel changes in the mimi. Minimal parenchymal volume los s. White matter changes have progressed since 2011. Normal posterior fossa. Normal vascular flow void s at the skull base. No extra-axial fluid collections. No evidence of mass or mass effect. Paranasal sinuses and mastoid air cells well aerated. No hemosiderin on susceptibly weighted images. Normal optic chiasm and pituitary infundibulum. Mild symmetric atrophy temporal lobes and hippocampal formations. Normal cavernous sinuses and Meckel's cave. MR/MR head wo con* [id number] IMPRESSION: 1. No evidence of restricted diffusion to suggest acute ischemia. 2. Advanced periventricular supratentorial white matter changes likely due to small vessel disease in a patient this age. This is progressed compared to 2011 . Minimal parenchymal volume loss. 3. Mild small vessel changes in the mimi. 4. No hemosiderin on susceptibly weighted images. 5. Mild symmetric atrophy Temporal lobes and hippocampal formations 6. No other suspicious findings.
== END 2022-10-21 11:02 | disposition home or self-care (01) ==
LOC: RAD 11:05
PROVIDERS: PCP Family Medicine Adult Medicine; Visit Provider Specialist
DX: R51.9 Headache, unspecified (principal)
CPT/HCPCS: 70551

== ENCOUNTER → 2022-10-27 14:39 | Outpatient (BNVA) | payer MEDICAID, SELFPAY ==
[2022-10-07 10:57] VITALS: BP 131/73; BMI 32.6
== END ==
PROVIDERS: PCP Family Medicine Adult Medicine; Visit Provider Orthopaedic Surgery
DX: M47.812 Spondylosis without myelopathy or radiculopathy, cervical region (principal); M47.814 Spondylosis without myelopathy or radiculopathy, thoracic region; M41.9 Scoliosis, unspecified
CPT/HCPCS: 72050; 72070; 99204

== ENCOUNTER → 2022-11-09 10:12 | Outpatient (BNVA) | payer MEDICARE, MEDICAID, SELFPAY ==
[2022-10-07 10:57] VITALS: BP 131/73; BMI 32.6
== END ==
PROVIDERS: PCP Family Medicine Adult Medicine; Visit Provider Internal Medicine Pulmonary Disease
DX: Z71.6 Tobacco abuse counseling; J43.9 Emphysema, unspecified; F17.210 Nicotine dependence, cigarettes, uncomplicated
CPT/HCPCS: 99214

== ENCOUNTER → 2022-11-12 15:04 | Outpatient (BNVA) | payer MEDICAID, SELFPAY ==
[2022-10-07 10:57] VITALS: BP 131/73; BMI 32.6
== END ==
PROVIDERS: PCP Family Medicine Adult Medicine; Visit Provider Specialist
DX: R51.9 Headache, unspecified (principal)
CPT/HCPCS: G0463

== ENCOUNTER 2022-12-08 07:45 | Outpatient (CLI) | payer MEDICARE, MEDICAID, SELFPAY ==
[2021-09-30 10:35] VITALS: BP 156/75; BMI 35.8
[2022-10-07 10:57] VITALS: BP 131/73; BMI 32.6
--- NOTE | 2022-12-08 07:51 | NMR_ITS ---
PROCEDURE INFORMATION: Exam: NM Bone and/or Joint, 3 Phase Exam date and time: 12/08/2022 7:51 AM Age: 72 years old Clinical indication: Bone pain; Prior surgery; Surgery date: 6+ months; Surgery type: Right knee replacement 2018 experiencing pain and popping; Additional info: Right tka, feels loose TECHNIQUE: Imaging protocol: Nuclear 3 phase bone scan was obtained. Views: Frontal and posterior Radiopharmaceutical: 25.7 mCi Tc-99m HDP (Oxidronate, IV. 25.7 mCi Tc-99m HDP (Oxidronate), IV. Time of imaging post radiopharmaceutical administration: 2 hours COMPARISON: No relevant prior studies available. FINDINGS: Bones/joints: The bone scan shows normal distribution of radiopharmaceutical throughout the visualized osseous structures. There is osteoarthritis involving the lower lumbar spine. There is uptake in the right knee and bilateral feet corresponding to osteoarthritis. A osseous bone replacement is seen in the right knee. There is no nuclear medicine evidence of loosening of the prosthesis. Soft tissues: Vascular flow and pool studies are unremarkable. There is a nasal mucosal uptake seen is suggesting sinusitis. Renal function is seen. NM/NM bone 3 phase [id number] IMPRESSION: 1. Osteoarthritis is seen as noted 2. Otherwise negative bone scan. 3. Metallic prosthesis right knee. In good position 4. Soft tissues are unremarkable
== END 2022-12-08 07:46 | disposition home or self-care (01) ==
LOC: RAD 07:46
PROVIDERS: PCP Family Medicine Adult Medicine; Visit Provider Specialist
DX: M25.561 Pain in right knee (principal); M17.11 Unilateral primary osteoarthritis, right knee; M19.072 Primary osteoarthritis, left ankle and foot; M19.071 Primary osteoarthritis, right ankle and foot; M47.816 Spondylosis without myelopathy or radiculopathy, lumbar region; Z96.651 Presence of right artificial knee joint
CPT/HCPCS: 78315; A9561

== ENCOUNTER → 2023-01-06 15:08 | Outpatient (BNVA) | payer MEDICARE, MEDICAID, SELFPAY ==
[2022-12-08 17:07] VITALS: BP 131/73; BMI 32.6
== END ==
PROVIDERS: PCP Family Medicine Adult Medicine; Visit Provider Surgery
DX: K58.1 Irritable bowel syndrome with constipation (principal)
CPT/HCPCS: 99203

== ENCOUNTER 2023-01-22 14:31 | Outpatient (CLI) | payer OTHER, SELFPAY ==
[2022-12-08 17:07] VITALS: BP 131/73; BMI 32.6
--- NOTE | 2023-01-22 14:34 | MM_ITS ---
WS: [id number] Bilateral screening 3D tomosynthesis digital mammogram, 01/22/2023 Clinical Data: SCREENING Comparison: 03/05/2021, 01/05/2017, 05/23/2015, 01/16/2015, 05/09/2014, 10/14/2011, 08/01/2009, 07/15/2009, 09/15/2006. Findings: The breast parenchymal pattern shows heterogeneous density. No spiculated masses or clustered calcifi cations are seen. There are no secondary signs of carcinoma. There are lymph nodes in both axilla. MM/[place] [id number] Impression: 1. Negative bilateral mammogram unchanged. 2. Recommend annual screening mammograms. BIRADS: 1-Negative FOLLOW UP: 1 Year Follow-up The CAD cashier or checker stock clerk was used.
== END 2023-01-22 14:32 | disposition home or self-care (01) ==
PROVIDERS: PCP Family Medicine Adult Medicine; Visit Provider Family Medicine Adult Medicine
DX: Z12.31 Encounter for screening mammogram for malignant neoplasm of breast (principal)
CPT/HCPCS: 77063; 77067

== ENCOUNTER 2023-01-28 15:08 | Outpatient (CLI) | payer MEDICARE, MEDICAID, SELFPAY ==
[2022-12-08 17:07] VITALS: BP 131/73; BMI 32.6
--- NOTE | 2023-01-28 | CT_ITS ---
LDCT LUNG CANCER SCREENING TECHNIQUE: Noncontrast CT of the chest with coronal and sagittal reformatted images. CLINICAL INFORMATION: smoking History COMPARISON: June 08, 2022 DLP: 49.79 DIvol: 1.[address] scans at [facility] use at least one of these dose optimization techniques: automated exposure control; mA and/or kV adjustment per patient size (includes targeted exams where dose is matched to clinical indication); or iterative reconstruction. FINDINGS: Chronic emphysematous changes. Fibrosis in the lung apices. Tiny nodule LEFT upper lobe measuring 4 mm. Tiny 3 mm nodule LEFT lower lobe Stable LEFT renal angiomyolipoma. Stable LEFT adrenal adenoma. RIGHT adrenal gland is normal. Stable RIGHT renal cyst. No mediastinal or hilar lymphadenopathy. Vascular calcification. Coronary calcification. No axillary lymphadenopathy. Normal GE junction. IMPRESSION: LUNG-RADS: 2-Benign Appearance or Behavior FOLLOW UP: 12 Month: Continue annual screening with [facility] CT/CT lung screening [id number] IMPRESSION: No lung nodules.LUNG-RADS-1 No active pulmonary parenchymal or pleural disease.
--- NOTE | 2023-01-28 15:00 | CT_ITS ---
WS: [id number] CT CHEST 01/28/2023 HISTORY: 75 pack-year smoking history. Lung screening. COMPARISON: Previous lung screening CT scan of the chest 06/08/2022. LUNG-RADS-1. TECHNIQUE: Multiple thin section axial images without intravenous contrast. Coronal and sagittal janet nstruction. FINDINGS: Old reactive mediastinal nodes. No mediastinal or hilar mass. No lung mass or pulmonary nodule. Small subpleural bullae in both upper lobes bilaterally. No active pulmonary parenchymal disease. Mild/moderate degenerative spondylosis in the mid and lower thoracic cervical spine. Low-attenuation upper pole mass in the right kidney presumed cyst no change from previous examination . Fat attenuation mass in the upper pole of the left kidney, presumed angiomyolipoma. No change from th e previous examination. The chest is unchanged compared to the previous examination of 06/08/2022.
== END 2023-01-28 15:09 | disposition home or self-care (01) ==
PROVIDERS: PCP Family Medicine Adult Medicine; Visit Provider Family Medicine Adult Medicine
DX: Z12.2 Encounter for screening for malignant neoplasm of respiratory organs (principal); F17.209 Nicotine dependence, unspecified, with unspecified nicotine-induced disorders
CPT/HCPCS: 71271

== ENCOUNTER → 2023-02-01 12:12 | Outpatient (BNVA) | payer MEDICARE, MEDICAID, SELFPAY ==
[2022-12-08 17:07] VITALS: BP 131/73; BMI 32.6
== END ==
PROVIDERS: PCP Family Medicine Adult Medicine; Visit Provider Specialist
DX: G43.711 Chronic migraine without aura, intractable, with status migrainosus (principal); G37.9 Demyelinating disease of central nervous system, unspecified; R41.89 Other symptoms and signs involving cognitive functions and awareness; F17.219 Nicotine dependence, cigarettes, with unspecified nicotine-induced disorders; Z87.820 Personal history of traumatic brain injury
CPT/HCPCS: 99214

== ENCOUNTER → 2023-02-10 12:47 | Outpatient (BNVA) | payer MEDICARE, MEDICAID, SELFPAY ==
[2022-12-08 17:07] VITALS: BP 131/73; BMI 32.6
== END ==
PROVIDERS: PCP Family Medicine Adult Medicine; Visit Provider Surgery
DX: Z12.11 Encounter for screening for malignant neoplasm of colon (principal)
CPT/HCPCS: 99024; 99213

== ENCOUNTER → 2023-02-16 14:00 | Outpatient (BNVA) | payer MEDICARE, MEDICAID, SELFPAY ==
[2022-12-08 17:07] VITALS: BP 131/73; BMI 32.6
== END ==
PROVIDERS: PCP Family Medicine Adult Medicine; Visit Provider Internal Medicine Cardiovascular Disease
DX: R00.0 Tachycardia, unspecified (principal); I10 Essential (primary) hypertension; E78.5 Hyperlipidemia, unspecified; K21.9 Gastro-esophageal reflux disease without esophagitis; J44.9 Chronic obstructive pulmonary disease, unspecified; F17.210 Nicotine dependence, cigarettes, uncomplicated
CPT/HCPCS: 99214

== ENCOUNTER 2023-02-25 07:10 | Day surgery (SDC) | payer MEDICARE, MEDICAID, SELFPAY ==
[2022-12-08 17:07] VITALS: BP 131/73; BMI 32.6
[2023-02-23 10:26] VITALS: BMI 31.2
[2023-02-25 07:31] VITALS: BP 120/62; PULSE 68; RESP 18; TEMP 36.1; O2SAT 95
--- NOTE | 2023-02-25 07:33 | ANES.PREANE2 ---
Pre-Anesthetic Assessment Height/Weight: Height 1.52 m Weight 72.575 kg Preop Diagnosis: History of colon ca Operation Date: 02/25/23 07:50 Proposed Procedures p Colonoscopy 47304,Z12.11(Not Applicable) - Joshua Maria MD Was Beta Dez taken within 24 hours: Yes Was Clonidine taken within 24 hours: N/A Social Tobacco and No alcohol (history) Exam alert, oriented x 3, clear to auscultation bilaterally and regular rate & rhythm Airway Submandibular: within normal limits Cervical ROM: within normal limits Mallampati: Class I Dentition: false Pulmonary Chronic Obstructive Pulmonary Disease and Exertional Dyspnea O2 at night CV/HEM Hypertension and Peripheral Vascular Disease None reported Hepatic None reported GI Gastroesophageal Reflux Disease Metabolic Hyperlipidemia [facility] [place] Fibromyalgia, Lower Back Pain and Osteoarthritis/DJD Neuropsych Anxiety, Depression and Neuropathy Anesthetic Plan ASA status: 3 Anesthesia: MAC Risk of > 500 ml blood loss (7ml/kg in children): No Medications/Allergies Home Medications Medication Instructions Recorded Confirmed Last Taken Type aspirin 81 mg tablet,delayed 81 mg PO QAM 11/22/19 02/23/23 02/25/23 History release (Adult Low Dose Aspirin) potassium chloride 10 mEq 10 meq PO QAM 11/22/19 02/25/23 02/25/23 History capsule,extended release lidocaine 5 % topical ointment 1 applic topical .BID DIRECTED 01/05/22 02/25/23 Unknown History trazodone 100 mg tablet 100 mg PO DAILY #90 tabs 07/06/22 02/25/23 02/24/23 Rx lisinopril 20 mg tablet See Rx Instructions .Route 07/27/22 02/25/23 02/25/23 Rx .COMPLEX #180 tabs albuterol sulfate 90 mcg/actuation 2 puff inhalation Q4H PRN 08/05/22 02/25/23 02/24/23 Rx aerosol inhaler shortness of breath or wheezing #8.5 grams metoprolol succinate 25 mg 25 mg PO DAILY #90 tabs 08/05/22 02/25/23 02/25/23 Rx tablet,extended release 24 hr metoprolol succinate 50 mg 50 mg PO DAILY #90 tabs 08/05/22 02/25/23 02/25/23 Rx tablet,extended release 24 hr atorvastatin 10 mg tablet See Rx Instructions .Route 08/25/22 02/25/23 02/25/23 Rx .COMPLEX #120 tabs celecoxib 200 mg capsule 200 mg PO BID PRN pain #60 caps 09/10/22 02/25/23 02/24/23 Rx triamcinolone acetonide 0.025 % 1 applic topical DAILY skin plaque 09/10/22 02/25/23 02/24/23 Rx topical ointment #80 grams ipratropium 0.5 mg-albuterol 3 mg 3 ml inhalation Q8H PRN wheezing 09/28/22 02/25/23 02/24/23 Rx (2.5 mg base)/3 mL nebulization #180 mL soln albuterol sulfate 2.5 mg/3 mL 2.5 mg (3 mL) inhalation Q6H #180 10/15/22 02/25/23 02/24/23 Rx (0.083 %) solution for nebulization mL umeclidinium 62.5 mcg-vilanterol 1 inh inhalation DAILY #60 ea 11/09/22 02/25/23 02/25/23 Rx 25 mcg/actuation powdr for inhalation (Anoro Ellipta) oxygen-air delivery systems 12/31/22 02/25/23 Unknown History buspirone 15 mg tablet 15 mg PO BID anxiety #60 tabs 01/05/23 02/25/23 02/25/23 Rx venlafaxine 150 mg 150 mg PO COUNTS INCLUDE 234 BEDS AT [facility] mental health #30 01/05/23 02/25/23 02/25/23 Rx capsule,extended release 24 hr caps (Effexor XR) oxygen-air delivery systems #1 ea 01/26/23 02/10/23 Unknown Rx epinephrine 0.3 mg/0.3 mL 0.3 mg (0.3 mL) IM Q4H PRN 01/27/23 02/25/23 Unknown Rx injection, auto-injector (EpiPen anaphylaxis #2 ea 2-Ted) estradiol 0.01% (0.1 mg/gram) 1 appful vaginal DAILY PRN 01/27/23 02/25/23 02/24/23 Rx vaginal cream (Estrace) vaginitis #42.5 grams topiramate 100 mg tablet 100 mg PO DAILY PRN headache #90 02/01/23 02/25/23 02/25/23 Rx tabs varenicline 1 mg tablet 1 mg PO BID #56 tabs 02/01/23 02/25/23 02/24/23 Rx hydrocodone 5 mg-acetaminophen 325 1 tab PO DAILY PRN chronic pain 30 02/04/23 02/25/23 02/24/23 Rx mg tablet days #30 tabs esomeprazole magnesium 40 mg See Rx Instructions .Route 02/10/23 02/25/23 02/25/23 Rx capsule,delayed release .COMPLEX #30 caps linaclotide 72 mcg capsule 72 mcg PO DAILY #30 caps 02/10/23 02/25/23 02/25/23 Rx (Linzess) amlodipine 5 mg tablet 2.5 mg PO DAILY blood pressure #30 02/16/23 02/23/23 02/23/23 Rx tabs Allergies Allergy/AdvReac Type Severity Reaction Status Date / Time Penicillins Allergy Unknown Verified 02/01/23 12:33 procaine [From Novocain] Allergy Unknown Verified 02/01/23 12:33 [facility] Anesthesia Medical History Anxiety Cervical cancer Chronic back pain Cigarette smoker Colon cancer COPD (chronic obstructive pulmonary disease) Deficient knowledge of open reduction and internal (ORIF) fixation of hip Dementia Encounter for diagnostic endoscopy GERD (gastroesophageal reflux disease) Health care maintenance History of kidney stones HTN (hypertension) Hx of ovarian cancer Originally found in 1972 with surgery, In 1975 with total hysterectomy. Hyperlipidemia Hypertension Insomnia Peripheral vascular disease Plaque psoriasis Post-menopause atrophic vaginitis Respiratory failure with hypoxia and hypercapnia Right wrist fracture Surgical History H/O lumpectomy Right H/O right knee surgery History of appendectomy History of cataract surgery Bilateral History of deviated nasal septum Surgically corrected History of partial colectomy Partial colectomy by Dr. Pearson on 05/01/2021 with repeat surgery on 05/11/2021 with colon cancer and partial transverse colectomy with later anastomosis History of total abdominal hysterectomy Originally found in 1972 with surgery for ovarian cancer, In 1975 with total hysterectomy. Kidney stones Removal cystoscopically Family History Other CAD (coronary artery disease) Cancer Dementia Diabetes Hyperlipidemia Hypertension Lung disease Social History Smoking and tobacco status: current every day smoker cigarettes Packs smoked per day: 1.5 Years cigarettes smoked: 49 Quit status (tobacco): has tried quititng Second hand smoke exposure: Yes Alcohol intake: former Former alcohol use details: shots Substance/Drug Use: never Adopted: No Caregiver/support person: No Lives independently: Yes Household members: none Housing: Apartment Marital status: Marital status details: divorce is pending Number of children: 1 Number of grandchildren: 5 Highest education level completed: Some College, No Degree service: No Current occupational status: retired and disabled Pets and animals: Yes Pets & animals: dog(s) Leisure activites: games, reading and other Leisure activities details: watch TV with her dog Sexually active: No Do you think of yourself as: Straight/Heterosexual Current gender identity: Female Martha/[employer]: [employer] Special martha needs: No Agree to transfusion: Yes Financial difficulty paying for basics: Hard Female Reproductive History Para: 1 Data Anesthesia Cardiac Studies: Echocardiogram 05/02/21 Holter Monitor 12/28/19
[2023-02-25] MEDS: sodium chloride 0.9% 1,000 ML 30 ML IV (07:37)
--- NOTE | 2023-02-25 07:44 | W.PM.OPSUD ---
Surgery/Procedure H&P Update DATE OF PROCEDURE: February 25, 2023 DATE H&P PERFORMED: 02/10/23 CHANGES TO PREVIOUS DOCUMENTATION: Patient evaluated by me this morning, no changes to exam. indication for colonoscopy remains. PREOP DIAGNOSIS: History of colon ca PRIMARY INDICATION FOR PROCEDURE: history of colon cancer s/p resection and segmental anastomosis PLANNED PROCEDURE: Operation Date: 02/25/23 07:50 Proposed Procedures p Colonoscopy 47344,Z12.11(Not Applicable) - Joshua Maria MD
[2023-02-25 08:11] VITALS: BP 100/51; PULSE 65; RESP 12; TEMP 36.6; O2SAT 98
--- NOTE | 2023-02-25 08:30 | ANE.PACU2 ---
Inpatient post-anesthesia follow up: Airway intact: Yes Vital signs: Temperature 97.8 F Pulse Rate 63 Respiratory Rate 16 Blood Pressure 111/51 Pulse Oximetry 98 Oxygen Delivery Me thod Room Air Oxygen Flow Rate 6 Fraction of Inspir ed Oxygen Hydration adequate: Yes Nausea and vomiting: No Pain level: 1 Mental status: Baseline
[2023-02-25 08:35] VITALS: BP 111/51; PULSE 63; RESP 16; O2SAT 98
== END 2023-02-25 08:45 | disposition home or self-care (01) ==
PROVIDERS: PCP Family Medicine Adult Medicine; Visit Provider Surgery
PROC: 0DJD8ZZ Inspection of Lower Intestinal Tract, Via Natural or Artificial Opening Endoscopic (ICD-10-PCS; CPT 45378; principal; 2023-02-25 07:50)
DX: Z12.11 Encounter for screening for malignant neoplasm of colon (principal); Z85.038 Personal history of other malignant neoplasm of large intestine; Z90.49 Acquired absence of other specified parts of digestive tract; J44.9 Chronic obstructive pulmonary disease, unspecified; I10 Essential (primary) hypertension; I73.9 Peripheral vascular disease, unspecified; K21.9 Gastro-esophageal reflux disease without esophagitis; E78.5 Hyperlipidemia, unspecified; F41.9 Anxiety disorder, unspecified; F32.A Depression, unspecified; F17.210 Nicotine dependence, cigarettes, uncomplicated
CPT/HCPCS: G0121; J2704; J7030

== ENCOUNTER → 2023-08-04 13:07 | Outpatient (BNVA) | payer MEDICARE, MEDICAID, SELFPAY ==
[2022-12-08 17:07] VITALS: BP 131/73; BMI 32.6
== END ==
PROVIDERS: PCP Family Medicine Adult Medicine; Visit Provider Specialist
DX: G43.711 Chronic migraine without aura, intractable, with status migrainosus (principal); F17.210 Nicotine dependence, cigarettes, uncomplicated; G37.9 Demyelinating disease of central nervous system, unspecified
CPT/HCPCS: 99214

== ENCOUNTER → 2023-09-10 09:38 | Outpatient (BNVA) | payer MEDICARE, MEDICAID, SELFPAY ==
[2022-12-08 17:07] VITALS: BP 131/73; BMI 32.6
== END ==
PROVIDERS: PCP Family Medicine Adult Medicine; Visit Provider Nurse Practitioner
DX: R20.2 Paresthesia of skin; M25.631 Stiffness of right wrist, not elsewhere classified; M25.632 Stiffness of left wrist, not elsewhere classified
CPT/HCPCS: 73110; 99214

== ENCOUNTER → 2023-09-20 15:37 | Outpatient (BNVA) | payer OTHER, SELFPAY ==
[2022-12-08 17:07] VITALS: BP 131/73; BMI 32.6
== END ==
PROVIDERS: PCP Family Medicine Adult Medicine; Visit Provider Psychiatry & Neurology Psychiatry
DX: F41.1 Generalized anxiety disorder (principal)
CPT/HCPCS: 80061; 83036

== ENCOUNTER → 2023-10-13 12:24 | Outpatient (BNVA) | payer OTHER, SELFPAY ==
[2022-12-08 17:07] VITALS: BP 131/73; BMI 32.6
== END ==
PROVIDERS: PCP Family Medicine Adult Medicine; Visit Provider Psychiatry & Neurology Psychiatry
DX: F41.1 Generalized anxiety disorder (principal)
CPT/HCPCS: 80061; 83036

== ENCOUNTER → 2024-05-10 16:15 | Outpatient (BNVA) | payer MEDICARE, SELFPAY ==
[2023-12-18 18:25] VITALS: BP 116/65; BMI 31.6
== END ==
PROVIDERS: PCP Family Medicine Adult Medicine; Visit Provider Internal Medicine Cardiovascular Disease
DX: R42 Dizziness and giddiness (principal); I10 Essential (primary) hypertension; R00.2 Palpitations; F17.210 Nicotine dependence, cigarettes, uncomplicated
CPT/HCPCS: 99204

== ENCOUNTER → 2024-08-02 11:24 | Outpatient (BNVA) | payer MEDICAID, SELFPAY ==
[2023-12-18 18:25] VITALS: BP 116/65; BMI 31.6
== END ==
PROVIDERS: PCP Family Medicine Adult Medicine; Visit Provider Specialist
DX: R42 Dizziness and giddiness (principal); G43.711 Chronic migraine without aura, intractable, with status migrainosus; R29.90 Unspecified symptoms and signs involving the nervous system; G37.9 Demyelinating disease of central nervous system, unspecified; F17.200 Nicotine dependence, unspecified, uncomplicated
CPT/HCPCS: 99214

== ENCOUNTER → 2024-10-19 11:09 | Outpatient (BNVA) | payer OTHER, SELFPAY ==
[2024-10-02 10:33] VITALS: BP 116/65; BMI 31.6
== END ==
PROVIDERS: PCP Family Medicine Adult Medicine; Visit Provider Psychiatry & Neurology Psychiatry
DX: F33.1 Major depressive disorder, recurrent, moderate (principal); F41.1 Generalized anxiety disorder
CPT/HCPCS: 80061; 83036

== ENCOUNTER → 2024-10-30 12:48 | Outpatient (BNVA) | payer MEDICAID, SELFPAY ==
[2024-11-06 17:00] VITALS: BP 161/83; BMI 28.3
== END ==
PROVIDERS: PCP Family Medicine; Visit Provider Internal Medicine Cardiovascular Disease
DX: I10 Essential (primary) hypertension (principal); R42 Dizziness and giddiness; Z79.82 Long term (current) use of aspirin; F17.210 Nicotine dependence, cigarettes, uncomplicated
CPT/HCPCS: 99214

== ENCOUNTER 2024-10-31 09:20 | Outpatient (CLI) | payer MEDICAID, SELFPAY ==
[2023-12-18 18:25] VITALS: BP 116/65; BMI 31.6
== END 2024-10-31 09:26 | disposition home or self-care (01) ==
LOC: RAD 11-01 07:33
PROVIDERS: PCP Family Medicine Adult Medicine; Visit Provider Specialist
DX: R42 Dizziness and giddiness (principal); F09 Unspecified mental disorder due to known physiological condition; G43.711 Chronic migraine without aura, intractable, with status migrainosus
CPT/HCPCS: 95819

== ENCOUNTER → 2024-11-09 14:26 | Outpatient (BNVA) | payer MEDICAID, SELFPAY ==
[2024-11-06 17:00] VITALS: BP 161/83; BMI 28.3
== END ==
PROVIDERS: PCP Family Medicine Adult Medicine; Visit Provider Specialist
DX: G43.711 Chronic migraine without aura, intractable, with status migrainosus (principal); R29.90 Unspecified symptoms and signs involving the nervous system; G37.9 Demyelinating disease of central nervous system, unspecified; F41.9 Anxiety disorder, unspecified; F32.A Depression, unspecified; F17.290 Nicotine dependence, other tobacco product, uncomplicated
CPT/HCPCS: 99214

== ENCOUNTER → 2025-06-26 13:00 | Outpatient (BNVA) | payer OTHER, SELFPAY ==
[2025-06-07 15:59] VITALS: BP 161/83; BMI 28.3
== END ==
PROVIDERS: PCP Family Medicine Adult Medicine; Visit Provider Family Medicine
DX: F41.1 Generalized anxiety disorder (principal); I10 Essential (primary) hypertension; E78.5 Hyperlipidemia, unspecified; J43.1 Panlobular emphysema
CPT/HCPCS: 80053; 80061; 83036; 85025